=== PATIENT | female | born 1970 | race Caucasian/White ===

== ENCOUNTER → 2016-04-24 | Outpatient (CLI) | payer OTHER ==
[~2016-04-24] MED LIST: ATV1 PO; GLC/500 PO; INSDGI SC; NVLGI SC; RXC5 PO; SIMV20TA2 PO; VENL150C56 PO
--- NOTE | 2016-04-24 16:36 | MAMMOGRAPHY REPORT ---
BILATERAL DIGITAL DIAGNOSTIC MAMMOGRAM TOMOSYNTHESIS WITH CAD AND TARGETED LEFT ULTRASOUND: 7 CLINICAL HISTORY: Annual bilateral screening mammogram. History of interval surgical excision/incis ion and drainage and duct exploration in the subareolar left breast. TECHNIQUE: Bilateral breast tomosynthesis in addition to standard 2D mammography was performed. A r epeat left CC view was performed with the nipple in profile. Current study was also evaluated with a Computer Aided Detection (CAD) system. COMPARISON: Comparison is made to exams dated: 03/09/2015 ultrasound, 03/09/2015 mammogram, 05/05/2013 mammogram, 11/14/2011 mammogram, 04/05/2009 mammogram, and 07/21/2014 mammogram - [facility]. BREAST COMPOSITION: The tissue of both breasts is almost entirely fatty. FINDINGS: There is a 6.8 x 17.0 mm density in the subareolar left breast just deep to the nipple vianney t is decreased in size in prominence comparing to the spot compression view obtained 03/09/2015 in t he area of prior surgeries and subareolar abscess. There are a few scattered benign-appearing micro calcifications bilaterally. No new suspicious mass, architectural distortion or cluster of microcal cifications is seen in either breast. Targeted ultrasound was performed in the subareolar and periareolar left breast. The patient report s continued small amount of pus that she is able to express from her nipple and also occasionally al anjelica the periareolar incision. There is prominent soft tissue in the retroareolar left breast extend ing into the lower inner subareolar region deep to the surgical scar. 1 ovoid area in particular ap pears more hypoechoic than the remainder of the tissue, measuring approximately 1.5 cm in greatest d imension, but this is thought to represent inverted nipple as opposed to residual drainable fluid co llection. IMPRESSION: ACR BI-RADS CATEGORY 2: BENIGN, TARGETED ULTRASOUND ACR BI-RADS CATEGORY 2: BENIGN There is no mammographic evidence of malignancy bilaterally. A chronic left subareolar abscess is l ess prominent comparing to the 03/09/2015 mammograms and ultrasound. However, clinical follow-up is recommended. If the patient notices an increase or worsening of symptoms, repeat targeted ultrasou nd and/or repeat evaluation by her breast surgeon is recommended. Otherwise recommend bilateral mamm ography in one year. Approximately 10% of breast cancers are not detected with mammography. A negative mammographic repor t should not delay biopsy if a clinically suggestive mass is present. Chyna Garcia M.D. ay/:04/24/2016 16:33:06 [employer]planter Orchid: Devora ALLEN)([place]ued[place]), [facility] letter sent: Normal 1/2 BI-RADS Code: ACR BI-RADS Category 2: Benign Ultrasound BI-RADS: ACR BI-RADS Category 2: Benign
== END | disposition home or self-care (01) ==
LOC: C.MAMM 13:39
PROVIDERS: ATTEND Surgery
DX: N64.89 Other specified disorders of breast (principal)

== ENCOUNTER 2023-04-30 08:02 | Inpatient (IN) ==
--- NOTE | 2023-04-30 08:48 | Emergency Department Note ---
History of Present Illness General Chief complaint: Illness Stated complaint: REF BY [facility], FEVER, KIDNEY PAIN, SOB, WEAKNESS Time Seen by Provider: 04/30/23 08:16 History of Present Illness Maximum Pain Intensity: 8 This is a 52-year-old female that presents to the emergency department via private vehicle with complaints of "fever, back pain, shortness of breath, weakness". The patient notes that 1 week ago she began having bilateral back pain. She then progressed to sinus congestion, and tried using Sudafed for her symptoms. She notes progressive weakness and feeling tired. For the past 3 days she has been in bed and feeling weak. She also notes last night chest pain with that has resolved and now is more of a chest tightness. She feels short of breath. She cannot cough secondary to feeling short of breath. She has been trying [place] as well. Last night temperature was 100.6 F. She notes a history of diabetes, hypertension, ankylosing spondylitis, left breast surgery, left finger surgery, partial hysterectomy, neck surgery, fusion, rotator cuff surgery, over removal x 1, carpal tunnel surgery. She notes allergies to penicillin/Bactrim. She also notes a dry sensation in her throat/throat pain. Home Medications Medication Instructions Recorded Confirmed Type ascorbic acid (vitamin C) 500 mg 500 mg PO BID 04/30/23 04/30/23 History tablet (Vitamin C) gabapentin 300 mg capsule 300 mg PO TID 04/30/23 04/30/23 History insulin aspart U-100 100 unit/mL See Rx Instructions .Route .COMPLEX 04/30/23 04/30/23 History subcutaneous solution (Novolog U-100 Insulin aspart) melatonin 12 mg tablet 12 mg PO HS 04/30/23 04/30/23 History vit no.95-ferrous 1 tab PO DAILY 04/30/23 04/30/23 History fumarate 28 mg-folic acid 800 mcg tablet () semaglutide 1 mg/dose (4 mg/3 mL) 2 mg subcut WK 04/30/23 04/30/23 History subcutaneous pen injector (Ozempic) simvastatin 40 mg tablet 40 mg PO HS 04/30/23 04/30/23 History venlafaxine 150 mg 150 mg PO DAILY 04/30/23 04/30/23 History capsule,extended release 24 hr venlafaxine 75 mg tablet 75 mg PO QPM 04/30/23 04/30/23 History zolpidem 5 mg tablet 5 mg PO HS Sleep 04/30/23 04/30/23 History Allergies Allergy/AdvReac Type Severity Reaction Status Date / Time Penicillins Allergy Severe RASH, Verified 10/18/14 15:02 CHEST HEAVINESS, SOB sulfamethoxazole Allergy Intermediate Rash Unverified 04/30/23 11:11 [From Bactrim] trimethoprim [From Bactrim] Allergy Intermediate Rash Unverified 04/30/23 11:11 Past Med/Surg History Medical History (Updated 04/30/23 @ 14:03 by Rowdy Lou PA-C) Diabetes mellitus, type 2 Tobacco abuse Depression Dyslipidemia Surgical History S/P hysterectomy S/P carpal tunnel release Social History Smoking Status: Current every day smoker Tobacco Type: Cigarettes Feels Safe at Home: Yes Review of Systems A total of 10 systems reviewed and were otherwise negative Physical Exam Vital Signs Vital Signs - 24 hr 04/30/23 08:05 04/30/23 08:42 04/30/23 08:48 Temperature 36.1 C L Temperature Source Temporal Artery Scan Pulse Rate 110 H 97 H Pulse Rate from SpO2 Sensor 98 H Respiratory Rate 18 15 Respiratory Effort / Characteristics Non-Labored Respiratory Depth Normal Respiratory Pattern Regular Blood Pressure 114/75 119/74 Blood Pressure Mean 88 89 Pulse Oximetry 98 98 98 Oxygen Delivery Method Room Air Room Air Sepsis Recent Fever Within 48 Hours No Sepsis New/Unexplained Change in Mental Status N/A Sepsis Action Taken by Nursing No Action Required 04/30/23 08:49 04/30/23 10:10 04/30/23 10:14 Temperature 38.2 C H Temperature Source Axillary Pulse Rate 99 H 109 H Pulse Rate from SpO2 Sensor 107 H Respiratory Rate 18 Respiratory Effort / Characteristics Respiratory Depth Respiratory Pattern Blood Pressure Blood Pressure Mean Pulse Oximetry 94 Oxygen Delivery Method Sepsis Recent Fever Within 48 Hours Sepsis New/Unexplained Change in Mental Status Sepsis Action Taken by Nursing 04/30/23 11:20 04/30/23 11:41 04/30/23 12:00 Temperature Temperature Source Pulse Rate 95 H 100 H 90 Pulse Rate from SpO2 Sensor 96 H 89 90 Respiratory Rate 18 21 13 Respiratory Effort / Characteristics Respiratory Depth Respiratory Pattern Blood Pressure 115/76 122/75 Blood Pressure Mean 89 90 Pulse Oximetry 95 95 96 Oxygen Delivery Method Sepsis Recent Fever Within 48 Hours Sepsis New/Unexplained Change in Mental Status Sepsis Action Taken by Nursing 04/30/23 12:05 04/30/23 12:30 04/30/23 13:23 Temperature 37.6 C H Temperature Source Oral Pulse Rate 86 85 Pulse Rate from SpO2 Sensor 86 Respiratory Rate 18 Respiratory Effort / Characteristics Respiratory Depth Respiratory Pattern Blood Pressure 109/74 Blood Pressure Mean 85 Pulse Oximetry 92 Oxygen Delivery Method Sepsis Recent Fever Within 48 Hours Sepsis New/Unexplained Change in Mental Status Sepsis Action Taken by Nursing VITAL SIGNS - Vital signs and nursing notes were reviewed. Stable and afebrile. Tachycardic on arrival. GENERAL -52-year-old female appearing her stated age who is in no acute distress but appears mildly ill and does have visible chills/mild rigors on exam. Communicates well with provider and answers questions appropriately. SKIN - Without rashes. Stable and afebrile. HEAD - NC/AT. EYES - PERRL with EOMI bilaterally. Sclera anicteric. EARS - No deformities of external structures noted on gross examination bilaterally. no evidence of otitis media or otitis externa NOSE - Midline and without cyanosis. No epistaxis or purulent drainage noted. MOUTH/OROPHARYNX - Without perioral cyanosis. Buccal mucosa pink and moist and without leukoplakia. Tongue midline with equal elevation of palate bilaterally. No tonsillar hypertrophy, erythema, or exudates noted. Good dentition noted. NECK - Neck with FROM. Supple to palpation. Lymphadenopathy noted. No nuchal rigidity. LUNGS - Chest wall symmetric without accessory muscle use, intercostals retractions, or central cyanosis. Normal vesicular breath sounds CTA B/L. No wheezes, rales, or rhonchi appreciated. CARDIAC - RRR ABDOMEN - Abdominal contour normal without pulsations or visible masses. BS normoactive all four quadrants. No tenderness, palpable masses, hepatosplenomegaly, or ascites noted. EXTREMITIES - No clubbing or peripheral cyanosis. +5/5 strength noted in UE/LE bilaterally. NEUROLOGIC - Cranial nerves II through XII grossly intact. PSYCH - A&Ox3 and cooperates fully with examiner. Pt is very pleasant and interacts well with examiner. Course Administered Medications Discontinued Medications Acetaminophen (Acetaminophen 325 Mg Tab) 650 mg PO NOW STA Stop: 04/30/23 10:32 Last Admin: 04/30/23 10:42 Dose: 650 mg Documented By: [facility] Sodium Chloride (Nss) 1,000 mls @ 999 mls/hr IV .Q1H1M MICHELLE Stop: 04/30/23 10:00 Last Infusion: 04/30/23 10:44 Dose: Infused Documented By: [facility] Admin: 04/30/23 08:53 Dose: 999 mls/hr Documented By: [facility] Cefepime HCl (Maxipime) 2,000 mg in 20 mls @ 5 mls/min IV NOW STA; Protocol Stop: 04/30/23 11:50 Last Admin: 04/30/23 11:58 Dose: 5 mls/min Documented By: [facility] Ketorolac Tromethamine (Ketorolac Tromethamine 15 Mg/Ml Vial) 10 mg IV NOW ONE Stop: 04/30/23 10:32 Last Admin: 04/30/23 10:42 Dose: 10 mg Documented By: [facility] Medical Decision Making Laboratory Data 04/30/23 08:55 04/30/23 08:55 Lab Results 04/30/23 04/30/23 04/30/23 Range/Units 08:44 08:55 09:50 WBC 9.53 (4.8-10.8) K/ul RBC 3.94 L (4.20-5.40) M/uL Hgb 10.9 L (12.0-16.0) g/dl Hct 33.2 L (37.0-47.0) % MCV 84.3 (80.0-100.0) fL MCH 27.7 (25.0-34.0) pg MCHC 32.8 (32.0-36.0) g/dL RDW Std Deviation 36.8 (36.4-46.3) fL RDW Coeff of Norberto 12.1 (11.5-14.5) % Plt Count 252 (130-400) K/uL MPV 10.7 (9.4-12.4) fL Immature Gran % (Auto) 0.4 % Neut % (Auto) 78.6 % Lymph % (Auto) 9.0 % [place] % (Auto) 11.4 % Eos % (Auto) 0.4 % Baso % (Auto) 0.2 % Neut # (Auto) 7.48 H (1.40-6.50) K/uL Lymph # (Auto) 0.86 L (1.20-3.40) K/uL [place] # (Auto) 1.09 H (0.11-0.59) K/uL Eos # (Auto) 0.04 (0.00-0.50) K/uL Baso # (Auto) 0.02 (0.00-0.20) K/uL Immature Gran # (Auto) 0.04 (0.01-0.20) K/uL PT 10.9 (9.0-12.0) Seconds INR 1.0 (0.9-1.1) APTT 29 (21-31) Seconds PTT Ratio 1.0 Sodium 132 L (136-145) mmol/L Potassium 4.2 (3.5-5.1) mmol/L Chloride 98 (98-107) mmol/L Carbon Dioxide 28 (21-32) mmol/L Anion Gap 6 (3-11) BUN 14 (6-23) mg/dl Creatinine 0.75 (0.6-1.2) mg/dl Est Cr Clr Drug Dosing 76.4 ml/min Est GFR ( Amer) 106.2 ml/min Est GFR (Non-Af Amer) 91.6 ml/min BUN/Creatinine Ratio 18.7 (10-20) Glucose 257 H (70-99(Fasting)) mg/dl Lactate 0.8 (0.4-2.0) mmol/L Calcium 8.8 (8.6-10.3) mg/dl Total Bilirubin 0.3 (0.2-1.0) mg/dl AST 27 (13-39) U/L ALT 44 (7-52) U/L Alkaline Phosphatase 95 (34-104) U/L Troponin I High Sens 4.0 (0-14) pg/ml Total Protein 6.5 (6.0-8.3) gm/dl Albumin 3.6 (3.4-5.0) gm/dl Globulin 2.9 (2.5-4.0) gm/dl Albumin/Globulin Ratio 1.2 (0.9-2) Lipase 36 (11-82) U/L Procalcitonin 0.16 (0-0.5) ng/ml TSH 0.514 (0.300-4.500) uIu/ml Urine Color Urine Appearance (Clear) Urine pH (4.5-7.5) Ur Specific [place] (1.000-1.030) Urine Protein (Negative) Urine Glucose (UA) (Negative) Urine Ketones (Negative) Urine Blood (Negative) Urine Nitrite (Negative) Urine Bilirubin (Negative) Urine Urobilinogen (Negative) Ur Leukocyte Esterase (Negative) Urine WBC (Auto) (0-5) /hpf Urine RBC (Auto) (0-4) /hpf U Hyaline Cast (Auto) (0-5) /lpf U Epithel Cells (Auto) (0-5) /lpf Urine Bacteria (Auto) (Negative) Adenovirus (PCR) Not Detected (NotDetected) B. pertussis DNA (PCR) Not Detected (NotDetected) B.parapertussis DNA PCR Not Detected (NotDetected) C. pneumoniae DNA (PCR) Not Detected (NotDetected) Coronavirus OC43 (PCR) Not Detected (NotDetected) Coronavirus HKU1 (PCR) Not Detected (NotDetected) Coronavirus 229E (PCR) Not Detected (NotDetected) SARS-CoV-2 (PCR) Not Detected (NotDetected) Coronavirus NL63 (PCR) Not Detected (NotDetected) Human Metapneumovir PCR Not Detected (NotDetected) Influenza Type A (PCR) Not Detected (NotDetected) Influenza Type B (PCR) Not Detected (NotDetected) M. pneumoniae (PCR) Not Detected (NotDetected) Parainfluenza 1 (PCR) Not Detected (NotDetected) Parainfluenza 2 (PCR) Not Detected (NotDetected) Parainfluenza 3 (PCR) Not Detected (NotDetected) Parainfluenza 4 (PCR) Not Detected (NotDetected) RSV (PCR) Not Detected (NotDetected) Entero/Rhino (PCR) Not Detected (NotDetected) Group A Strep (PCR) NOT DETECTED (NotDetected) 04/30/23 Range/Units 10:30 WBC (4.8-10.8) K/ul RBC (4.20-5.40) M/uL Hgb (12.0-16.0) g/dl Hct (37.0-47.0) % MCV (80.0-100.0) fL MCH (25.0-34.0) pg MCHC (32.0-36.0) g/dL RDW Std Deviation (36.4-46.3) fL RDW Coeff of Norberto (11.5-14.5) % Plt Count (130-400) K/uL MPV (9.4-12.4) fL Immature Gran % (Auto) % Neut % (Auto) % Lymph % (Auto) % [place] % (Auto) % Eos % (Auto) % Baso % (Auto) % Neut # (Auto) (1.40-6.50) K/uL Lymph # (Auto) (1.20-3.40) K/uL [place] # (Auto) (0.11-0.59) K/uL Eos # (Auto) (0.00-0.50) K/uL Baso # (Auto) (0.00-0.20) K/uL Immature Gran # (Auto) (0.01-0.20) K/uL PT (9.0-12.0) Seconds INR (0.9-1.1) APTT (21-31) Seconds PTT Ratio Sodium (136-145) mmol/L Potassium (3.5-5.1) mmol/L Chloride (98-107) mmol/L Carbon Dioxide (21-32) mmol/L Anion Gap (3-11) BUN (6-23) mg/dl Creatinine (0.6-1.2) mg/dl Est Cr Clr Drug Dosing ml/min Est GFR ( Amer) ml/min Est GFR (Non-Af Amer) ml/min BUN/Creatinine Ratio (10-20) Glucose (70-99(Fasting)) mg/dl Lactate (0.4-2.0) mmol/L Calcium (8.6-10.3) mg/dl Total Bilirubin (0.2-1.0) mg/dl AST (13-39) U/L ALT (7-52) U/L Alkaline Phosphatase (34-104) U/L Troponin I High Sens (0-14) pg/ml Total Protein (6.0-8.3) gm/dl Albumin (3.4-5.0) gm/dl Globulin (2.5-4.0) gm/dl Albumin/Globulin Ratio (0.9-2) Lipase (11-82) U/L Procalcitonin (0-0.5) ng/ml TSH (0.300-4.500) uIu/ml Urine Color Yellow Urine Appearance Cloudy A (Clear) Urine pH 8.0 H (4.5-7.5) Ur Specific [place] 1.013 (1.000-1.030) Urine Protein Trace H (Negative) Urine Glucose (UA) 1+ H (Negative) Urine Ketones Trace H (Negative) Urine Blood Negative (Negative) Urine Nitrite Positive A (Negative) Urine Bilirubin Negative (Negative) Urine Urobilinogen Negative (Negative) Ur Leukocyte Esterase 1+ H (Negative) Urine WBC (Auto) >30 H (0-5) /hpf Urine RBC (Auto) 0-4 (0-4) /hpf U Hyaline Cast (Auto) 1-5 (0-5) /lpf U Epithel Cells (Auto) 10-20 H (0-5) /lpf Urine Bacteria (Auto) 3+ H (Negative) Adenovirus (PCR) (NotDetected) B. pertussis DNA (PCR) (NotDetected) B.parapertussis DNA PCR (NotDetected) C. pneumoniae DNA (PCR) (NotDetected) Coronavirus OC43 (PCR) (NotDetected) Coronavirus HKU1 (PCR) (NotDetected) Coronavirus 229E (PCR) (NotDetected) SARS-CoV-2 (PCR) (NotDetected) Coronavirus NL63 (PCR) (NotDetected) Human Metapneumovir PCR (NotDetected) Influenza Type A (PCR) (NotDetected) Influenza Type B (PCR) (NotDetected) M. pneumoniae (PCR) (NotDetected) Parainfluenza 1 (PCR) (NotDetected) Parainfluenza 2 (PCR) (NotDetected) Parainfluenza 3 (PCR) (NotDetected) Parainfluenza 4 (PCR) (NotDetected) RSV (PCR) (NotDetected) Entero/Rhino (PCR) (NotDetected) Group A Strep (PCR) (NotDetected) Imaging Data Radiologist's Impression: Chest X-Ray 04/30/23 08:47 XR chest 1V portable HISTORY: 52 years-old Female fever acute shortness breath with fever COMPARISON: 10/18/2014 TECHNIQUE: AP view the chest FINDINGS: Cardiomediastinal and hilar silhouettes are within normal limits. No pneumothorax, pleural effusion or airspace consolidation. Mild right hemidiaphragmatic elevation. Cervical spinal fusion hardware. Bones appear grossly intact. IMPRESSION: No acute process. ACT 112: Negative or not required by law. The above report was generated using voice recognition software. It may contain grammatical, syntax or spelling errors. Electronically signed by: Corby Cates M.D. 04/30/2023 9:45 AM Abdomen/Pelvis CT 04/30/23 10:57 CT SCAN OF THE ABDOMEN AND PELVIS WITHOUT IV CONTRAST CLINICAL HISTORY: Urinary tract infection. Fever. COMPARISON STUDY: No priors. TECHNIQUE: CT scan of the abdomen and pelvis is performed from the lung bases to the proximal femora. Images are reviewed in the axial, sagittal, and coronal planes. IV contrast was not administered for this examination. A dose lowering technique was utilized adhering to the principles of ALARA. CT DOSE: 688.98 mGy.cm FINDINGS: Lung bases: The heart is normal in size and without pericardial effusion. There is diminished attenuation of the cardiac blood pool as compared to the myocardium suggesting anemia. There is bibasilar scarring/atelectasis. No airspace consolidation or pleural effusion is identified. There is a tiny hiatal hernia. Liver: The unenhanced liver is normal in size, contour, and attenuation. There is mild central intrahepatic biliary ductal dilatation. Gallbladder: Surgically absent noting clips in the gallbladder fossa. Spleen: Normal in size and attenuation. There are calcified splenic granulomas. Pancreas: The unenhanced pancreas is grossly unremarkable. Adrenal glands: Unremarkable. Kidneys: The unenhanced kidneys are normal in size. There is mild right-sided hydronephrosis with right-sided perinephric inflammation and fluid. Urothelial thickening is noted in the right renal pelvis and right ureter. No hydronephrosis is seen in the left kidney. No renal calculi are identified and there is no ureteral stone. There is no evidence of contour deforming renal mass lesion. Abdominal vasculature: The abdominal aorta is normal in course and caliber noting mild atherosclerotic calcification. Bowel: There is moderate colonic fecal retention. No bowel obstruction is seen. The appendix is well-visualized and normal. Peritoneum: There is no intraperitoneal free air or abdominal ascites. Lymphadenopathy: None. Pelvic viscera: The bladder wall appears circumferentially thickened. The uterus is surgically absent. No adnexal lesion is seen. Skeletal structures: The skeletal structures are osteopenic. Mild degenerative change is noted in the spine. There is degenerative sclerosis of the sacroiliac joints. No lytic or blastic lesions are seen. IMPRESSION: 1. There is mild right-sided hydronephrosis with right-sided perinephric stranding and fluid as detailed above. No obstructing stone is identified. This could represent the sequelae of a recently passed kidney stone, or could potentially be seen with ascending urinary tract infection. Correlation with clinical findings and urinalysis will be essential. 2. No renal calculi are identified in either kidney. There is no left-sided hydronephrosis. 3. The bladder wall appears circumferentially thickened. Again, this should be correlated with clinical findings and urinalysis. 4. Moderate constipation. 5. Additional findings as above. ACT 112: Negative or not required by law. Electronically signed by: Israel Elizabeth M.D. 04/30/2023 11:59 AM MDM Narrative Patient was seen and evaluated as above in room A10. Review was performed of nursing notes and vital signs. After obtaining a thorough history and physical examination the above work up was performed. Patient presents to us today for evaluation of fever, back pain, shortness of breath, weakness. She is mildly ill-appearing. Options of care were discussed with the patient. IV access was established. Patient is now febrile. She is in pain. At this time to treat the fever we will proceed with oral acetaminophen and patient aware that she will need to utilize additional methods to check her glucose other than her continuous glucose monitor/Dexcom noting the likely interaction with acetaminophen. Furthermore, we will also proceed with a small dose of IV Toradol. I thoroughly discussed benefit versus risk with the patient of these medications and through shared decision making we will proceed. It is felt that the benefit outweighs risk. Labs were drawn. Labs reveal no leukocytosis. Mild anemia noted with hemoglobin at 10.9. Coags normal. Mild hyponatremia 132. Hyperglycemia 257. Troponin within normal range. Lipase normal. Procalcitonin 0.16. TSH reveals euthyroid state. Urinalysis reveals infection. BioFire panel negative. Strep test was performed as she did have a sore/dry throat. This was negative. CT scan was obtained of the abdomen/pelvis. There is concern for ascending urinary tract infection. There is no obstructing stone seen. IV cefepime was ordered after discussing benefit versus risk with the patient. No reaction noted. EKG here reveals normal sinus rhythm at a rate of 99 bpm. QTc 436. QRS 84. Chest x-ray here was negative for acute process. At this time I do believe that inpatient management is warranted noting a standing urinary tract infection and her symptoms today. Case discussed with the hospitalist service. Please refer to further documentation regarding her stay. In the evaluation and treatment of this patient the following differential diagnoses were entertained: UTI, pyelonephritis, bacteremia, sepsis, obstructing kidney stone, among others Impression & Plan Pyelonephritis, Fever Discharge Plan Visit Data Chief Complaint: Illness Stated Complaint: REF BY [facility], FEVER, KIDNEY PAIN, SOB, WEAKNESS ED Provider: Pipe Diez ED Midlevel Provider: Rowdy Lou Discharge Problem: Pyelonephritis, Fever Patient Disposition: Admitted As Inpatient Condition: Good Forms Stand Alone Forms: My [facility], Important Visit Information Prescriptions Prescriptions: No Action venlafaxine [Effexor] 75 mg Tablet 75 mg PO QPM insulin aspart U-100 [Novolog U-100 Insulin aspart] 100 unit/mL solution See Rx Instructions .ROUTE .COMPLEX Rx Instructions: as directed; pump gabapentin 300 mg capsule 300 mg PO TID Rx Instructions: usually takes twice a day, forgets the noon dose. zolpidem 5 mg tablet 5 mg PO HS Ozempic 1 mg/dose (4 mg/3 mL) pen injector 2 mg SUBCUT WK simvastatin 40 mg tablet 40 mg PO HS venlafaxine 150 mg capsule,extended release 24hr 150 mg PO DAILY ascorbic acid (vitamin C) [Vitamin C] 500 mg Tablet 500 mg PO BID PNV cmb#95-ferrous fumarate-FA [] 28 mg iron- 800 mcg Tablet 1 tab PO DAILY melatonin 12 mg Tablet 12 mg PO HS Referrals Referrals: Kalpesh Padilla PA-C [Outside Practitioners] -
[2023-04-30] MEDS: SODIUM CHLORIDE 0.9% 1,000 ML IV SCH ×3 (08:53→18:20)
[2023-04-30 09:25] LABS: Basophils # (auto) 0.02 K/uL (0.00-0.20); Basophils % (auto) 0.2 %; Eosinophils # (auto) 0.04 K/uL (0.00-0.50); Eosinophils % (auto) 0.4 %; Hematocrit (blood only) 33.2 % (37.0-47.0); Hemoglobin 10.9 g/dl (12.0-16.0); Immature Granulocytes # (auto) 0.04 K/uL (0.01-0.20); Immature Granulocytes % (auto) 0.4 %; Lymphocytes # (auto) 0.86 K/uL (1.20-3.40); Mean Corpuscular Hemoglobin 27.7 pg (25.0-34.0); Mean Corpuscular Hgb Conc 32.8 g/dL (32.0-36.0); Mean Corpuscular Volume 84.3 fL (80.0-100.0); Mean Platelet Volume 10.7 fL (9.4-12.4); Monocytes # (auto) 1.09 K/uL (0.11-0.59); Monocytes % (auto) 11.4 %; Neutrophils # (auto) 7.48 K/uL (1.40-6.50); Neutrophils % (auto) 78.6 %; Platelet Count 252 K/uL (130-400); RDW Coefficient of Variation 12.1 % (11.5-14.5); RDW Standard Deviation 36.8 fL (36.4-46.3); Red Blood Count 3.94 M/uL (4.20-5.40); White Blood Count 9.53 K/ul (4.8-10.8)
[2023-04-30 09:41] LABS: Albumin Globulin Ratio 1.2 (0.9-2); Albumin Level 3.6 gm/dl (3.4-5.0); BUN Creatinine Ratio 18.7 (10-20); Bilirubin,Total 0.3 mg/dl (0.2-1.0); Calcium 8.8 mg/dl (8.6-10.3); Creatinine Clr Calc Pharmacy 76.4 ml/min; Est GFR (African American) 106.2 ml/min; Est GFR (Non-African American) 91.6 ml/min; Globulin 2.9 gm/dl (2.5-4.0); Potassium 4.2 mmol/L (3.5-5.1); Total Protein 6.5 gm/dl (6.0-8.3)
--- NOTE | 2023-04-30 09:46 | XRay Report ---
XR chest 1V portable HISTORY: 52 years-old Female fever acute shortness breath with fever COMPARISON: 10/18/2014 TECHNIQUE: AP view the chest FINDINGS: Cardiomediastinal and hilar silhouettes are within normal limits. No pneumothorax, pleural effusion o r airspace consolidation. Mild right hemidiaphragmatic elevation. Cervical spinal fusion hardware. Evaristo sagar appear grossly intact. IMPRESSION: No acute process. ACT 112: Negative or not required by law. The above report was generated using voice recognition software. It may contain grammatical, syntax o r spelling errors. Electronically signed by: Corby Cates M.D. 04/30/2023 9:45 AM
[2023-04-30 09:53] LABS: Partial Thromboplastin Time 29 Seconds (21-31); Prothrombin Time 10.9 Seconds (9.0-12.0)
[2023-04-30 09:57] LABS: Thyroid Stimulating Hormone 0.514 uIu/ml (0.300-4.500)
[2023-04-30 10:29] LABS: Adenovirus PCR Not Detected (NotDetected); Bordetella parapertussis PCR Not Detected (NotDetected); Bordetella pertussis PCR Not Detected (NotDetected); Chlamydia pneumoniae PCR Not Detected (NotDetected); Coronavirus 229E PCR Not Detected (NotDetected); Coronavirus CoV-2 (COVID19)PCR Not Detected (NotDetected); Coronavirus HKU1 PCR Not Detected (NotDetected); Coronavirus NL63 PCR Not Detected (NotDetected); Coronavirus OC43PCR Not Detected (NotDetected); Human Metapneumovirus PCR Not Detected (NotDetected); Influenza A PCR Not Detected (NotDetected); Influenza B PCR Not Detected (NotDetected); Mycoplasma pneumoniae PCR Not Detected (NotDetected); Parainfluenza Virus 1 PCR Not Detected (NotDetected); Parainfluenza Virus 2 PCR Not Detected (NotDetected); Parainfluenza Virus 3 PCR Not Detected (NotDetected); Parainfluenza Virus 4 PCR Not Detected (NotDetected); Respiratory Syncytial VirusPCR Not Detected (NotDetected); Rhinovirus/Enterovirus PCR Not Detected (NotDetected)
[2023-04-30] MEDS: KETOROLAC TROMETHAMINE 15 MG/ML VIAL IV ONE (10:42)
[2023-04-30] MEDS: ACETAMINOPHEN 325 MG TAB PO STA (10:42)
[2023-04-30 10:55] LABS: Appearance Urine Cloudy (Clear); Bacteria Urine Automated 3+ (Negative); Bilirubin Urine Negative (Negative); Blood Urine Negative (Negative); Color Urine Yellow; Glucose Urine UA 1+ (Negative); Ketones Urine Trace (Negative); Leukocyte Esterase Urine 1+ (Negative); Nitrite Urine Positive (Negative); Protein Urine Trace (Negative); RBC Urine Automated 0-4 /hpf (0-4); Specific Gravity Urine 1.013 (1.000-1.030); Urobilinogen Urine Negative (Negative); WBC Urine Automated >30 /hpf (0-5)
--- OUTSIDE RECORDS SUMMARY | 2023-04-30 11:29 | External Medical Summary | Summary of Care ---
Author Name Unknown Organization [facility] Address [address] [facility] [place] [address] Phone [phone] Care Team Providers Care Sales Department Supervisor Name Role Phone Dasha Krueger Primary Care Provider Reason for Visit * Reason Comments Post-Op Left trigger finger release excise tendon sheath Left Encounter Details Date Type Department Care Team (Late st Contact Info) Description 04/10/2023 10:30 AM EST Office Visit Orthopaedics [facility] [address] [place] [address] Pranav Mcgowan MD [address] [place] [address] Trigger middle finger of left hand* Allergies Active Allergy Reactions Criticality Noted Date Comments Sulfamethoxazole-Trimethoprim Rash High 2015 Penicillins 01/24/2001 augmentin gave rash documented as of this encounter (statuses as of 04/10/2023) Medications Medication Sig Dispensed Refills Start Date End Date Status BLOOD GLUCOSE MONITOR SYSTEM W/DEVICE KITIndications:DM type 2, goal A1c below 7 measure and record glucose three times daily 1 Kit 0 12/21/2013 Active insulin aspart (INSULIN ASPART) 100 UNIT/ML injectionIndicatio ns:Type 2 diabetes mellitus with hemoglobin A1c goal of less than 7.0% (HCC) Use up to 50 units per day in insulin pump 1 Vial 0 01/20/2018 Active Ascorbic Acid (VITAMIN C) 1000 MG Tablet Take 1 Tablet by mouth in the morning. 0 Active Venlafaxine HCl ER 75 MG Oral Capsule Extended Release 24 Hour (Effexor XR) Take 1 Capsule by mouth in the morning. WITH 150mg dose - [facility] dose [facility] 90 Capsule 0 01/23/2021 Active Ozempic (1 MG/DOSE) 4 MG/3ML Subcutaneous Solution Pen-injector (Semaglutide (1 MG/DOSE)) Inject 1 mg under the skin once a week. PLEASE FILL BABITA 9 mL 3 01/26/2022 Active Additional Information Patient taking differently: 2 mgSubcutaneous QWEEK, PLEASE FILL BABITA, Reported on 02/04/2023 Accu-Chek Guide In Vitro Strip (Glucose Blood) Use to test twice daily DX E11.9 200 Strip 3 02/22/2022 Active Accu-Chek FastClix Lancets Use to test twice daily DX E11.9 200 Each 3 02/22/2022 Active Venlafaxine HCl ER 150 MG Oral Capsule Extended Release 24 Hour (Effexor XR)Indications:Dep ression with anxiety TAKE 1 CAPSULE BY MOUTH DAILY. DO NOT CUT, CRUSH OR CHEW 90 Capsule 1 04/10/2022 Active Simvastatin 40 MG Oral Tablet (Zocor)Indications :Elevated glucose,Dyslipidem ia, goal LDL below 160 Take 1 Tablet by mouth every evening. 90 Tablet 1 04/09/2022 Active One-A-Day Womens 50+ Oral Tablet Take 1 Tablet by mouth in the morning. 0 Active Lisinopril 5 MG Oral Tablet (Prinivil) TAKE 1 TABLET BY MOUTH EVERY DAY IN THE MORNING 90 Tablet 1 05/20/2022 Active Gabapentin 300 MG Oral Capsule (Neurontin)Indicat ions:Neuropathy Take 1 Capsule by mouth in the morning and 1 Capsule at noon and 1 Capsule before bedtime. 270 Capsule 1 06/04/2022 Active Cetirizine HCl 10 MG Oral Capsule Take 1 Capsule by mouth in the morning. 0 Active Biotin 5000 MCG Oral Tablet Take 1 Tablet by mouth in the morning and 1 Tablet at noon and 1 Tablet before bedtime. 0 Active Zolpidem Tartrate 5 MG Oral Tablet (Ambien) Take 1 Tablet by mouth at bedtime as needed for Sleep. 0 Active Omeprazole 20 MG Oral Capsule Delayed Release (PriLOSEC)Indicati ons:Abdominal pain, epigastric TAKE 1 CAPSULE BY MOUTH EVERY DAY 1 HOUR BEFORE THE FIRST MEAL OF THE DAY 90 Capsule 1 08/22/2022 Active Celecoxib 100 MG Oral Capsule (CeleBREX) Take 1 Capsule by mouth in the morning and 1 Capsule before bedtime. 28 Capsule 0 03/11/2023 Active Acetaminophen-Code ine 300-30 MG Oral Tablet Take 1 Tablet by mouth every 4 hours as needed for Pain, Moderate. May take 2 tablets for severe pain. 10 Tablet 1 04/03/2023 Active documented as of this encounter (statuses as of 04/10/2023) Active Problems Problem Noted Date Diagnosed Date Trigger middle finger of left hand 03/15/2023 Hemorrhoids, external without complications 02/27 Diarrhea 03/27/2022 Sacroiliitis 03/27/2022 Major depressive disorder, s melvi episode, in full remission 03/27/2022 Ankylosing spondylitis of lumbosacral region Nocturnal hypoxemia 12/04/2018 Periodic limb movement disorder (PLMD) 9 Type 2 diabetes mellitus wit h diabetic neuropathy, unspecified 07/22/2018 WILLA (obstructive sleep apnea) 03/26/2018 Chronic nonspecific lung disease 07/23/2017 GENERALIZED ANXIETY DIS 01/23/2006 Major depressive disorder 01/23/2006 Overview: ICD-10 update of inactive term ADVANCE DIRECTIVE INFORMATION 02/14/2005 Overview: No, Advance Directive brochure given to patient at prior appointment. 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 0 to 44.9 in adult 09/01/2018 03/27/2022 Overview: Per Obesity protocol WILLA (obstructive sleep apnea) 03/26/2018 03/10/2019 Type 2 diabetes mellitus wit h hemoglobin A1c goal of less than 7.0% 12/21/2013 09/20/2020 Overview: ICD-10 update of inactive term Other disorder of menstruati on and other abnormal bleeding from female genital tract 12/01/2001 10/30/2005 documented as of this encounter (statuses as of 04/10/2023) Immunizations Name Administration Dates Next Due COVID-19 mRNA, LNP-s, No Pre serve, 2-Dose Series (Moderna) 12/29/2020,12/01/2020 Hepatitis B, 20+ yrs 04/23/2019,03/16/2019 Pneumococcal Conjugate Vacc, 13 Valent (Prevnar) 01/26/2015 Pneumococcal Polysaccharide PPV23 (Pneumovax) 02/02/2016 Seasonal Influenza, PF, 6 M & above, IM , (FluLaval or Fluzone) 12/12/2018 Seasonal Influenza, Quadriva lent, No Preserve, IM 12/15/2015,01/26/2015 Seasonal Influenza, Quadriva lent,with Preserve, 3 yr & above, IM 11/02/2016 Seasonal Influenza, Split, I IV3, With Preserve, Inj 12/07/2013,12/12/2011,12/22/2009,01/06 TDAP (age 11 and older)(Adacel) 09/18/2007 documented as of this encounter Social History Tobacco Use Types Packs/Day Years Used Date Smoking Tobacco: Every Day Cigarettes 1 21 Smokeless Tobacco: Never Comments:decreased to 3 ciga rettes/daily 2 months ago- but restarted Alcohol Use Standard Drinks/Week Comments Yes 0 (1 standard drink = 0.6 oz pur e alcohol) very rare PHQ-2 Answer Date Recorded PHQ Adult Total Score 0 04/05/2021 Hunger Vital Sign Answer Date Recorded Within the past 12 months, y ou worried that your food would run out before you got the money to buy more. Never true 02/05/20 23 Within the past 12 months, t he food you bought just didn't last and you didn't have money to get more. Never true 02/04/2023 Sex and Gender Information Value Date Recorded Sex Assigned at Female 08/23/2022 2:02 PM EDT Gender Identity Female 08/23/2022 2:02 PM EDT Sexual Orientation Straight 08/23/2022 2: 02 PM EDT Job Start Date Occupation Industry Not on file Not on file Not on file documented as of this encounter Progress Notes * Pranav Mcgowan MD - 04/10/2023 10:47 AM EST She is 1 week status post release of her left middle finger trigger finger. She has no complaints. 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 ADVANCE DIRECTIVE INFORMATION GENERALIZED ANXIETY DIS F41.1 Major depressive disorder F32.9 Chronic nonspecific lung disease J98.4 WILLA (obstructive sleep apnea) G47.33 Type 2 diabetes mellitus with diabetic neuropathy, unspecified ([facility]) E11.40 Nocturnal hypoxemia G47.34 Periodic limb movement disorder (PLMD) G47.61 Ankylosing spondylitis of lumbosacral region ([facility]) M45.7 Hemorrhoids, external without complications K64.4 Diarrhea R19.7 Sacroiliitis ([facility]) M46.1 Major depressive disorder, single episode, in full remission ([facility]) F32.5 Trigger middle finger of left hand M65.332 Current Outpatient Medications Medication Sig Dispense Refill BLOOD GLUCOSE MONITOR SYSTEM W/DEVICE KIT measure and record glucose three times daily 1 Kit 0 insulin aspart (INSULIN ASPART) 100 UNIT/ML injection Use up to 50 units per day in insulin pump 1 Vial 0 Ascorbic Acid (VITAMIN C) 1000 MG Tablet Take 1 Tablet by mouth in the morning. Venlafaxine HCl ER 75 MG Oral Capsule Extended Release 24 Hour (Effexor XR) Take 1 Capsule by mouthin the morning. WITH 150mg dose - [facility] dose [facility]mg [facility] 90 Capsule 0 Ozempic (1 MG/DOSE) 4 MG/3ML Subcutaneous Solution Pen-injector (Semaglutide (1 MG/DOSE)) Inject 1 mg under the skin once a week. PLEASE FILL BABITA (Patient taking differently: Inject 2 mg under the skin once a week. PLEASE FILL BABITA) 9 mL 3 Accu-Chek Guide In Vitro Strip (Glucose Blood) Use to test twice daily DX E11.9 200 Strip 3 Accu-Chek FastClix Lancets Use to test twice daily DX E11.9 200 Each 3 Venlafaxine HCl ER 150 MG Oral Capsule Extended Release 24 Hour (Effexor XR) TAKE 1 CAPSULE BY MOUTH DAILY. DO NOT CUT, CRUSH OR CHEW 90 Capsule 1 Simvastatin 40 MG Oral Tablet (Zocor) Take 1 Tablet by mouth every evening. 90 Tablet 1 One-A-Day Womens 50+ Oral Tablet Take 1 Tablet by mouth in the morning. Lisinopril 5 MG Oral Tablet (Prinivil) TAKE 1 TABLET BY MOUTH EVERY DAY IN THE MORNING 90 Tablet 1 Gabapentin 300 MG Oral Capsule (Neurontin) Take 1 Capsule by mouth in the morning and 1 Capsule at noon and 1 Capsule before bedtime. 270 Capsule 1 Cetirizine HCl 10 MG Oral Capsule Take 1 Capsule by mouth in the morning. Biotin 5000 MCG Oral Tablet Take 1 Tablet by mouth in the morning and 1 Tablet at noon and 1 Tabletbefore bedtime. Zolpidem Tartrate 5 MG Oral Tablet (Ambien) Take 1 Tablet by mouth at bedtime as needed for Sleep. Omeprazole 20 MG Oral Capsule Delayed Release (PriLOSEC) TAKE 1 CAPSULE BY MOUTH EVERY DAY 1 HOUR BEFORE THE FIRST MEAL OF THE DAY 90 Capsule 1 Celecoxib 100 MG Oral Capsule (CeleBREX) Take 1 Capsule by mouth in the morning and 1 Capsule before bedtime. 28 Capsule 0 Acetaminophen-Codeine 300-30 MG Oral Tablet Take 1 Tablet by mouth every 4 hours as needed for Pain, Moderate. May take 2 tablets for severe pain. 10 Tablet 1 No current facility-administered medications for this visit. Review of patient's allergies indicates: Allergen Reactions Bactrim [Sulfamethoxazole-Trimethoprim] Rash Penicillins augmentin gave rash Past Medical History: Diagnosis Date Chronic rhinitis DM type 2, goal A1c below 7 12/21/2013 Hypercholesteremia Social History Tobacco Use Smoking status: Every Day Packs/day: 1.00 Years: 21.00 Additional pack years: 0.00 Total pack years: 21.00 Types: Cigarettes Smokeless tobacco: Never Tobacco comments: decreased to 3 cigarettes/daily 2 months ago- but restarted Substance Use Topics Alcohol use: Yes Comment: very rare Vaping/E-Cigarette Use Vaping/E-Cigarette Use Never User Vaping/E-Cigarette Substances Vaping/E-Cigarette Devices PHYSICAL EXAM: The wound is clean and dry. There is no sign of infection. There is no locking. Flexion is full. She lacks about 20 of full extension at the PIP joint. ASSESSMENT: Doing well 1 week postop. PLAN: Passive stretching exercises for the PIP joint were demonstrated. Wound care was discussed. She may advance her activities as tolerated. Follow-up will be on a p.r.n. basis. Pranav Mcgowan MD documented in this encounter Nursing Notes * Casys Krian LPN - 04/10/2023 10:41 AM EST .ch documented in this encounter Plan of Treatment Upcoming Encounters Date Type Department Care Team (Late st Contact Info) Description 09/10/2023 3:30 PM EDT Office Visit Rheumatology [place] [id number] [place] [address] Rebekah Harris CRNP [address] [employer] [employer] [place] [address] Health Maintenance Due Date Last Done Comments DISCUSS TOBACCO CESSATION (REFER TO SMARTSET #1552) 06/22/2015 06/21/2014 Fecal Occult Blood Test 10/01/2015 Sigmoidoscopy 10/01/2015 DTaP,Tdap,and Td Vaccines (2 - Td or Tdap) 09/17/2017 09/18/2007 Zoster Vaccines (1 of 2) 2020 Albumin/Creatinine Ratio 08/22/2021 021, 11/23/2019, 12/02/2017, Additional history exists Diabetic Foot Exam 09/20/2021 09/20/2020, 0 07/22/2018, 05/17/2017, Additional history exists Depression Screening 04/05/2022 04/05/2021 HbA1c 09/24/2022 03/27/2022, 11/27, 12/26/2020, Additional history exists COVID-19 Vaccine (3 - season) 2022 12/29/2020, 12/01/2020 Influenza Vaccine (FLU shot) (#1) 2022 12/12/2018, 11/02/2016, 12/15/2015, Additional history exists Mammogram 02/13/2023 02/13/2022, 01/26, 10/10/2020, Additional history exists GFR 03/27/2023 03/27/2022, 02/25, 12/25/2021, Additional history exists Diabetic Eye Exam 01/29/2024 01/28/2023, , 07/14/2021, Additional history exists Cologuard 06/19/2024 06/19/2021, 05/26, 06/13/2021 Lipid Panel 12/25/2026 12/25/2021, 11/0 02/2020, 08/22/2020, Additional history exists Colonoscopy 04/17/2032 04/17/2022, 04/17/2022 Colorectal Cancer Screening 04/17/2032 Pneumococcal Vaccine: Pediatrics (0 to 5 Years) and At-Risk Patients (6 to 64 Years) (3 - PPSV23 or PCV20) 10/01/2035 02/02/2016, 01/26/2015 LUNG CANCER SCREENING - USE SMARTSET 24643 Completed 07/12/2022, 06/28/2021 GARDASIL-HPV IMMUNIZATION SERIES Aged Out No longer eligible based on patient's age to complete this topic MENINGOCOCCAL (MENACTRA/MENVEO) Aged Out No longer eligible based on patient's age to complete this topic documented as of this encounter Medical Devices Not on filedocumented as of this encounter Visit Diagnoses Diagnosis Trigger middle finger of left hand- Primary Trigger finger (acquired) documented in this encounter Advance Directives Latest Code Status on File Code Status Date Activated Date Inactivated Comments Full Code 10/04/2010 11:31 AM 10/05/2010 3:45 AM This order reflects the patients wishes and were consensually agreed upon. Code Status History Code Status Date Activated Date Inactivated Comments Full Code 10/04/2010 11:30 AM 10/04/2010 11:31 AM Thi s order reflects the patients wishes and were consensually agreed upon. Full Code 10/04/2010 9:17 AM 10/04/2010 11:30 AM This order reflects the patients wishes and were consensually agreed upon. Care Teams Sales Department Supervisor Relationship Specialty Start Date End Date Dasha Krueger CRNP [address] [place] [address] PCP - General Nurse Practitioner 06/26/22 documented as of this encounter
--- OUTSIDE RECORDS SUMMARY | 2023-04-30 11:29 | External Medical Summary | Summary of Care ---
Author Name Unknown Organization [facility] Address [address] [facility] [place] [address] Phone [phone] Care Team Providers Care Tectonophysicist Name Role Phone Dasha Krueger Primary Care Provider Reason for Visit * Reason Comments Post-Op Left trigger finger release excise tendon sheath Left Encounter Details Date Type Department Care Team (Late st Contact Info) Description 04/10/2023 10:30 AM EST Office Visit Orthopaedics [facility] [address] [place] [address] Pranav Mcgowan MD [address] [place] [address] Trigger middle finger of left hand* Allergies [...] 2 diabetes mellitus with diabetic neuropathy, unspecified ([facility]) E11.40 Nocturnal hypoxemia G47.34 Periodic limb movement disorder (PLMD) G47.61 Ankylosing spondylitis of lumbosacral region ([facility]) M45.7 Hemorrhoids, external without complications K64.4 Diarrhea R19.7 Sacroiliitis ([facility]) M46.1 Major depressive disorder, single episode, in full remission ([facility]) F32.5 Trigger middle finger of left [...] documented in this encounter Nursing Notes * Cassy Kiran LPN - 04/10/2023 10:41 AM EST .ch documented in this encounter Plan of Treatment Upcoming Encounters Date Type Department Care Team (Late st Contact Info) Description 09/10/2023 3:30 PM EDT Office Visit Rheumatology [place] [phone] [place] [address] Rebekah Harris CRNP [address] [employer] [place] [address] Health Maintenance Due Date Last Done Comments DISCUSS TOBACCO CESSATION (REFER TO SMARTSET #5815) 06/22/2015 06/21/2014 Fecal Occult Blood Test 10/01/2015 [...] 01/26/2015 LUNG CANCER SCREENING - USE SMARTSET 85640 Completed 07/12/2022, 06/28/2021 GARDASIL-HPV IMMUNIZATION SERIES Aged [...] and were consensually agreed upon. Care Teams Tectonophysicist Relationship Specialty Start Date End Date Dasha Krueger CRNP [address] [address] PCP - General Nurse Practitioner 06/26/22 documented as of this encounter
--- OUTSIDE RECORDS SUMMARY | 2023-04-30 11:30 | External Medical Summary | Summary of Care ---
Author Name Unknown Organization [facility] Address [address] [place] [address] Phone [phone] Care Team Providers Care Procurement Technician Name Role Phone Dasha Krueger Primary Care Provider Encounter Details Date Type Department Care Team (Latest Contact Info) Description 10/25/2022 3:35 PM EDT - 10/25/2022 11:59 PM EDT Hospital Encounter Radiology Film File [address] [place] [address] Discharge Disposition: Home - Self Care Allergies Active Allergy Reactions Criticality Noted Date Comments Sulfamethoxazole-Trimethoprim Rash High 2015 Penicillins 01/24/2001 augmentin gave rash documented as of this encounter (statuses as of 03/23/2023) Medications Medication Sig Dispensed Refills Start Date [...] THE DAY 90 Capsule 1 08/22/2022 Active documented as of this encounter (statuses as of 03/23/2023) Active Problems Problem Noted Date Diagnosed Date [...] as of this encounter (statuses as of 03/23/2023) Resolved Problems Problem Noted Date Diagnosed Date [...] as of this encounter (statuses as of 03/23/2023) Immunizations Name Administration Dates Next Due COVID-19 [...] on file documented as of this encounter Plan of Treatment Upcoming Encounters Date Type Department Care Team (Latest Contact Info) Description 04/03/2023 2:15 PM EST Hospital Encounter [facility], Operating Room [facility] [address] [phone] Pranav Mcgowan MD [address] [place] [address] 04/03/2023 2:15 PM EST - 04/03/2023 2:57 PM EST Surgery OR [facility], Operating Room [facility] [address] [place] [phone] Pranav Mcgowan MD [address] [place] [address] LEFT TRIGGER FINGER RELEASE 04/10/2023 10:30 AM EST Office Visit Orthopaedics [facility] [address] [place] [address] Pranav Mcgowan MD [address] [place] [address] 09/10/2023 3:30 PM EDT Office Visit Rheumatology [place] [address] [employer] [place] [address] Rebekah Harris CRNP [facility] [place] [address] Scheduled Procedures Name Priority Associated Diagnoses Date/Ti me TRIGGER FINGER RELEASE Trigger middle finger of left hand 04/03/2023 2:15 PM EST Health Maintenance Due Date Last Done Comments DISCUSS TOBACCO CESSATION (REFER TO SMARTSET #5005) 06/22/2015 06/21/2014 Fecal Occult Blood Test 10/01/2015 Sigmoidoscopy 10/01/2015 DTaP,Tdap,and Td Vaccines (2 - Td or Tdap) 09/17/2017 09/18/2007 Zoster Vaccines (1 of 2) 2020 Albumin/Creatinine Ratio 08/22/2021 021, 11/23/2019, 12/02/2017, Additional history exists Diabetic Foot Exam 09/20/2021 09/20/2020, 0 07/22/2018, 05/17/2017, Additional history exists Depression Screening 04/05/2022 04/05/2021 HbA1c 09/24/2022 03/27/2022, 11/27, 12/26/2020, Additional history exists COVID-19 Vaccine ( season) 2022 12/29/2020, 12/01/2020 Influenza Vaccine (FLU shot) (#1) 2022 12/12/2018, 11/02/2016, 12/15/2015, Additional history exists Mammogram 02/13/2023 02/13/2022, 09/25, 10/05/2019, Additional history exists GFR 03/27/2023 03/27/2022, 02/25, 12/25/2021, Additional history exists Diabetic Eye Exam 01/29/2024 01/28/2023, , 03/20/2021, Additional history exists Cologuard 06/19/2024 06/19/2021, 05/26, 06/13/2021 Lipid Panel 12/25/2026 12/25/2021, 11/0 02/2020, 08/22/2020, Additional history exists Colonoscopy 04/17/2032 04/17/2022, 04/17/2022 Colorectal Cancer Screening 04/17/2032 Pneumococcal Vaccine: Pediatrics (0 to 5 Years) and At-Risk Patients (6 to 64 Years) (3 - PPSV23 or PCV20) 10/01/2035 02/02/2016, 01/26/2015 LUNG CANCER SCREENING - USE SMARTSET [id number] Completed 07/12/2022, 06/28/2021 GARDASIL-HPV IMMUNIZATION SERIES Aged Out No longer eligible based on patient's age to complete this topic MENINGOCOCCAL (MENACTRA/MENVEO) Aged Out No longer eligible based on patient's age to complete this topic documented as of this encounter Medical Devices Not on filedocumented as of this encounter Procedures Procedure Name Priority Date/Time Associated Diagnosis Comments RADIOLOGY EXAM - GENERAL RAD (IMAGES ONLY,NO REPORT) Routine 10/25/2022 3:35 PM EDT documented in this encounter Results * RADIOLOGY EXAM - GENERAL RAD (IMAGES ONLY,NO REPORT) (10/25/2022 3:35 PM EDT) 10/25/2022 3:34 PM EDT Narrative Scheduling, Silent - 03/22/2023 1:00 PM EST This is an imaging study not interpreted or resulted by a [place] or [place] contracted radiologist. D[facility] (RAD GENERAL) documented in this encounter Advance Directives Latest [...] and were consensually agreed upon. Care Teams Procurement Technician Relationship Specialty Start Date End Date Dasha Krueger CRNP [address] [place] [address] PCP - General Nurse Practitioner 06/26/22 documented as of this encounter
--- OUTSIDE RECORDS SUMMARY | 2023-04-30 11:30 | External Medical Summary | Summary of Care ---
Author Name Unknown Organization [facility] Address [address] [facility] [place] [address] Phone [phone] Care Team Providers Care Swedish Masseuse Name Role Phone Dasha Krueger Primary Care Provider Reason for Visit * Reason Comments NEW PATIENT Left long finger sherman n * Evaluate & Treat - Unlimited Visits (Within 10 days (routine)) - Pending Review Specialty Diagnoses / Procedures Referred By Dontae [email or web address] Referred To Contact Orthopaedic Surgery / Orthopedics Diagnoses Trigger middle finger of left hand Libia Garcia CRNP [address] [place] [address] Pranav Mcgowan MD [address] [place] [address] Referral ID Status Reason Start Date Expiration Date Visits Requested Visits Authorized [id number] Pending Review Specialty Services Required [phone] Encounter Details Date Type Department Care Team (Late st Contact Info) Description 03/15/2023 10:30 AM EST Office Visit Orthopaedics [facility] [address] [place] [address] Pranav Mcgowan MD [address] [place] [address] Trigger middle finger of left hand* Allergies Active Allergy Reactions Criticality Noted Date Comments Sulfamethoxazole-Trimethoprim Rash High 2015 Penicillins 01/24/2001 augmentin gave rash documented as of this encounter (statuses as of 03/15/2023) Medications Medication Sig Dispensed Refills Start Date [...] before bedtime. 28 Capsule 0 03/11/2023 Active documented as of this encounter (statuses as of 03/15/2023) Active Problems Problem Noted Date Diagnosed Date [...] as of this encounter (statuses as of 03/15/2023) Resolved Problems Problem Noted Date Diagnosed Date [...] as of this encounter (statuses as of 03/15/2023) Immunizations Name Administration Dates Next Due COVID-19 mRNA, LNP-s, No Pre serve, 2-Dose Series (Moderna) 12/29/2020,12/01/2020 Hepatitis B, 20+ yrs 04/23/2019,03/16/2019 Influenza, Whole Virus 02/13/2000 Pneumococcal Conjugate Vacc, 13 Valent (Prevnar) 01/26/2015 [...] on file documented as of this encounter H&P Notes * Pranav Mcgowan MD - 03/15/2023 10:33 AM EST HISTORY & PHYSICAL EXAMINATION - Hand Surgery Name: Carolyn Alexander Date: 03/15/2023 Time: 10:33 AM Date and Time Patient was Seen: 03/15/2023 at 10:33 AM PRESENTING PROBLEM: Locking of the left middle finger HPI: 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 52-year-old 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 This has been going on for several months. Symptoms are worse in the morning. 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 ADVANCE DIRECTIVE INFORMATION GENERALIZED ANXIETY DIS F41.1 Major depressive disorder F32.9 Chronic nonspecific lung disease J98.4 WILLA (obstructive sleep apnea) G47.33 Type 2 diabetes mellitus with diabetic neuropathy, unspecified (HCC) E11.40 Nocturnal hypoxemia G47.34 Periodic limb movement disorder (PLMD) G47.61 Ankylosing spondylitis of lumbosacral region ([facility]) M45.7 Hemorrhoids, external without complications K64.4 Diarrhea R19.7 Sacroiliitis ([facility]) M46.1 Major depressive disorder, single episode, in full remission ([facility]) F32.5 Trigger middle finger of left hand M65.332 PAST SURGICAL HISTORY: Past Surgical History: Procedure Laterality Date BREAST BIOPSY Left Benign BREAST BIOPSY Left benign BREAST BIOPSY Left benign BREAST BIOPSY Left benign BREAST BIOPSY Left benign BREAST BIOPSY Left benign BREAST LESION,OTHER,EXCISION Left 07/05/2015 07/05/2015 EXCISION OF CYST OR TUMOR BREAST performed by Pipe Alberto MD at OR [facility] dx epidermal inclusion cyst with surrounding scar / alos present in the specimen are benign ducts and lobules - DR. Pipe Alberto BREAST LESION,OTHER,EXCISION Left 11/08/2015 11/08/2015 EXCISION OF CYST OR TUMOR BREAST performed by Pipe Alberto MD at OR [facility] CARPAL TUNNEL SURGERY Right 2003 right - Dr. John CARPAL TUNNEL SURGERY Left [address] Quiroz COLONOSCOPY, DIAGNOSTIC (RECTUM) 04/17/2022 inflammation & lymphocytic colitis, fair prep / COLONOSCOPY FLEXIBLE PROXIMAL DIAGNOSTIC performed by Anthony Wong MD at ENDOSCOPY [facility] EGD, W/ENDOSCOPIC US 12/17/2016 gallstones, normal gastric bx/ESOPHAGOGASTRODUODENOSCOPY (EGD), FLEXIBLE, TRANSORAL, ENDOSCOPIC ULTRASOUND performed by Trent Denise MD at ENDOSCOPY [facility] INCISION OF BREAST LESION, DEEP 2000 clogged milk duct INFORMATION Left 11/2014 left - plantar faciatitis - [facility]. Anderson [facility] INFORMATION 11/2014 fussion 5, 6, and 7 - Dr. Chun [place] INFORMATION 11/2012 disc replacement , cervical 5 and 6 INFORMATION Right 2007 right shoulder , INFORMATION 2006 right wrist , Dr. Quiroz INJECT DX/THER SUBSTANCE INTERLAMINAR LUMBAR/SACRAL W IMAGE GUIDE 05/07/2022 INJECTION SPINE LUMBAR OR SACRAL performed by Andrse Abraham DO at OR [facility] L-/S-SPINE PARAVERTEBRAL FACET INJ,1 LEVEL 12/28/2021 L-/S-SPINE PARAVERTEBRAL FACET INJ, 1 LEVEL performed by Andres Abraham DO at OR [facility] L-/S-SPINE PARAVERTEBRAL FACET INJ,1 LEVEL 03/19/2022 L-/S-SPINE PARAVERTEBRAL FACET INJ, 1 LEVEL performed by Andres Abraham DO at OR [facility] L-/S-SPINE PARAVERTEBRL FACET INJ,2 LEVELS 12/28/2021 L-/S-SPINE PARAVERTEBRAL FACET INJ, 2 LEVELS performed by Andres Abraham DO at OR [facility] L-/S-SPINE PARAVERTEBRL FACET INJ,2 LEVELS 03/19/2022 L-/S-SPINE PARAVERTEBRAL FACET INJ, 2 LEVELS performed by Andres Abraham DO at OR [facility] LAPAROSCOPY; CHOLECYSTECTOMY N/A 01/29/2017 LAPAROSCOPIC CHOLECYSTECTOMY performed by Pipe Alberto MD at OR [facility] REMOVAL OF WRIST LESION 2010 right SACROILIAC JOINT INJECT W/GUIDANCE 10/12/2021 INJECTION SACROILIAC JOINT performed by Andres Abraham DO at OR [facility] TOTAL ABD HYSTERECTOMY W/WO REMOVAL OF TUBE(S) 12/23/2001 vaginal hysterectomy, has ovaries UNLISTED LAP;OVIDUCT/OVARY 10/04/2010 UNLISTED LAPAROSCOPY PROCEDURE OVIDUCT OVARY performed by MILAN ACUNA at [facility] HISTORY: Family History Problem Relation Age of Onset Neurological Disorder Mother migranes on her side Arthritis Mother Stroke Mother Mini strokes Breast Cancer Mother diagnosed in 2009 Other (breast cancer) Mother Diabetes Father Cancer Father mesothelioma/Lung = Stroke Father Lung Disorder Father Lung Cancer Heart Disorder Brother Cancer Brother Hodgekins Lymphoma Arthritis Grandmother (Maternal) Hypertension Grandfather (Maternal) Breast Cancer Aunt (Paternal) Ovarian cancer Aunt (Paternal) SOCIAL HISTORY: Social History Tobacco Use Smoking status: Every Day Packs/day: 1.00 Years: 21.00 Additional pack years: 0.00 Total pack years: 21.00 Types: Cigarettes Smokeless tobacco: Never Tobacco comments: decreased to 3 cigarettes/daily 2 months ago- but restarted Vaping Use Vaping Use: Never used Substance Use Topics Alcohol use: Yes Comment: very rare Drug use: No MARITAL STATUS: CURRENT MEDICATIONS: Current Outpatient Medications Medication Sig Dispense Refill [...] 1 Tablet by mouth in the morning. (Patient not taking: Reported on 02/04/2023) Lisinopril 5 MG Oral Tablet (Prinivil) TAKE [...] 1 Capsule before bedtime. 28 Capsule 0 No current facility-administered medications for this visit. ALLERGIES: Bactrim [sulfamethoxazole-trimethoprim] and Penicillins ROS: Negative for GI, , Cardiac, Respioratory and Neurologic complains. Remainder of systems negative. PHYSICAL EXAMINATION: General: Well developed, well nourished. Neuro: Awake, alert, and oriented. Heart & Lungs OK Extremities: There is point tenderness over the A1 nathan of the left middle finger. She can make it lock but it is quite painful to do so. Skin is intact. Sensation is intact. There is good capillary refill. IMPRESSION: Trigger finger left middle finger. PLAN: We discussed options. I went over a handout regarding the diagnosis with her. She requested surgical release. Risks, benefits, alternatives and realistic expectations were explained in detail. Release of her left middle finger trigger finger is to be scheduled under local anesthesia. Thank you for the kindness of this referral. 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 ADVANCE DIRECTIVE INFORMATION GENERALIZED ANXIETY DIS F41.1 Major depressive disorder F32.9 Chronic nonspecific lung disease J98.4 WILLA (obstructive sleep apnea) G47.33 Type 2 diabetes mellitus with diabetic neuropathy, unspecified ([facility]) E11.40 Nocturnal hypoxemia G47.34 Periodic limb movement disorder (PLMD) G47.61 Ankylosing spondylitis of lumbosacral region ([facility]) M45.7 Hemorrhoids, external without complications K64.4 Diarrhea R19.7 Sacroiliitis ([facility]) M46.1 Major depressive disorder, single episode, in full remission ([facility]) F32.5 Trigger middle finger of left hand M65.332 Pranav Mcgowan MD documented in this encounter Nursing Notes * Mira Izquierdo LPN - 03/15/2023 11:44 AM EST Factory Helper Documentation Provider requested senior librarian. Name of senior librarian: Mira Reynolds LPN * Mira Izquierdo LPN - 03/15/2023 10:20 AM EST Referred by Dasha OMALLEY for left middle finger locking X 2 years. Pt is RHD. 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 Mira TITUS documented in this encounter Plan of Treatment Upcoming Encounters Date Type Department Care Team (Latest Contact Info) Description 03/16/2023 9:30 AM EST Imaging Radiology [facility] [place] [address] [place] [address] 04/03/2023 12:35 PM EST Hospital Encounter [facility] Operating Room [facility] [address] [place] [phone] Pranav Mcgowan MD [address] [place] [address] 04/03/2023 12:35 PM EST - 04/03/2023 1:17 PM EST Surgery [facility] Operating Room [facility] [address] [place] [phone] Pranav Mcgowan MD [address] [place] [address] LEFT TRIGGER FINGER RELEASE 04/10/2023 10:30 AM EST Office Visit Orthopaedics [facility] [address] [place] [address] Pranav Mcgowan MD [address] [place] [address] 09/10/2023 3:30 PM EDT Office Visit Rheumatology [place] [id number] [facility] [place], [place] [address] Rebekah Harris CRNP [facility] [place] [facility] [place] [address] Scheduled Procedures Name Priority Associated Diagnoses Date/Ti me TRIGGER FINGER RELEASE Trigger middle finger of left hand 04/03/2023 12:35 PM EST Health Maintenance Due Date Last Done Comments DISCUSS TOBACCO CESSATION (REFER TO SMARTSET #0007) 06/22/2015 06/21/2014 Fecal Occult Blood Test 10/01/2015 [...] 01/26/2015 LUNG CANCER SCREENING - USE SMARTSET [id number] Completed 07/12/2022, 06/28/2021 GARDASIL-HPV IMMUNIZATION SERIES Aged Out No longer eligible based on patient's age to complete this topic MENINGOCOCCAL (MENACTRA/MENVEO) Aged Out No longer eligible based on patient's age to complete this topic documented as of this encounter Medical Devices Not on filedocumented as of this encounter Visit Diagnoses Diagnosis Trigger middle finger of left hand- Primary Trigger finger (acquired) Trigger middle finger of left hand- Primary Trigger finger (acquired) Trigger middle finger of left hand Trigger finger (acquired) documented in this encounter [...] and were consensually agreed upon. Care Teams Swedish Masseuse Relationship Specialty Start Date End Date Dasha Krueger CRNP [address] [place] [address] PCP - General Nurse Practitioner 06/26/22 documented as of this encounter
--- OUTSIDE RECORDS SUMMARY | 2023-04-30 11:30 | External Medical Summary | Summary of Care ---
Author Name Unknown Organization [facility] Address [address] [place] [address] Phone [phone] Care Team Providers Care Security Monitor Name Role Phone Dasha Krueger Primary Care Provider Reason for Referral * Precert (Within 10 days (routine)) - Pending Review Specialty Diagnoses / Procedures Referred By Dontae t Referred To Contact Radiology Diagnoses Sacroiliitis (HCC) Ankylosing spondylitis, unspecified site of spine (HCC) Procedures MRI PELVIS W Amarilys Everett CRNP [address] [place] [address] Referral ID Status Reason Start Date Expiration Date V isits Requested Visits Authorized [id number] Pending Review 03/16/2023 [id number] Reason for Visit * Reason Comments Rheum Follow Up Follow up - Mar Mathews d * Evaluate & Treat - Unlimited Visits (Within 10 days (routine)) - Pending Review Specialty Diagnoses / Procedures Referred By Dontae t Referred To Contact Rheumatology Diagnoses Ankylosing spondylitis (HCC) Maryann Hurst PA-C [address] [place] [address] Referral ID Status Reason Start Date Expiration Date Visits Requested Visits Authorized [id number] Pending Review Specialty Services Required 01/28/2023 07/27/2023 [id number] Encounter Details Date Type Department Care Team (Late st Contact Info) Description 03/11/2023 9:00 AM EST Office Visit Rheumatology [facility] [address] [facility] [facility] [place], [place] [address] Amarilys Lafleur CRNP [address] [place] [address] Ankylosing spondylitis, unspecified site of spine (HCC)*; Sacroiliitis (HCC) Allergies Active Allergy Reactions Criticality Noted Date Comments Sulfamethoxazole-Trimethoprim Rash High 2015 Penicillins 01/24/2001 augmentin gave rash documented as of this encounter (statuses as of 03/16/2023) Medications Medication Sig Dispensed Refills Start Date End Date Status BLOOD GLUCOSE MONITOR SYSTEM W/DEVICE KITIndications:DM type 2, goal A1c below 7 measure and record glucose three times daily 1 Kit 0 12/21/2013 Active insulin aspart (INSULIN ASPART) 100 UNIT/ML injectionIndicatio ns:Type 2 diabetes mellitus with hemoglobin A1c goal of less than 7.0% ([facility]) Use up to 50 units per day [...] as of this encounter (statuses as of 03/16/2023) Active Problems Problem Noted Date Diagnosed Date [...] as of this encounter (statuses as of 03/16/2023) Resolved Problems Problem Noted Date Diagnosed Date [...] as of this encounter (statuses as of 03/16/2023) Immunizations Name Administration Dates Next Due COVID-19 [...] Day Cigarettes 1 21 Smokeless Tobacco: Never Tobacco Cessation:Ready to Q uit: Not Asked; Counseling Given: Not Answered Comments:decreased to 3 cigarettes/daily 2 months ago- but restarted Alcohol Use [...] on file documented as of this encounter Last Filed Vital Signs Vital Sign Reading Time Taken Comments Blood Pressure - - Pulse - - Temperature 36.1 C (96.9 F) 03/11/2023 8:46 AM ES T Respiratory Rate - - Oxygen Saturation - - Inhaled Oxygen Concentration - - Weight 62.1 kg (137 lb) 03/11/2023 8:46 AM EST Height - - Body Mass Index 25.06 02/04/2023 2:22 PM EST documented in this encounter Patient Instructions * Patient Instructions* Amarilys Lafleur CRNP - 03/11/2023 9:05 AM EST Follow up 6 months Start taking trial of Prescription strength NSAID Contact clinic with any questions or concerns Schedule MRI Have the [place] send updates labs ) Can try Capsaicin cream OTC documented in this encounter Progress Notes * Amarilys Lafleur CRNP - 03/11/2023 7:58 AM EST Subjective: Date of last clinic visit reviewed: 11/30/2021 Current medication therapy: none Prior medication therapy: Etodolac 500 mg BID, Cosentyx, Humira, Mobic, Prednisone, Date of last labs reviewed from 03/27/2022 CMP, CBC Patient seen today for further follow up evaluation of ankylosing spondylitis and OA. Since the last visit she notes she is doing an H unit, tens units, heat, soaking in the hot tub, and massage therapy as well as chiropractic therapy with minor relief. She notes she has numbness in her lower back to mid thigh. She notes she see's pain management for back injections about a year ago and did not work. She notes she is having discomfort in her knee's L>R and hips if sit or standing too long. She notes stairs are difficult for her. She recently moved and is decorating and aggravated her knee's and hips. She notes her pain today is 7/10 but she was hanging pictures and fixing her garbage disposal laying on the ground yesterday. She notes she takes ibuprofen on her bad days with some benefit. Musculoskeletal ROS: . Pain scale (0-10): 7 . Fatigue scale (0-10): 5 . Activities of daily living: moderate difficulty (Class III) . Specific ADLS: problem with: walking, endurance Other ROS: . Constitutional: fatigue and trouble sleeping . Head normal . Eyes: normal . Ears, nose, throat, mouth: normal . Cardiovascular: normal . Respiratory: normal . Gastrointestinal: heartburn . Genitourinary: normal . Skin: normal . Neurologic: numbness and tingling of lower back and thighs . Psychiatric: normal . Endocrine: normal . Hematologic/lymphatic: normal . Allergic/immunologic: normal Social History: Social History Tobacco Use Smoking status: Every Day Packs/day: 1.00 Years: 21.00 Additional pack years: 0.00 Total pack years: 21.00 Types: Cigarettes Smokeless tobacco: Never Tobacco comments: decreased to 3 cigarettes/daily 2 months ago- but restarted Substance Use Topics Alcohol use: Yes Comment: very rare Vaping/E-Cigarette Use Vaping/E-Cigarette Use Never User Vaping/E-Cigarette Substances Vaping/E-Cigarette Devices Current Outpatient Medications Medication Sig Dispense Refill [...] by mouth every evening. 90 Tablet 1 Lisinopril 5 MG Oral Tablet (Prinivil) TAKE [...] MEAL OF THE DAY 90 Capsule 1 One-A-Day Womens 50+ Oral Tablet Take 1 Tablet by mouth in the morning. (Patient not taking: Reported on 02/04/2023) No current facility-administered medications for this visit. Physical Exam: Temp 36.1 C (96.9 F) (Infrared ) | Wt 62.1 kg (137 lb) | LMP 11/29/2001 | BMI 25.06 kg/m | BSA 1.65 m General: alert, healthy, and no distress HENT: normocephalic, external ears normal, no mucosal erythema, no mucosal edema, moist mucosa, no oral ulcers Eye Exam: PERRL, EOMI, conjunctiva are pink and non-injected, sclera clear Neck: supple, no adenopathy, no bruits, thyroid normal size, non-tender, without nodularity Lymph: no palpable lymphadenopathy Heart: regular rate & rhythm, no murmur, and no gallops Lungs: clear to auscultation , no rales, wheezes or rhonchi Pulses: radial=2/4, dorsalis pedis=2/4 Abdomen: abdomen soft, non-tender, normal bowel sounds, and no masses or organomegaly Extremities: no edema, no clubbing, no cyanosis Neuro Exam: alert & oriented x 3 with fluent speech, no focal motor/sensory deficits, gait normal, reflexes normal and symmetric Skin: skin color, texture, turgor are normal, no rashes or significant lesions Musculoskeletal Exam: right shoulder crepitus Assessment: (M45.9) Ankylosing spondylitis, unspecified site of spine (HCC) (primary encounter diagnosis) Plan: MRI C SPINE W WO CONTRAST (M46.1) Sacroiliitis (HCC) Plan: MRI C SPINE W WO CONTRAST Ms. Alexander continues to have ongoing lower back and thigh pain. Takes ibuprofen as needed with minimal benefit. In the past the patient's pain was more consistent with symptoms of OA on MRI with stable chronic changes and no active disease at that time in 2021. We will consider updating MRI at this point, and trialing Celebrex 100 mg twice a day for two weeks. Patient stated [facility]. Discussed conservative measures for OA including topical analgesics, capsaicin cream, trialing Celebrex, continuing massage and client care coordinator, and heat therapy. Next step pending trial of Celebrex and MRI results. Discussed the above in detail with the patient. All questions answered. Advised patient to contact clinic with any questions or concerns. Plan: Follow up 6 months Start taking trial of Celebrex 100 mg twice daily Contact clinic with any questions or concerns Schedule MRI [facility] Can try Capsaicin cream OTC Discussed the above in detail with the patient. All questions answered. CC LYSSA Villalta CRNP Department of Rheumatology The patient was discussed with me. I agree with the findings and plan as documented by Amarilys OMALLEY in this note. Quentin Hernandez MD Rheumatology Department documented in this encounter Nursing Notes * Angela Clemente LPN - 03/11/2023 8:45 AM EST Chief Complaint Patient presents with Rheum Follow Up Follow up - Ank Spond documented in this encounter Miscellaneous Notes * Addendum Note - Amarilys Lafleur CRNP - 03/16/2023 9:50 AM ESTAddended by: AMARILYS LAFLEUR on: 03/16/2023 09:50 AM Modules accepted: Orders documented in this encounter Plan of Treatment Upcoming Encounters Date Type Department Care Team (Latest Contact Info) Description 04/03/2023 12:35 PM EST Hospital Encounter OR [facility], Operating Room [facility] [address] [facility] [place] [id number] Pranav Mcgowan MD [address] [place] [address] 04/03/2023 12:35 PM EST - 04/03/2023 1:17 PM EST Surgery OR [facility], Operating Room [facility] [address] [phone] Pranav Mcgowan MD [address] [place] [address] LEFT TRIGGER FINGER RELEASE 04/10/2023 10:30 AM EST Office Visit Orthopaedics [facility] [address] [place] [address] Pranav Mcgowan MD [address] [place] [address] 09/10/2023 3:30 PM EDT Office Visit Rheumatology [place] [id number] [place] [address] Amarilys Lafleur CRNP [facility] [place] [address] Scheduled Orders Name Type Priority Associated Diagnoses Orde r Schedule MRI PELVIS W WO CONTRAST Medical Imaging Routine Sacroiliitis (HCC) Ankylosing spondylitis, unspecified site of spine (HCC) Expected: 03/16/2023, Expires: 04/16/2024 Scheduled Procedures Name Priority Associated Diagnoses Date/Ti me TRIGGER FINGER RELEASE Trigger middle finger of left hand 04/03/2023 12:35 PM EST Health Maintenance Due Date Last Done Comments DISCUSS TOBACCO CESSATION (REFER TO SMARTSET #1822) 06/22/2015 06/21/2014 Fecal Occult Blood Test 10/01/2015 Sigmoidoscopy 10/01/2015 DTaP,Tdap,and Td Vaccines (2 - Td or Tdap) 09/17/2017 09/18/2007 Zoster Vaccines (1 of 2) 2020 Albumin/Creatinine Ratio 08/22/2021 021, 11/23/2019, 12/02/2017, Additional history exists Diabetic Foot Exam 09/20/2021 09/20/2020, 0 07/22/2018, 05/17/2017, Additional history exists Depression Screening 04/05/2022 04/05/2021 HbA1c 09/24/2022 03/27/2022, 11/27, 12/26/2020, Additional history exists COVID-19 Vaccine ( - season) 2022 12/29/2020, 12/01/2020 Influenza Vaccine (FLU shot) (#1) 2022 12/12/2018, 11/02/2016, 12/15/2015, Additional history exists Mammogram 02/13/2023 02/13/2022, 09/25, 10/05/2019, Additional history exists GFR 03/27/2023 03/27/2022, 02/25, 12/25/2021, Additional history exists Diabetic Eye Exam 01/29/2024 01/28/2023, , 03/20/2021, Additional history exists Cologuard 06/19/2024 06/19/2021, 05/26, 06/13/2021 Lipid Panel 12/25/2026 12/25/2021, 11/02/2020, 08/22/2020, Additional history exists Colonoscopy 04/17/2032 04/17/2022, 04/17/2022 Colorectal Cancer Screening 04/17/2032 Pneumococcal Vaccine: Pediatrics (0 to 5 Years) and At-Risk Patients (6 to 64 Years) (3 - PPSV23 or PCV20) 10/01/2035 02/02/2016, 01/26/2015 LUNG CANCER SCREENING - USE SMARTSET 89033 Completed 07/12/2022, 06/28/2021 GARDASIL-HPV IMMUNIZATION SERIES Aged Out No longer eligible based on patient's age to complete this topic MENINGOCOCCAL (MENACTRA/MENVEO) Aged Out No longer eligible based on patient's age to complete this topic documented as of this encounter Medical Devices Not on filedocumented as of this encounter Visit Diagnoses Diagnosis Ankylosing spondylitis, unspecified site of spine (HCC)- Primary Sacroiliitis (HCC) Sacroiliitis, not elsewhere classified Trigger middle finger of left hand- Primary [...] and were consensually agreed upon. Care Teams Security Monitor Relationship Specialty Start Date End Date Dasha Krueger CRNP [address] [place] [address] PCP - General Nurse Practitioner 06/26/22 documented as of this encounter"
--- OUTSIDE RECORDS SUMMARY | 2023-04-30 11:30 | External Medical Summary | Summary of Care ---
Author Name Unknown Organization [facility] Address [address] [place] [address] Phone [phone] Care Team Providers Care Lamination Inspector Name Role Phone Dasha Krueger Primary Care Provider Reason for Referral * Precert (Within 10 days (routine)) - Authorized Specialty Diagnoses / Procedures Referred By Contac t Referred To Contact Radiology Diagnoses Sacroiliitis (HCC) Ankylosing spondylitis, unspecified site of spine (HCC) Procedures MRI C SPINE W Rebekah Everett CRNP [address] [place] [address] Referral ID Status Reason Start Date Expiration Date V isits Requested Visits Authorized [id number] Authorized 03/11/2023 07/27/2023 [id number] Reason for Visit * Reason Comments Rheum Follow Up Follow up - Ank Spoenmanuel d * Evaluate & Treat - Unlimited Visits (Within 10 days (routine)) - Pending Review Specialty Diagnoses / Procedures Referred By Contac t Referred To Contact Rheumatology Diagnoses Ankylosing spondylitis (HCC) Maryann Hurst PA-C [address] [place] [address] Referral ID Status Reason Start Date Expiration Date Visits Requested Visits Authorized [id number] Pending Review Specialty Services Required 01/28/2023 07/27/2023 [id number] Encounter Details Date Type Department Care Team ([facility] st Contact Info) Description 03/11/2023 9:00 AM EST Office Visit Rheumatology [facility] [address] [place] [address] Rebekah Harris CRNP [address] [place], [place] [address] Ankylosing spondylitis, unspecified site of spine (HCC)*; Sacroiliitis (HCC) Allergies Active Allergy Reactions Criticality Noted Date Comments Sulfamethoxazole-Trimethoprim Rash High 2015 Penicillins 01/24/2001 augmentin gave rash documented as of this encounter (statuses as of 03/14/2023) Medications Medication Sig Dispensed Refills Start Date End Date Status BLOOD GLUCOSE MONITOR SYSTEM W/DEVICE KITIndications:DM type 2, goal A1c below 7 measure and record glucose three times daily 1 Kit 0 12/21/2013 Active insulin aspart (INSULIN ASPART) 100 UNIT/ML injectionIndicatio ns:Type 2 diabetes mellitus with hemoglobin A1c goal of less than 7.0% ([facility]) Use up to 50 units per day [...] as of this encounter (statuses as of 03/14/2023) Active Problems Problem Noted Date Diagnosed Date Hemorrhoids, external without complications 02/27 Diarrhea 03/27/2022 [...] as of this encounter (statuses as of 03/14/2023) Resolved Problems Problem Noted Date Diagnosed Date [...] as of this encounter (statuses as of 03/14/2023) Immunizations Name Administration Dates Next Due COVID-19 [...] this encounter Patient Instructions * Patient Instructions* Rebekah Harris CRNP - 03/11/2023 9:05 AM EST Follow up 6 months Start taking trial of Prescription strength NSAID Contact clinic with any questions or concerns Schedule MRI Have the [place] send updates labs ) Can try Capsaicin cream OTC documented in this encounter Progress Notes * Rebekah Harris CRNP - 03/11/2023 7:58 AM EST Subjective: [...] capsaicin cream, trialing Celebrex, continuing massage and companion caregiver, and heat therapy. Next step pending trial [...] the findings and plan as documented by Rebekah OMALLEY in this note. Quentin Hernandez MD Rheumatology Department documented in this encounter Nursing Notes * Angela Clemente LPN - 03/11/2023 8:45 AM EST Chief Complaint Patient presents with Rheum Follow Up Follow up - Mar [place] documented in this encounter Plan of Treatment Upcoming Encounters Date Type Department Care Team (Late st Contact Info) Description 03/15/2023 10:30 AM EST Office Visit Orthopaedics [facility] [address] [place] [address] Pranav Mcgowan MD [address] [place] [address] 03/16/2023 9:30 AM EST Imaging Radiology [facility] [address] [facility] [address] [place] [address] 09/10/2023 3:30 PM EDT Office Visit Rheumatology [address] [place] [address] Rebekah Harris CRNP [address] [place], [place] [address] Scheduled Orders Name Type Priority Associated Diagnoses Orde r Schedule MRI C SPINE W WO CONTRAST Medical Imaging Routine Sacroiliitis (HCC) Ankylosing spondylitis, unspecified site of spine (HCC) Expected: 03/11/2023, Expires: 04/11/2024 Health Maintenance Due Date Last Done Comments DISCUSS TOBACCO CESSATION (REFER TO SMARTSET #6618) 06/22/2015 06/21/2014 Fecal Occult Blood Test 10/01/2015 [...] 01/26/2015 LUNG CANCER SCREENING - USE SMARTSET [id number] Completed 07/12/2022, 06/28/2021 GARDASIL-HPV IMMUNIZATION SERIES Aged [...] Primary Sacroiliitis (HCC) Sacroiliitis, not elsewhere classified documented in this encounter Advance Directives Latest [...] and were consensually agreed upon. Care Teams Lamination Inspector Relationship Specialty Start Date End Date Dasha Krueger CRNP [address] [place] [address] PCP - General Nurse Practitioner 06/26/22 documented as of this encounter"
--- OUTSIDE RECORDS SUMMARY | 2023-04-30 11:30 | External Medical Summary | Summary of Care ---
Author Name Unknown Organization [facility] Address [address] [facility] [place] [address] Phone [phone] Care Team Providers Care Process Assistant Name Role Phone Dasha Krueger Primary Care Provider Reason for Visit * Auth/Cert Specialty Diagnoses / Procedures Referred By Contac t Referred To Contact Diagnoses Trigger middle finger of left hand Trigger middle finger of left hand [M65.332] Procedures TENDON SHEATH INCISION, FINGER LEFT TRIGGER FINGER RELEASE Referral ID Status Reason Start Date Expiration Date Visits Re quested Visits Authorized [id number] [phone] Encounter Details Date Type Department Care Team (Latest Contact Info) Description 04/03/2023 12:54 PM EST - 04/03/2023 3:37 PM EST Hospital Encounter [facility], Operating Room [facility] [address] [place] [id number] Pranav Mcgowan MD [address] [place] [address] Discharge Disposition: Home - Self Care Allergies Active Allergy Reactions Criticality Noted Date Comments Sulfamethoxazole-Trimethoprim Rash High 2015 Penicillins 01/24/2001 augmentin gave rash documented as of this encounter (statuses as of 04/04/2023) Medications Medication Sig Dispensed Refills Start Date End Date Status BLOOD GLUCOSE MONITOR SYSTEM W/DEVICE KITIndications:DM type 2, goal A1c below 7 measure and record glucose three times daily 1 Kit 0 12/21/2013 Active insulin aspart (INSULIN ASPART) 100 UNIT/ML injectionIndicatio ns:Type 2 diabetes mellitus with hemoglobin A1c goal of less than 7.0% ([facility]) Use up to 50 units [...] as of this encounter (statuses as of 04/04/2023) Active Problems Problem Noted Date Diagnosed Date [...] as of this encounter (statuses as of 04/04/2023) Resolved Problems Problem Noted Date Diagnosed Date [...] as of this encounter (statuses as of 04/04/2023) Immunizations Name Administration Dates Next Due COVID-19 [...] Sign Reading Time Taken Comments Blood Pressure 123/67 04/03/2023 3:21 PM EST Pulse 78 04/03/2023 3:21 PM EST Temperature 36.3 C (97.3 F) 04/03/2023 3:21 PM ES T Respiratory Rate 16 04/03/2023 3:21 PM EST Oxygen Saturation 100% 04/03/2023 3:11 PM EST Inhaled Oxygen Concentration - - Weight 62.1 kg (137 lb) 04/03/2023 1:11 PM EST Height 157.5 cm (5' 2") 04/03/2023 1:11 PM EST Body Mass Index 25.06 04/03/2023 1:11 PM EST documented in this encounter Discharge Instructions * Discharge Instr - AVS* Pranav Mcgowan MD - 04/03/2023 2:42 PM EST HAND SURGERY PATIENT INSTRUCTIONS You may call [facility] Mer[facility] at [phone] during business hours. Keep your hand elevated above the level of your heart for the first 48 - 72 hours and as needed after this time. It is a fact that holding your hand down for even one minute negates holding it up forhours! You may keep your arm in the sling provided, but you must place your hand at the level of your opposite shoulder, not down by your belly. When you are lying down, keep your hand on your chest, or on 2 pillows next to you. When you are sitting, rest your arm on your elbow, with your hand up, or restyour hand on 2 pillows. The nurse will show you how to do this. To prevent stiffness, come out of the sling and move shoulder, elbow and fingers several times a day. If your fingers are not immobilized by a splint, move them. Opening and closing your hand as if youare making a fist, then straightening out your fingers, pumps out fluid and prevents swelling. If your fingers are immobilized, then move only those fingers that are not splinted. If your dressing becomes loose, soiled, unraveled, or damaged in any way, DO NOT TAKE THE DRESSING OFF. CALL THE OFFICE IMMEDIATELY: [phone]. You have been given a prescription for pain medicine. Take it if you need it. Remember - keep your hand elevated to prevent swelling. SWOLLEN HANDS HURT! If your hands or fingers are swollen, cold, blue, or numb, or if the pain in your hands or fingers suddenly increases, CALL THE OFFICE IMMEDIATELY: [phone]. A small amount of blood staining the dressing may not indicate a problem, but you should call the office to be sure. If you do not already have a post-operative appointment scheduled, call the office at [phone] to arrange one. Do not get your hand or the dressing wet. Sponge bathe only. We will talk about when you can get your shower at your first post-operative visit. Do not drive until given permission to do so by your physician. documented in this encounter Progress Notes * Pranav Mcgowan MD - 04/03/2023 3:08 PM EST [facility] [address] [phone] OUTPATIENT SURGERY DISCHARGE SUMMARY NOTE Name: Carolyn Alexander Location: OR [facility] Date: 04/03/2023 Time: 3:08 PM Surgery Date: 04/03/2023 Procedure: Procedure(s): LEFT TRIGGER FINGER RELEASE Left Surgeon: Surgeon(s): Pranav Mcgowan MD Discharge Diagnosis: Trigger finger Left long finger After examination of this patient, I have determined she is ready for discharge to home when the patient meets criteria. Discharge instructions were given to the patient. documented in this encounter H&P Notes * Pranav Mcgowan MD - 04/03/2023 2:43 PM EST Or release trigger finger left middle finger today. No change in presentation. 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 [...] (PLMD) G47.61 Ankylosing spondylitis of lumbosacral region ([facility]) M45.7 Hemorrhoids, external without complications K64.4 Diarrhea R19.7 Sacroiliitis ([facility]) M46.1 Major depressive disorder, single episode, in full remission ([facility]) F32.5 Trigger middle finger of left hand M65.332 PAST SURGICAL HISTORY: Past Surgical History: Procedure Laterality Date BREAST BIOPSY Left Benign BREAST BIOPSY Left benign BREAST BIOPSY Left benign BREAST BIOPSY Left benign BREAST BIOPSY Left benign BREAST BIOPSY Left benign BREAST LESION,OTHER,EXCISION Left 07/05/2015 07/05/2015 EXCISION OF CYST OR TUMOR BREAST performed by Pipe Alberto MD at OR [facility] dx epidermal inclusion cyst with surrounding scar / alos present in the specimen are benign ducts and lobules - DR. iPpe Alberto BREAST LESION,OTHER,EXCISION Left 11/08/2015 11/08/2015 EXCISION OF CYST OR TUMOR BREAST performed by Pipe Alberto MD at OR [facility] CARPAL TUNNEL SURGERY Right 2003 right - Dr. John CARPAL TUNNEL SURGERY Left [address] Quiroz COLONOSCOPY, DIAGNOSTIC (RECTUM) 04/17/2022 inflammation & lymphocytic colitis, fair prep / COLONOSCOPY FLEXIBLE PROXIMAL DIAGNOSTIC performed by Anthony Wong MD at ENDOSCOPY [facility] EGD, W/ENDOSCOPIC US 12/17/2016 gallstones, normal gastric bx/ESOPHAGOGASTRODUODENOSCOPY (EGD), FLEXIBLE, TRANSORAL, ENDOSCOPIC ULTRASOUND performed by Trent Denise MD at ENDOSCOPY [facility] INCISION OF BREAST LESION, DEEP 2001 clogged milk duct INFORMATION Left 11/2014 left - plantar faciatitis - Dr. Anderson [facility] INFORMATION 11/2014 fussion 5, 6, and 7 - Dr. Chun [place] INFORMATION 11/2012 disc replacement , cervical 5 and 6 INFORMATION Right 2007 right shoulder , INFORMATION 2006 right wrist , Dr. Quiroz INJECT DX/THER SUBSTANCE INTERLAMINAR LUMBAR/SACRAL W IMAGE GUIDE 05/07/2022 INJECTION SPINE LUMBAR OR SACRAL performed by Andres Abraham DO at OR [facility] L-/S-SPINE PARAVERTEBRAL FACET INJ,1 LEVEL 12/28/2021 L-/S-SPINE PARAVERTEBRAL FACET INJ, 1 LEVEL performed by Andres Arbaham DO at OR [facility] L-/S-SPINE PARAVERTEBRAL FACET INJ,1 LEVEL 03/19/2022 L-/S-SPINE PARAVERTEBRAL FACET INJ, 1 LEVEL performed by Andres Abraham DO at OR [facility] L-/S-SPINE PARAVERTEBRL FACET INJ,2 LEVELS 12/28/2021 L-/S-SPINE PARAVERTEBRAL FACET INJ, 2 LEVELS performed by Andres Abraham DO at [facility] L-/S-SPINE PARAVERTEBRL FACET INJ,2 LEVELS 03/19/2022 L-/S-SPINE PARAVERTEBRAL FACET INJ, 2 LEVELS performed by Andres Abraham DO at OR [facility] LAPAROSCOPY; CHOLECYSTECTOMY N/A 01/29/2017 LAPAROSCOPIC CHOLECYSTECTOMY performed by Pipe Alberto MD at OR [facility] REMOVAL OF WRIST LESION 2010 right SACROILIAC JOINT INJECT W/GUIDANCE 10/12/2021 INJECTION SACROILIAC JOINT performed by Andres Abraham DO at OR [facility] TOTAL ABD HYSTERECTOMY W/WO REMOVAL OF TUBE(S) 12/23/2001 vaginal hysterectomy, has ovaries UNLISTED LAP;OVIDUCT/OVARY 10/04/2010 UNLISTED LAPAROSCOPY PROCEDURE OVIDUCT OVARY performed by MILAN ACUNA at OR [facility] FAMILY HISTORY: Family History Problem Relation Age [...] 2 diabetes mellitus with diabetic neuropathy, unspecified ([facility]) E11.40 Nocturnal hypoxemia G47.34 Periodic limb movement disorder (PLMD) G47.61 Ankylosing spondylitis of lumbosacral region ([facility]) M45.7 Hemorrhoids, external without complications K64.4 Diarrhea R19.7 Sacroiliitis ([facility]) M46.1 Major depressive disorder, single episode, in full remission ([facility]) F32.5 Trigger middle finger of left hand M65.332 Pranav Mcgowan MD documented in this encounter Nursing Notes * Naomi Bowling RN - 04/03/2023 3:34 PM EST Patient awake and oriented x3. Denies pain. No drainage from surgical site noted. Patients fingers remain warm and dry. Patient continues to wiggle left fingers. Patient is tolerating PO fluids. Discharge instructions given and patient verbalizes understanding. Patient ambulated to private vehicle and discharged to home. Sling in place, prescription delivered from pharmacy. * Naomi Bowling RN - 04/03/2023 3:18 PM EST Patient is tolerating PO fluids. * Naomi Bowling RN - 04/03/2023 3:11 PM EST Patient transferred to pacu 2 status post Left trigger finger release. No drainage noted to left hand surgical site. Left fingers are warm and dry, patient is wiggling left fingers. Patient awake. Denies pain and nausea. Respirations are even and unlabored on room air. Abdomen soft and non distended. Vital signs stable. Report was received from surgical garment inspector's. * Nicole Dunham RN - 04/03/2023 2:12 PM EST 10 cc local injected by Dr. Mcgowan to L middle finger. * Nicole Dunham RN - 04/03/2023 2:11 PM EST A ''time out'' was initiated by prior to procedure. The patient was identified by name and date of . The procedure matches written consent, and correct site identified. Correct positioning (as applicable). There is availability of necessary equipment. Pre-procedure checklist was completed. * Nicole Dunham RN - 04/03/2023 1:28 PM EST Surgical consent verified with patient. Patient agrees with listed procedure and verified signature. documented in this encounter OR Notes * OR Surgeon - Pranav Mcgowan MD - 04/03/2023 3:08 PM EST [facility] [address] [address] Left Trigger finger Name: Carolyn Alexander Date: 04/03/2023 Time: 3:08 PM Location: OR [facility] Service: Orthopedic Surgery Date of Operation: 04/03/2023 Pre-op Diagnosis: Trigger finger Left long finger Post-op Diagnosis: Same Operation: Excise tendon sheath Left long finger Surgeon: Pranav Mcgowan MD Assistants: None Anesthesia: Local Drains: None Estimated Blood Loss: minimal. IV Fluids: None Urine Output: N/A Specimens/Disposition: Tendon sheath Apparent Intraoperative Complications: None Patient Condition: Good Disposition: PACU Attestation: I performed the entire operation. Description of operation: The patient was seen in the holding area where the palm was infiltrated with 4 mL of 1% lidocaine with epinephrine and sodium bicarbonate in the region of the A1 nathan. After that, the patient was brought to the operating room and the extremity was prepped and draped in the usual fashion. A transverse incision was made directly over the A1 nathan. Skin flaps were sharply raised. Blunt dissectionwas used to approach the flexor sheath. Appropriate retractors were placed to safeguard the digitalneurovascular bundles and the A1 nathan was completely excised. Free gliding of the tendon was verified under direct vision as the patient opened and closed the hand. Skin closure was with 4-0 Vicryl Rapide and a bulky dry sterile compressive dressing was applied after which the patient was taken to the holding area in satisfactory condition. All dissection was performed under appropriate magnification. documented in this encounter Plan of Treatment Upcoming Encounters Date Type Department Care Team (Late st Contact Info) Description 04/10/2023 10:30 AM EST Office Visit Orthopaedics [facility] [address] [facility] [place] [address] Pranav Mcgowan MD [address] [place] [address] 09/10/2023 3:30 PM EDT Office Visit Rheumatology [place] [id number] [facility] [place] [address] Rebekah Harris CRNP [address] [place] [address] Health Maintenance Due Date Last Done Comments DISCUSS TOBACCO CESSATION (REFER TO SMARTSET #0504) 06/22/2015 06/21/2014 Fecal Occult Blood Test 10/01/2015 [...] 01/26/2015 LUNG CANCER SCREENING - USE SMARTSET 62830 Completed 07/12/2022, 06/28/2021 GARDASIL-HPV IMMUNIZATION SERIES Aged [...] Trigger finger (acquired) documented in this encounter Active and Recently Administered Medications Times are shown in EST. Scheduled Medication Order 04/01/2023 04/02/2023 04/03/2023 buffered lidocaine 1% w/epi 1:[id number] inj 10 mL 10 mL, Subcutaneous, ONCE, On Sat04/03/23 at 1500, For 1 dose, Buffered with sodium bicarbonate, Pre-Op 1500 (Due) documented in this encounter Advance Directives Latest [...] and were consensually agreed upon. Care Teams Process Assistant Relationship Specialty Start Date End Date Dasha Krueger CRNP [address] [place] [address] PCP - General Nurse Practitioner 06/26/22 documented as of this encounter
--- OUTSIDE RECORDS SUMMARY | 2023-04-30 11:30 | External Medical Summary | Summary of Care ---
Author Name Unknown Organization [facility] Address [address] [facility] [place] [address] Phone [phone] Care Team Providers Care Disk And Tape Machine Tender Name Role Phone Dasha Krueger Primary Care Provider Reason for Visit * Reason Comments NEW PATIENT Left long finger sherman n * Evaluate & Treat - Unlimited Visits (Within 10 days (routine)) - Pending Review Specialty Diagnoses / Procedures Referred By Dontae [email or web address] Referred To Contact Orthopaedic Surgery / Orthopedics Diagnoses Trigger middle finger of left hand Libia Garcia CRNP [address] [place] [address] Pranav Mcgowan MD [address] [place] [address] Referral ID Status Reason Start Date Expiration Date Visits Requested Visits Authorized [id number] Pending Review Specialty Services Required [phone] Encounter Details Date Type Department Care Team (Late st Contact Info) Description 03/15/2023 10:30 AM EST Office Visit Orthopaedics [facility] [address] [place] [address] Pranav Mcgowan MD [address] [place] [address] Trigger middle finger of left hand* Allergies [...] finger HPI: 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) M45.7 Hemorrhoids, external without complications K64.4 Diarrhea R19.7 Sacroiliitis ([facility]) M46.1 Major depressive disorder, single episode, in full remission ([facility]) F32.5 Trigger middle finger of left hand M65.332 PAST SURGICAL HISTORY: Past Surgical History: Procedure Laterality Date BREAST BIOPSY Left Benign BREAST BIOPSY Left benign BREAST BIOPSY Left benign BREAST BIOPSY Left benign BREAST BIOPSY Left benign BREAST BIOPSY Left benign BREAST LESION,OTHER,EXCISION Left 07/05/2015 07/05/2015 EXCISION OF CYST OR TUMOR BREAST performed by Pipe Alberto MD at OR [facility] dx epidermal inclusion cyst with surrounding scar / alos present in the specimen are benign ducts and lobules - DR. Pipe Alberto BREAST LESION,OTHER,EXCISION Left 11/08/2015 11/08/2015 EXCISION OF CYST OR TUMOR BREAST performed by Pipe Alberto MD at OR [facility] CARPAL TUNNEL SURGERY Right 2003 right - Dr. John CARPAL TUNNEL SURGERY Left [address] Quiroz COLONOSCOPY, DIAGNOSTIC (RECTUM) 04/17/2022 inflammation & lymphocytic colitis, fair prep / COLONOSCOPY FLEXIBLE PROXIMAL DIAGNOSTIC performed by Anthony Wong MD at ENDOSCOPY [facility] EGD, W/ENDOSCOPIC US 12/17/2016 gallstones, normal gastric bx/ESOPHAGOGASTRODUODENOSCOPY (EGD), FLEXIBLE, TRANSORAL, ENDOSCOPIC ULTRASOUND performed by Trent Denise MD at ENDOSCOPY [facility] INCISION OF BREAST LESION, DEEP 2000 clogged milk duct INFORMATION Left 11/2014 left - plantar faciatitis - Dr. Anderson [facility] INFORMATION 11/2014 fussion 5, 6, and 7 - Dr. Chun [place] INFORMATION 11/2012 disc replacement , cervical 5 and 6 INFORMATION Right 2007 right shoulder , INFORMATION 2006 right wrist , Dr. Quiroz INJECT DX/THER SUBSTANCE INTERLAMINAR LUMBAR/SACRAL W IMAGE GUIDE 05/07/2022 INJECTION SPINE LUMBAR OR SACRAL performed by Andres Abraham DO at OR [facility] L-/S-SPINE PARAVERTEBRAL FACET INJ,1 LEVEL 12/28/2021 L-/S-SPINE PARAVERTEBRAL FACET INJ, 1 LEVEL performed by Andres Abraham DO at OR [facility] L-/S-SPINE PARAVERTEBRAL FACET INJ,1 LEVEL 03/19/2022 L-/S-SPINE PARAVERTEBRAL FACET INJ, 1 LEVEL performed by Andres Abraham DO at OR [facility] L-/S-SPINE PARAVERTEBRL FACET INJ,2 LEVELS 12/28/2021 L-/S-SPINE PARAVERTEBRAL FACET INJ, 2 LEVELS performed by Andres Abraham DO at OR [facility] L-/S-SPINE PARAVERTEBRL FACET INJ,2 LEVELS 03/19/2022 L-/S-SPINE PARAVERTEBRAL FACET INJ, 2 LEVELS performed by Andres Abraham DO at OR [facility] LAPAROSCOPY; CHOLECYSTECTOMY N/A 01/29/2017 LAPAROSCOPIC CHOLECYSTECTOMY performed by Pipe Alberto MD at OR [facility] REMOVAL OF WRIST LESION 2010 right SACROILIAC JOINT INJECT W/GUIDANCE 10/12/2021 INJECTION SACROILIAC JOINT performed by Andres Abraham DO at OR [facility] TOTAL ABD HYSTERECTOMY W/WO REMOVAL OF TUBE(S) 12/23/2001 vaginal hysterectomy, has ovaries UNLISTED LAP;OVIDUCT/OVARY 10/04/2010 UNLISTED LAPAROSCOPY PROCEDURE OVIDUCT OVARY performed by MILAN ACUNA at OR [facility] FAMILY HISTORY: Family History Problem Relation Age [...] 2 diabetes mellitus with diabetic neuropathy, unspecified ([facility]) E11.40 Nocturnal hypoxemia G47.34 Periodic limb movement disorder (PLMD) G47.61 Ankylosing spondylitis of lumbosacral region ([facility]) M45.7 Hemorrhoids, external without complications K64.4 Diarrhea R19.7 Sacroiliitis ([facility]) M46.1 Major depressive disorder, single episode, in full remission ([facility]) F32.5 Trigger middle finger of left hand M65.332 Pranav Mcgowan MD documented in this encounter Nursing Notes * Mira Izquierdo LPN - 03/15/2023 11:44 AM EST Quality Assurance Supervisor Body Documentation Provider requested lead technical architect. Name of lead technical architect: Mira Reynolds LPN * Mira Izquierdo LPN - 03/15/2023 10:20 AM EST Referred by Dasha OMALLEY for left middle finger locking X 2 years. Pt is RHD. 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 Mira TITUS documented in this encounter Plan of Treatment Upcoming Encounters Date Type Department Care Team (Late st Contact Info) Description 03/16/2023 9:30 AM EST Imaging Radiology [address], [place] [address] [facility] [place] [address] 09/10/2023 3:30 PM EDT Office Visit Rheumatology [facility] [place] [address] [place] [address] Rebekah Harris CRNP [address] [place] [address] Scheduled Procedures Name Priority Associated Diagnoses Date/Ti me TRIGGER FINGER RELEASE Trigger middle finger of left hand Health Maintenance Due Date Last Done Comments DISCUSS TOBACCO CESSATION (REFER TO SMARTSET #8477) 06/22/2015 06/21/2014 Fecal Occult Blood Test 10/01/2015 [...] 01/26/2015 LUNG CANCER SCREENING - USE SMARTSET 60553 Completed 07/12/2022, 06/28/2021 GARDASIL-HPV IMMUNIZATION SERIES Aged [...] and were consensually agreed upon. Care Teams Disk And Tape Machine Tender Relationship Specialty Start Date End Date Dasha Krueger CRNP [address] [place] [address] PCP - General Nurse Practitioner 06/26/22 documented as of this encounter
--- OUTSIDE RECORDS SUMMARY | 2023-04-30 11:30 | External Medical Summary | Summary of Care ---
Author Name Unknown Organization [facility] Address [address] [facility] [place] [address] Phone [phone] Care Team Providers Care Top And Trim Worker Name Role Phone Dasha Krueger Primary Care Provider Reason for Visit * Reason Comments NEW PATIENT Left long finger sherman n * Evaluate & Treat - Unlimited Visits (Within 10 days (routine)) - Pending Review Specialty Diagnoses / Procedures Referred By Dontae mccloud Referred To Contact Orthopaedic Surgery / Orthopedics Diagnoses Trigger middle finger of left hand Libia Garcia CRNP [address] [employer] [place] [address] Pranav Mcgowan MD [address] [employer] [place] [address] Referral ID Status Reason Start Date Expiration Date Visits Requested Visits Authorized [id number] Pending Review Specialty Services Required [phone] Encounter Details Date Type Department Care Team (Late st Contact Info) Description 03/15/2023 10:30 AM EST Office Visit Orthopaedics [facility] [address] [place] [address] Pranav Mcgowan MD [address] [place] [address] Trigger middle finger of left hand* Allergies [...] the money to buy more. 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 [...] (PLMD) G47.61 Ankylosing spondylitis of lumbosacral region ([facility]) M45.7 Hemorrhoids, external without complications K64.4 Diarrhea R19.7 Sacroiliitis (HCC) M46.1 Major depressive disorder, single episode, in full remission ([facility]) F32.5 Trigger middle finger of left hand M65.332 PAST SURGICAL HISTORY: Past Surgical History: Procedure Laterality Date BREAST BIOPSY Left Benign BREAST BIOPSY Left benign BREAST BIOPSY Left benign BREAST BIOPSY Left benign BREAST BIOPSY Left benign BREAST BIOPSY Left benign BREAST LESION,OTHER,EXCISION Left 07/05/2015 07/05/2015 EXCISION OF CYST OR TUMOR BREAST performed by Pipe Alberto MD at OR [facility] dx epidermal inclusion cyst with surrounding scar / alos present in the specimen are benign ducts and lobules - DR. Pipe Alberto BREAST LESION,OTHER,EXCISION Left 11/08/2015 11/08/2015 EXCISION OF CYST OR TUMOR BREAST performed by Pipe Alberto MD at OR [facility] CARPAL TUNNEL SURGERY Right 2003 right - Dr. John CARPAL TUNNEL SURGERY Left [address] Quiroz COLONOSCOPY, DIAGNOSTIC (RECTUM) 04/17/2022 inflammation & lymphocytic colitis, fair prep / COLONOSCOPY FLEXIBLE PROXIMAL DIAGNOSTIC performed by Anthony Wong MD at ENDOSCOPY [facility] EGD, W/ENDOSCOPIC US 12/17/2016 gallstones, normal gastric bx/ESOPHAGOGASTRODUODENOSCOPY (EGD), FLEXIBLE, TRANSORAL, ENDOSCOPIC ULTRASOUND performed by Trent Denise MD at ENDOSCOPY [facility] INCISION OF BREAST LESION, DEEP 2000 clogged milk duct INFORMATION Left 11/2014 left - plantar faciatitis - Dr. Anderson [facility] INFORMATION 11/2014 fussion 5, 6, and 7 - Dr. Chun [place] INFORMATION 11/2012 disc replacement , cervical 5 and 6 INFORMATION Right 2007 right shoulder , INFORMATION 2006 right wrist , Dr. Quiroz INJECT DX/THER SUBSTANCE INTERLAMINAR LUMBAR/SACRAL W IMAGE GUIDE 05/07/2022 INJECTION SPINE LUMBAR OR SACRAL performed by Andres Abraham DO at OR [facility] L-/S-SPINE PARAVERTEBRAL FACET INJ,1 LEVEL 12/28/2021 L-/S-SPINE PARAVERTEBRAL FACET INJ, 1 LEVEL performed by Andres Abraham DO at OR [facility] L-/S-SPINE PARAVERTEBRAL FACET INJ,1 LEVEL 03/19/2022 L-/S-SPINE PARAVERTEBRAL FACET INJ, 1 LEVEL performed by Andres Abraham DO at OR [facility] L-/S-SPINE PARAVERTEBRL FACET INJ,2 LEVELS 12/28/2021 L-/S-SPINE PARAVERTEBRAL FACET INJ, 2 LEVELS performed by Andres Abraham DO at OR [facility] L-/S-SPINE PARAVERTEBRL FACET INJ,2 LEVELS 03/19/2022 L-/S-SPINE PARAVERTEBRAL FACET INJ, 2 LEVELS performed by Andres Abraham DO at OR [facility] LAPAROSCOPY; CHOLECYSTECTOMY N/A 01/29/2017 LAPAROSCOPIC CHOLECYSTECTOMY performed by Pipe Alberto MD at OR [facility] REMOVAL OF WRIST LESION 2010 right SACROILIAC JOINT INJECT W/GUIDANCE 10/12/2021 INJECTION SACROILIAC JOINT performed by Andres Abraham DO at OR [facility] TOTAL ABD HYSTERECTOMY W/WO REMOVAL OF TUBE(S) 12/23/2001 vaginal hysterectomy, has ovaries UNLISTED LAP;OVIDUCT/OVARY 10/04/2010 UNLISTED LAPAROSCOPY PROCEDURE OVIDUCT OVARY performed by MILAN ACUNA at OR [facility] FAMILY HISTORY: Family History Problem Relation Age [...] 2 diabetes mellitus with diabetic neuropathy, unspecified ([facility]) E11.40 Nocturnal hypoxemia G47.34 Periodic limb movement disorder (PLMD) G47.61 Ankylosing spondylitis of lumbosacral region ([facility]) M45.7 Hemorrhoids, external without complications K64.4 Diarrhea R19.7 Sacroiliitis ([facility]) M46.1 Major depressive disorder, single episode, in full remission ([facility]) F32.5 Trigger middle finger of left hand M65.332 Pranav Mcgowan MD documented in this encounter Nursing Notes * Mira Izquierdo LPN - 03/15/2023 10:20 AM EST Referred by Dasha OMALLEY for left middle finger locking X 2 years. Pt is RHD. 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 Mira TITUS documented in this encounter Plan of Treatment Upcoming Encounters Date Type Department Care Team (Late st Contact Info) Description 03/16/2023 9:30 AM EST Imaging Radiology [facility] 1st [facility] [address] [facility] [place] [address] 09/10/2023 3:30 PM EDT Office Visit Rheumatology [address] [place] [address] Rebekah Harris CRNP [address] [place] [address] [place] [address] Scheduled Procedures Name Priority Associated Diagnoses Date/Ti me TRIGGER FINGER RELEASE Trigger middle finger of left hand Health Maintenance Due Date Last Done Comments DISCUSS TOBACCO CESSATION (REFER TO SMARTSET #4408) 06/22/2015 06/21/2014 Fecal Occult Blood Test 10/01/2015 [...] 01/26/2015 LUNG CANCER SCREENING - USE SMARTSET 08704 Completed 07/12/2022, 06/28/2021 GARDASIL-HPV IMMUNIZATION SERIES Aged [...] and were consensually agreed upon. Care Teams Top And Trim Worker Relationship Specialty Start Date End Date Dasha Krueger CRNP [address] [place] [address] PCP - General Nurse Practitioner 06/26/22 documented as of this encounter
--- OUTSIDE RECORDS SUMMARY | 2023-04-30 11:30 | External Medical Summary | Summary of Care ---
Author Name Unknown Organization [facility] Address [address] [facility] [place] [address] Phone [phone] Care Team Providers Care Electronics Assembler And Tester Name Role Phone Dasha Krueger Primary Care Provider Reason for Visit * Reason Comments NEW PATIENT Left long finger sherman n * Evaluate & Treat - Unlimited Visits (Within 10 days (routine)) - Pending Review Specialty Diagnoses / Procedures Referred By Dontae mccloud Referred To Contact Orthopaedic Surgery / Orthopedics Diagnoses Trigger middle finger of left hand Libia Garcia CRNP [address] [employer] [place] [address] Pranav Mcgowan MD [address] [employer] [place] [address] Referral ID Status Reason Start Date Expiration Date Visits Requested Visits Authorized [id number] Pending Review Specialty Services Required [phone] Encounter Details Date Type Department Care Team (Late st Contact Info) Description 03/15/2023 10:30 AM EST Office Visit Orthopaedics [facility] [address] [place] [address] Pranav Mcgowan MD [address] [employer] [place] [address] Trigger middle finger of left hand* Allergies [...] finger HPI: 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 52-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 piejq-nxwp-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 [...] (PLMD) G47.61 Ankylosing spondylitis of lumbosacral region ([facility]) M45.7 Hemorrhoids, external without complications K64.4 Diarrhea R19.7 Sacroiliitis ([facility]) M46.1 Major depressive disorder, single episode, in full remission ([facility]) F32.5 Trigger middle finger of left hand M65.332 PAST SURGICAL HISTORY: Past Surgical History: Procedure Laterality Date BREAST BIOPSY Left Benign BREAST BIOPSY Left benign BREAST BIOPSY Left benign BREAST BIOPSY Left benign BREAST BIOPSY Left benign BREAST BIOPSY Left benign BREAST LESION,OTHER,EXCISION Left 07/05/2015 07/05/2015 EXCISION OF CYST OR TUMOR BREAST performed by Pipe Alberto MD at OR [facility] dx epidermal inclusion cyst with surrounding scar / alos present in the specimen are benign ducts and lobules - DR. Pipe Alberto BREAST LESION,OTHER,EXCISION Left 11/08/2015 11/08/2015 EXCISION OF CYST OR TUMOR BREAST performed by Pipe Alberto MD at OR [facility] CARPAL TUNNEL SURGERY Right 2003 right - Dr. John CARPAL TUNNEL SURGERY Left [address] Quiroz COLONOSCOPY, DIAGNOSTIC (RECTUM) 04/17/2022 inflammation & lymphocytic colitis, fair prep / COLONOSCOPY FLEXIBLE PROXIMAL DIAGNOSTIC performed by Anthony Wong MD at ENDOSCOPY [facility] EGD, W/ENDOSCOPIC US 12/17/2016 gallstones, normal gastric bx/ESOPHAGOGASTRODUODENOSCOPY (EGD), FLEXIBLE, TRANSORAL, ENDOSCOPIC ULTRASOUND performed by Trent Denise MD at ENDOSCOPY [facility] INCISION OF BREAST LESION, DEEP 2000 clogged milk duct INFORMATION Left 11/2014 left - plantar faciatitis - Dr. Anderson [facility] INFORMATION 11/2014 fussion 5, 6, and 7 - Dr. Chun [place] INFORMATION 11/2012 disc replacement , cervical 5 and 6 INFORMATION Right 2007 right shoulder , INFORMATION 2006 right wrist , Dr. Quiroz INJECT DX/THER SUBSTANCE INTERLAMINAR LUMBAR/SACRAL W IMAGE GUIDE 05/07/2022 INJECTION SPINE LUMBAR OR SACRAL performed by Andres Abraham DO at OR [facility] L-/S-SPINE PARAVERTEBRAL FACET INJ,1 LEVEL 12/28/2021 L-/S-SPINE PARAVERTEBRAL FACET INJ, 1 LEVEL performed by Andres Abraham DO at OR [facility] L-/S-SPINE PARAVERTEBRAL FACET INJ,1 LEVEL 03/19/2022 L-/S-SPINE PARAVERTEBRAL FACET INJ, 1 LEVEL performed by Andres Abraham DO at OR [facility] L-/S-SPINE PARAVERTEBRL FACET INJ,2 LEVELS 12/28/2021 L-/S-SPINE PARAVERTEBRAL FACET INJ, 2 LEVELS performed by Andres Abraham DO at OR [facility] L-/S-SPINE PARAVERTEBRL FACET INJ,2 LEVELS 03/19/2022 L-/S-SPINE PARAVERTEBRAL FACET INJ, 2 LEVELS performed by Andres Abraham DO at OR [facility] LAPAROSCOPY; CHOLECYSTECTOMY N/A 01/29/2017 LAPAROSCOPIC CHOLECYSTECTOMY performed by Pipe Alberto MD at OR [facility] REMOVAL OF WRIST LESION 2010 right SACROILIAC JOINT INJECT W/GUIDANCE 10/12/2021 INJECTION SACROILIAC JOINT performed by Andres Abraham DO at OR [facility] TOTAL ABD HYSTERECTOMY W/WO REMOVAL OF TUBE(S) 12/23/2001 vaginal hysterectomy, has ovaries UNLISTED LAP;OVIDUCT/OVARY 10/04/2010 UNLISTED LAPAROSCOPY PROCEDURE OVIDUCT OVARY performed by MILAN ACUNA at OR [facility] FAMILY HISTORY: Family History Problem [...] 2 diabetes mellitus with diabetic neuropathy, unspecified ([facility]) E11.40 Nocturnal hypoxemia G47.34 Periodic limb movement disorder (PLMD) G47.61 Ankylosing spondylitis of lumbosacral region ([facility]) M45.7 Hemorrhoids, external without complications K64.4 Diarrhea R19.7 Sacroiliitis ([facility]) M46.1 Major depressive disorder, single episode, in full remission ([facility]) F32.5 Trigger middle finger of left hand M65.332 Pranav Mcgowan MD documented in this encounter Nursing Notes * Mira Izquierdo LPN - 03/15/2023 11:44 AM EST [employer] Documentation Provider requested clothing worker. Name of clothing worker: Mira Reynolds LPN * Mira Izquierdo LPN - 03/15/2023 10:20 AM EST Referred by Dasha OMALLEY for left middle finger locking X 2 years. Pt is RHD. 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 Mira TITUS documented in this encounter Plan of Treatment Upcoming Encounters Date Type Department Care Team (Latest Contact Info) Description 03/16/2023 9:30 AM EST Imaging Radiology [facility]st [facility] [place] [address] [place] [address] 04/03/2023 12:35 PM EST Hospital Encounter OR [facility] [address] [place] [phone] Pranav Mcgowan MD [address] [place] [address] 04/03/2023 12:35 PM EST - 04/03/2023 1:17 PM EST Surgery OR [facility], Operating Room [facility] [address] [place] [address] Pranav Mcgowan MD [address] [place] [address] LEFT TRIGGER FINGER RELEASE 04/10/2023 10:30 AM EST Office Visit Orthopaedics [facility] [address] [place] [address] Pranav Mcgowan MD [address] [place] [address] 09/10/2023 3:30 PM EDT Office Visit Rheumatology [place] [id number] [facility] [place], [place] [address] Rebekah Harris CRNP [facility] Visuu [facility] [place] [address] Scheduled Procedures Name Priority Associated Diagnoses Date/Ti me TRIGGER FINGER RELEASE Trigger middle finger of left hand 04/03/2023 12:35 PM EST Health Maintenance Due Date Last Done Comments DISCUSS TOBACCO CESSATION (REFER TO SMARTSET #2527) 06/22/2015 06/21/2014 Fecal Occult Blood Test 10/01/2015 [...] 01/26/2015 LUNG CANCER SCREENING - USE SMARTSET 08153 Completed 07/12/2022, 06/28/2021 GARDASIL-HPV IMMUNIZATION SERIES Aged [...] and were consensually agreed upon. Care Teams Electronics Assembler And Tester Relationship Specialty Start Date End Date Dasha Krueger CRNP [address] [place] [address] PCP - General Nurse Practitioner 06/26/22 documented as of this encounter
--- OUTSIDE RECORDS SUMMARY | 2023-04-30 11:30 | External Medical Summary | Summary of Care ---
Author Name Unknown Organization [facility] Address [address] [facility] [place] [address] Phone [phone] Care Team Providers Care Director Sports Name Role Phone Dasha Krueger Primary Care Provider Encounter Details Date Type Department Care Team (Late st Contact Info) Description 10/25/2022 Orders Only Family Practice [facility] [address] [place] [address] Dasha Krueger CRNP [address] [place] [address] Allergies Active Allergy Reactions Criticality Noted Date Comments Sulfamethoxazole-Trimethoprim Rash High 2015 Penicillins 01/24/2001 augmentin gave rash documented as of this encounter (statuses as of 03/22/2023) Medications Medication Sig Dispensed Refills Start Date [...] as of this encounter (statuses as of 03/22/2023) Active Problems Problem Noted Date Diagnosed Date [...] as of this encounter (statuses as of 03/22/2023) Resolved Problems Problem Noted Date Diagnosed Date [...] as of this encounter (statuses as of 03/22/2023) Immunizations Name Administration Dates Next Due COVID-19 [...] [facility] [address] [place] [phone] Pranav Mcgowan MD [address] [place] [address] 04/03/2023 2:15 PM EST - 04/03/2023 2:57 PM EST Surgery OR [facility] [address] [place] [phone] Pranav Mcgowan MD [address] [place] [address] LEFT TRIGGER FINGER RELEASE 04/10/2023 10:30 AM EST Office Visit Orthopaedics [facility] [address] [place] [address] Pranav Mcgowan MD [address] [place] [address] 09/10/2023 3:30 PM EDT Office Visit Rheumatology [address] [place], [place] [address] Rebekah Harris CRNP [facility] [employer] [place] [address] Scheduled Procedures Name Priority Associated Diagnoses Date/Ti me TRIGGER FINGER RELEASE Trigger middle finger of left hand 04/03/2023 2:15 PM EST Health Maintenance Due Date Last Done Comments DISCUSS TOBACCO CESSATION (REFER TO SMARTSET #7423) 06/22/2015 06/21/2014 Fecal Occult Blood Test 10/01/2015 Sigmoidoscopy 10/01/2015 DTaP,Tdap,and Td Vaccines (2 - Td or Tdap) 09/17/2017 09/18/2007 Zoster Vaccines (1 of 2) 2020 Albumin/Creatinine Ratio 08/22/2021 021, 11/23/2019, 12/02/2017, Additional history exists Diabetic Foot Exam 09/20/2021 09/20/2020, 0 07/22/2018, 05/17/2017, Additional history exists Depression Screening 04/05/2022 04/05/2021 HbA1c 09/24/2022 03/27/2022, 10/3 02/2021, 12/26/2020, Additional history exists COVID-19 Vaccine (3 [...] 01/26/2015 LUNG CANCER SCREENING - USE SMARTSET 17299 Completed 07/12/2022, 06/28/2021 GARDASIL-HPV IMMUNIZATION SERIES Aged [...] study not interpreted or resulted by a [facility] or [facility] contracted radiologist. Dasha OMALLEY RADIOLOGY (RAD GENERAL) [...] and were consensually agreed upon. Care Teams Director Sports Relationship Specialty Start Date End Date Dasha Krueger CRNP [address] [place] [address] PCP - General Nurse Practitioner 06/26/22 documented as of this encounter
--- OUTSIDE RECORDS SUMMARY | 2023-04-30 11:30 | External Medical Summary | Summary of Care ---
Author Name Unknown Organization [facility] Address [address] [facility] [place] [place] [address] Phone [phone] Care Team Providers Care Metal Loader Name Role Phone Dasha Krueger Primary Care Provider Reason for Referral * Precert (Within 10 days (routine)) - Pending Review Specialty Diagnoses / Procedures Referred By Dontae t Referred To Contact Radiology Diagnoses Sacroiliitis (HCC) Ankylosing spondylitis, unspecified site of spine (HCC) Procedures MRI C SPINE W Rebekah Everett CRNP [address] [place] [address] Referral ID Status Reason Start Date Expiration Date V isits Requested Visits Authorized [id number] Pending Review 03/11/[phone] Reason for Visit * Reason Comments Rheum Follow Up Follow up - Ank Spon d * Evaluate & Treat - Unlimited Visits (Within 10 days (routine)) - Pending Review Specialty Diagnoses / Procedures Referred By Dontae t Referred To Contact Rheumatology Diagnoses Ankylosing spondylitis (HCC) Maryann Hurst PA-C [address] [place] [address] Referral ID Status Reason Start Date Expiration Date Visits Requested Visits Authorized [id number] Pending Review Specialty Services Required 01/28/2023 07/27/[phone] Encounter Details Date Type Department Care Team (Late st Contact Info) Description 03/11/2023 9:00 AM EST Office Visit Rheumatology [facility] [address] [facility] [place], [place] [address] Rebekah Harris CRNP [address] [employer] [place], [place] [address] Ankylosing spondylitis, unspecified site of spine (HCC)*; Sacroiliitis (HCC) Allergies Active Allergy Reactions Criticality Noted Date Comments Sulfamethoxazole-Trimethoprim Rash High 2015 Penicillins 01/24/2001 augmentin gave rash documented as of this encounter (statuses as of 03/12/2023) Medications Medication Sig Dispensed Refills Start Date End Date Status BLOOD GLUCOSE MONITOR SYSTEM W/DEVICE KITIndications:DM type 2, goal A1c below 7 measure and record glucose three times daily 1 Kit 0 12/21/2013 Active insulin aspart (INSULIN ASPART) 100 UNIT/ML injectionIndicatio ns:Type 2 diabetes mellitus with hemoglobin A1c goal of less than 7.0% ([facility]) Use up to 50 units per day [...] as of this encounter (statuses as of 03/12/2023) Active Problems Problem Noted Date Diagnosed Date [...] as of this encounter (statuses as of 03/12/2023) Resolved Problems Problem Noted Date Diagnosed Date [...] as of this encounter (statuses as of 03/12/2023) Immunizations Name Administration Dates Next Due COVID-19 [...] questions or concerns Schedule MRI Have the [place] send updates labs ) Can try Capsaicin cream OTC documented in this encounter Nursing Notes * Angela Clemente LPN - 03/11/2023 8:45 AM EST Chief Complaint Patient presents with Rheum Follow Up Follow up - Ank Spond documented in this encounter Plan of Treatment Upcoming Encounters Date Type Department Care Team (Late st Contact Info) Description 03/15/2023 10:30 AM EST Office Visit Orthopaedics [facility] [address] [place] [address] Pranav Mcgowan MD [address] [place] [address] 09/10/2023 3:30 PM EDT Office Visit Rheumatology [facility] [address] [place] [address] Rebekah Harris CRNP [address] [employer] [place] [address] Scheduled Orders Name Type Priority Associated Diagnoses Orde r Schedule MRI C SPINE W WO CONTRAST Medical Imaging Routine Sacroiliitis (HCC) Ankylosing spondylitis, unspecified site of spine (HCC) Expected: 03/11/2023, Expires: 04/11/2024 Health Maintenance Due Date Last Done Comments DISCUSS TOBACCO CESSATION (REFER TO SMARTSET #[id number]) 06/22/2015 06/21/2014 Fecal Occult Blood Test 10/01/2015 [...] 01/26/2015 LUNG CANCER SCREENING - USE SMARTSET [id number] Completed 07/12/2022, 06/28/2021 GARDASIL-HPV IMMUNIZATION SERIES Aged [...] and were consensually agreed upon. Care Teams Metal Loader Relationship Specialty Start Date End Date Dasha Krueger CRNP [address] [place] [address] PCP - General Nurse Practitioner 06/26/22 documented as of this encounter
--- OUTSIDE RECORDS SUMMARY | 2023-04-30 11:31 | External Medical Summary | Summary of Care ---
Author Name Unknown Organization [facility] Address [address] [facility] [place] [address] Phone [phone] Care Team Providers Care Lacquer Maker Name Role Phone Dasha Krueger Primary Care Provider Reason for Referral * Evaluate & Treat - Unlimited Visits (Within 10 days (routine)) - Pending Review Specialty Diagnoses / Procedures Referred By Dontae [email or web address] Referred To Contact Orthopaedic Surgery / Orthopedics Diagnoses Trigger middle finger of left hand Libia Garcia CRNP [address] [place] [address] Pranav Mcgowan MD [address] [place] [address] Referral ID Status Reason Start Date Expiration Date Visits Requested Visits Authorized [id number] Pending Review Specialty Services Required [phone] Question Answer Referral Priority Within 10 days (routine) Where should this appointment be scheduled? [facility] What body part is the patient being seen for? Hand What condition is the patient being seen for? Sprain/Strain/Tear/Other - trigger finger Reason for Visit * Reason Comments Return Visit Trigger finger X yea rs Encounter Details Date Type Department Care Team (Late st Contact Info) Description 02/04/2023 2:20 PM EST Office Visit [facility] [address] [facility] [place] [address] Libia Garcia CRNP [address] [place] [address] Trigger middle finger of left hand* Allergies Active Allergy Reactions Criticality Noted Date Comments Sulfamethoxazole-Trimethoprim Rash High 2015 Penicillins 01/24/2001 augmentin gave rash documented as of this encounter (statuses as of 02/04/2023) Medications Medication Sig Dispensed Refills Start Date End Date Status BLOOD GLUCOSE MONITOR SYSTEM W/DEVICE KITIndications:DM type 2, goal A1c below 7 measure and record glucose three times daily 1 Kit 0 4 Active insulin aspart (INSULIN ASPART) 100 UNIT/ML injectionIndication s:Type 2 diabetes mellitus with hemoglobin A1c goal of less than 7.0% (HCC) Use up to 50 units per day in insulin pump 1 Vial 0 8 Active Ascorbic Acid (VITAMIN C) 1000 MG Tablet Take 1 Tablet by mouth in the morning. 0 Active Venlafaxine HCl ER 75 MG Oral Capsule Extended Release 24 Hour (Effexor XR) Take 1 Capsule by mouth in the morning. WITH 150mg dose - [facility] dose [facility] 90 Capsule 0 1 Active Ozempic (1 MG/DOSE) 4 MG/3ML Subcutaneous Solution Pen-injector (Semaglutide (1 MG/DOSE)) Inject 1 mg under the skin once a week. PLEASE FILL BABITA 9 mL 3 2 Active Additional Information Patient taking differently: 2 mgSubcutaneous QWEEK, PLEASE FILL BABITA, Reported on 02/04/2023 Accu-Chek Guide In Vitro Strip (Glucose Blood) Use to test twice daily DX E11.9 200 Strip 3 2 Active Accu-Chek FastClix Lancets Use to test twice daily DX E11.9 200 Each 3 2 Active Venlafaxine HCl ER 150 MG Oral Capsule Extended Release 24 Hour (Effexor XR)Indications:Depr ession with anxiety TAKE 1 CAPSULE BY MOUTH DAILY. DO NOT CUT, CRUSH OR CHEW 90 Capsule 1 3 Active Simvastatin 40 MG Oral Tablet (Zocor)Indications: Elevated glucose,Dyslipidemi a, goal LDL below 160 Take 1 Tablet by mouth every evening. 90 Tablet 1 3 Active One-A-Day Womens 50+ Oral Tablet Take 1 Tablet by mouth in the morning. 0 Active Lisinopril 5 MG Oral Tablet (Prinivil) TAKE 1 TABLET BY MOUTH EVERY DAY IN THE MORNING 90 Tablet 1 3 Active Gabapentin 300 MG Oral Capsule (Neurontin)Indicati ons:Neuropathy Take 1 Capsule by mouth in the morning and 1 Capsule at noon and 1 Capsule before bedtime. 270 Capsule 1 3 Active Cetirizine HCl 10 MG Oral Capsule [...] Omeprazole 20 MG Oral Capsule Delayed Release (PriLOSEC)Indicatio ns:Abdominal pain, epigastric TAKE 1 CAPSULE BY MOUTH EVERY DAY 1 HOUR BEFORE THE FIRST MEAL OF THE DAY 90 Capsule 1 3 Active Ondansetron 8 MG Oral Tablet Disintegrating (Zofran)Indications :Nausea and vomiting, unspecified vomiting type Place 1 Tablet on tongue every 8 hours as needed for Nausea or Vomiting. dissolve on tongue. 20 Tablet 0 3 02/05/20 Discontinu ed(Medicat ion List Clean Up) Diphenoxylate-Atrop ine 2.5-0.025 MG Oral Tablet (Lomotil) PLEASE SEE ATTACHED FOR DETAILED DIRECTIONS 0 3 02/05/20 Discontinu ed(Medicat ion List Clean Up) Budesonide 3 MG Oral Capsule Delayed Release Particles (Entocort EC) 3 tabs/day for a month, 2/day for a month, then one daily for a month. 90 Capsule 1 3 02/05/20 Discontinu ed(Medicat ion List Clean Up) documented as of this encounter (statuses as of 02/04/2023) Active Problems Problem Noted Date Diagnosed Date [...] as of this encounter (statuses as of 02/04/2023) Resolved Problems Problem Noted Date Diagnosed Date [...] as of this encounter (statuses as of 02/04/2023) Immunizations Name Administration Dates Next Due COVID-19 mRNA, LNP-s, No Pre serve, 2-Dose Series (Moderna) 12/29/2020,12/01/2020 Hepatitis B, 20+ yrs 04/23/2019,03/16/2019 Pneumococcal Conjugate Vacc, 13 Valent (Prevnar) 01/26/2015 Pneumococcal Polysaccharide PPV23 (Pneumovax) 02/02/2016 SEASONAL INFLUENZA, PF, 6 M & Above, IM , (FLULAVAL or FLUZONE) 12/12/2018 Seasonal Influenza, Quadriva lent, No Preserve, IM 12/15/2015,01/26/2015 Seasonal Influenza, Quadriva lent,with Preserve, 3 yr & Above, IM 11/02/2016 Seasonal Influenza, Split, I IV3, [...] Recorded PHQ Adult Total Score 0 04/05/2021 Sex and Gender Information Value Date Recorded Sex Assigned at Female 08/23/2022 2:02 PM EDT Gender Identity Female 08/23/2022 2:02 PM EDT Sexual Orientation Straight 08/23/2022 2: 02 PM EDT Job Start Date Occupation Industry Not on file Not on file Not on file documented as of this encounter Last Filed Vital Signs Vital Sign Reading Time Taken Comments Blood Pressure 116/68 02/04/2023 2:22 PM EST Pulse 76 02/04/2023 2:22 PM EST Temperature 36.6 C (97.9 F) 02/04/2023 2:22 PM ES T Respiratory Rate - - Oxygen Saturation 99% 02/04/2023 2:22 PM EST Inhaled Oxygen Concentration - - Weight 63.3 kg (139 lb 9.6 oz) 02/04/2023 2:22 P M EST Height 157.5 cm (5' 2") 02/04/2023 2:22 PM EST Body Mass Index 25.53 02/04/2023 2:22 PM EST documented in this encounter Progress Notes * Lbiia Garcia CRNP - 02/04/2023 2:25 PM EST Images from the original note were not included. History of Present Illness Carolyn Alexander is a 52 year old female that presents for Return Visit (Trigger finger X years ) HPI Here for referral to hand specialist for trigger finger of middle finger of left hand. Has been present for years and worsening. She now has painful episodes of locking and the pain radiates toward the end of her finger Tried home stretches, exercises, bracing Has gone to [place] about it a couple of times but prefers a provider here Outpatient Medications Marked as Taking for the 02/04/23 encounter (Office Visit) with Libia Garcia CRNP Medication Sig Omeprazole 20 MG Oral Capsule Delayed Release (PriLOSEC) TAKE 1 CAPSULE BY MOUTH EVERY DAY 1 HOUR BEFORE THE FIRST MEAL OF THE DAY Biotin 5000 MCG Oral Tablet Take 1 Tablet by mouth in the morning and 1 Tablet at noon and 1 Tabletbefore bedtime. Cetirizine HCl 10 MG Oral Capsule Take 1 Capsule by mouth in the morning. Zolpidem Tartrate 5 MG Oral Tablet (Ambien) Take 1 Tablet by mouth at bedtime as needed for Sleep. Gabapentin 300 MG Oral Capsule (Neurontin) Take 1 Capsule by mouth in the morning and 1 Capsule at noon and 1 Capsule before bedtime. Lisinopril 5 MG Oral Tablet (Prinivil) TAKE 1 TABLET BY MOUTH EVERY DAY IN THE MORNING Venlafaxine HCl ER 150 MG Oral Capsule Extended Release 24 Hour (Effexor XR) TAKE 1 CAPSULE BY MOUTH DAILY. DO NOT CUT, CRUSH OR CHEW Simvastatin 40 MG Oral Tablet (Zocor) Take 1 Tablet by mouth every evening. Accu-Chek FastClix Lancets Use to test twice daily DX E11.9 Accu-Chek Guide In Vitro Strip (Glucose Blood) Use to test twice daily DX E11.9 Ozempic (1 MG/DOSE) 4 MG/3ML Subcutaneous Solution Pen-injector (Semaglutide (1 MG/DOSE)) Inject 1 mg under the skin once a week. PLEASE FILL BABITA (Patient taking differently: Inject 2 mg under the skin once a week. PLEASE FILL BABITA) Venlafaxine HCl ER 75 MG Oral Capsule Extended Release 24 Hour (Effexor XR) Take 1 Capsule by mouthin the morning. WITH 150mg dose - [facility] dose [facility]mg [facility]. Ascorbic Acid (VITAMIN C) 1000 MG Tablet Take 1 Tablet by mouth in the morning. insulin aspart (INSULIN ASPART) 100 UNIT/ML injection Use up to 50 units per day in insulin pump BLOOD GLUCOSE MONITOR SYSTEM W/DEVICE KIT measure and record glucose three times daily Physical Exam Vitals: 02/04/23 1422 Temp: 36.6 C (97.9 F) Pulse: 76 SpO2: 99% BP: 116/68 BMI: 25.53 Physical Exam Vitals reviewed. Constitutional: General: She is not in acute distress. Musculoskeletal: Comments: Left hand middle finger: + tenderness at the base, + tender nodule, finger is unable to be fully extended without causing pain Skin: General: Skin is warm and dry. Capillary Refill: Capillary refill takes less than 2 seconds. Neurological: Mental Status: She is alert and oriented to person, place, and time. Psychiatric: Behavior: Behavior normal. Thought Content: Thought content normal. Assessment and Plan Trigger middle finger of left hand - ORTHOPAEDICS REFERRAL OP Wrap-Up Follow-up: Return if symptoms worsen or fail to improve. | Check-out note: Schedule ortho hand Time: I spent a total of 20-29 minutes (exact time 20 mins) on the date of service in preparation, delivery, and documentation of the care provided to Carolyn Alexander excluding any time spent in the performance of separately billed services. documented in this encounter Nursing Notes * Lori Guzman LPN - 02/04/2023 2:19 PM EST The patient has been properly identified by confirmation of name and date of . Chief Complaint Patient presents with Return Visit Trigger finger X years Left middle finger-- ongoing for 2 years , locks up very often. Very very painful. Pt has done the at home therapy. Never hd injections. documented in this encounter Plan of Treatment Upcoming Encounters Date Type Department Care Team (Late st Contact Info) Description 03/11/2023 9:00 AM EST Office Visit Rheumatology [facility] [address] [facility] [place] [address] Rebekah Harris CRNP [address] [place] [address] 03/15/2023 10:30 AM EST Office Visit Orthopaedics [facility] [address] [place] [address] Pranav Mcgowan MD [address] [place] [address] Scheduled Referrals Name Type Priority Associated Diagnoses Order Schedule ORTHOPAEDICS REFERRAL OP Referral Within 10 days (routine) Trigger middle finger of left hand Ordered: 02/04/2023 Health Maintenance Due Date Last Done Comments DISCUSS TOBACCO CESSATION (REFER TO SMARTSET #3530) 06/22/2015 06/21/2014 Fecal Occult Blood Test 10/01/2015 [...] 01/26/2015 LUNG CANCER SCREENING - USE SMARTSET [id number] Completed 07/12/2022, 06/28/2021 GARDASIL-HPV IMMUNIZATION SERIES Aged [...] and were consensually agreed upon. Care Teams Lacquer Maker Relationship Specialty Start Date End Date Dasha Krueger CRNP [address] [place] [address] PCP - General Nurse Practitioner 06/26/22 documented as of this encounter
--- OUTSIDE RECORDS SUMMARY | 2023-04-30 11:31 | External Medical Summary | Summary of Care ---
Author Name Unknown Organization [facility] Address [address] [facility] [address] Phone [phone] Care Team Providers Care Motion Picture Commentator Name Role Phone Dasha Krueger Primary Care Provider Reason for Referral * Evaluate & Treat - Unlimited Visits (Within 10 days (routine)) - Authorized Specialty Diagnoses / Procedures Referred By Dontae [email or web address] Referred To Contact Rheumatology Diagnoses Ankylosing spondylitis (HCC) Maryann Hurst PA-C [address] [place] [address] Referral ID Status Reason Start Date Expiration Date Visits Requested Visits Authorized [id number] Authorized Specialty Services Required 01/28/2023 07/27/[phone] Question Answer Referral Priority Within 10 days (routine) Where should this appointment be scheduled? [facility] Reason for referral: Other Conditions - Ankylosing spondylitis Comments Notes scanned into Epic 01/29/23 crb Encounter Details Date Type Department Care Team (Late st Contact Info) Description 01/29/2023 Orders Only [facility], [address] *DO NOT REMOVE THIS DEPARTMENT* [place] [address] Request, External Referral Ankylosing spondylitis (HCC)* Allergies Active Allergy Reactions Criticality Noted Date Comments Sulfamethoxazole-Trimethoprim Rash High 2015 Penicillins 01/24/2001 augmentin gave rash documented as of this encounter (statuses as of 01/29/2023) Medications Medication Sig Dispensed Refills Start Date End Date Status BLOOD GLUCOSE MONITOR SYSTEM W/DEVICE KITIndications:DM type 2, goal A1c below 7 measure and record glucose three times daily 1 Kit 0 12/21/2013 Active insulin aspart (INSULIN ASPART) 100 UNIT/ML injectionIndications :Type 2 diabetes mellitus with hemoglobin A1c goal [...] FILL BABITA 9 mL 3 01/26/2022 Active Accu-Chek Guide In Vitro Strip (Glucose Blood) Use to test twice daily DX E11.9 200 Strip 3 02/22/2022 Active Additional Information Patient not taking.Reported on 12/13/2022 Accu-Chek FastClix Lancets Use to test twice daily DX E11.9 200 Each 3 02/22/2022 Active Ondansetron 8 MG Oral Tablet Disintegrating (Zofran)Indications: Nausea and vomiting, unspecified vomiting type Place 1 Tablet on tongue every 8 hours as needed for Nausea or Vomiting. dissolve on tongue. 20 Tablet 0 03/12/2022 Active Additional Information Patient not taking.Reported on 12/13/2022 Venlafaxine HCl ER 150 MG Oral Capsule Extended Release 24 Hour (Effexor XR)Indications:Depre ssion with anxiety TAKE 1 CAPSULE BY MOUTH DAILY. DO NOT CUT, CRUSH OR CHEW 90 Capsule 1 04/10/2022 Active Simvastatin 40 MG Oral Tablet (Zocor)Indications:E levated glucose,Dyslipidemia , goal LDL below 160 Take 1 Tablet by mouth every evening. 90 Tablet 1 04/09/2022 Active One-A-Day Womens 50+ Oral Tablet Take 1 Tablet by mouth in the morning. 0 Active Diphenoxylate-Atropi ne 2.5-0.025 MG Oral Tablet (Lomotil) PLEASE SEE ATTACHED FOR DETAILED DIRECTIONS 0 04/30/2022 Active Lisinopril 5 MG Oral Tablet (Prinivil) TAKE 1 TABLET BY MOUTH EVERY DAY IN THE MORNING 90 Tablet 1 05/20/2022 Active Additional Information Patient not taking.Reported on 12/13/2022 Gabapentin 300 MG Oral Capsule (Neurontin)Indicatio ns:Neuropathy Take 1 Capsule by mouth in the [...] Omeprazole 20 MG Oral Capsule Delayed Release (PriLOSEC)Indication s:Abdominal pain, epigastric TAKE 1 CAPSULE BY MOUTH EVERY DAY 1 HOUR BEFORE THE FIRST MEAL OF THE DAY 90 Capsule 1 08/22/2022 Active Additional Information Patient not taking.Reported on 12/13/2022 Budesonide 3 MG Oral Capsule Delayed Release Particles (Entocort EC) 3 tabs/day for a month, 2/day for a month, then one daily for a month. 90 Capsule 1 12/13/2022 Active documented as of this encounter (statuses as of 01/29/2023) Active Problems Problem Noted Date Diagnosed Date [...] as of this encounter (statuses as of 01/29/2023) Resolved Problems Problem Noted Date Diagnosed Date [...] as of this encounter (statuses as of 01/29/2023) Immunizations Name Administration Dates Next Due COVID-19 [...] Care Team (Late st Contact Info) Description 01/31/2023 3:20 PM EST Office Visit Family Practice [facility] [address] [place] [address] Libia Garcia CRNP [address] [place] [address] Scheduled Referrals Name Type Priority Associated Diagnoses Orde r Schedule RHEUMATOLOGY REFERRAL OP Referral Within 10 days (routine) Ankylosing spondylitis (HCC) Ordered: 01/29/2023 Health Maintenance Due Date Last Done Comments DISCUSS TOBACCO CESSATION (REFER TO SMARTSET #[id number]) 06/22/2015 06/21/2014 Fecal Occult Blood Test 10/01/2015 Sigmoidoscopy 10/01/2015 DTaP,Tdap,and Td Vaccines (2 - Td or Tdap) 09/17/2017 09/18/2007 Zoster Vaccines (1 of 2) 2020 Albumin/Creatinine Ratio 08/22/2021 021, 11/23/2019, 12/02/2017, Additional history exists Diabetic Foot Exam 09/20/2021 09/20/2020, 0 07/22/2018, 05/17/2017, Additional history exists Depression Screening 04/05/2022 04/05/2021 Diabetic Eye Exam 07/14/2022 07/14/2021, , 11/23/2019, Additional history exists HbA1c 09/24/2022 03/27/2022, 11/27, 12/26/2020, Additional history exists COVID-19 Vaccine ( season) 2022 12/29/2020, 12/01/2020 Influenza Vaccine (FLU shot) (#1) 2022 12/12/2018, 11/02/2016, 12/15/2015, Additional history exists Mammogram 02/13/2023 02/13/2022, 09/25, 10/05/2019, Additional history exists GFR 03/27/2023 03/27/2022, 02/25, 12/25/2021, Additional history exists Cologuard 06/19/2024 06/19/2021, 05/26, 06/13/2021 Lipid Panel 12/25/2026 12/25/2021, 11/0 02/2020, 08/22/2020, Additional history exists Colonoscopy 04/17/2032 04/17/2022, 04/17/2022 Colorectal Cancer Screening 04/17/2032 Pneumococcal Vaccine: Pediatrics (0 to 5 Years) and At-Risk Patients (6 to 64 Years) (3 - PPSV23 or PCV20) 10/01/2035 02/02/2016, 01/26/2015 LUNG CANCER SCREENING - USE SMARTSET [id number] Completed 07/12/2022, 06/28/2021 GARDASIL-HPV IMMUNIZATION SERIES Aged Out No longer eligible based on patient's age to complete this topic MENINGOCOCCAL (MENACTRA/MENVEO) Aged Out No longer eligible based on patient's age to complete this topic documented as of this encounter Medical Devices Not on filedocumented as of this encounter Visit Diagnoses Diagnosis Ankylosing spondylitis (HCC)- Primary Ankylosing spondylitis documented in this encounter Advance Directives Latest [...] and were consensually agreed upon. Care Teams Motion Picture Commentator Relationship Specialty Start Date End Date Dasah Krueger CRNP [address] [place] [address] PCP - General Nurse Practitioner 06/26/22 documented as of this encounter
--- OUTSIDE RECORDS SUMMARY | 2023-04-30 11:31 | External Medical Summary | Summary of Care ---
Author Name Unknown Organization [facility] Address [address] [place] [facility] [place] [address] Phone [phone] Care Team Providers Care Tool Maker Apprentice Name Role Phone Dasha Krueger Primary Care Provider Encounter Details Date Type Department Care Team (Late st Contact Info) Description 02/09/2023 Patient Reported Data Patient Survey Ortho OBERD Allergies Active Allergy Reactions Criticality Noted Date Comments Sulfamethoxazole-Trimethoprim Rash High 2015 Penicillins 01/24/2001 augmentin gave rash documented as of this encounter (statuses as of 02/09/2023) Medications Medication Sig Dispensed Refills Start Date [...] as of this encounter (statuses as of 02/09/2023) Active Problems Problem Noted Date Diagnosed Date [...] as of this encounter (statuses as of 02/09/2023) Resolved Problems Problem Noted Date Diagnosed Date [...] as of this encounter (statuses as of 02/09/2023) Immunizations Name Administration Dates Next Due COVID-19 [...] 03/11/2023 9:00 AM EST Office Visit Rheumatology [place] [id number] [facility] [place], [place] [address] Rebekah Harris CRNP [address] [facility] [place] [address] 03/15/2023 10:30 AM EST Office Visit Orthopaedics [facility] [address] [place] [address] Pranav Mcgowan MD [address] [place] [address] Health Maintenance Due Date Last Done Comments DISCUSS TOBACCO CESSATION (REFER TO SMARTSET #[id number]) 06/22/2015 06/21/2014 Fecal Occult Blood Test 10/01/2015 [...] 01/26/2015 LUNG CANCER SCREENING - USE SMARTSET [id number] Completed 07/12/2022, 06/28/2021 GARDASIL-HPV IMMUNIZATION SERIES Aged Out No longer eligible based on patient's age to complete this topic MENINGOCOCCAL (MENACTRA/MENVEO) Aged Out No longer eligible based on patient's age to complete this topic documented as of this encounter Medical Devices Not on filedocumented as of this encounter Advance Directives Latest Code Status [...] and were consensually agreed upon. Care Teams Tool Maker Apprentice Relationship Specialty Start Date End Date Dasha Krueger CRNP [address] [place] [address] PCP - General Nurse Practitioner 06/26/22 documented as of this encounter
--- OUTSIDE RECORDS SUMMARY | 2023-04-30 11:31 | External Medical Summary | Summary of Care ---
Author Name Unknown Organization [facility] Address [address] [facility] [place] [address] Phone [phone] Care Team Providers Care Warehouse Shipping Associate Name Role Phone Dasha Krueger Primary Care [...] 03/11/2023 9:00 AM EST Office Visit Rheumatology [place] [address] [facility] [place] [address] Rebekah Harris CRNP [address] [facility] [place] [address] 03/15/2023 10:30 AM EST Office Visit Orthopaedics [facility] [address] [place] [address] Pranav Mcgowan MD [address] [place] [address] Health Maintenance Due Date Last Done Comments DISCUSS TOBACCO CESSATION (REFER TO SMARTSET #2972) 06/22/2015 06/21/2014 Fecal Occult Blood Test 10/01/2015 [...] 01/26/2015 LUNG CANCER SCREENING - USE SMARTSET [id number] Completed 07/12/2022, 06/28/2021 GARDASIL-HPV IMMUNIZATION SERIES Aged [...] and were consensually agreed upon. Care Teams Warehouse Shipping Associate Relationship Specialty Start Date End Date Dasha Krueger CRNP [address] [place] [address] PCP - General Nurse Practitioner 06/26/22 documented as of this encounter
--- OUTSIDE RECORDS SUMMARY | 2023-04-30 11:31 | External Medical Summary | Summary of Care ---
Author Name Unknown Organization [facility] Address [address] [facility] [place] [address] Phone [phone] Care Team Providers Care Manager Transit Name Role Phone Dasha Krueger Primary Care [...] 03/11/2023 9:00 AM EST Office Visit Rheumatology [place] [phone] [facility] [place] [address] Rebekah Harris CRNP [address] [facility] [place] [address] 03/15/2023 10:30 AM EST Office Visit Orthopaedics [facility] [address] [place] [address] Pranav Mcgowan MD [address] [place] [address] Health Maintenance Due Date Last Done Comments DISCUSS TOBACCO CESSATION (REFER TO SMARTSET #3345) 06/22/2015 06/21/2014 Fecal Occult Blood Test 10/01/2015 [...] 01/26/2015 LUNG CANCER SCREENING - USE SMARTSET [id number] Completed 07/12/2022, 06/28/2021 GARDASIL-HPV IMMUNIZATION SERIES Aged [...] and were consensually agreed upon. Care Teams Manager Transit Relationship Specialty Start Date End Date Dasha Krueger CRNP [address] [place] [address] PCP - General Nurse Practitioner 06/26/22 documented as of this encounter
--- OUTSIDE RECORDS SUMMARY | 2023-04-30 11:31 | External Medical Summary | Summary of Care ---
Author Name Unknown Organization [facility] Address [address] [place] [address] Phone [phone] Care Team Providers Care Food Processing Plant Manager Name Role Phone Dasha Krueger Primary Care Provider Reason for Visit * Reason Comments Follow Up Nausea, diarrhea, ab d pain, lymphocytic colitis - [facility] , * Evaluate & Treat - Unlimited Visits (Within 30 days (routine)) - Authorized Specialty Diagnoses / Procedures Referred By Dontae [email or web address] Referred To Contact Gastroenterology Diagnoses Lymphocytic colitis Maryann Hurst PA-C [address] [place] [address] [facility] [address] [facility] [place] [address] Referral ID Status Reason Start Date Expiration Date Visits Requested Visits Authorized [id number] Authorized Specialty Services Required 3 06/10/[phone] Encounter Details Date Type Department Care Team Description 12/13/2022 Office Visit [facility], [facility] [address] [facility] [address] [facility]uly [facility] CR[facility] [address] [facility] [place] [address] Diarrhea, unspecified type* Allergies Active Allergy Reactions Severity Noted Date Comments Sulfamethoxazole-Trimethoprim Rash High 2015 Penicillins 01/24/2001 augmentin gave rash documented as of this encounter (statuses as of 12/13/2022) Medications Medication Sig Dispensed Refills Start Date End Date Status BLOOD GLUCOSE MONITOR SYSTEM W/DEVICE KITIndications:DM type 2, goal A1c below 7 measure and record glucose three times daily 1 Kit 0 4 Active insulin aspart (INSULIN ASPART) 100 UNIT/ML injectionIndicatio ns:Type 2 diabetes mellitus with hemoglobin A1c goal of less than 7.0% (FORMERLY [facility]) Use up to 50 units per day [...] FILL BABITA 9 mL 3 2 Active Accu-Chek Guide In Vitro Strip (Glucose Blood) Use to test twice daily DX E11.9 200 Strip 3 2 Active Additional Information Patient not taking.Reported on 12/13/2022 Accu-Chek FastClix Lancets Use to test twice daily DX E11.9 200 Each 3 2 Active Ondansetron 8 MG Oral Tablet Disintegrating (Zofran)Indication s:Nausea and vomiting, unspecified vomiting type Place 1 Tablet on tongue every 8 hours as needed for Nausea or Vomiting. dissolve on tongue. 20 Tablet 0 3 Active Additional Information Patient not taking.Reported on 12/13/2022 Venlafaxine HCl ER 150 MG Oral Capsule Extended Release 24 Hour (Effexor XR)Indications:Dep ression with anxiety TAKE 1 CAPSULE BY MOUTH DAILY. DO NOT CUT, CRUSH OR CHEW 90 Capsule 1 3 Active Simvastatin 40 MG Oral Tablet (Zocor)Indications :Elevated glucose,Dyslipidem ia, goal LDL below 160 Take 1 Tablet by mouth every evening. 90 Tablet 1 3 Active One-A-Day Womens 50+ Oral Tablet Take 1 Tablet by mouth in the morning. 0 Active Diphenoxylate-Atro pine 2.5-0.025 MG Oral Tablet (Lomotil) PLEASE SEE ATTACHED FOR DETAILED DIRECTIONS 0 3 Active Lisinopril 5 MG Oral Tablet (Prinivil) TAKE 1 TABLET BY MOUTH EVERY DAY IN THE MORNING 90 Tablet 1 3 Active Additional Information Patient not taking.Reported on 12/13/2022 Gabapentin 300 MG Oral Capsule (Neurontin)Indicat ions:Neuropathy [...] THE DAY 90 Capsule 1 3 Active Additional Information Patient not taking.Reported on 12/13/2022 Budesonide 3 MG Oral Capsule Delayed Release Particles (Entocort EC) 3 tabs/day for a month, 2/day for a month, then one daily for a month. 90 Capsule 1 3 Active Ibuprofen 800 MG Oral Tablet (Motrin) 0 3 023 Discontinued(Ak dication List Clean Up) Budesonide 3 MG Oral Capsule Delayed Release Particles (Entocort EC) 3 daily for a month, 2 daily for a month then one daily 90 Capsule 1 3 023 Discontinued documented as of this encounter (statuses as of 12/13/2022) Active Problems Problem Noted Date Hemorrhoids, external without complicati ons 03/27/2022 Diarrhea 03/27/2022 Sacroiliitis 03/27/2022 Major depressive disorder, single episod e, in full remission 03/27/2022 Ankylosing spondylitis of lumbosacral re gion 08/09/2019 Nocturnal hypoxemia 12/04/2018 Periodic limb movement disorder (PLMD) 1 Type 2 diabetes mellitus with diabetic n europathy, unspecified 07/22/2018 WILLA (obstructive sleep apnea) 03/26/2018 Chronic nonspecific lung disease 018 GENERALIZED ANXIETY DIS 01/23/2006 Major depressive disorder 01/23/2006 Overview: ICD-10 update of inactive term ADVANCE DIRECTIVE INFORMATION 02/14/2005 Overview: No, Advance Directive brochure given to patient at prior appointment. 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 Carpal tunnel syndrome 06/20/2004 Chronic rhinitis 12/01/2001 documented as of this encounter (statuses as of 12/13/2022) Resolved Problems Problem Noted Date Resolved Date Body mass index (BMI) of 40.0 to 44.9 in adult 0 09/01/2018 03/27/2022 Overview: Per Obesity protocol WILLA (obstructive sleep apnea) 03/26/2018 Type 2 diabetes mellitus wit h hemoglobin A1c goal of less than 7.0% 12/21/2013 09/20/2020 Overview: ICD-10 update of inactive term Other disorder of menstruati on and other abnormal bleeding from female genital tract 12/01/2001 10/30/2005 documented as of this encounter (statuses as of 12/13/2022) Immunizations Name Administration Dates Next Due COVID-19 [...] 0.6 oz pur e alcohol) very rare Sex Assigned at Date Recorded Female 08/23/2022 2:02 PM E DT Job Start Date Occupation Industry Not on file Not on file Not on file documented as of this encounter Last Filed Vital Signs Vital Sign Reading Time Taken Comments Blood Pressure 123/75 12/13/2022 4:04 PM EDT Pulse 83 12/13/2022 4:04 PM EDT Temperature 36.6 C (97.9 F) 12/13/2022 4:04 PM ED T Respiratory Rate - - Oxygen Saturation 98% 12/13/2022 4:04 PM EDT Inhaled Oxygen Concentration - - Weight 63.5 kg (140 lb) 12/13/2022 4:04 PM EDT Height - - Body Mass Index 25.6 04/17/2022 9:43 AM EST documented in this encounter Progress Notes * LYSSA Muñoz - 12/13/2022 4:13 PM EDT CC: Chronic Diarrhea/lymphocytic colitis HPI: Recall that Carolyn Alexander is a 52 year old female pt of Ben Oliver DO with a hx of DM2, , PTSD who was seen in GI clinic in April for diarrhea. C scope w lymphocytic colitis. Completeda course of budesonide and diarrhea resolved. However, diarrhea returned about a month ago. Also has lower abdomen gurgling and discomfort works its way lower and more painful. Has a lot of gas. Has nausea, no vomiting. NSAIDs/Artificial sweeteners: None for months. Diagnostic Testing: Colonoscopy Mar 2022: normal. Path: lymphocytic colitis. Stool Studies: for C-diff (-)/GI path (-) Mar 2022. ROS: + chronic joint pain from ; under a lot of stress (divorce), A total of 12 systems reviewed, allothers (-) EXAM: BP 123/75 | Pulse 83 | Temp 36.6 C (97.9 F) | Wt 63.5 kg (140 lb) | LMP 11/29/2001 | SpO2 98% |BMI 25.60 kg/m | BSA 1.67 m GENERAL: 52 year old female well developed and well nourished in no acute distress SKIN: no rashes, ulcers, or spider angiomata HEENT: normocephalic, sclera clear, pharynx normal NECK: supple, no lymphadenopathy, no masses or thyroid enlargement LUNGS: clear to auscultation anterior and posterior HEART: regular rate & rhythm, no murmurs and no gallops ABDOMEN: normo-active bowel sounds, soft, mild diffuse tenderness, non-distended no masses, no hepatosplenomegaly, no rebound or guarding, no bruits EXTREMITIES: no palmar erythema, no edema, no skin discoloration, no clubbing, no cyanosis NEURO: no lateralizing findings, Sensory/Motor grossly normal IMPRESSION/RECOMMENDATIONS: 52 year old female with recurrent diarrhea suggestive of recurrance of microscopic colitis. Diarrhea, unspecified type (Primary) - Budesonide 3 MG Oral Capsule Delayed Release Particles (Entocort EC); 3 tabs/day for a month, 2/day for a month, then one daily for a month. OK to use Imodium prn diarrhea in addition if needed. I spent a total of 30 minutes on the date of service in review of patient's record, and previously obtained information in person and appropriate medical visit, discussion and education of plan, withpatient and/or caregiver, placing orders for tests/referral/procedures as medically necessary and documentation of pertinent clinical information in patient's medical records for their visit today. Thank you for the opportunity to be involved in the care of this patient. LYSSA Muñoz documented in this encounter Nursing Notes * Nichol Joy LPN - 12/13/2022 4:05 PM EDT Patient identified by name and date of . Chief Complaint Patient presents with Follow Up Nausea, diarrhea, abd pain, lymphocytic colitis - [facility] , Pt stating that she just got a divorce, she is waiting for her insurance to kick in, pt is stressedabout this for the last 2 years. Pt was also trying to sell her house, got her job suspended due toa DUI she had. Pt stating that she went to [facility], they told her its not celiac. Pt stating that the [facility] wanted [facility], they did x rays and a stool sample she is trying to pull her results up on thephone. Pt stating that she is having 5-6 loose stools a day, denies blood or mucous , denies recent antibiotic use, and has city water. Pt does have night sweats, stating normal for her. documented in this encounter Plan of Treatment Health Maintenance Due Date Last Done Comments DISCUSS TOBACCO CESSATION (REFER TO SMARTSET #7896) 06/22/2015 06/21/2014 Fecal Occult Blood Test 10/01/2015 Sigmoidoscopy 10/01/2015 DTaP,Tdap,and Td Vaccines (2 - Td or Tdap) 09/17/2017 09/18/2007 Zoster Vaccines (1 of 2) 2020 Albumin/Creatinine Ratio 08/22/2021 021, 11/23/2019, 12/02/2017, Additional history exists Diabetic Foot Exam 09/20/2021 09/20/2020, 0 07/22/2018, 05/17/2017, Additional history exists Depression Screening 04/05/2022 04/05/2021 DIABETES-EYE EXAM 07/14/2022 07/14/2021, , 11/23/2019, Additional history exists [...] 01/26/2015 LUNG CANCER SCREENING - USE SMARTSET 06175 Completed 07/12/2022, 06/28/2021 GARDASIL-HPV IMMUNIZATION SERIES Aged Out No longer eligible based on patient's age to complete this topic MENINGOCOCCAL (MENACTRA/MENVEO) Aged Out No longer eligible based on patient's age to complete this topic documented as of this encounter Medical Devices Not on filedocumented as of this encounter Visit Diagnoses Diagnosis Diarrhea, unspecified type- Primary documented in this encounter Advance Directives Latest [...] and were consensually agreed upon. Care Teams Food Processing Plant Manager Relationship Specialty Start Date End Date Dasha Krueger CRNP [address] [facility] [place] [address] PCP - General Nurse Practitioner 06/26/22 documented as of this encounter"
--- OUTSIDE RECORDS SUMMARY | 2023-04-30 11:31 | External Medical Summary | Summary of Care ---
Author Name Unknown Organization [facility] Address [address] [facility] [place] [address] Phone [phone] Care Team Providers Care Accounting Lecturer Name Role Phone Dasha Krueger Primary Care [...] 03/11/2023 9:00 AM EST Office Visit Rheumatology [place] [phone] [facility] [place], [place] [address] Rebekah Harris CRNP [address] [facility] [place] [address] 03/15/2023 10:30 AM EST Office Visit Orthopaedics [facility] [address] [place] [address] Pranav Mcgowan MD [address] [place] [address] Health Maintenance Due Date Last Done Comments DISCUSS TOBACCO CESSATION (REFER TO SMARTSET #7589) 06/22/2015 06/21/2014 Fecal Occult Blood Test 10/01/2015 [...] 01/26/2015 LUNG CANCER SCREENING - USE SMARTSET 85089 Completed 07/12/2022, 06/28/2021 GARDASIL-HPV IMMUNIZATION SERIES Aged [...] and were consensually agreed upon. Care Teams Accounting Lecturer Relationship Specialty Start Date End Date Dasha Krueger CRNP [address] [place] [address] PCP - General Nurse Practitioner 06/26/22 documented as of this encounter
--- OUTSIDE RECORDS SUMMARY | 2023-04-30 11:31 | External Medical Summary | Summary of Care ---
Author Name Unknown Organization [facility] Address [address] [place] [facility] [place] [place] [address] Phone [phone] Care Team Providers Care Wick Tender Name Role Phone Dasha Krueger Primary [...] 03/11/2023 9:00 AM EST Office Visit Rheumatology [place] [id number] [facility] [place] [place] [address] Rebekah Harris CRNP [address] [facility] [place] [address] 03/15/2023 10:30 AM EST Office Visit Orthopaedics [facility] [address] [place] [address] Pranav Mcgowan MD [address] [place] [address] Health Maintenance Due Date Last Done Comments DISCUSS TOBACCO CESSATION (REFER TO SMARTSET #2301) 06/22/2015 06/21/2014 Fecal Occult Blood Test 10/01/2015 [...] 01/26/2015 LUNG CANCER SCREENING - USE SMARTSET 70727 Completed 07/12/2022, 06/28/2021 GARDASIL-HPV IMMUNIZATION SERIES Aged [...] and were consensually agreed upon. Care Teams Wick Tender Relationship Specialty Start Date End Date Dasha Krueger CRNP [address] [place] [address] PCP - General Nurse Practitioner 06/26/22 documented as of this encounter
--- OUTSIDE RECORDS SUMMARY | 2023-04-30 11:31 | External Medical Summary | Summary of Care ---
Author Name Unknown Organization [facility] Address [address] [facility] [place] [address] Phone [phone] Care Team Providers Care Torch Heater Name Role Phone Dasha Krueger Primary Care [...] 03/11/2023 9:00 AM EST Office Visit Rheumatology [place] [id number] [facility] [place], [place] [address] Rebekah Harris CRNP [address] [facility] [place] [address] 03/15/2023 10:30 AM EST Office Visit Orthopaedics [facility] [address] [place] [address] Pranav Mcgowan MD [address] [place] [address] Health Maintenance Due Date Last Done Comments DISCUSS TOBACCO CESSATION (REFER TO SMARTSET #7231) 06/22/2015 06/21/2014 Fecal Occult Blood Test 10/01/2015 [...] 01/26/2015 LUNG CANCER SCREENING - USE SMARTSET 27202 Completed 07/12/2022, 06/28/2021 GARDASIL-HPV IMMUNIZATION SERIES Aged [...] and were consensually agreed upon. Care Teams Torch Heater Relationship Specialty Start Date End Date Dasha Krueger CRNP [address] [place] [address] PCP - General Nurse Practitioner 06/26/22 documented as of this encounter
--- NOTE | 2023-04-30 11:34 | Electrocardiogram Report ---
Test Reason : Blood Pressure : / mmHG Vent. Rate : 099 BPM Atrial Rate : 099 BPM P-R Int : 126 ms QRS Dur : 084 ms QT Int : 340 ms P-R-T Axes : 048 084 074 degrees QTc Int : 436 ms Normal sinus rhythm Normal ECG When compared with ECG of 18-OCT-2014 15:17, No significant change was found Confirmed by Tanvir Estrada ([id number]) on 04/30/2023 11:33:43 AM Referred By: Confirmed By:Tanvir Estrada
[2023-04-30] MEDS: CEFEPIME 2,000 MG/20 ML VIAL IV STA (11:58)
--- NOTE | 2023-04-30 12:00 | CT Scan Report ---
CT SCAN OF THE ABDOMEN AND PELVIS WITHOUT IV CONTRAST CLINICAL HISTORY: Urinary tract infection. Fever. COMPARISON STUDY: No priors. TECHNIQUE: CT scan of the abdomen and pelvis is performed from the lung bases to the proximal femora. Images are reviewed in the axial, sagittal, and coronal planes. IV contrast was not administered for this examination. A dose lowering technique was utilized adhering to the principles of ALARA. CT DOSE: 688.98 mGy.cm FINDINGS: Lung bases: The heart is normal in size and without pericardial effusion. There is diminished attenua tion of the cardiac blood pool as compared to the myocardium suggesting anemia. There is bibasilar sc arring/atelectasis. No airspace consolidation or pleural effusion is identified. There is a tiny hiat al hernia. Liver: The unenhanced liver is normal in size, contour, and attenuation. There is mild central intrah epatic biliary ductal dilatation. Gallbladder: Surgically absent noting clips in the gallbladder fossa. Spleen: Normal in size and attenuation. There are calcified splenic granulomas. Pancreas: The unenhanced pancreas is grossly unremarkable. Adrenal glands: Unremarkable. Kidneys: The unenhanced kidneys are normal in size. There is mild right-sided hydronephrosis with rig ht-sided perinephric inflammation and fluid. Urothelial thickening is noted in the right renal pelvis and right ureter. No hydronephrosis is seen in the left kidney. No renal calculi are identified and there is no ureteral stone. There is no evidence of contour deforming renal mass lesion. Abdominal vasculature: The abdominal aorta is normal in course and caliber noting mild atheroscleroti c calcification. Bowel: There is moderate colonic fecal retention. No bowel obstruction is seen. The appendix is well -visualized and normal. Peritoneum: There is no intraperitoneal free air or abdominal ascites. Lymphadenopathy: None. Pelvic viscera: The bladder wall appears circumferentially thickened. The uterus is surgically absent . No adnexal lesion is seen. Skeletal structures: The skeletal structures are osteopenic. Mild degenerative change is noted in the spine. There is degenerative sclerosis of the sacroiliac joints. No lytic or blastic lesions are see n. IMPRESSION: 1. There is mild right-sided hydronephrosis with right-sided perinephric stranding and fluid as detai led above. No obstructing stone is identified. This could represent the sequelae of a recently passed kidney stone, or could potentially be seen with ascending urinary tract infection. Correlation with clinical findings and urinalysis will be essential. 2. No renal calculi are identified in either kidney. There is no left-sided hydronephrosis. 3. The bladder wall appears circumferentially thickened. Again, this should be correlated with clinic al findings and urinalysis. 4. Moderate constipation. 5. Additional findings as above. ACT 112: Negative or not required by law. Electronically signed by: Israel Elizabeth M.D. 04/30/2023 11:59 AM
--- NOTE | 2023-04-30 12:13 | History & Physical Report ---
Date of Service April 30, 2023 Assessment & Plan (1) Sepsis: (2) Pyelonephritis: (3) Diabetes mellitus, type 2: (4) Dyslipidemia: Plan: This is a 52-year-old female who has significant past medical history of insulin-dependent T2DM, ankylosing spondylitis, WILLA, nocturnal hypoxemia, chronic rhinitis and depression who presents to ED secondary to fever, back pain and weakness x 1 week. Pt met sepsis criteria on arrival 2/2 Fever and tachycardia. She was properly resuscitated in ED and tachycardia has since resolved. Blood and urine cultures were obtained. She received empiric IV cefepime and IVF. Source: likely urine Sepsis Acute Pyelonephritis Right sided hydronephrosis admit to PCU continue IV Cefepime await blood and urine culture continue IVF NS 100cc/hr --CT abd/pelvis: 1. There is mild right-sided hydronephrosis with right-sided perinephric stranding and fluid as detailed above. No obstructing stone is identified. This could represent the sequelae of a recently passed kidney stone, or could potentially be seen with ascending urinary tract infection. Correlation with clinical findings and urinalysis will be essential.2. No renal calculi are identified in either kidney. There is no left-sided hydronephrosis.3. The bladde r wall appears circumferentially thickened. Again, this should be correlated with clinical findings and urinalysis.4. Moderate constipation.5. Additional findings as above. anti emetics, analgesia, antipyretics consider urology consult if sx not improving Anemia outpt records hgb 10.6 ~ 1 year ago pt denies s/sx of bleeding will obtain anemia panel in a.m. Constipation no BM in 4-5 days which is normal for her will order Senna S daily T2DM, insulin dependent poor outpatient control a1c 10.1 in February She utilizes an insulin pump, willing to come off while inpatient for better glycemic control HLD chronic, stable continue statin WILLA not on CPAP at night states she is getting re tested Tobacco abuse encourage cessation Depression mood stable continue venlafaxine DVT ppx: SQ Lovenox Dispo: PCU FULL CODE PCP: LUIS; Dasha Krueger Pt was seen and examined in collaboration with Dr. Tavarez, please see addendum A total of 77 minutes was spent coordinating, documenting, and providing care for this patient excluding time spent in the performance of separately billed services. This included personally viewing all current laboratories and imaging studies, medication reconciliation, outpatient chart review, and discussion with specialists. History of Present Illness Chief Complaint: Fever, back pain weakness x 1 week. Primary Care Provider: [facility] This is a 52-year-old female who has significant past medical history of insulin-dependent T2DM, ankylosing spondylitis, WILLA, nocturnal hypoxemia, chronic rhinitis and depression who presents to ED secondary to fever, back pain and weakness x 1 week. Approximately 1 week ago she started having bilateral back pain. She then progressed to have upper respiratory-like symptoms including sinus congestion, fatigue and progressive weakness. Over the last 3 days her symptoms have worsened. She has been taking [id number] Sudafed and Niki-[place] with minimal relief. She does complain of fever last night her Tmax was 100.6. She denies any sick contacts. She currently lives alone but states she just had some roommates moved in with her. She states she is currently going through divorce and is having a difficult time. She denies any urinary symptoms including dysuria, increased urgency or frequency with urination or hematuria. She further denies any abdominal pain. She states her last bowel movement was 4 to 5 days ago which is not usual for her. She denies any chills, sweats, lightheadedness, dizziness, chest pain, shortness of breath, nausea or vomiting. She states since arriving in ED she is feeling improved. She is starting to have an appetite. Appetite has otherwise been for the last few days. In ED patient did meet sepsis criteria secondary to fever and tachycardia. Her urinalysis was concerning for infection. CT abdomen pelvis revealed right hydronephrosis in setting of proximal ascending urinary tract infection. Allergies Allergy/AdvReac Type Severity Reaction Status Date / Time Penicillins Allergy Severe RASH, Verified 10/18/14 15:02 CHEST HEAVINESS, SOB sulfamethoxazole Allergy Intermediate Rash Unverified 04/30/23 11:11 [From Bactrim] trimethoprim [From Bactrim] Allergy Intermediate Rash Unverified 04/30/23 11:11 Home Medications Medication Instructions Recorded Confirmed Type ascorbic acid (vitamin C) 500 mg 500 mg PO BID 04/30/23 04/30/23 History tablet (Vitamin C) gabapentin 300 mg capsule 300 mg PO TID 04/30/23 04/30/23 History insulin aspart U-100 100 unit/mL See Rx Instructions .Route .COMPLEX 04/30/23 04/30/23 History subcutaneous solution (Novolog U-100 Insulin aspart) melatonin 12 mg tablet 12 mg PO HS 04/30/23 04/30/23 History vit no.95-ferrous 1 tab PO DAILY 04/30/23 04/30/23 History fumarate 28 mg-folic acid 800 mcg tablet () semaglutide 1 mg/dose (4 mg/3 mL) 2 mg subcut WK 04/30/23 04/30/23 History subcutaneous pen injector (Ozempic) simvastatin 40 mg tablet 40 mg PO HS 04/30/23 04/30/23 History venlafaxine 150 mg 150 mg PO DAILY 04/30/23 04/30/23 History capsule,extended release 24 hr venlafaxine 75 mg tablet 75 mg PO QPM 04/30/23 04/30/23 History zolpidem 5 mg tablet 5 mg PO HS Sleep 04/30/23 04/30/23 History Past Med/Surg History Medical History (Updated 05/01/23 @ 10:17 by Camila Phoenix PA-C) Diabetes mellitus, type 2 Tobacco abuse Depression Dyslipidemia Surgical History S/P hysterectomy S/P carpal tunnel release Social History Smoking Status: Current every day smoker Tobacco Type: Cigarettes Hx Alcohol Use: No Hx Substance Use: No Preferred Language: Indian Communication Ability: Effective Backpackers Manager Required: No Beliefs That Will Affect Care: None 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: Other 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 Comment: 2 roommates Feels Safe at Home: Yes Safety Concerns: Feels Safe At This Time Assistive Devices: None Review of Systems Review of Systems: All systems reviewed & are unremarkable except as noted in HPI & below Physical Exam Physical Exam: Constitutional: WD/WN, vitals as above, acutely ill appearing, NAD, sitting up in bed, pleasant, conversing easily Head: Normocephalic, Atraumatic Eyes: PERRL, conjunctivae normal, anicteric sclerae ENMT: external ear and nose normal, oropharynx normal Neck: trachea midline, no thyromegaly normal visual inspection Respiratory: normal respiratory effort, lungs clear to auscultation, no wheeze, rales, rhonchi. Normal insp/exp effort, no accessory muscle use Cardiovascular: RRR, no murmur, no edema Vessels: no JVD or carotid bruit Chest: normal inspection of chest Abdomen: normal bowel sounds, soft, nontender, no hepatosplenomegaly , no CVA tenderness Musculoskeletal: no cyanosis or clubbing, extremities motor strength 5/5 Skin: no rashes, warm and dry normal turgor Neurologic: PERRL, EOMI, accommodation nl, no face palsy, no dysarthria CN's II-XI intact bilaterally and moves all extremities Psychiatric: A+Ox3, euthymic affect Lymphatic: no cervical or axillary lymphadenopathy : deferred Results & Data Results & Data Vital Signs (Past 12 Hours) Vital Signs Temp Pulse Resp BP Pulse Ox O2 Del Method 04/30/23 12:05 37.6 C H 04/30/23 11:41 100 H 21 115/76 95 04/30/23 11:20 95 H 18 95 04/30/23 10:14 38.2 C H 04/30/23 10:10 109 H 18 94 04/30/23 08:49 99 H 04/30/23 08:48 98 Room Air 04/30/23 08:42 97 H 15 119/74 98 04/30/23 08:05 36.1 C L 110 H 18 114/75 98 Room Air Laboratory Results I have independently reviewed and interpreted patient's admitting labs including CBC, CMP, PTT, PT/INR,procal, tsh, lipase, UA, Biofire, and troponin. Diagnostic Findings Chest X-Ray 04/30/23 08:47 XR chest 1V portable HISTORY: 52 years-old Female fever acute shortness breath with fever COMPARISON: 10/18/2014 TECHNIQUE: AP view the chest FINDINGS: Cardiomediastinal and hilar silhouettes are within normal limits. No pneumothorax, pleural effusion or airspace consolidation. Mild right hemidiaphragmatic elevation. Cervical spinal fusion hardware. Bones appear grossly intact. IMPRESSION: No acute process. ACT 112: Negative or not required by law. The above report was generated using voice recognition software. It may contain grammatical, syntax or spelling errors. Electronically signed by: Corby Cates M.D. 04/30/2023 9:45 AM Abdomen/Pelvis CT 04/30/23 10:57 CT SCAN OF THE ABDOMEN AND PELVIS WITHOUT IV CONTRAST CLINICAL HISTORY: Urinary tract infection. Fever. COMPARISON STUDY: No priors. TECHNIQUE: CT scan of the abdomen and pelvis is performed from the lung bases to the proximal femora. Images are reviewed in the axial, sagittal, and coronal planes. IV contrast was not administered for this examination. A dose lowering technique was utilized adhering to the principles of ALARA. CT DOSE: 688.98 mGy.cm FINDINGS: Lung bases: The heart is normal in size and without pericardial effusion. There is diminished attenuation of the cardiac blood pool as compared to the myocardium suggesting anemia. There is bibasilar scarring/atelectasis. No airspace consolidation or pleural effusion is identified. There is a tiny hiatal hernia. Liver: The unenhanced liver is normal in size, contour, and attenuation. There is mild central intrahepatic biliary ductal dilatation. Gallbladder: Surgically absent noting clips in the gallbladder fossa. Spleen: Normal in size and attenuation. There are calcified splenic granulomas. Pancreas: The unenhanced pancreas is grossly unremarkable. Adrenal glands: Unremarkable. Kidneys: The unenhanced kidneys are normal in size. There is mild right-sided hydronephrosis with right-sided perinephric inflammation and fluid. Urothelial thickening is noted in the right renal pelvis and right ureter. No hydronephrosis is seen in the left kidney. No renal calculi are identified and there is no ureteral stone. There is no evidence of contour deforming renal mass lesion. Abdominal vasculature: The abdominal aorta is normal in course and caliber noting mild atherosclerotic calcification. Bowel: There is moderate colonic fecal retention. No bowel obstruction is seen. The appendix is well-visualized and normal. Peritoneum: There is no intraperitoneal free air or abdominal ascites. Lymphadenopathy: None. Pelvic viscera: The bladder wall appears circumferentially thickened. The uterus is surgically absent. No adnexal lesion is seen. Skeletal structures: The skeletal structures are osteopenic. Mild degenerative change is noted in the spine. There is degenerative sclerosis of the sacroiliac joints. No lytic or blastic lesions are seen. IMPRESSION: 1. There is mild right-sided hydronephrosis with right-sided perinephric stranding and fluid as detailed above. No obstructing stone is identified. This could represent the sequelae of a recently passed kidney stone, or could potentially be seen with ascending urinary tract infection. Correlation with clinical findings and urinalysis will be essential. 2. No renal calculi are identified in either kidney. There is no left-sided hydronephrosis. 3. The bladder wall appears circumferentially thickened. Again, this should be correlated with clinical findings and urinalysis. 4. Moderate constipation. 5. Additional findings as above. ACT 112: Negative or not required by law. Electronically signed by: Israel Elizabeth M.D. 04/30/2023 11:59 AM Medications Administered Medication List Discontinued Medications Acetaminophen (Acetaminophen 325 Mg Tab) 650 mg PO NOW STA Stop: 04/30/23 10:32 Last Admin: 04/30/23 10:42 Dose: 650 mg Documented By: [facility] Sodium Chloride (Nss) 1,000 mls @ 999 mls/hr IV .Q1H1M MICHELLE Stop: 04/30/23 10:00 Last Infusion: 04/30/23 10:44 Dose: Infused Documented By: [facility] Admin: 04/30/23 08:53 Dose: 999 mls/hr Documented By: [facility] Cefepime HCl (Maxipime) 2,000 mg in 20 mls @ 5 mls/min IV NOW STA; Protocol Stop: 04/30/23 11:50 Last Admin: 04/30/23 11:58 Dose: 5 mls/min Documented By: [facility] Ketorolac Tromethamine (Ketorolac Tromethamine 15 Mg/Ml Vial) 10 mg IV NOW ONE Stop: 04/30/23 10:32 Last Admin: 04/30/23 10:42 Dose: 10 mg Documented By: [facility] ECG Additional Comments: I have independently reviewed and interpreted patient's admitting EKG which revealed: 99, NSR, No ST or t wave change COVID-19 Results Results COVID-19 Adm Lab Results: RBC 3.83 M/uL (4.20-5.40) L 05/02/23 WBC 6.62 K/ul (4.8-10.8) 05/02/23 Hgb 10.5 g/dl (12.0-16.0) L 05/02/23 Hct 32.0 % (37.0-47.0) L 05/02/23 Plt Count 305 K/uL (130-400) 05/02/23 Neutrophils (%) (Auto) 71.6 % 05/02/23 Lymphocytes (%) (Auto) 13.7 % 05/02/23 Monocytes # (Auto) 0.65 K/uL (0.11-0.59) H 05/02/23 Eosinophils # (Auto) 0.23 K/uL (0.00-0.50) 05/02/23 Immature Granulocyte % (Auto) 0.8 % 05/02/23 Neutrophils # (Auto) 4.74 K/uL (1.40-6.50) 05/02/23 Lymphocytes # (Auto) 0.91 K/uL (1.20-3.40) L 05/02/23 Monocytes # (Auto) 0.65 K/uL (0.11-0.59) H 05/02/23 Eosinophils # (Auto) 0.23 K/uL (0.00-0.50) 05/02/23 Basophils # (Auto) 0.04 K/uL (0.00-0.20) 05/02/23 Immature Granulocyte # (Auto) 0.05 K/uL (0.01-0.20) 4 Na 135 mmol/L (136-145) L 05/02/23 K 3.8 mmol/L (3.5-5.1) 05/02/23 Cl 100 mmol/L (98-107) 05/02/23 CO2 28 mmol/L (21-32) 05/02/23 Anion Gap 7 (3-11) 05/02/23 BUN 11 mg/dl (6-23) 05/02/23 Creatinine 0.72 mg/dl (0.6-1.2) 05/02/23 BUN/Creatinine Ratio 15.3 (10-20) 05/02/23 Glucose Level 122 mg/dl (70-99(Fasting)) H 05/02/23 Ca 9.3 mg/dl (8.6-10.3) 05/02/23 Phosphorus Level 4.2 mg/dl (2.5-4.9) 05/02/23 Total Bilirubin 0.4 mg/dl (0.2-1.0) 05/02/23 AST/SGOT 66 U/L (13-39) H 05/02/23 ALT/SGPT 128 U/L (7-52) H 05/02/23 Alkaline Phosphatase 174 U/L (34-104) H 05/02/23 Total Protein 6.8 gm/dl (6.0-8.3) 05/02/23 Albumin 3.7 gm/dl (3.4-5.0) 05/02/23 Globulin 3.1 gm/dl (2.5-4.0) 05/02/23 Albumin/Globulin Ratio 1.2 (0.9-2) 05/02/23 Procalcitonin 0.16 ng/ml (0-0.5) 04/30/23 Ferritin 130.0 ng/ml (8-388) 05/01/23 PTT 29 Seconds (21-31) 04/30/23 INR 1.0 (0.9-1.1) 04/30/23 Adenovirus (PCR) Not Detected (NotDetected) 04/30/23 B. parapertussis DNA (PCR) Not Detected (NotDetected) 07/18 B. pertussis DNA (PCR) Not Detected (NotDetected) 04/30/23 C. pneumoniae DNA (PCR) Not Detected (NotDetected) 4 Coronavirus Type OC43 (PCR) Not Detected (NotDetected) 07/18 Coronavirus Type HKU1 (PCR) Not Detected (NotDetected) 07/18 Coronavirus Type 229E (PCR) Not Detected (NotDetected) 07/18 COVID-19 PCR Not Detected (NotDetected) 04/30/23 Coronavirus Type NL63 (PCR) Not Detected (NotDetected) 07/18 Human Metapneumovirus (PCR) Not Detected (NotDetected) 07/18 Influenza Virus Type A (PCR) Not Detected (NotDetected) Influenza Virus Type B (PCR) Not Detected (NotDetected) M. pneumoniae (PCR) Not Detected (NotDetected) 04/30/23 Parainfluenza Type 1 (PCR) Not Detected (NotDetected) 07/18 Parainfluenza Type 2 (PCR) Not Detected (NotDetected) 07/18 Parainfluenza Type 3 (PCR) Not Detected (NotDetected) 07/18 Parainfluenza Type 4 (PCR) Not Detected (NotDetected) 07/18 RSV (PCR) Not Detected (NotDetected) 04/30/23 Enterovirus/Rhinovirus (PCR) Not Detected (NotDetected) Chest X-Ray 04/30/23 Code Status & VTE Plan Code Status FULL CODE Supervising Physician Co-Signing Physician Notes Pt was seen and examined by myself, Trang Tavarez MD on the day of service. Care was coordinated with Amelia Kumar PA-C. 52yoF presenting with sepsis and UTI. noted R hydronephrosis without obstructive uropathy on CT abd/pelvis. On exam abdomen soft, not tender. On cefepime, follow Blood and Urine Cx. PT/OT, pt very weak. Consider Urology consult for hydronephrosis. Otherwise as above. I spent a total [id number] coordinating, documenting, and providing care for this patient excluding time spent in the performance of separately billed servic es
[2023-04-30] MEDS ORDERED: PHARMACY GLYCEMIC MGMT CONSULT PRN (13:45)
[2023-04-30] MEDS ORDERED: CARBOHYDRATES FOR HYPOGLYCEMIA PO PRN ×2 (14:15→16:04)
[2023-04-30] MEDS ORDERED: GLUCOSE 10 TAB/TUBE PO PRN ×2 (14:15→16:04)
[2023-04-30] MEDS ORDERED: GLUCAGON FOR INJ 1 MG VIAL IM PRN (14:15)
[2023-04-30] MEDS ORDERED: GLUCOSE 40% GEL 15 GM TUBE PO PRN ×2 (14:15→16:04)
[2023-04-30] MEDS ORDERED: DEXTROSE 50% 50 ML SYRINGE IV PRN ×2 (14:15→16:04)
--- NOTE | 2023-04-30 14:16 | Pharmacy Report ---
Pharmacy Glycemic Short Note 2 - Date of Service April 30, 2023 - Glycemic Short BSG Results (Last 24 hours): 04/30/23 08:55 Glucose 257 H OUTPATIENT ANTIDIABETIC REGIMEN: * Novolog insulin pump (settings provided by patient) * 23.15 units/day of basal * CF of 35, insulin:CHO of 11 * Ozempic 2 mg SC weekly HbA1c ordered for 05/01/23 ASSESSMENT: * MS is a 52 year old female with sepsis secondary to presumed acute pyelonephritis * Patient has history of T2DM and uses Novolog insulin pump at home. Pump settings provided by patient. * Pharmacy consulted for glycemic management w/ plan to discontinue insulin pump and transition to SC basal/bolus regimen. Patient agreeable to this plan. * Will utilize regimen that mimics home regimen initially. Will escalate if necessary. PLAN FOR INPATIENT GLYCEMIC CONTROL: * Basal insulin * Lantus 20 units SC x 1 * Bolus insulin * NovoLog per scale ACHS or Q6hrs while NPO * Goal Range: Low 110 mg/dL - High 140 mg/dL * Correction Factor: 35 mg/dL/unit * Nutritional / Prandial insulin per carb ratio of 1 unit per 11 grams CHO consumed
[2023-04-30] MEDS: INSULIN ASPART PER UNIT CHARGE SC SCH (14:31)
[2023-04-30] MEDS: [UNRECOGNIZED DRUG - REMARK] ONE (14:46)
[2023-04-30] MEDS: LANTUS PER UNIT CHARGE SC ONE (14:46)
[2023-04-30] MEDS ORDERED: GLUCAGON FOR INJ 1 MG VIAL SQ PRN (16:04)
[2023-04-30] MEDS ORDERED: POLYETHYLENE (MIRALAX) 17 GM PACK PO PRN (16:04)
[2023-04-30] MEDS ORDERED: ALUMINUM/MAGNESIUM SUSP 30 ML UDC PO PRN (16:04)
[2023-04-30] MEDS ORDERED: ONDANSETRON INJ 2 MG/ML 2 ML VIAL IV PRN (16:04)
[2023-04-30] MEDS ORDERED: MAGNESIUM HYDROXIDE SUSP 30 ML UDC PO PRN (16:04)
[2023-04-30] MEDS ORDERED: INSULIN ASPART PER UNIT CHARGE SC SCH (16:30)
[2023-04-30] MEDS: DOCUSATE SODIUM/SENNA 50/8.6MG TAB PO SCH (19:27)
[2023-04-30] MEDS: ASCORBIC ACID 500 MG TAB PO SCH (19:28)
[2023-04-30] MEDS: GABAPENTIN 300 MG CAP PO SCH (19:28)
[2023-04-30] MEDS: CEFEPIME 2,000 MG in SYRINGE 0 ML IV SCH (20:03)
[2023-04-30] MEDS ORDERED: LANTUS PER UNIT CHARGE SQ SCH (21:00)
[2023-04-30] MEDS: ENOXAPARIN INJ 40 MG/0.4 ML SYR SQ SCH (21:57)
[2023-04-30] MEDS: SIMVASTATIN 40 MG TAB PO SCH (21:59)
[2023-04-30] MEDS: VENLAFAXINE HCL XR 75 MG CAPXR PO SCH (22:00)
[2023-04-30] MEDS: MELATONIN 3 MG TAB PO SCH (22:01)
[2023-04-30] MEDS: ZOLPIDEM TARTRATE 5 MG TAB PO SCH (22:05)
[2023-04-30] MEDS: SODIUM CHLORIDE 0.9% 500 ML IV ONE (22:08)
[2023-05-01] MEDS: INSULIN ASPART PER UNIT CHARGE SC SCH (00:45)
[2023-05-01] MEDS: ACETAMINOPHEN 325 MG TAB PO PRN (04:39)
[2023-05-01] MEDS: traMADol HCL 50 MG TABLET PO PRN (04:40)
[2023-05-01 07:39] LABS: Basophils # (auto) 0.03 K/uL (0.00-0.20); Basophils % (auto) 0.3 %; Eosinophils # (auto) 0.08 K/uL (0.00-0.50); Eosinophils % (auto) 0.9 %; Hematocrit (blood only) 31.3 % (37.0-47.0); Hemoglobin 10.2 g/dl (12.0-16.0); Immature Granulocytes # (auto) 0.04 K/uL (0.01-0.20); Immature Granulocytes % (auto) 0.5 %; Lymphocytes # (auto) 1.44 K/uL (1.20-3.40); Lymphocytes % (auto) 16.2 %; Mean Corpuscular Hemoglobin 27.8 pg (25.0-34.0); Mean Corpuscular Hgb Conc 32.6 g/dL (32.0-36.0); Mean Corpuscular Volume 85.3 fL (80.0-100.0); Monocytes # (auto) 1.21 K/uL (0.11-0.59); Monocytes % (auto) 13.6 %; Neutrophils # (auto) 6.07 K/uL (1.40-6.50); Neutrophils % (auto) 68.5 %; Platelet Count 237 K/uL (130-400); RDW Coefficient of Variation 12.1 % (11.5-14.5); RDW Standard Deviation 37.5 fL (36.4-46.3); Red Blood Count 3.67 M/uL (4.20-5.40); White Blood Count 8.87 K/ul (4.8-10.8)
[2023-05-01 07:53] LABS: Estimated Average Glucose 260 mg/dl; Hemoglobin A1C 10.7 % (4.5-5.6)
[2023-05-01 08:07] LABS: Albumin Globulin Ratio 1.2 (0.9-2); Albumin Level 3.3 gm/dl (3.4-5.0); BUN Creatinine Ratio 15.1 (10-20); Bilirubin,Total 0.4 mg/dl (0.2-1.0); Calcium 8.6 mg/dl (8.6-10.3); Creatinine Clr Calc Pharmacy 78.5 ml/min; Est GFR (African American) 109.7 ml/min; Est GFR (Non-African American) 94.7 ml/min; Globulin 2.8 gm/dl (2.5-4.0); Magnesium 1.8 mg/dl (1.7-2.4); Total Protein 6.1 gm/dl (6.0-8.3)
[2023-05-01 08:12] LABS: Folate (Folic Acid),Ser orPlas > 22.30 ng/ml (>5.38)
[2023-05-01 08:13] LABS: Vitamin B12 551 pg/ml (180-914)
[2023-05-01] MEDS: LANTUS PER UNIT CHARGE SC SCH (08:26)
[2023-05-01] MEDS: ADVANCED PROBIOTIC 625 MG CAPSULE PO SCH (08:29)
[2023-05-01] MEDS: VENLAFAXINE HCL XR 150 MG CAPXR PO SCH (08:29)
[2023-05-01] MEDS: PRENATAL VITAMIN 1 TAB PO SCH (08:29)
--- NOTE | 2023-05-01 10:15 | Gastrointestinal Consultation ---
Date of Consultation May 01, 2023 Assessment & Plan (1) Elevated LFTs: (2) Abnormal CT of the abdomen: (3) Pyelonephritis: Plan This is a 52 y/o female with h/o poorly controlled T2DM, admitted w/ pyelonephritis, sepsis, and we are consulted as she has acute transaminitis with normal bilirubin and CT suggestive of mild intrahepatic duct dilation. No mention of CBD; pt is s/p CCY. She has a hepatocellular pattern to her LFTs. Abd soft, nontender; she has no GI symptoms. Diff dx = infectious (related to current infection vs viral), AIH, DILI (according to NIH livertox database Celebrex and to a lesser degree Cefepime rarely assoc w/ DILI). - MRCP to r/o any biliary stones/sludge - Will check acute hepatitis labs - Supportive care with IVF - ABX as per primary team - Avoid known hepatotoxins Thank you for allowing us to participate in the care of this patient. Please call with any acute changes, questions or concerns. Please see addendum below with additional recommendation from my supervising physician. Supervising Physician Co-Signing Physician Notes Agree with pe and plan as documented. Consult for abnl imaging suggestive of ih biliary dilation with elevated ast/alt. No extrahepatic dilation. Also currently with pyelonephritis. MRCP to rule out biliary contribution. Acute hepatitis panel - a/b/c, ebv. Dili also in the differential. Trend lft's daily. History of Present Illness Reason for Consultation: LFT sig jump, dilated intrahep duct on CT Requesting Physician: Dr. Tavarez Attending Physician: Trang Tavarez MD History of Present Illness This is a 52 y/o female with PMHx T2DM poorly controlled, last A1C 10.5 PTSD, ankylosing spondylitis, chronic anemia, baseline HGB 10, history of lymphocytic colitis s/p tx w/ Budesonide. S/p cholecystectomy, and others admitted w/ fever, found to have pyelonephritis with sepsis, placed on Cefepime. We are consulted as she has acute transaminitis and mild dilated central hepatic ducts on CT. She has normal Bilirubin, BUN, creatinine, lipase, WBC, INR, has a mildly elevated ALP, stable chronic anemia. Currently afebrile, BP soft; no tachycardia. She feels much better than admission. She denies any GI symptoms - no abd pain, n/v, diarrhea, melena, hematochezia, hematemesis, icterus, jaundice, dark urine, segura stool. Denies CP, SOB, fever, chills currently. Tolerated eggs and fruit for breakfast. She recently started Celebrex 3 weeks ago for her . Denies ETOH use. She does use tobacco. No h/o IV/IN drug use. No herbal meds. No other new meds. Colonoscopy Mar 2022: normal. Path: lymphocytic colitis. Allergies Allergy/AdvReac Type Severity Reaction Status Date / Time Penicillins Allergy Severe RASH, Verified 10/18/14 15:02 CHEST HEAVINESS, SOB sulfamethoxazole Allergy Intermediate Rash Unverified 04/30/23 11:11 [From Bactrim] trimethoprim [From Bactrim] Allergy Intermediate Rash Unverified 04/30/23 11:11 Home Medications Medication Instructions Recorded Confirmed Type ascorbic acid (vitamin C) 500 mg 500 mg PO BID 04/30/23 04/30/23 History tablet (Vitamin C) gabapentin 300 mg capsule 300 mg PO TID 04/30/23 04/30/23 History insulin aspart U-100 100 unit/mL See Rx Instructions .Route .COMPLEX 04/30/23 04/30/23 History subcutaneous solution (Novolog U-100 Insulin aspart) melatonin 12 mg tablet 12 mg PO HS 04/30/23 04/30/23 History vit no.95-ferrous 1 tab PO DAILY 04/30/23 04/30/23 History fumarate 28 mg-folic acid 800 mcg tablet () semaglutide 1 mg/dose (4 mg/3 mL) 2 mg subcut WK 04/30/23 04/30/23 History subcutaneous pen injector (Ozempic) simvastatin 40 mg tablet 40 mg PO HS 04/30/23 04/30/23 History venlafaxine 150 mg 150 mg PO DAILY 04/30/23 04/30/23 History capsule,extended release 24 hr venlafaxine 75 mg tablet 75 mg PO QPM 04/30/23 04/30/23 History zolpidem 5 mg tablet 5 mg PO HS Sleep 04/30/23 04/30/23 History Patient History Medical History (Updated 05/01/23 @ 10:17 by Camila Phoenix PA-C) Diabetes mellitus, type 2 Tobacco abuse Depression Dyslipidemia Surgical History S/P hysterectomy S/P carpal tunnel release Social History Smoking Status: Current every day smoker Tobacco Type: Cigarettes Hx Alcohol Use: No Hx Substance Use: No Preferred Language: Lao Communication Ability: Effective Scientist Propagator Required: No Beliefs That Will Affect Care: None 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: Other 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 Comment: 2 roommates Feels Safe at Home: Yes Safety Concerns: Feels Safe At This Time Assistive Devices: Glasses Review of Systems Review of Systems: All systems reviewed & are unremarkable except as noted in HPI & below Physical Exam Constitutional: well developed, well nourished and comfortable; no acute distress Eyes: Sclera anicteric, no conjunctival injection ENMT: moist mucous membranes, no pallor Neck: trachea midline supple Respiratory: normal respiratory effort, lungs clear to auscultation Cardiovascular: RRR, no murmur, no edema Gastrointestinal (Abdomen): normal bowel sounds, soft, nontender, no hepatosplenomegaly Inspection/Auscultation: abdomen not distended Skin: no rashes, warm and dry Neurologic: alert and oriented x 3, no obvious focal neuro deficit Psychiatric: normal mood and affect Results & Data Vital Signs (Past 12 Hours) Vital Signs Temp Pulse Pulse Resp BP Pulse Ox O2 Del Method 05/01/23 07:34 36.6 C 76 18 95/63 L 97 Room Air 05/01/23 03:44 37.3 C 87 16 119/75 94 Room Air 05/01/23 00:30 103 H 05/01/23 00:30 37.2 C 100 H 18 109/70 98 Room Air 04/30/23 23:13 90 Laboratory Results 05/01/23 05/01/23 05/01/23 Range/Units 11:01 07:38 07:12 WBC 8.87 (4.8-10.8) K/ul RBC 3.67 L (4.20-5.40) M/uL Hgb 10.2 L (12.0-16.0) g/dl Hct 31.3 L (37.0-47.0) % MCV 85.3 (80.0-100.0) fL MCH 27.8 (25.0-34.0) pg MCHC 32.6 (32.0-36.0) g/dL RDW Std Deviation 37.5 (36.4-46.3) fL RDW Coeff of Norberto 12.1 (11.5-14.5) % Plt Count 237 (130-400) K/uL MPV 10.0 (9.4-12.4) fL Immature Gran % (Auto) 0.5 % Neut % (Auto) 68.5 % Lymph % (Auto) 16.2 % Hooker % (Auto) 13.6 % Eos % (Auto) 0.9 % Baso % (Auto) 0.3 % Neut # (Auto) 6.07 (1.40-6.50) K/uL Lymph # (Auto) 1.44 (1.20-3.40) K/uL Hooker # (Auto) 1.21 H (0.11-0.59) K/uL Eos # (Auto) 0.08 (0.00-0.50) K/uL Baso # (Auto) 0.03 (0.00-0.20) K/uL Immature Gran # (Auto) 0.04 (0.01-0.20) K/uL Sodium 137 (136-145) mmol/L Potassium 4.0 (3.5-5.1) mmol/L Chloride 105 (98-107) mmol/L Carbon Dioxide 26 (21-32) mmol/L Anion Gap 6 (3-11) BUN 11 (6-23) mg/dl Creatinine 0.73 (0.6-1.2) mg/dl Est Cr Clr Drug Dosing 78.5 ml/min Est GFR ( Amer) 109.7 ml/min Est GFR (Non-Af Amer) 94.7 ml/min BUN/Creatinine Ratio 15.1 (10-20) Glucose 164 H (70-99(Fasting)) mg/dl POC Glucose 279 H 196 H (70-99) mg/dl Estimat Average Glucose 260 mg/dl Hemoglobin A1c 10.7 H (4.5-5.6) % Calcium 8.6 (8.6-10.3) mg/dl Magnesium 1.8 (1.7-2.4) mg/dl Iron 10 L (35-150) mcg/dl Unsaturated IBC 186 (155-355) mcg/dl Transferrin 143 L (200-360) mg/dl Ferritin 130.0 (8-388) ng/ml Total Bilirubin 0.4 (0.2-1.0) mg/dl AST 118 H (13-39) U/L ALT 141 H (7-52) U/L Alkaline Phosphatase 141 H (34-104) U/L Total Protein 6.1 (6.0-8.3) gm/dl Albumin 3.3 L (3.4-5.0) gm/dl Globulin 2.8 (2.5-4.0) gm/dl Albumin/Globulin Ratio 1.2 (0.9-2) Vitamin B12 551 (180-914) pg/ml Folate > 22.30 (>5.38) ng/ml Nasal Screen MRSA (PCR) (Negative) 05/01/23 05/01/23 04/30/23 Range/Units 03:47 00:33 21:52 WBC (4.8-10.8) K/ul RBC (4.20-5.40) M/uL Hgb (12.0-16.0) g/dl Hct (37.0-47.0) % MCV (80.0-100.0) fL MCH (25.0-34.0) pg MCHC (32.0-36.0) g/dL RDW Std Deviation (36.4-46.3) fL RDW Coeff of Norberto (11.5-14.5) % Plt Count (130-400) K/uL MPV (9.4-12.4) fL Immature Gran % (Auto) % Neut % (Auto) % Lymph % (Auto) % Hooker % (Auto) % Eos % (Auto) % Baso % (Auto) % Neut # (Auto) (1.40-6.50) K/uL Lymph # (Auto) (1.20-3.40) K/uL Hooker # (Auto) (0.11-0.59) K/uL Eos # (Auto) (0.00-0.50) K/uL Baso # (Auto) (0.00-0.20) K/uL Immature Gran # (Auto) (0.01-0.20) K/uL Sodium (136-145) mmol/L Potassium (3.5-5.1) mmol/L Chloride (98-107) mmol/L Carbon Dioxide (21-32) mmol/L Anion Gap (3-11) BUN (6-23) mg/dl Creatinine (0.6-1.2) mg/dl Est Cr Clr Drug Dosing ml/min Est GFR ( Amer) ml/min Est GFR (Non-Af Amer) ml/min BUN/Creatinine Ratio (10-20) Glucose (70-99(Fasting)) mg/dl POC Glucose 206 H 216 H 231 H (70-99) mg/dl Estimat Average Glucose mg/dl Hemoglobin A1c (4.5-5.6) % Calcium (8.6-10.3) mg/dl Magnesium (1.7-2.4) mg/dl Iron (35-150) mcg/dl Unsaturated IBC (155-355) mcg/dl Transferrin (200-360) mg/dl Ferritin (8-388) ng/ml Total Bilirubin (0.2-1.0) mg/dl AST (13-39) U/L ALT (7-52) U/L Alkaline Phosphatase (34-104) U/L Total Protein (6.0-8.3) gm/dl Albumin (3.4-5.0) gm/dl Globulin (2.5-4.0) gm/dl Albumin/Globulin Ratio (0.9-2) Vitamin B12 (180-914) pg/ml Folate (>5.38) ng/ml Nasal Screen MRSA (PCR) (Negative) 04/30/23 04/30/23 Range/Units 19:17 12:40 WBC (4.8-10.8) K/ul RBC (4.20-5.40) M/uL Hgb (12.0-16.0) g/dl Hct (37.0-47.0) % MCV (80.0-100.0) fL MCH (25.0-34.0) pg MCHC (32.0-36.0) g/dL RDW Std Deviation (36.4-46.3) fL RDW Coeff of Norberto (11.5-14.5) % Plt Count (130-400) K/uL MPV (9.4-12.4) fL Immature Gran % (Auto) % Neut % (Auto) % Lymph % (Auto) % Hooker % (Auto) % Eos % (Auto) % Baso % (Auto) % Neut # (Auto) (1.40-6.50) K/uL Lymph # (Auto) (1.20-3.40) K/uL Hooker # (Auto) (0.11-0.59) K/uL Eos # (Auto) (0.00-0.50) K/uL Baso # (Auto) (0.00-0.20) K/uL Immature Gran # (Auto) (0.01-0.20) K/uL Sodium (136-145) mmol/L Potassium (3.5-5.1) mmol/L Chloride (98-107) mmol/L Carbon Dioxide (21-32) mmol/L Anion Gap (3-11) BUN (6-23) mg/dl Creatinine (0.6-1.2) mg/dl Est Cr Clr Drug Dosing ml/min Est GFR ( Amer) ml/min Est GFR (Non-Af Amer) ml/min BUN/Creatinine Ratio (10-20) Glucose (70-99(Fasting)) mg/dl POC Glucose 226 H (70-99) mg/dl Estimat Average Glucose mg/dl Hemoglobin A1c (4.5-5.6) % Calcium (8.6-10.3) mg/dl Magnesium (1.7-2.4) mg/dl Iron (35-150) mcg/dl Unsaturated IBC (155-355) mcg/dl Transferrin (200-360) mg/dl Ferritin (8-388) ng/ml Total Bilirubin (0.2-1.0) mg/dl AST (13-39) U/L ALT (7-52) U/L Alkaline Phosphatase (34-104) U/L Total Protein (6.0-8.3) gm/dl Albumin (3.4-5.0) gm/dl Globulin (2.5-4.0) gm/dl Albumin/Globulin Ratio (0.9-2) Vitamin B12 (180-914) pg/ml Folate (>5.38) ng/ml Nasal Screen MRSA (PCR) Negative (Negative) Diagnostic Findings CTAP: FINDINGS: Lung bases: The heart is normal in size and without pericardial effusion. There is diminished attenuation of the cardiac blood pool as compared to the myocardium suggesting anemia. There is bibasilar scarring/atelectasis. No airspace consolidation or pleural effusion is identified. There is a tiny hiatal hernia. Liver: The unenhanced liver is normal in size, contour, and attenuation. There is mild central intrahepatic biliary ductal dilatation. Gallbladder: Surgically absent noting clips in the gallbladder fossa. Spleen: Normal in size and attenuation. There are calcified splenic granulomas. Pancreas: The unenhanced pancreas is grossly unremarkable. Adrenal glands: Unremarkable. Kidneys: The unenhanced kidneys are normal in size. There is mild right-sided hydronephrosis with right-sided perinephric inflammation and fluid. Urothelial thickening is noted in the right renal pelvis and right ureter. No hydrone phrosis is seen in the left kidney. No renal calculi are identified and there is no ureteral stone. There is no evidence of contour deforming renal mass lesion. Abdominal vasculature: The abdominal aorta is normal in course and caliber noting mild atherosclerotic calcification. Bowel: There is moderate colonic fecal retention. No bowel obstruction is seen. The appendix is well-visualized and normal. Peritoneum: There is no intraperitoneal free air or abdominal ascites. Lymphadenopathy: None. Pelvic viscera: The bladder wall appears circumferentially thickened. The uterus is surgically absent. No adnexal lesion is seen. Skeletal structures: The skeletal structures are osteopenic. Mild degenerative change is noted in the spine. There is degenerative sclerosis of the sacroiliac joints. No lytic or blastic lesions are seen. IMPRESSION: 1. There is mild right-sided hydronephrosis with right-sided perinephric stranding and fluid as detailed above. No obstructing stone is identified. This could represent the sequelae of a recently passed kidney stone, or could potentially be seen with ascending urinary tract infection. Correlation with clinical findings and urinalysis will be essential. 2. No renal calculi are identified in either kidney. There is no left-sided hydronephrosis. 3. The bladder wall appears circumferentially thickened. Again, this should be correlated with clinical findings and urinalysis. 4. Moderate constipation. 5. Additional findings as above.
--- NOTE | 2023-05-01 10:58 | Ultrasound Report ---
ABDOMINAL ULTRASOUND, RIGHT UPPER QUADRANT HISTORY: elev LFT, intrahep dilat on CT. COMPARISON: CT 04/30/2023 FINDINGS: Pancreas: The pancreas demonstrates a normal echotexture. Liver: 17.3 cm in length. Intrahepatic biliary ductal dilation redemonstrated which is likely postsur gical. Gallbladder: Discectomy. CBD: 0.6 and meter. Right kidney: Persistent hydronephrosis. IMPRESSION: 1. Unremarkable exam status post cholecystectomy. 2. Right-sided hydronephrosis redemonstrated. ACT 112: Negative or not required by law. Electronically signed by: Corby Cates M.D. 05/01/2023 10:56 AM
[2023-05-01] MEDS: IRON SUCROSE 200 MG in 0.9 % SODIUM CHLORIDE 100 ML IV ONE (11:05)
--- NOTE | 2023-05-01 11:43 | Hospitalist Progress Note ---
Date of Service May 01, 2023 Assessment & Plan (1) Sepsis: (2) Pyelonephritis: (3) Diabetes mellitus, type 2: (4) Dyslipidemia: Plan: This is a 52-year-old female who has significant past medical history of insulin-dependent T2DM, ankylosing spondylitis, WILLA, nocturnal hypoxemia, chronic rhinitis and depression who presents to ED secondary to fever, back pain and weakness x 1 week. Sepsis Acute Pyelonephritis Presented with fever and tachycardia, infectious source of urine Lactate was wnl UA suggestive of infection Urine cx growing gram negative rods Continue IV Cefepime Right sided hydronephrosis Noted on CT abd/pelvis Likely in setting of above Consider Urology consult Anemia Iron Deficiency Anemia outpt records hgb 10.6 ~ 1 year ago Hemoglobin currently stable around 10 pt denies s/sx of bleeding Iron level of 10, replete with IV Venofer B12 level normal Folate level normal Continue to monitor Elevated liver enzymes Liver enzymes up considerably CT abd/pelvis noting increased intrahepatic ductal dilation US liver ordered Pt made NPO with IV fluids GI consulted- appreciate recs Constipation no BM in 4-5 days which is normal for her CT abd/pelvis noting moderate constipation Continue with daily miralax and Senna/docusate BID regimen T2DM, insulin dependent poorly controlled Hga1c of 10.7 She utilizes an insulin pump, willing to come off while inpatient for better glycemic control Continue to monitor glucose levels HLD chronic, stable continue statin WILLA not on CPAP at night states she is getting re tested Tobacco abuse encourage cessation Depression mood stable continue venlafaxine Diet: DMII DVT ppx: SQ Lovenox FULL CODE Dispo: Home with self care Admission and Anticipated Discharge Date Admission Date: April 30, 2023 Subjective pt was seen in the room sitting up in bed. States that she is feeling much better. Discussion of elevated liver enzymes, she states that she is currently on probation for a DUI. Denies recent alcohol use, states she stopped drinking in Jan. wants to shower Review of Systems Review of Systems: All systems reviewed & are unremarkable except as noted in Subjective Physical Exam Physical Exam: General: Alert, oriented. No acute distress Skin: No noted rashes or bruises Psych: Appropriate mood and affect Neuro: No gross deficits HEENT: NC/AT Chest: Nontender to palpation. CV: RRR, Normal s1, s2. No murmurs appreciated Resp: Breath sounds clear bilaterally, no increased effort of breathing. No crackles/rhonchi/rales. Abdomen: Soft, nontender, nondistended. Extremities: No edema in lower extremities bilaterally. Results & Data Results & Data Vital Signs (Past 12 Hours) Vital Signs Temp Pulse Pulse Resp BP Pulse Ox O2 Del Method 05/01/23 11:00 36.7 C 68 18 117/78 97 Room Air 05/01/23 09:00 77 05/01/23 07:34 36.6 C 76 18 95/63 L 97 Room Air 05/01/23 03:44 37.3 C 87 16 119/75 94 Room Air 05/01/23 00:30 103 H 05/01/23 00:30 37.2 C 100 H 18 109/70 98 Room Air Diagnostic Findings Chest X-Ray 04/30/23 08:47 XR chest 1V portable HISTORY: 52 years-old Female fever acute shortness breath with fever COMPARISON: 10/18/2014 TECHNIQUE: AP view the chest FINDINGS: Cardiomediastinal and hilar silhouettes are within normal limits. No pneumothorax, pleural effusion or airspace consolidation. Mild right hemidiaphragmatic elevation. Cervical spinal fusion hardware. Bones appear grossly intact. IMPRESSION: No acute process. ACT 112: Negative or not required by law. The above report was generated using voice recognition software. It may contain grammatical, syntax or spelling errors. Electronically signed by: Corby Cates M.D. 04/30/2023 9:45 AM Abdomen/Pelvis CT 04/30/23 10:57 CT SCAN OF THE ABDOMEN AND PELVIS WITHOUT IV CONTRAST CLINICAL HISTORY: Urinary tract infection. Fever. COMPARISON STUDY: No priors. TECHNIQUE: CT scan of the abdomen and pelvis is performed from the lung bases to the proximal femora. Images are reviewed in the axial, sagittal, and coronal planes. IV contrast was not administered for this examination. A dose lowering technique was utilized adhering to the principles of ALARA. CT DOSE: 688.98 mGy.cm FINDINGS: Lung bases: The heart is normal in size and without pericardial effusion. There is diminished attenuation of the cardiac blood pool as compared to the myocardium suggesting anemia. There is bibasilar scarring/atelectasis. No airspace consolidation or pleural effusion is identified. There is a tiny hiatal hernia. Liver: The unenhanced liver is normal in size, contour, and attenuation. There is mild central intrahepatic biliary ductal dilatation. Gallbladder: Surgically absent noting clips in the gallbladder fossa. Spleen: Normal in size and attenuation. There are calcified splenic granulomas. Pancreas: The unenhanced pancreas is grossly unremarkable. Adrenal glands: Unremarkable. Kidneys: The unenhanced kidneys are normal in size. There is mild right-sided hydronephrosis with right-sided perinephric inflammation and fluid. Urothelial thickening is noted in the right renal pelvis and right ureter. No hydronephrosis is seen in the left kidney. No renal calculi are identified and there is no ureteral stone. There is no evidence of contour deforming renal mass lesion. Abdominal vasculature: The abdominal aorta is normal in course and caliber noting mild atherosclerotic calcification. Bowel: There is moderate colonic fecal retention. No bowel obstruction is seen. The appendix is well-visualized and normal. Peritoneum: There is no intraperitoneal free air or abdominal ascites. Lymphadenopathy: None. Pelvic viscera: The bladder wall appears circumferentially thickened. The uterus is surgically absent. No adnexal lesion is seen. Skeletal structures: The skeletal structures are osteopenic. Mild degenerative change is noted in the spine. There is degenerative sclerosis of the sacroiliac joints. No lytic or blastic lesions are seen. IMPRESSION: 1. There is mild right-sided hydronephrosis with right-sided perinephric stranding and fluid as detailed above. No obstructing stone is identified. This could represent the sequelae of a recently passed kidney stone, or could potentially be seen with ascending urinary tract infection. Correlation with clinical findings and urinalysis will be essential. 2. No renal calculi are identified in either kidney. There is no left-sided hydronephrosis. 3. The bladder wall appears circumferentially thickened. Again, this should be correlated with clinical findings and urinalysis. 4. Moderate constipation. 5. Additional findings as above. ACT 112: Negative or not required by law. Electronically signed by: Israel Elizabeth M.D. 04/30/2023 11:59 AM Liver Ultrasound 05/01/23 09:11 ABDOMINAL ULTRASOUND, RIGHT UPPER QUADRANT HISTORY: elev LFT, intrahep dilat on CT. COMPARISON: CT 04/30/2023 FINDINGS: Pancreas: The pancreas demonstrates a normal echotexture. Liver: 17.3 cm in length. Intrahepatic biliary ductal dilation redemonstrated which is likely postsurgical. Gallbladder: Discectomy. CBD: 0.6 and meter. Right kidney: Persistent hydronephrosis. IMPRESSION: 1. Unremarkable exam status post cholecystectomy. 2. Right-sided hydronephrosis redemonstrated. ACT 112: Negative or not required by law. Electronically signed by: Corby Cates M.D. 05/01/2023 10:56 AM Cholangiopancreatography MRI 05/01/23 10:15 MRCP CLINICAL HISTORY: Elevated hepatic transaminases. COMPARISON STUDY: Abdominal ultrasound dated 05/01/2023. Abdominal CT dated 04/30/2023. TECHNIQUE: Abdominal MRCP is performed utilizing various T1 and T2-weighted sequences in the axial and coronal planes. IV contrast was not administered for this examination. 3-D reformats are created and assessed. Diffusion-weighted imaging was utilized. The examination is modestly degraded by motion artifact. FINDINGS: The gallbladder is surgically absent. There is no intra or extrahepatic biliary ductal dilatation. The common bile duct is normal in caliber, measuring up to 4 mm in diameter. No intraluminal filling defects are seen to suggest choledocholithiasis. The pancreatic duct is normal in caliber. The unenhanced liver, pancreas, spleen, and adrenal glands are grossly unremarkable. No abdominal ascites is identified. The kidneys are normal in size. The right kidney appears heterogeneous with mild perinephric stranding and fluid. There is minimal right-sided hydronephrosis. The left kidney is normal as imaged. The abdominal aorta is normal in course and caliber. No bowel obstruction is seen. There is no pleural effusion. The bony structures appear intact. IMPRESSION: 1. Normal MRCP noting status post cholecystectomy. 2. The right kidney appears heterogeneous with minimal hydronephrosis and surrounding infiltration/fluid. Correlate clinically. Dictated: 05/01/2023 3:02 PM Transcribed: 05/01/2023 3:48 PM Pasquale [id number] [email or web address] Electronically signed by: Israel Elizabeth M.D. 05/01/2023 5:11 PM
--- NOTE | 2023-05-01 14:04 | Pharmacy Report ---
Pharmacy Glycemic Short Note 2 - Date of Service May 01, 2023 - Glycemic Short BSG Results (Last 24 hours): 04/30/23 04/30/23 05/01/23 19:17 21:52 00:33 Glucose POC Glucose 226 H 231 H 216 H 05/01/23 05/01/23 05/01/23 03:47 07:12 07:38 Glucose 164 H POC Glucose 206 H 196 H 05/01/23 05/01/23 11:01 13:41 Glucose POC Glucose 279 H 98 OUTPATIENT ANTIDIABETIC REGIMEN: * Novolog insulin pump (settings provided by patient) * 23.15 units/day of basal * CF of 35, insulin:CHO of 11 * Ozempic 2 mg SC weekly HbA1c 10.7% 05/01/23 ASSESSMENT: 04/30 * Carolyn received 31 units of insulin yesterday (20 basal) plus the morning insulin from her pump * Fasting BSG this AM above goal range, increase basal insulin by amount used to cover overnight * She is currently on cefepime and receiving NS at 80 mls/her. She had a diet this morning, but is now NPO. * Novolog tightened 04/29 * MS is a 52 year old female with sepsis secondary to presumed acute pyelonephritis * Patient has history of T2DM and uses Novolog insulin pump at home. Pump settings provided by patient. * Pharmacy consulted for glycemic management w/ plan to discontinue insulin pump and transition to SC basal/bolus regimen. Patient agreeable to this plan. * Will utilize regimen that mimics home regimen initially. Will escalate if necessary. PLAN FOR INPATIENT GLYCEMIC CONTROL: * Basal insulin * Lantus 28 units SC Daily * Bolus insulin * NovoLog per scale ACHS or Q6hrs while NPO * Goal Range: Low 110 mg/dL - High 140 mg/dL * Correction Factor: 30 mg/dL/unit * Nutritional / Prandial insulin per carb ratio of 1 unit per 7 grams CHO consumed
[2023-05-01] MEDS: D5W AND NSS 1,000 ML IV SCH (14:26)
[2023-05-01] MEDS: DOCUSATE SODIUM/SENNA 50/8.6MG TAB PO SCH (16:55)
[2023-05-01] MEDS: POLYETHYLENE (MIRALAX) 17 GM PACK PO SCH (16:55)
--- NOTE | 2023-05-01 17:12 | Magnetic Resonance Report ---
MRCP CLINICAL HISTORY: Elevated hepatic transaminases. COMPARISON STUDY: Abdominal ultrasound dated 05/01/2023. Abdominal CT dated 04/30/2023. TECHNIQUE: Abdominal MRCP is performed utilizing various T1 and T2-weighted sequences in the axial an d coronal planes. IV contrast was not administered for this examination. 3-D reformats are created an d assessed. Diffusion-weighted imaging was utilized. The examination is modestly degraded by motion a rtifact. FINDINGS: The gallbladder is surgically absent. There is no intra or extrahepatic biliary ductal dilatation. Th e common bile duct is normal in caliber, measuring up to 4 mm in diameter. No intraluminal filling de fects are seen to suggest choledocholithiasis. The pancreatic duct is normal in caliber. The unenhanced liver, pancreas, spleen, and adrenal glands are grossly unremarkable. No abdominal asc ites is identified. The kidneys are normal in size. The right kidney appears heterogeneous with mild perinephric stranding and fluid. There is minimal right-sided hydronephrosis. The left kidney is norm al as imaged. The abdominal aorta is normal in course and caliber. No bowel obstruction is seen. Ther e is no pleural effusion. The bony structures appear intact. IMPRESSION: 1. Normal MRCP noting status post cholecystectomy. 2. The right kidney appears heterogeneous with minimal hydronephrosis and surrounding infiltration/fl uid. Correlate clinically. Dictated: 05/01/2023 3:02 PM Transcribed: 05/01/2023 3:48 PM Pasquale [id number] [email or web address] Electronically signed by: Israel Elizabeth M.D. 05/01/2023 5:11 PM
[2023-05-02 07:41] LABS: Basophils # (auto) 0.04 K/uL (0.00-0.20); Basophils % (auto) 0.6 %; Eosinophils # (auto) 0.23 K/uL (0.00-0.50); Eosinophils % (auto) 3.5 %; Hemoglobin 10.5 g/dl (12.0-16.0); Immature Granulocytes # (auto) 0.05 K/uL (0.01-0.20); Immature Granulocytes % (auto) 0.8 %; Lymphocytes # (auto) 0.91 K/uL (1.20-3.40); Lymphocytes % (auto) 13.7 %; Mean Corpuscular Hemoglobin 27.4 pg (25.0-34.0); Mean Corpuscular Hgb Conc 32.8 g/dL (32.0-36.0); Mean Corpuscular Volume 83.6 fL (80.0-100.0); Mean Platelet Volume 10.2 fL (9.4-12.4); Monocytes # (auto) 0.65 K/uL (0.11-0.59); Monocytes % (auto) 9.8 %; Neutrophils # (auto) 4.74 K/uL (1.40-6.50); Neutrophils % (auto) 71.6 %; Platelet Count 305 K/uL (130-400); RDW Standard Deviation 36.6 fL (36.4-46.3); Red Blood Count 3.83 M/uL (4.20-5.40); White Blood Count 6.62 K/ul (4.8-10.8)
--- NOTE | 2023-05-02 07:49 | Gastroenterology Progress Note ---
Date of Service May 02, 2023 Assessment & Plan (1) Elevated LFTs: (2) Abnormal CT of the abdomen: (3) Pyelonephritis: Plan This is a 52 y/o female with h/o poorly controlled T2DM, admitted w/ pyelonephritis, sepsis, and we are consulted as she has acute transaminitis with normal bilirubin and CT suggestive of mild intrahepatic duct dilation. No mention of CBD; pt is s/p CCY. She has a hepatocellular pattern to her LFTs. Abd soft, nontender; she has no GI symptoms. Diff dx = infectious (related to current infection vs viral), AIH, DILI (according to NIH livertox database Celebrex and to a lesser degree Cefepime rarely assoc w/ DILI). - Today LFTs trending down. MRCP unremarkable; no biliary dilation, s/p cholecystectomy. - Will await acute hepatitis labs - Trend daily LFTs. If DC'd, would trend to normal as OP - Supportive care with IVF - ABX as per primary team - Avoid known hepatotoxins Thank you for allowing us to participate in the care of this patient. Please call with any acute changes, questions or concerns. Please see addendum below with additional recommendation from my supervising physician. Admission and Anticipated Discharge Date Admission Date: April 30, 2023 Supervising Physician Co-Signing Physician Notes I personally saw and evaluated the patient with Camila Phoenix PA-C on 05/02/2023 and agree with her findings and plan of care. Abdomen soft and non-tender. 52 y/o F with history of DM2 admitted with pyelonephritis and sepsis and GI had been consulted for abnormal LFTs. Her LFTs are improving today. MRCP without any biliary dilation or choledocholithiasis. Acute hep panel still in process. Continue to trend daily LFTs. They are improving which is reassuring. Suspect related to acute illness vs. DILI. Will follow up viral serologies as they become available. Julia Cerrato, Gastroenterology and Hepatology Subjective Patient seen and examined, chart reviewed. Overnight pt feeling well. Tolerated her breakfast today. LFTs trending down. MRCP unremarkable, s/p cholecystectomy; no ben dil. Denies abd pain, nausea, vomiting, hematemesis, melena, hematochezia, jaundice, icterus. Review of Systems Review of Systems: All systems reviewed & are unremarkable except as noted in HPI & below Physical Exam Constitutional: well developed, well nourished and comfortable; no acute distress Neck: trachea midline Respiratory: normal respiratory effort, lungs clear to auscultation Cardiovascular: RRR, no murmur, no edema Gastrointestinal (Abdomen): normal bowel sounds, soft, nontender, no hepatosplenomegaly Inspection/Auscultation: abdomen not distended Skin: no rashes, warm and dry Results & Data Vital Signs (Past 12 Hours) Vital Signs Temp Pulse Pulse Resp BP Pulse Ox O2 Del Method 05/02/23 03:24 36.6 C 72 18 107/69 96 Room Air 05/01/23 22:59 36.8 C 68 18 102/67 97 Room Air 05/01/23 22:27 77 05/01/23 19:50 Room Air Laboratory Results 05/02/23 05/02/23 05/01/23 Range/Units 07:22 07:07 20:38 WBC 6.62 (4.8-10.8) K/ul RBC 3.83 L (4.20-5.40) M/uL Hgb 10.5 L (12.0-16.0) g/dl Hct 32.0 L (37.0-47.0) % MCV 83.6 (80.0-100.0) fL MCH 27.4 (25.0-34.0) pg MCHC 32.8 (32.0-36.0) g/dL RDW Std Deviation 36.6 (36.4-46.3) fL RDW Coeff of Norberto 12.0 (11.5-14.5) % Plt Count 305 (130-400) K/uL MPV 10.2 (9.4-12.4) fL Immature Gran % (Auto) 0.8 % Neut % (Auto) 71.6 % Lymph % (Auto) 13.7 % [place] % (Auto) 9.8 % Eos % (Auto) 3.5 % Baso % (Auto) 0.6 % Neut # (Auto) 4.74 (1.40-6.50) K/uL Lymph # (Auto) 0.91 L (1.20-3.40) K/uL [place] # (Auto) 0.65 H (0.11-0.59) K/uL Eos # (Auto) 0.23 (0.00-0.50) K/uL Baso # (Auto) 0.04 (0.00-0.20) K/uL Immature Gran # (Auto) 0.05 (0.01-0.20) K/uL Sodium 135 L (136-145) mmol/L Potassium 3.8 (3.5-5.1) mmol/L Chloride 100 (98-107) mmol/L Carbon Dioxide 28 (21-32) mmol/L Anion Gap 7 (3-11) BUN 11 (6-23) mg/dl Creatinine 0.72 (0.6-1.2) mg/dl Est Cr Clr Drug Dosing 81.8 ml/min Est GFR ( Amer) 111.6 ml/min Est GFR (Non-Af Amer) 96.3 ml/min BUN/Creatinine Ratio 15.3 (10-20) Glucose 122 H (70-99(Fasting)) mg/dl POC Glucose 136 H 156 H (70-99) mg/dl Calcium 9.3 (8.6-10.3) mg/dl Phosphorus 4.2 (2.5-4.9) mg/dl Magnesium 1.8 (1.7-2.4) mg/dl Iron 92 (35-150) mcg/dl Ferritin (8-388) ng/ml Total Bilirubin 0.4 (0.2-1.0) mg/dl AST 66 H (13-39) U/L ALT 128 H (7-52) U/L Alkaline Phosphatase 174 H (34-104) U/L Total Protein 6.8 (6.0-8.3) gm/dl Albumin 3.7 (3.4-5.0) gm/dl Globulin 3.1 (2.5-4.0) gm/dl Albumin/Globulin Ratio 1.2 (0.9-2) Actin IgG Antibody EBV Capsid Ag IgM Ab Hepatitis A IgM Ab Hep Bs Antigen Hep Bs Ag Confirmation Hep B Core IgM Ab Hepatitis C Ab (EIA) 05/01/23 05/01/23 05/01/23 Range/Units 16:24 13:41 11:01 WBC (4.8-10.8) K/ul RBC (4.20-5.40) M/uL Hgb (12.0-16.0) g/dl Hct (37.0-47.0) % MCV (80.0-100.0) fL MCH (25.0-34.0) pg MCHC (32.0-36.0) g/dL RDW Std Deviation (36.4-46.3) fL RDW Coeff of Norberto (11.5-14.5) % Plt Count (130-400) K/uL MPV (9.4-12.4) fL Immature Gran % (Auto) % Neut % (Auto) % Lymph % (Auto) % [place] % (Auto) % Eos % (Auto) % Baso % (Auto) % Neut # (Auto) (1.40-6.50) K/uL Lymph # (Auto) (1.20-3.40) K/uL [place] # (Auto) (0.11-0.59) K/uL Eos # (Auto) (0.00-0.50) K/uL Baso # (Auto) (0.00-0.20) K/uL Immature Gran # (Auto) (0.01-0.20) K/uL Sodium (136-145) mmol/L Potassium (3.5-5.1) mmol/L Chloride (98-107) mmol/L Carbon Dioxide (21-32) mmol/L Anion Gap (3-11) BUN (6-23) mg/dl Creatinine (0.6-1.2) mg/dl Est Cr Clr Drug Dosing ml/min Est GFR ( Amer) ml/min Est GFR (Non-Af Amer) ml/min BUN/Creatinine Ratio (10-20) Glucose (70-99(Fasting)) mg/dl POC Glucose 75 98 279 H (70-99) mg/dl Calcium (8.6-10.3) mg/dl Phosphorus (2.5-4.9) mg/dl Magnesium (1.7-2.4) mg/dl Iron (35-150) mcg/dl Ferritin (8-388) ng/ml Total Bilirubin (0.2-1.0) mg/dl AST (13-39) U/L ALT (7-52) U/L Alkaline Phosphatase (34-104) U/L Total Protein (6.0-8.3) gm/dl Albumin (3.4-5.0) gm/dl Globulin (2.5-4.0) gm/dl Albumin/Globulin Ratio (0.9-2) Actin IgG Antibody EBV Capsid Ag IgM Ab Hepatitis A IgM Ab Hep Bs Antigen Hep Bs Ag Confirmation Hep B Core IgM Ab Hepatitis C Ab (EIA) 05/01/23 05/01/23 Range/Units 08:55 07:12 WBC (4.8-10.8) K/ul RBC (4.20-5.40) M/uL Hgb (12.0-16.0) g/dl Hct (37.0-47.0) % MCV (80.0-100.0) fL MCH (25.0-34.0) pg MCHC (32.0-36.0) g/dL RDW Std Deviation (36.4-46.3) fL RDW Coeff of Norberto (11.5-14.5) % Plt Count (130-400) K/uL MPV (9.4-12.4) fL Immature Gran % (Auto) % Neut % (Auto) % Lymph % (Auto) % [place] % (Auto) % Eos % (Auto) % Baso % (Auto) % Neut # (Auto) (1.40-6.50) K/uL Lymph # (Auto) (1.20-3.40) K/uL [place] # (Auto) (0.11-0.59) K/uL Eos # (Auto) (0.00-0.50) K/uL Baso # (Auto) (0.00-0.20) K/uL Immature Gran # (Auto) (0.01-0.20) K/uL Sodium (136-145) mmol/L Potassium (3.5-5.1) mmol/L Chloride (98-107) mmol/L Carbon Dioxide (21-32) mmol/L Anion Gap (3-11) BUN (6-23) mg/dl Creatinine (0.6-1.2) mg/dl Est Cr Clr Drug Dosing ml/min Est GFR ( Amer) ml/min Est GFR (Non-Af Amer) ml/min BUN/Creatinine Ratio (10-20) Glucose (70-99(Fasting)) mg/dl POC Glucose (70-99) mg/dl Calcium (8.6-10.3) mg/dl Phosphorus (2.5-4.9) mg/dl Magnesium (1.7-2.4) mg/dl Iron (35-150) mcg/dl Ferritin 130.0 (8-388) ng/ml Total Bilirubin (0.2-1.0) mg/dl AST (13-39) U/L ALT (7-52) U/L Alkaline Phosphatase (34-104) U/L Total Protein (6.0-8.3) gm/dl Albumin (3.4-5.0) gm/dl Globulin (2.5-4.0) gm/dl Albumin/Globulin Ratio (0.9-2) Actin IgG Antibody Pending EBV Capsid Ag IgM Ab Pending Hepatitis A IgM Ab Pending Hep Bs Antigen Pending Hep Bs Ag Confirmation Pending Hep B Core IgM Ab Pending Hepatitis C Ab (EIA) Pending Diagnostic Findings MRCP: FINDINGS: The gallbladder is surgically absent. There is no intra or extrahepatic biliary ductal dilatation. The common bile duct is normal in caliber, measuring up to 4 mm in diameter. No intraluminal filling defects are seen to suggest choledocholithiasis. The pancreatic duct is normal in caliber. The unenhanced liver, pancreas, spleen, and adrenal glands are grossly unremarkable. No abdominal ascites is identified. The kidneys are normal in size. The right kidney appears heterogeneous with mild perinephric stranding and fluid. There is minimal right-sided hydronephrosis. The left kidney is normal as imaged. The abdominal aorta is normal in course and caliber. No bowel obstruction is seen. There is no pleural effusion. The bony structures appear intact. IMPRESSION: 1. Normal MRCP noting status post cholecystectomy. 2. The right kidney appears heterogeneous with minimal hydronephrosis and surrounding infiltration/fluid. Correlate clinically.
[2023-05-02 08:08] LABS: Albumin Globulin Ratio 1.2 (0.9-2); Albumin Level 3.7 gm/dl (3.4-5.0); BUN Creatinine Ratio 15.3 (10-20); Bilirubin,Total 0.4 mg/dl (0.2-1.0); Calcium 9.3 mg/dl (8.6-10.3); Creatinine Clr Calc Pharmacy 81.8 ml/min; Est GFR (African American) 111.6 ml/min; Est GFR (Non-African American) 96.3 ml/min; Globulin 3.1 gm/dl (2.5-4.0); Magnesium 1.8 mg/dl (1.7-2.4); Phosphorus 4.2 mg/dl (2.5-4.9); Potassium 3.8 mmol/L (3.5-5.1); Total Protein 6.8 gm/dl (6.0-8.3)
[2023-05-02] MEDS: LANTUS PER UNIT CHARGE SC SCH (08:12)
[2023-05-02] MEDS: ADVANCED PROBIOTIC 625 MG CAPSULE PO SCH (08:14)
--- NOTE | 2023-05-02 12:37 | Urology Consultation ---
<Statement entered by Balta Hoffman MD - 05/02/23 13:51> I have discussed Ms. Alexander's case with LYSSA Bentley and agree with the above documentation. Right-sided hydronephrosis may be due to urinary tract infection. I do not appreciate any focal obstructions on her imaging. For now, would recommend treating with antibiotics and would hold off on any intervention such as ureteral stent placement. If she develops worsening renal function or or evidence of infection, could consider potential intervention. Will coordinate outpatient follow-up as well. -Balta Hoffman MD. Date of Consultation May 02, 2023 Assessment & Plan (1) Hydronephrosis, right: (2) UTI (urinary tract infection): Plan 52yo F admitted with UTI/Pyelo. CT imaging on admission demonstrated mild right-sided hydronephrosis without obstructing stone which could represent a recently passed stone or ascending infection. Urology consulted for right hydronephrosis Pt is afebrile and hemodynamically stable. Labs reviewed No leukocytosis and normal renal function. Hemoglobin stable. Urine culture final with E. coli. Blood cultures prelim no growth x 48 hours. Continues on Cefepime. Voiding spontaneously, continue to monitor. Right-sided hydronephrosis possibly secondary to infection. No urological intervention indicated as she remains stable and improving with antibiotic therapy. We discussed outpatient follow-up and repeat imaging, she is agreeable. Continue supportive care and antibiotic therapy. Will arrange outpatient follow-up with our service. Urology will follow peripherally. Please call with any further questions or concerns. History of Present Illness Attending Physician: Trang Tavarez MD History of Present Illness 52-year-old female who has significant past medical history of insulin-dependent T2DM, ankylosing spondylitis, WILLA, nocturnal hypoxemia, chronic rhinitis and depression who presented to the ED on 04/30/23 with fever, back pain and weakness. In ED patient she was febrile at 38.2C and tachycardic. Urinalysis was suggestive of infection. CT abdomen pelvis obtained and demonstrated mild right-sided hydronephrosis without obstructing stone which could represent a recently passed stone or ascending infection. She denied any urinary symptoms. Urine and blood cultures were collected. She was started on empiric cefepime. Admitted to medicine service for continued care and management. Urology consulted 05/02/[address] abdomen pelvis 1. There is mild right-sided hydronephrosis with right-sided perinephric stranding and fluid as detailed above. No obstructing stone is identified. This could represent the sequelae of a recently passed kidney stone, or could potentially be seen with ascending urinary tract infection. Correlation with clinical findings and urinalysis will be essential. 2. No renal calculi are identified in either kidney. There is no left-sided hydronephrosis. 3. The bladder wall appears circumferentially thickened. Again, this should be correlated with clinical findings and urinalysis. 4. Moderate constipation. Patient examined at bedside this AM. Awake, sitting in bedside chair on arrival. No acute distress. Overall feeling much better. Denies fever, chills, nausea, vomiting. Voiding without issue. Denies hematuria or dysuria. Denies right-sided pain. She does report occasional left-sided discomfort. She reports a history of nephrolithiasis. Denies prior urological procedure. Has never seen a urologist. Denies prior history of recurrent UTI. Allergies Allergy/AdvReac Type Severity Reaction Status Date / Time Penicillins Allergy Severe RASH, Verified 10/18/14 15:02 CHEST HEAVINESS, SOB sulfamethoxazole Allergy Intermediate Rash Unverified 04/30/23 11:11 [From Bactrim] trimethoprim [From Bactrim] Allergy Intermediate Rash Unverified 04/30/23 11:11 Home Medications Medication Instructions Recorded Confirmed Type ascorbic acid (vitamin C) 500 mg 500 mg PO BID 04/30/23 04/30/23 History tablet (Vitamin C) gabapentin 300 mg capsule 300 mg PO TID 04/30/23 04/30/23 History insulin aspart U-100 100 unit/mL See Rx Instructions .Route .COMPLEX 04/30/23 04/30/23 History subcutaneous solution (Novolog U-100 Insulin aspart) melatonin 12 mg tablet 12 mg PO HS 04/30/23 04/30/23 History vit no.95-ferrous 1 tab PO DAILY 04/30/23 04/30/23 History fumarate 28 mg-folic acid 800 mcg tablet () semaglutide 1 mg/dose (4 mg/3 mL) 2 mg subcut WK 04/30/23 04/30/23 History subcutaneous pen injector (Ozempic) simvastatin 40 mg tablet 40 mg PO HS 04/30/23 04/30/23 History venlafaxine 150 mg 150 mg PO DAILY 04/30/23 04/30/23 History capsule,extended release 24 hr venlafaxine 75 mg tablet 75 mg PO QPM 04/30/23 04/30/23 History zolpidem 5 mg tablet 5 mg PO HS Sleep 04/30/23 04/30/23 History Patient History Medical History (Updated 05/02/23 @ 12:46 by LYSSA [place]) Diabetes mellitus, type 2 Tobacco abuse Depression Dyslipidemia Surgical History S/P hysterectomy S/P carpal tunnel release Social History Smoking Status: Current every day smoker Tobacco Type: Cigarettes Hx Alcohol Use: No Hx Substance Use: No Preferred Language: [place] Communication Ability: Effective Production Leader Required: No Beliefs That Will Affect Care: None 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: Other 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 Comment: 2 roommates Feels Safe at Home: Yes Safety Concerns: Feels Safe At This Time Assistive Devices: None Review of Systems Review of Systems: All systems reviewed & are unremarkable except as noted in HPI & below Physical Exam Constitutional: well developed and well nourished; no acute distress Neck: normal visual inspection Respiratory: no respiratory distress and no labored breathing Musculoskeletal: Head/Neck/Chest: normocephalic Skin: No visible rashes or lesions to exposed skin areas Neurologic: moves all extremities and awake Psychiatric: A+Ox3, euthymic affect Results & Data Vital Signs (Past 12 Hours) Vital Signs Temp Pulse Resp BP Pulse Ox O2 Del Method 05/02/23 07:54 36.5 C 69 18 119/77 98 Room Air 05/02/23 03:24 36.6 C 72 18 107/69 96 Room Air 05/01/23 22:59 36.8 C 68 18 102/67 97 Room Air PG Care Time/CCT Total # of Minutes Spent Total Time Spent with Patient: Total time spent is greater than 50% in coordination of care (as documented) at patient's floor/unit and/or counseling patient: Coding Level of Care Code 85172 IN/OBS CONSULT LVL 3,45M Diagnoses Hydronephrosis, right N13.30 UTI (urinary tract infection) N39.0
--- NOTE | 2023-05-02 16:25 | Discharge Summary ---
Discharge Summary Date of Service May 02, 2023 Notes For Next Care Provider Sepsis and pyelonephritis- pt would like to be discharged, discharged with 12 more days of cefdinir 300mg BID Hydronephrosis, right- per Urology, outpt follow up and monitoring. Please ensure close follow up with Urology. Elevated liver enzymes- per GI, please trend to normal level. Hepatitis labs pending on discharge. Please ensure close follow up with Gastroenterology after discharge. Medication Changes From Visit Cefdinir 300mg BID x 12 more days Admission HPI Per Admitting Provider This is a 52-year-old female who has significant past medical history of insulin-dependent T2DM, ankylosing spondylitis, WILLA, nocturnal hypoxemia, chronic rhinitis and depression who presents to ED secondary to fever, back pain and weakness x 1 week. Approximately 1 week ago she started having bilateral back pain. She then progressed to have upper respiratory-like symptoms including sinus congestion, fatigue and progressive weakness. Over the last 3 days her symptoms have worsened. She has been taking tgsu-fbd-zzshtas Sudafed and Niki-[place] with minimal relief. She does complain of fever last night her Tmax was 100.6. She denies any sick contacts. She currently lives alone but states she just had some roommates moved in with her. She states she is currently going through divorce and is having a difficult time. She denies any urinary symptoms including dysuria, increased urgency or frequency with urination or hematuria. She further denies any abdominal pain. She states her last bowel movement was 4 to 5 days ago which is not usual for her. She denies any chills, sweats, lightheadedness, dizziness, chest pain, shortness of breath, nausea or vomiting. She states since arriving in ED she is feeling improved. She is starting to have an appetite. Appetite has otherwise been for the last few days. In ED patient did meet sepsis criteria secondary to fever and tachycardia. Her urinalysis was concerning for infection. CT abdomen pelvis revealed right hydronephrosis in setting of proximal ascending urinary tract infection. Admission Exam Per Admitting Provider Constitutional: WD/WN, vitals as above, acutely ill appearing, NAD, sitting up in bed, pleasant, conversing easily Head: Normocephalic, Atraumatic Eyes: PERRL, conjunctivae normal, anicteric sclerae ENMT: external ear and nose normal, oropharynx normal Neck: trachea midline, no thyromegaly normal visual inspection Respiratory: normal respiratory effort, lungs clear to auscultation, no wheeze, rales, rhonchi. Normal insp/exp effort, no accessory muscle use Cardiovascular: RRR, no murmur, no edema Vessels: no JVD or carotid bruit Chest: normal inspection of chest Abdomen: normal bowel sounds, soft, nontender, no hepatosplenomegaly , no CVA tenderness Musculoskeletal: no cyanosis or clubbing, extremities motor strength 5/5 Skin: no rashes, warm and dry normal turgor Neurologic: PERRL, EOMI, accommodation nl, no face palsy, no dysarthria CN's II-XI intact bilaterally and moves all extremities Psychiatric: A+Ox3, euthymic affect Lymphatic: no cervical or axillary lymphadenopathy : deferred Principal Dx & Hospital Course #1 = Principal Diagnosis (1) Sepsis: (2) Pyelonephritis: (3) Diabetes mellitus, type 2: (4) Dyslipidemia: Plan This is a 52-year-old female who has significant past medical history of insulin-dependent T2DM, ankylosing spondylitis, WILLA, nocturnal hypoxemia, chronic rhinitis and depression who presents to ED secondary to fever, back pain and weakness x 1 week. Sepsis Acute Pyelonephritis Presented with fever and tachycardia, infectious source of urine Lactate was wnl, WBC normal UA suggestive of infection Urine cx grew pansensitive E coli Blood Cx x2 with NGTD at 48 hours treated with IV Cefepime x about 2 days Pt requesting discharge on 05/01- discharged with an additional 12 days of cefdinir 300mg BID. PCP follow up. Right sided hydronephrosis Noted on CT abd/pelvis Likely in setting of above No obstructive uropathy noted Cr normal Urology consulted, recommended/stated the following: "Right-sided hydronephrosis possibly secondary to infection. No urological intervention indicated as she remains stable and improving with antibiotic therapy. We discussed outpatient follow-up and repeat imaging, she is agreeable. Continue supportive care and antibiotic therapy. Will arrange outpatient follow-up with our service." Please ensure Urology follow up Anemia Iron Deficiency Anemia outpt records show hgb 10.6 ~ 1 year ago Hemoglobin currently stable around 10 pt denies s/sx of bleeding Iron level of 10, repleted with IV Venofer iron level 92 on discharge B12 level normal Folate level normal PCP follow up Elevated liver enzymes Liver enzymes up considerably CT abd/pelvis noting increased intrahepatic ductal dilation Pt does note that she stopped drinking alcohol heavily in January, states she is currently on probation for a DUI. US liver ordered- unremarkable but noted R sided hydronephrosis as above MRCP ordered and noted normal MRCP status post cholecystectomy. GI consulted- recommended/stated the following on day of discharge: "Today LFTs trending down. MRCP unremarkable; no biliary dilation, s/p cholecystectomy. - Will await acute hepatitis labs - Trend daily LFTs. If DC'd, would trend to normal as OP - Supportive care with IVF - ABX as per primary team - Avoid known hepatotoxins -Continue to trend daily LFTs. They are improving which is reassuring. Suspect related to acute illness vs. DILI. Will follow up viral serologies as they become available." Please trend the liver enzymes after discharge, ensure resolution. Please ensure follow up with GI after discharge. Constipation no BM in 4-5 days which is normal for her CT abd/pelvis noting moderate constipation Continue with daily miralax and Senna/docusate BID regimen Stable on discharge T2DM, insulin dependent poorly controlled Hga1c of 10.7 She utilizes an insulin pump, willing to come off while inpatient for better glycemic control insulin pump resumed on discharge Pt will need close diabetic follow up and management after discharge HLD chronic, stable continue statin WILLA not on CPAP at night states she is getting re tested Tobacco abuse encourage cessation Depression mood stable continue venlafaxine Discharge Exam General: Alert, oriented. No acute distress Skin: No noted rashes or bruises Psych: Appropriate mood and affect Neuro: No gross deficits HEENT: NC/AT Chest: Nontender to palpation. CV: RRR, Normal s1, s2. No murmurs appreciated Resp: Breath sounds clear bilaterally, no increased effort of breathing. No crackles/rhonchi/rales. Abdomen: Soft, nontender, nondistended. Extremities: No edema in lower extremities bilaterally. Updated Medication List Medication Instructions Recorded Confirmed Type ascorbic acid (vitamin C) 500 mg 500 mg PO BID 04/30/23 04/30/23 History tablet (Vitamin C) gabapentin 300 mg capsule 300 mg PO TID 04/30/23 04/30/23 History insulin aspart U-100 100 unit/mL See Rx Instructions .Route .COMPLEX 04/30/23 04/30/23 History subcutaneous solution (Novolog U-100 Insulin aspart) melatonin 12 mg tablet 12 mg PO HS 04/30/23 04/30/23 History vit no.95-ferrous 1 tab PO DAILY 04/30/23 04/30/23 History fumarate 28 mg-folic acid 800 mcg tablet () semaglutide 1 mg/dose (4 mg/3 mL) 2 mg subcut WK 04/30/23 04/30/23 History subcutaneous pen injector (Ozempic) simvastatin 40 mg tablet 40 mg PO HS 04/30/23 04/30/23 History venlafaxine 150 mg 150 mg PO DAILY 04/30/23 04/30/23 History capsule,extended release 24 hr venlafaxine 75 mg tablet 75 mg PO QPM 04/30/23 04/30/23 History zolpidem 5 mg tablet 5 mg PO HS Sleep 04/30/23 04/30/23 History cefdinir 300 mg capsule 300 mg PO BID #24 caps 05/02/23 Rx Hospital Stay Data Consultations 04/30/23 11:43 ED Decision to Admit Stat 05/01/23 09:09 Consult Gastroenterology Routine 05/02/23 09:28 Consult Urology Routine Diagnostic Imagining Performed 04/30/23 10:57 CT abd pelvis wo con Stat 05/01/23 09:11 US liver Urgent 05/01/23 10:15 MR MRCP Routine Chest X-Ray 04/30/23 08:47 XR chest 1V portable HISTORY: 52 years-old Female fever acute shortness breath with fever COMPARISON: 10/18/2014 TECHNIQUE: AP view the chest FINDINGS: Cardiomediastinal and hilar silhouettes are within normal limits. No pneumothorax, pleural effusion or airspace consolidation. Mild right hemidiaphragmatic elevation. Cervical spinal fusion hardware. Bones appear grossly intact. IMPRESSION: No acute process. ACT 112: Negative or not required by law. The above report was generated using voice recognition software. It may contain grammatical, syntax or spelling errors. Electronically signed by: Corby Cates M.D. 04/30/2023 9:45 AM Abdomen/Pelvis CT 04/30/23 10:57 CT SCAN OF THE ABDOMEN AND PELVIS WITHOUT IV CONTRAST CLINICAL HISTORY: Urinary tract infection. Fever. COMPARISON STUDY: No priors. TECHNIQUE: CT scan of the abdomen and pelvis is performed from the lung bases to the proximal femora. Images are reviewed in the axial, sagittal, and coronal planes. IV contrast was not administered for this examination. A dose lowering technique was utilized adhering to the principles of ALARA. CT DOSE: 688.98 mGy.cm FINDINGS: Lung bases: The heart is normal in size and without pericardial effusion. There is diminished attenuation of the cardiac blood pool as compared to the myocardium suggesting anemia. There is bibasilar scarring/atelectasis. No airspace consolidation or pleural effusion is identified. There is a tiny hiatal hernia. Liver: The unenhanced liver is normal in size, contour, and attenuation. There is mild central intrahepatic biliary ductal dilatation. Gallbladder: Surgically absent noting clips in the gallbladder fossa. Spleen: Normal in size and attenuation. There are calcified splenic granulomas. Pancreas: The unenhanced pancreas is grossly unremarkable. Adrenal glands: Unremarkable. Kidneys: The unenhanced kidneys are normal in size. There is mild right-sided hydronephrosis with right-sided perinephric inflammation and fluid. Urothelial thickening is noted in the right renal pelvis and right ureter. No hydronephrosis is seen in the left kidney. No renal calculi are identified and there is no ureteral stone. There is no evidence of contour deforming renal mass lesion. Abdominal vasculature: The abdominal aorta is normal in course and caliber noting mild atherosclerotic calcification. Bowel: There is moderate colonic fecal retention. No bowel obstruction is seen. The appendix is well-visualized and normal. Peritoneum: There is no intraperitoneal free air or abdominal ascites. Lymphadenopathy: None. Pelvic viscera: The bladder wall appears circumferentially thickened. The uterus is surgically absent. No adnexal lesion is seen. Skeletal structures: The skeletal structures are osteopenic. Mild degenerative change is noted in the spine. There is degenerative sclerosis of the sacroiliac joints. No lytic or blastic lesions are seen. IMPRESSION: 1. There is mild right-sided hydronephrosis with right-sided perinephric stranding and fluid as detailed above. No obstructing stone is identified. This could represent the sequelae of a recently passed kidney stone, or could potentially be seen with ascending urinary tract infection. Correlation with clinical findings and urinalysis will be essential. 2. No renal calculi are identified in either kidney. There is no left-sided hydronephrosis. 3. The bladder wall appears circumferentially thickened. Again, this should be correlated with clinical findings and urinalysis. 4. Moderate constipation. 5. Additional findings as above. ACT 112: Negative or not required by law. Electronically signed by: Israel Elizabeth M.D. 04/30/2023 11:59 AM Liver Ultrasound 05/01/23 09:11 ABDOMINAL ULTRASOUND, RIGHT UPPER QUADRANT HISTORY: elev LFT, intrahep dilat on CT. COMPARISON: CT 04/30/2023 FINDINGS: Pancreas: The pancreas demonstrates a normal echotexture. Liver: 17.3 cm in length. Intrahepatic biliary ductal dilation redemonstrated which is likely postsurgical. Gallbladder: Discectomy. CBD: 0.6 and meter. Right kidney: Persistent hydronephrosis. IMPRESSION: 1. Unremarkable exam status post cholecystectomy. 2. Right-sided hydronephrosis redemonstrated. ACT 112: Negative or not required by law. Electronically signed by: Corby Cates M.D. 05/01/2023 10:56 AM Cholangiopancreatography MRI 05/01/23 10:15 MRCP CLINICAL HISTORY: Elevated hepatic transaminases. COMPARISON STUDY: Abdominal ultrasound dated 05/01/2023. Abdominal CT dated 04/30/2023. TECHNIQUE: Abdominal MRCP is performed utilizing various T1 and T2-weighted sequences in the axial and coronal planes. IV contrast was not administered for this examination. 3-D reformats are created and assessed. Diffusion-weighted i maging was utilized. The examination is modestly degraded by motion artifact. FINDINGS: The gallbladder is surgically absent. There is no intra or extrahepatic biliary ductal dilatation. The common bile duct is normal in caliber, measuring up to 4 mm in diameter. No intraluminal filling defects are seen to suggest choledocholithiasis. The pancreatic duct is normal in caliber. The unenhanced liver, pancreas, spleen, and adrenal glands are grossly unremarkable. No abdominal ascites is identified. The kidneys are normal in size. The right kidney appears heterogeneous with mild perinephric stranding and fluid. There is minimal right-sided hydronephrosis. The left kidney is normal as imaged. The abdominal aorta is normal in course and caliber. No bowel obstruction is seen. There is no pleural effusion. The bony structures appear intact. IMPRESSION: 1. Normal MRCP noting status post cholecystectomy. 2. The right kidney appears heterogeneous with minimal hydronephrosis and surrounding infiltration/fluid. Correlate clinically. Dictated: 05/01/2023 3:02 PM Transcribed: 05/01/2023 3:48 PM Pasquale [id number] [id number] Electronically signed by: Israel Elizabeth M.D. 05/01/2023 5:11 PM Discharge Instructions Given to Patient (Per Discharging Provider) Ms. Alexander, You were admitted and treated for a severe kidney infection. We treated you with an IV medication for about 2 days and per your request, we are discharging you with an additional 12 days of treatment. Please take the antibiotics as prescribed. You were also seen by the Urologist and they would like to follow up with you after discharge. Your liver enzymes were also very high and the Disposal Operator is recommending outpatient follow up for that as well. they want those monitored until they become normal. Your primary care provider can do that after discharge. Please keep close follow up with your primary care provider after discharge. Please do not hesitate to come back to the emergency room if your symptoms worsen or return. It was a pleasure taking care of you while you were here. Total Time Total Time Spent Total Time Spent (In Minutes): > 30 minutes
[2023-05-08 14:47] LABS: HBSAG NON-REACTIVE (NON-REACTIVE); Hepatitis A Antibody IgM NON-REACTIVE (NON-REACTIVE); Hepatitis B Core Antibody IgM NON-REACTIVE (NON-REACTIVE)
== END 2023-05-02 18:20 | disposition home or self-care (01) | DRG 872 ==
LOC: ED 08:02 → EDINP 12:30 → 2S 16:04

== ENCOUNTER 2023-06-29 13:18 | Inpatient (IN) ==
[2023-06-29 14:44] LABS: Alanine Aminotransferase 45 U/L (7-52); Albumin Globulin Ratio 1.6 (0.9-2); Albumin Level 5.4 gm/dl (3.4-5.0); Alkaline Phosphatase 108 U/L (34-104); Anion Gap 23 (3-11); Bilirubin,Total 0.4 mg/dl (0.2-1.0); Blood Urea Nitrogen 24 mg/dl (6-23); Calcium 10.3 mg/dl (8.6-10.3); Carbon Dioxide 11 mmol/L (21-32); Chloride 98 mmol/L (98-107); Creatinine Clr Calc Pharmacy 45.8 ml/min; Est GFR (African American) 60.2 ml/min; Est GFR (Non-African American) 51.9 ml/min; Globulin 3.4 gm/dl (2.5-4.0); Glucose 471 mg/dl (70-99(Fasting)); Sodium 132 mmol/L (136-145); Total Protein 8.8 gm/dl (6.0-8.3)
[2023-06-29] MEDS: SODIUM CHLORIDE 0.9% 1,000 ML IV ONE ×2 (14:53→15:36)
[2023-06-29 15:06] LABS: Basophils % (auto) 0.8 %; Eosinophils # (auto) 0.02 K/uL (0.00-0.50); Eosinophils % (auto) 0.2 %; Hematocrit (blood only) 45.9 % (37.0-47.0); Hemoglobin 14.5 g/dl (12.0-16.0); Immature Granulocytes # (auto) 0.08 K/uL (0.01-0.20); Immature Granulocytes % (auto) 0.6 %; Lymphocytes # (auto) 1.76 K/uL (1.20-3.40); Lymphocytes % (auto) 14.3 %; Mean Corpuscular Hemoglobin 27.7 pg (25.0-34.0); Mean Corpuscular Hgb Conc 31.6 g/dL (32.0-36.0); Mean Corpuscular Volume 87.6 fL (80.0-100.0); Mean Platelet Volume 10.2 fL (9.4-12.4); Monocytes # (auto) 0.59 K/uL (0.11-0.59); Monocytes % (auto) 4.8 %; Neutrophils # (auto) 9.77 K/uL (1.40-6.50); Neutrophils % (auto) 79.3 %; Platelet Count 351 K/uL (130-400); RDW Coefficient of Variation 12.4 % (11.5-14.5); RDW Standard Deviation 39.8 fL (36.4-46.3); Red Blood Count 5.24 M/uL (4.20-5.40); White Blood Count 12.32 K/ul (4.8-10.8)
[2023-06-29] MEDS ORDERED: GLUCOSE 40% GEL 15 GM TUBE PO PRN (15:57)
[2023-06-29] MEDS ORDERED: GLUCOSE 10 TAB/TUBE PO PRN (15:57)
[2023-06-29] MEDS ORDERED: GLUCAGON FOR INJ 1 MG VIAL SQ PRN (15:57)
[2023-06-29] MEDS ORDERED: CARBOHYDRATES FOR HYPOGLYCEMIA PO PRN ×2 (15:57→15:58)
[2023-06-29] MEDS ORDERED: STAT IV Infusion **Titration per Protocol STA (15:58)
[2023-06-29] MEDS ORDERED: DKA GOAL RANGE 150-250 mg/dl ONE (15:58)
[2023-06-29] MEDS ORDERED: DEXTROSE 50% 50 ML SYRINGE IV PRN (15:58)
[2023-06-29] MEDS ORDERED: INSULIN REGULAR 250 UNITS in SODIUM CHLORIDE 0.9% 247.5 ML IV SCH (16:00)
[2023-06-29 16:13] LABS: Appearance Urine Clear (Clear); Bacteria Urine Automated None Seen (None Seen); Bilirubin Urine Negative (Negative); Blood Urine Negative (Negative); Color Urine Yellow; Epithelial Cell Urine Auto 0-2 /hpf (0-2); Glucose Urine UA 3+ (Negative); Ketones Urine 4+ (Negative); Leukocyte Esterase Urine Negative (Negative); Nitrite Urine Negative (Negative); Protein Urine 1+ (Negative); RBC Urine Automated 0-2 /hpf (0-2); Specific Gravity Urine 1.024 (1.000-1.030); Urobilinogen Urine Negative (Negative); WBC Urine Automated 0-5 /hpf (0-5); pH Urine 5.5 (4.5-7.5)
[2023-06-29] MEDS: INSULIN REGULAR 250 UNITS in SODIUM CHLORIDE 0.9% 247.5 ML IV SCH (16:21)
[2023-06-29] MEDS: SODIUM CHLORIDE 0.9% 1,000 ML IV SCH (16:27)
[2023-06-29] MEDS ORDERED: INSULIN ASPART PER UNIT CHARGE SC SCH (16:30)
[2023-06-29 16:32] LABS: Base Excess ABG -20.5 mEq/L (-9-1.8); HCO3 ABG 6 mmol/L (19-24); Oxygen Saturation ABG 97.9 % (90-95); PCO2 ABG 18 mmHg (35-46); PO2 ABG 117 mmHg (80-95)
[2023-06-29 16:37] LABS: Albumin Globulin Ratio 1.9 (0.9-2); Albumin Level 4.5 gm/dl (3.4-5.0); BUN Creatinine Ratio 22.4 (10-20); Bilirubin,Total 0.3 mg/dl (0.2-1.0); Calcium 9.2 mg/dl (8.6-10.3); Creatinine Clr Calc Pharmacy 51.4 ml/min; Est GFR (African American) 69.1 ml/min; Est GFR (Non-African American) 59.6 ml/min; Globulin 2.4 gm/dl (2.5-4.0); Magnesium 1.8 mg/dl (1.7-2.4); Phosphorus 5.3 mg/dl (2.5-4.9); Potassium 5.2 mmol/L (3.5-5.1); Total Protein 6.9 gm/dl (6.0-8.3)
[2023-06-29 16:37] LABS: Allen Test Pos (Pos); pH ABG 7.15 (7.35-7.45)
--- NOTE | 2023-06-29 16:38 | History & Physical Report ---
Date of Service June 29, 2023 Assessment & Plan (1) DKA (diabetic ketoacidosis): Plan: It appears the nitus for this was lack of insulin given her pump placement issues. Diabetic nurse educator for help with this. Cont insulin drip and IVF, adding dextrose and potassium later this evening when needed. Replace electrolytes as needed, trend BMP, mg, phos every 4 hours. NPO until DKA resolved. (2) Ankylosing spondylitis: Plan: per Rheumatology, cont gabapentin and tylenol per home regimen. No active flare symptoms at this time. (3) Osteoarthritis: Plan: chronic, stable wo flare. Cont Tylenol PRN (4) Tobacco abuse: Plan: chronic smoker, declined nicotine patch. (5) Depression: Plan: chronic, stable. Cont venlafaxine per home regimen. DVT proph: Lovenox Full Dispo-PCU I spent a total of 75 minutes coordinating, documenting, and providing care for this patient excluding time spent in the performance of separately billed services DO [facility] History of Present Illness Primary Care Provider: [facility] 52 yo F presents with DKA. She is a insulin dependent diabetic who uses an insulin pump with aspart and ozempic 1mg dose weekly. She has a h/o ankylosing spondylitis and OA and is followed by [facility]. Has had issues with her insulin pump site for the past 1.5 year She has been using SQ insulin recently--she would look on her pump for the calculation for amount and would deliver the bolus amt SQ. Carb ratio was calculated from [employer] and [employer]. 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 "Snacks out" mostly on the weekends Hasn't eaten much last few days Sugars have been >400 in the last 5 days Drinking "buckets" but still thirsty Excessive urination reported. no chest pain, no SOB no fevers, no chills Allergies Allergy/AdvReac Type Severity Reaction Status Date / Time Penicillins Allergy Severe RASH, Verified 10/18/14 15:02 CHEST HEAVINESS, SOB sulfamethoxazole Allergy Intermediate Rash Unverified 04/30/23 11:11 [From Bactrim] trimethoprim [From Bactrim] Allergy Intermediate Rash Unverified 04/30/23 11:11 Home Medications Medication Instructions Recorded Confirmed Type ascorbic acid (vitamin C) 500 mg 500 mg PO BID 04/30/23 06/29/23 History tablet (Vitamin C) gabapentin 300 mg capsule 300 mg PO TID 04/30/23 06/29/23 History insulin aspart U-100 100 unit/mL See Rx Instructions .Route .COMPLEX 04/30/23 06/29/23 History subcutaneous solution (Novolog U-100 Insulin aspart) melatonin 12 mg tablet 20 mg PO HS 04/30/23 06/29/23 History vit no.95-ferrous 1 tab PO BID 04/30/23 06/29/23 History fumarate 28 mg-folic acid 800 mcg tablet () semaglutide 1 mg/dose (4 mg/3 mL) 2 mg subcut WK 04/30/23 06/29/23 History subcutaneous pen injector (Ozempic) simvastatin 40 mg tablet 40 mg PO HS 04/30/23 06/29/23 History venlafaxine 150 mg 150 mg PO QAM 04/30/23 06/29/23 History capsule,extended release 24 hr venlafaxine 75 mg tablet 75 mg PO QPM 04/30/23 06/29/23 History zolpidem 5 mg tablet 5 mg PO HS 04/30/23 06/29/23 History cetirizine 10 mg tablet (Zyrtec) 10 mg PO HS 06/29/23 06/29/23 History omeprazole 20 mg capsule,delayed 20 mg PO DAILY 06/29/23 06/29/23 History release Past Med/Surg History Medical History Plantar fasciitis Osteoarthritis Ankylosing spondylitis Diabetes mellitus, type 2 Tobacco abuse Depression Dyslipidemia Surgical History History of cholecystectomy H/O cervical spine surgery History of breast surgery S/P removal of right ovary H/O shoulder surgery S/P hysterectomy S/P carpal tunnel release Social History Smoking Status: Current every day smoker Tobacco Type: Cigarettes Hx Alcohol Use: Yes (6-8 mixed drinks throughout the week, DUI caused her to stop drinking ) Hx Substance Use: No Preferred Language: Hebrew Communication Ability: Effective Mill Representative Required: No Beliefs That Will Affect Care: None 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: Other 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 Comment: 2 roommates current occupational status: employed current occupation: [employer] Feels Safe at Home: Yes Assistive Devices: None Physical Exam Physical Exam: CONSTITUTIONAL: WNWD, vitals as above, generally well-appearing, NAD EYES: normal conjunctivae, no scleral icterus ENT: external ear and nose normal, MMM NECK: trachea midline RESPIRATORY: clear to auscultation bilaterally, no crackles, rales or wheezes, normal respiratory effort CARDIOVASCULAR: regular rate and rhythm, S1 and 2 heard without murmurs, gallops or rubs, no JVD, no peripheral edema CHEST: inspection of chest was normal GASTROINTESTINAL: soft, nontender, ND, no guarding MUSCULOSKELETAL: strength 5/5 throughout, head is normocephalic and atraumatic SKIN: warm and dry NEUROLOGIC: CN 2-12 grossly intact, no sensory deficit, normal cognition, normal speech, no tremor PSYCHIATRIC: alert cooperative and oriented to person, place and time. Euthymic mood, makes good eye contact, language grossly intact, recent and remote memory grossly intact. Results & Data Results & Data Vital Signs (Past 12 Hours) Vital Signs Temp Pulse Pulse Resp BP BP Pulse Ox 06/29/23 16:16 86 06/29/23 15:30 92 H 18 128/96 100 06/29/23 13:31 36.8 C 87 18 128/90 99 O2 Del Method 06/29/23 16:16 06/29/23 15:30 06/29/23 13:31 Room Air Laboratory Results Short CBC 06/29/23 06/29/23 Range/Units 13:40 14:44 WBC Cancelled 12.32 H Hgb Cancelled 14.5 Hct Cancelled 45.9 Plt Count Cancelled 351 BMP 06/29/23 06/29/23 06/29/23 13:40 15:16 15:24 Sodium 132 L 134 L Potassium TNP 5.0 5.2 H Chloride 98 102 Carbon Dioxide 11 L 10 L BUN 24 H 24 H Creatinine 1.20 1.07 Glucose 471 H* 456 H* Calcium 10.3 9.2 Liver Function 06/29/23 06/29/23 06/29/23 Range/Units 13:40 15:16 15:24 Total Bilirubin 0.4 0.3 (0.2-1.0) mg/dl AST TNP 14 16 ALT 45 36 (7-52) U/L Alkaline Phosphatase 108 H 93 (34-104) U/L Albumin 5.4 H 4.5 (3.4-5.0) gm/dl Urine /06/18 Range/Units 16:00 Urine Color Yellow Urine Appearance Clear (Clear) Urine pH 5.5 (4.5-7.5) Ur Specific [place] 1.024 (1.000-1.030) Urine Protein 1+ H (Negative) Urine Glucose (UA) 3+ H (Negative)
[2023-06-29] MEDS: ONDANSETRON INJ 2 MG/ML 2 ML VIAL IV STA (16:41)
[2023-06-29] MEDS: STAT IV Infusion **Titration per Protocol STA (17:18)
[2023-06-29] MEDS: NovoLIN-R BOLUS FROM BAG IV ONE (17:22)
[2023-06-29 17:37] LABS: Estimated Average Glucose 249 mg/dl; Hemoglobin A1C 10.3 % (4.5-5.6)
[2023-06-29] MEDS ORDERED: ACETAMINOPHEN 325 MG TAB PO PRN (18:59)
[2023-06-29] MEDS ORDERED: POLYETHYLENE (MIRALAX) 17 GM PACK PO PRN (18:59)
[2023-06-29] MEDS: INSULIN ASPART PER UNIT CHARGE SC SCH (19:00)
--- NOTE | 2023-06-29 20:02 | Emergency Department Note ---
History of Present Illness General Chief complaint: Hyperglycemia Stated complaint: WEAKNESS/SUGAR 350 Time Seen by Provider: 06/29/23 14:32 History of Present Illness Provider complaint: High blood sugar Maximum Pain Intensity: 0 52-year-old insulin-dependent diabetic female presents emergency department for high blood sugar. Patient reports that she has been having high blood sugars for the last week. Patient reports she feels like she did when she had sepsis last. She denies any fevers. She reports some abdominal cramping. She reports polyuria. No dysuria. She reports nausea and vomiting. No hematemesis or coffee-ground emesis. No bilious vomiting. No diarrhea. No cough. No chest pain or difficulty breathing. Home Medications Medication Instructions Recorded Confirmed Type ascorbic acid (vitamin C) 500 mg 500 mg PO BID 04/30/23 06/29/23 History tablet (Vitamin C) gabapentin 300 mg capsule 300 mg PO TID 04/30/23 06/29/23 History insulin aspart U-100 100 unit/mL See Rx Instructions .Route .COMPLEX 04/30/23 06/29/23 History subcutaneous solution (Novolog U-100 Insulin aspart) melatonin 12 mg tablet 20 mg PO HS 04/30/23 06/29/23 History vit no.95-ferrous 1 tab PO BID 04/30/23 06/29/23 History fumarate 28 mg-folic acid 800 mcg tablet () semaglutide 1 mg/dose (4 mg/3 mL) 2 mg subcut WK 04/30/23 06/29/23 History subcutaneous pen injector (Ozempic) simvastatin 40 mg tablet 40 mg PO HS 04/30/23 06/29/23 History venlafaxine 150 mg 150 mg PO QAM 04/30/23 06/29/23 History capsule,extended release 24 hr venlafaxine 75 mg tablet 75 mg PO QPM 04/30/23 06/29/23 History zolpidem 5 mg tablet 5 mg PO HS 04/30/23 06/29/23 History cetirizine 10 mg tablet (Zyrtec) 10 mg PO HS 06/29/23 06/29/23 History omeprazole 20 mg capsule,delayed 20 mg PO DAILY 06/29/23 06/29/23 History release Allergies Allergy/AdvReac Type Severity Reaction Status Date / Time Penicillins Allergy Severe RASH, Verified 10/18/14 15:02 CHEST HEAVINESS, SOB sulfamethoxazole Allergy Intermediate Rash Unverified 04/30/23 11:11 [From Bactrim] trimethoprim [From Bactrim] Allergy Intermediate Rash Unverified 04/30/23 11:11 Past Med/Surg History Medical History Plantar fasciitis Osteoarthritis Ankylosing spondylitis Diabetes mellitus, type 2 Tobacco abuse Depression Dyslipidemia Surgical History History of cholecystectomy H/O cervical spine surgery History of breast surgery S/P removal of right ovary H/O shoulder surgery S/P hysterectomy S/P carpal tunnel release Social History Smoking Status: Current every day smoker Tobacco Type: Cigarettes Hx Alcohol Use: Yes (6-8 mixed drinks throughout the week, DUI caused her to stop drinking ) Hx Substance Use: No Preferred Language: Malay Communication Ability: Effective [employer] 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: No Beliefs That Will Affect Care: None 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: Other 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 Comment: 2 roommates current occupational status: employed current occupation: [employer] Feels Safe at Home: Yes Assistive Devices: None Physical Exam Vital Signs Vital Signs - 24 hr 06/29/23 13:31 06/29/23 15:00 06/29/23 15:30 Temperature 36.8 C Temperature Source Oral Pulse Rate 87 90 Pulse Rate [Finger] 92 H Pulse Rate from SpO2 Sensor 87 Pulse Rhythm [Finger] Regular Pulse Strength [Finger] Normal Respiratory Rate 18 24 18 Respiratory Effort / Characteristics Non-Labored Non-Labored Respiratory Depth Normal Normal Respiratory Pattern Regular Blood Pressure 128/90 Blood Pressure [Right Arm] 128/96 Blood Pressure Mean 102 Blood Pressure Mean [Right Arm] 106 Blood Pressure Position [Right Arm] Lying Pulse Oximetry 99 100 100 Oxygen Delivery Method Room Air Sepsis Recent Fever Within 48 Hours No Sepsis New/Unexplained Change in Mental Status No Sepsis Action Taken by Nursing No Action Required 06/29/23 15:30 06/29/23 15:37 06/29/23 15:37 Temperature Temperature Source Pulse Rate 93 H 94 H Pulse Rate [Finger] Pulse Rate from SpO2 Sensor 94 H 93 H Pulse Rhythm [Finger] Pulse Strength [Finger] Respiratory Rate 17 21 Respiratory Effort / Characteristics Respiratory Depth Respiratory Pattern Blood Pressure 128/96 Blood Pressure [Right Arm] Blood Pressure Mean 103 Blood Pressure Mean [Right Arm] Blood Pressure Position [Right Arm] Pulse Oximetry 100 100 Oxygen Delivery Method Sepsis Recent Fever Within 48 Hours Sepsis New/Unexplained Change in Mental Status Sepsis Action Taken by Nursing 06/29/23 15:56 06/29/23 15:56 06/29/23 16:00 Temperature Temperature Source Pulse Rate 94 H 92 H Pulse Rate [Finger] Pulse Rate from SpO2 Sensor 95 H 92 H Pulse Rhythm [Finger] Pulse Strength [Finger] Respiratory Rate 22 20 Respiratory Effort / Characteristics Respiratory Depth Respiratory Pattern Blood Pressure 141/77 H Blood Pressure [Right Arm] Blood Pressure Mean 101 Blood Pressure Mean [Right Arm] Blood Pressure Position [Right Arm] Pulse Oximetry 100 99 Oxygen Delivery Method Sepsis Recent Fever Within 48 Hours Sepsis New/Unexplained Change in Mental Status Sepsis Action Taken by Nursing 06/29/23 16:00 06/29/23 16:16 06/29/23 16:32 Temperature Temperature Source Pulse Rate 86 102 H Pulse Rate [Finger] Pulse Rate from SpO2 Sensor 102 H Pulse Rhythm [Finger] Pulse Strength [Finger] Respiratory Rate 16 Respiratory Effort / Characteristics Respiratory Depth Respiratory Pattern Blood Pressure 152/74 H Blood Pressure [Right Arm] Blood Pressure Mean 120 Blood Pressure Mean [Right Arm] Blood Pressure Position [Right Arm] Pulse Oximetry 100 Oxygen Delivery Method Sepsis Recent Fever Within 48 Hours Sepsis New/Unexplained Change in Mental Status Sepsis Action Taken by Nursing 06/29/23 16:32 Temperature Temperature Source Pulse Rate Pulse Rate [Finger] Pulse Rate from SpO2 Sensor Pulse Rhythm [Finger] Pulse Strength [Finger] Respiratory Rate Respiratory Effort / Characteristics Respiratory Depth Respiratory Pattern Blood Pressure 169/90 H Blood Pressure [Right Arm] Blood Pressure Mean 119 Blood Pressure Mean [Right Arm] Blood Pressure Position [Right Arm] Pulse Oximetry Oxygen Delivery Method Sepsis Recent Fever Within 48 Hours Sepsis New/Unexplained Change in Mental Status Sepsis Action Taken by Nursing Physical Exam GENERAL: She is oriented to person, place, and time. She appears well-developed and well-nourished. She does not appear distressed. HENT: Exam performed. -Head: Normocephalic and atraumatic. -Right Ear: External ear normal. No mastoid erythema -Left Ear: External ear normal. No mastoid erythema -Mouth/Throat: The oropharynx is clear and moist. No trismus in the jaw. No dental abscesses or uvula swelling. No oropharyngeal exudate or tonsillar abscesses. EYES: Conjunctivae and EOM are normal.Right eye exhibits no discharge. Left eye exhibits no discharge. No scleral icterus. NECK: Normal range of motion. Neck supple. No JVD present. No tracheal deviation and normal range of motion present. CV: Normal rate, regular rhythm, normal heart sounds and intact distal pulses. There is no peripheral edema. Palpable radial pulses bue. PULM/CHEST: Effort normal and breath sounds normal. No respiratory distress. No stridor. She has no wheezes. She has no rales. -Chest Wall: She exhibits no tenderness. ABD: The abdomen is soft. Bowel sounds are normal. She has no distension. No mass is present. There is no tenderness. There is no rebound, no guarding, no Sanders's sign and no tenderness at McBurney's point. Rovsig negative MUSC/SKEL: Normal range of motion. There is no peripheral edema, tenderness or deformity. NEURO: Motor and sensation grossly intact. SKIN: Skin is warm and dry. She is not diaphoretic. PSYCH: She has a normal mood and affect. Behavior is normal. Judgment and thought content normal. Course Course 1432: The patient was evaluated in room C2. A complete history and physical exam was performed Cardiac monitoring: An order was placed for continuous cardiac monitoring. The monitor shows a rate of 90 with sinus rhythm interpreted by ar 1600: Vital signs stable. Labs show white blood cell count of 12.32. Lactic acid within normal limits. pH 7.15 CO2 18 bicarb 6 potassium 5.2 glucose 456 anion gap 22. Patient be started on insulin drip and admitted to the [facility] team. No evidence of sepsis at this time. Administered Medications Insulin Human Regular 250 (units/ Sodium Chloride) 250 mls @ 6.7 mls/hr IV .Q24H [facility]; Protocol Stop: 07/29/23 15:59 Last Titration: 06/29/23 19:02 Dose: 6.7 units/hr, 6.7 mls/hr Documented By: ASIYA Co-signed By: FEDERICO Titration: 06/29/23 17:48 Dose: 8.4 units/hr, 8.4 mls/hr Documented By: ANDRY Co-signed By: MARCOS Admin: 06/29/23 16:21 Dose: 6 units/hr, 6 mls/hr Documented By: JANET Co-signed By: ANDRY Sodium Chloride (Nss) 1,000 mls @ 125 mls/hr IV .Q8H MICHELLE Stop: 07/29/23 15:59 Last Admin: 06/29/23 16:27 Dose: 125 mls/hr Documented By: JANET Insulin Aspart (Insulin Aspart Per Unit Charge) 0 units SC ACHS MICHELLE Stop: 07/29/23 16:29 Last Admin: 06/29/23 19:00 Dose: Not Given Documented By: ASIYA Discontinued Medications Sodium Chloride (Nss) 1,000 mls @ 999 mls/hr IV .Q1H1M ONE Stop: 06/29/23 15:47 Last Infusion: 06/29/23 15:36 Dose: Infused Documented By: Admin: 06/29/23 14:53 Dose: 999 mls/hr Documented By: NNEKA Sodium Chloride (Nss) 1,000 mls @ 999 mls/hr IV .Q1H1M ONE Stop: 06/29/23 16:26 Last Infusion: 06/29/23 16:27 Dose: Infused Documented By: Admin: 06/29/23 15:36 Dose: 999 mls/hr Documented By: JANET Insulin Human Regular (Novolin-R Bolus From Bag) 6 units IV ONE ONE Stop: 06/29/23 16:46 Last Admin: 06/29/23 17:22 Dose: 6 units Documented By: JANET Co-signed By: SHAHZAD Reynolds (Stat Iv Infusion Titration Per Protocol) 1 each N/A NOW STA Stop: 06/29/23 15:58 Last Admin: 06/29/23 17:18 Dose: Not Given Documented By: JANET Ondansetron HCl (Ondansetron Inj 2 Mg/Ml 2 Ml Vial) 4 mg IV NOW STA Stop: 06/29/23 16:36 Last Admin: 06/29/23 16:41 Dose: 4 mg Documented By: JANET Critical Care Time Critical Care Time: Yes Total Critical Care Time: 52 I have personally spent greater than 52 minutes of critical care time in the direct management of this patient. This includes bedside care, interpretation of diagnostic studies, and testing, discussion with consultants, patient, and family members, and other required patient management activities. This 52 minutes is in excess of all separately billable procedures. Medical Decision Making Laboratory Data Attestation: I reviewed the patient's lab results. 06/29/23 14:44 06/29/23 15:24 Lab Results 06/29/23 06/29/23 06/29/23 Range/Units 13:40 14:44 15:16 WBC Cancelled 12.32 H RBC Cancelled 5.24 Hgb Cancelled 14.5 Hct Cancelled 45.9 MCV Cancelled 87.6 MCH Cancelled 27.7 MCHC Cancelled 31.6 L RDW Std Deviation Cancelled 39.8 RDW Coeff of Norberto Cancelled 12.4 Plt Count Cancelled 351 MPV Cancelled 10.2 Immature Gran % (Auto) Cancelled 0.6 Neut % (Auto) Cancelled 79.3 Lymph % (Auto) Cancelled 14.3 Martin % (Auto) Cancelled 4.8 Eos % (Auto) Cancelled 0.2 Baso % (Auto) Cancelled 0.8 Neut # (Auto) Cancelled 9.77 H Lymph # (Auto) Cancelled 1.76 Martin # (Auto) Cancelled 0.59 Eos # (Auto) Cancelled 0.02 Baso # (Auto) Cancelled 0.10 Immature Gran # (Auto) Cancelled 0.08 Absolute Nucleated RBC Cancelled Nucleated RBC % (auto) Cancelled Neutrophils % (Manual) Cancelled Band Neutrophils % Cancelled Lymphocytes % (Manual) Cancelled Prolymphocyte % Cancelled Reactive Lymphs % (Man) Cancelled Monocytes % (Manual) Cancelled Eosinophils % (Manual) Cancelled Basophils % (Manual) Cancelled Metamyelocytes % (Man) Cancelled Myelocytes % (Man) Cancelled Promyelocytes % (Man) Cancelled Blast Cells % (Manual) Cancelled Plasma Cell % (Manual) Cancelled Other Cells % Cancelled Nucleated RBC % Cancelled Neutrophils # (Manual) Cancelled Band Neutrophils # Cancelled Total Absolute Neuts Cancelled Lymphocytes # (Manual) Cancelled Prolymphocyte # Cancelled Reactive Lymphs # Cancelled Total Abs Lymphocytes Cancelled Monocytes # (Manual) Cancelled Eosinophils # (Manual) Cancelled Basophils # (Manual) Cancelled Metamyelocytes # (Man) Cancelled Myelocytes # (Manual) Cancelled Promyelocytes # (Man) Cancelled Blast Cells # (Man) Cancelled Plasma Cell # (Manual) Cancelled Other Cells # Cancelled Nucleated RBCs # (Man) Cancelled Hypersegmented Neuts Cancelled Hyposegmented Neuts Cancelled Hypogranular Neuts Cancelled Large Granular Lymphs Cancelled # Lrg Granular Lymphs Cancelled Hairy Cells Cancelled Smudge Cells Cancelled Toxic Granulation Cancelled Toxic Vacuolation Cancelled Dohle Bodies Cancelled Quentin Rods Cancelled Platelet Estimate Cancelled Hypogranular Platelets Cancelled Giant Platelets Cancelled Platelet Satelliting Cancelled RBC Morphology Cancelled Polychromasia Cancelled Hypochromasia Cancelled Poikilocytosis Cancelled Basophilic Stippling Cancelled Anisocytosis Cancelled Microcytosis Cancelled Macrocytosis Cancelled Spherocytes Cancelled Pappenheimer Bodies Cancelled Sickle Cells Cancelled Target Cells Cancelled Tear Drop Cells Cancelled Ovalocytes Cancelled Stomatocytes Cancelled [place] Bodies Cancelled Echinocytes Cancelled Acanthocytes (Spur) Cancelled Rouleaux Cancelled RBC Agglutinates Cancelled Schistocytes Cancelled Sezary Cell Cancelled ABG pH (7.35-7.45) ABG pCO2 (35-46) mmHg ABG pO2 (80-95) mmHg ABG HCO3 (19-24) mmol/L ABG O2 Saturation (90-95) % ABG Base Excess (-9-1.8) mEq/L Armani Test (Pos) Oxygen Given Sodium 132 L (136-145) mmol/L Potassium TNP 5.0 Chloride 98 (98-107) mmol/L Carbon Dioxide 11 L (21-32) mmol/L Anion Gap 23 H (3-11) BUN 24 H (6-23) mg/dl Creatinine 1.20 (0.6-1.2) mg/dl Est Cr Clr Drug Dosing 45.8 ml/min Est GFR ( Amer) 60.2 ml/min Est GFR (Non-Af Amer) 51.9 ml/min BUN/Creatinine Ratio 20.0 (10-20) Glucose 471 H* (70-99(Fasting)) mg/dl POC Glucose (70-99) mg/dl Estimat Average Glucose mg/dl Hemoglobin A1c (4.5-5.6) % Lactate (0.4-2.0) mmol/L Calcium 10.3 (8.6-10.3) mg/dl Phosphorus (2.5-4.9) mg/dl Magnesium (1.7-2.4) mg/dl Total Bilirubin 0.4 (0.2-1.0) mg/dl AST TNP 14 ALT 45 (7-52) U/L Alkaline Phosphatase 108 H (34-104) U/L Total Protein 8.8 H (6.0-8.3) gm/dl Albumin 5.4 H (3.4-5.0) gm/dl Globulin 3.4 (2.5-4.0) gm/dl Albumin/Globulin Ratio 1.6 (0.9-2) Urine Color Urine Appearance (Clear) Urine pH (4.5-7.5) Ur Specific [place] (1.000-1.030) Urine Protein (Negative) Urine Glucose (UA) (Negative) Urine Ketones (Negative) Urine Blood (Negative) Urine Nitrite (Negative) Urine Bilirubin (Negative) Urine Urobilinogen (Negative) Ur Leukocyte Esterase (Negative) Urine WBC (Auto) (0-5) /hpf Urine RBC (Auto) (0-2) /hpf U Hyaline Cast (Auto) (0-2) /lpf U Epithel Cells (Auto) (0-2) /hpf Urine Bacteria (Auto) (None Seen) Blood Parasites ID Cancelled 06/29/23 06/29/23 06/29/23 Range/Units 15:24 15:43 16:00 WBC RBC Hgb Hct MCV MCH MCHC RDW Std Deviation RDW Coeff of Norberto Plt Count MPV Immature Gran % (Auto) Neut % (Auto) Lymph % (Auto) Martin % (Auto) Eos % (Auto) Baso % (Auto) Neut # (Auto) Lymph # (Auto) Martin # (Auto) Eos # (Auto) Baso # (Auto) Immature Gran # (Auto) Absolute Nucleated RBC Nucleated RBC % (auto) Neutrophils % (Manual) Band Neutrophils % Lymphocytes % (Manual) Prolymphocyte % Reactive Lymphs % (Man) Monocytes % (Manual) Eosinophils % (Manual) Basophils % (Manual) Metamyelocytes % (Man) Myelocytes % (Man) Promyelocytes % (Man) Blast Cells % (Manual) Plasma Cell % (Manual) Other Cells % Nucleated RBC % Neutrophils # (Manual) Band Neutrophils # Total Absolute Neuts Lymphocytes # (Manual) Prolymphocyte # Reactive Lymphs # Total Abs Lymphocytes Monocytes # (Manual) Eosinophils # (Manual) Basophils # (Manual) Metamyelocytes # (Man) Myelocytes # (Manual) Promyelocytes # (Man) Blast Cells # (Man) Plasma Cell # (Manual) Other Cells # Nucleated RBCs # (Man) Hypersegmented Neuts Hyposegmented Neuts Hypogranular Neuts Large Granular Lymphs # Lrg Granular Lymphs Hairy Cells Smudge Cells Toxic Granulation Toxic Vacuolation Dohle Bodies Quentin Rods Platelet Estimate Hypogranular Platelets Giant Platelets Platelet Satelliting RBC Morphology Polychromasia Hypochromasia Poikilocytosis Basophilic Stippling Anisocytosis Microcytosis Macrocytosis Spherocytes Pappenheimer Bodies Sickle Cells Target Cells Tear Drop Cells Ovalocytes Stomatocytes [place] Bodies Echinocytes Acanthocytes (Spur) Rouleaux RBC Agglutinates Schistocytes Sezary Cell ABG pH (7.35-7.45) ABG pCO2 (35-46) mmHg ABG pO2 (80-95) mmHg ABG HCO3 (19-24) mmol/L ABG O2 Saturation (90-95) % ABG Base Excess (-9-1.8) mEq/L Armani Test (Pos) Oxygen Given Sodium 134 L (136-145) mmol/L Potassium 5.2 H Chloride 102 (98-107) mmol/L Carbon Dioxide 10 L (21-32) mmol/L Anion Gap 22 H (3-11) BUN 24 H (6-23) mg/dl Creatinine 1.07 (0.6-1.2) mg/dl Est Cr Clr Drug Dosing 51.4 ml/min Est GFR ( Amer) 69.1 ml/min Est GFR (Non-Af Amer) 59.6 ml/min BUN/Creatinine Ratio 22.4 H (10-20) Glucose 456 H* (70-99(Fasting)) mg/dl POC Glucose (70-99) mg/dl Estimat Average Glucose 249 mg/dl Hemoglobin A1c 10.3 H (4.5-5.6) % Lactate 1.5 (0.4-2.0) mmol/L Calcium 9.2 (8.6-10.3) mg/dl Phosphorus 5.3 H (2.5-4.9) mg/dl Magnesium 1.8 (1.7-2.4) mg/dl Total Bilirubin 0.3 (0.2-1.0) mg/dl AST 16 ALT 36 (7-52) U/L Alkaline Phosphatase 93 (34-104) U/L Total Protein 6.9 D (6.0-8.3) gm/dl Albumin 4.5 (3.4-5.0) gm/dl Globulin 2.4 L (2.5-4.0) gm/dl Albumin/Globulin Ratio 1.9 (0.9-2) Urine Color Yellow Urine Appearance Clear (Clear) Urine pH 5.5 (4.5-7.5) Ur Specific [place] 1.024 (1.000-1.030) Urine Protein 1+ H (Negative) Urine Glucose (UA) 3+ H (Negative) Urine Ketones 4+ H (Negative) Urine Blood Negative (Negative) Urine Nitrite Negative (Negative) Urine Bilirubin Negative (Negative) Urine Urobilinogen Negative (Negative) Ur Leukocyte Esterase Negative (Negative) Urine WBC (Auto) 0-5 (0-5) /hpf Urine RBC (Auto) 0-2 (0-2) /hpf U Hyaline Cast (Auto) 3-5 H (0-2) /lpf U Epithel Cells (Auto) 0-2 (0-2) /hpf Urine Bacteria (Auto) None Seen (None Seen) Blood Parasites ID 06/29/23 06/29/23 Range/Units 16:21 16:23 WBC RBC Hgb Hct MCV MCH MCHC RDW Std Deviation RDW Coeff of Norberto Plt Count MPV Immature Gran % (Auto) Neut % (Auto) Lymph % (Auto) Martin % (Auto) Eos % (Auto) Baso % (Auto) Neut # (Auto) Lymph # (Auto) Martin # (Auto) Eos # (Auto) Baso # (Auto) Immature Gran # (Auto) Absolute Nucleated RBC Nucleated RBC % (auto) Neutrophils % (Manual) Band Neutrophils % Lymphocytes % (Manual) Prolymphocyte % Reactive Lymphs % (Man) Monocytes % (Manual) Eosinophils % (Manual) Basophils % (Manual) Metamyelocytes % (Man) Myelocytes % (Man) Promyelocytes % (Man) Blast Cells % (Manual) Plasma Cell % (Manual) Other Cells % Nucleated RBC % Neutrophils # (Manual) Band Neutrophils # Total Absolute Neuts Lymphocytes # (Manual) Prolymphocyte # Reactive Lymphs # Total Abs Lymphocytes Monocytes # (Manual) Eosinophils # (Manual) Basophils # (Manual) Metamyelocytes # (Man) Myelocytes # (Manual) Promyelocytes # (Man) Blast Cells # (Man) Plasma Cell # (Manual) Other Cells # Nucleated RBCs # (Man) Hypersegmented Neuts Hyposegmented Neuts Hypogranular Neuts Large Granular Lymphs # Lrg Granular Lymphs Hairy Cells Smudge Cells Toxic Granulation Toxic Vacuolation Dohle Bodies Quentin Rods Platelet Estimate Hypogranular Platelets Giant Platelets Platelet Satelliting RBC Morphology Polychromasia Hypochromasia Poikilocytosis Basophilic Stippling Anisocytosis Microcytosis Macrocytosis Spherocytes Pappenheimer Bodies Sickle Cells Target Cells Tear Drop Cells Ovalocytes Stomatocytes [place] Bodies Echinocytes Acanthocytes (Spur) Rouleaux RBC Agglutinates Schistocytes Sezary Cell ABG pH 7.15 L* (7.35-7.45) ABG pCO2 18 L (35-46) mmHg ABG pO2 117 H (80-95) mmHg ABG HCO3 6 L (19-24) mmol/L ABG O2 Saturation 97.9 H (90-95) % ABG Base Excess -20.5 L (-9-1.8) mEq/L Armani Test Pos (Pos) Oxygen Given ROOM AIR Sodium (136-145) mmol/L Potassium Chloride (98-107) mmol/L Carbon Dioxide (21-32) mmol/L Anion Gap (3-11) BUN (6-23) mg/dl Creatinine (0.6-1.2) mg/dl Est Cr Clr Drug Dosing ml/min Est GFR ( Amer) ml/min Est GFR (Non-Af Amer) ml/min BUN/Creatinine Ratio (10-20) Glucose (70-99(Fasting)) mg/dl POC Glucose 376 H* (70-99) mg/dl Estimat Average Glucose mg/dl Hemoglobin A1c (4.5-5.6) % Lactate (0.4-2.0) mmol/L Calcium (8.6-10.3) mg/dl Phosphorus (2.5-4.9) mg/dl Magnesium (1.7-2.4) mg/dl Total Bilirubin (0.2-1.0) mg/dl AST ALT (7-52) U/L Alkaline Phosphatase (34-104) U/L Total Protein (6.0-8.3) gm/dl Albumin (3.4-5.0) gm/dl Globulin (2.5-4.0) gm/dl Albumin/Globulin Ratio (0.9-2) Urine Color Urine Appearance (Clear) Urine pH (4.5-7.5) Ur Specific [place] (1.000-1.030) Urine Protein (Negative) Urine Glucose (UA) (Negative) Urine Ketones (Negative) Urine Blood (Negative) Urine Nitrite (Negative) Urine Bilirubin (Negative) Urine Urobilinogen (Negative) Ur Leukocyte Esterase (Negative) Urine WBC (Auto) (0-5) /hpf Urine RBC (Auto) (0-2) /hpf U Hyaline Cast (Auto) (0-2) /lpf U Epithel Cells (Auto) (0-2) /hpf Urine Bacteria (Auto) (None Seen) Blood Parasites ID [facility] Narrative 1432: The patient was evaluated in room C2. A complete history and physical exam was performed Cardiac monitoring: An order was placed for continuous cardiac monitoring. The monitor shows a rate of 90 with sinus rhythm interpreted by ar 1600: Vital signs stable. Labs show white blood cell count of 12.32. Lactic acid within normal limits. pH 7.15 CO2 18 bicarb 6 potassium 5.2 glucose 456 anion gap 22. Patient be started on insulin drip and admitted to the [facility]ist team. No evidence of sepsis at this time. Impression & Plan DKA (diabetic ketoacidosis) Discharge Plan Visit Data Chief Complaint: Hyperglycemia Stated Complaint: WEAKNESS/SUGAR 350 ED Provider: Michael Benson Discharge Problem: DKA (diabetic ketoacidosis) Patient Disposition: Admitted As Inpatient Discharge Instructions Interventions: ED Discharge Assessment Last Done: 06/29/23 18:49 Discharge Problem: DKA (diabetic ketoacidosis) Qualifiers: Diabetes mellitus type: other specified (including RUBEN) Diabetes mellitus complication detail: without coma Qualified Code(s): E13.10 - Other specified diabetes mellitus with ketoacidosis without coma
[2023-06-29 20:52] LABS: BUN Creatinine Ratio 25.3 (10-20); Calcium 8.7 mg/dl (8.6-10.3); Creatinine Clr Calc Pharmacy 66.2 ml/min; Est GFR (Non-African American) 81.1 ml/min; Magnesium 1.6 mg/dl (1.7-2.4); Phosphorus 2.8 mg/dl (2.5-4.9); Potassium 4.2 mmol/L (3.5-5.1)
[2023-06-29] MEDS: CETIRIZINE HCL 10 MG TABLET PO SCH (21:01)
[2023-06-29] MEDS: VENLAFAXINE HCL XR 75 MG CAPXR PO SCH (21:01)
[2023-06-29] MEDS: MELATONIN 3 MG TAB PO SCH (21:01)
[2023-06-29] MEDS: GABAPENTIN 300 MG CAP PO SCH (21:01)
[2023-06-29] MEDS: SIMVASTATIN 40 MG TAB PO SCH (21:01)
[2023-06-29] MEDS: ZOLPIDEM TARTRATE 5 MG TAB PO SCH (21:02)
[2023-06-29] MEDS: D5NSS + 20MEQ KCL 20 MEQ/1,000 ML BAG IV SCH (21:26)
[2023-06-29] MEDS: MAGNESIUM SULFATE / D5W 1 GM/100 ML BAG IV SCH (21:31)
[2023-06-29] MEDS: ENOXAPARIN INJ 40 MG/0.4 ML SYR SQ SCH (22:34)
[2023-06-30 00:56] LABS: BUN Creatinine Ratio 21.7 (10-20); Calcium 8.2 mg/dl (8.6-10.3); Creatinine Clr Calc Pharmacy 66.2 ml/min; Est GFR (Non-African American) 81.1 ml/min; Magnesium 2.3 mg/dl (1.7-2.4); Phosphorus 2.5 mg/dl (2.5-4.9)
[2023-06-30] MEDS: DEXTROSE 50% 50 ML SYRINGE IV PRN (04:15)
[2023-06-30 04:50] LABS: BUN Creatinine Ratio 21.5 (10-20); Calcium 8.4 mg/dl (8.6-10.3); Creatinine Clr Calc Pharmacy 69.6 ml/min; Est GFR (African American) 99.8 ml/min; Est GFR (Non-African American) 86.1 ml/min; Magnesium 2.4 mg/dl (1.7-2.4); Phosphorus 1.9 mg/dl (2.5-4.9); Potassium 3.6 mmol/L (3.5-5.1)
[2023-06-30 05:48] LABS: Hematocrit (blood only) 35.6 % (37.0-47.0); Hemoglobin 11.9 g/dl (12.0-16.0); Mean Corpuscular Hemoglobin 27.7 pg (25.0-34.0); Mean Corpuscular Hgb Conc 32.8 g/dL (32.0-36.0); Mean Corpuscular Volume 83.9 fL (80.0-100.0); Mean Platelet Volume 9.8 fL (9.4-12.4); Platelet Count 277 K/uL (130-400); RDW Coefficient of Variation 12.3 % (11.5-14.5); RDW Standard Deviation 37.4 fL (36.4-46.3); Red Blood Count 4.29 M/uL (4.20-5.40); White Blood Count 8.46 K/ul (4.8-10.8)
[2023-06-30 08:36] LABS: Calcium 7.7 mg/dl (8.6-10.3); Potassium 4.6 mmol/L (3.5-5.1)
[2023-06-30 08:41] LABS: Creatinine Clr Calc Pharmacy 73.8 ml/min; Est GFR (African American) 99.8 ml/min; Est GFR (Non-African American) 86.1 ml/min; Phosphorus 2.4 mg/dl (2.5-4.9)
[2023-06-30] MEDS: PANTOprazole 40 MG TAB PO SCH (09:20)
[2023-06-30] MEDS: VENLAFAXINE HCL XR 150 MG CAPXR PO SCH (09:20)
[2023-06-30] MEDS ORDERED: PHARMACY GLYCEMIC MGMT CONSULT PRN (09:25)
[2023-06-30] MEDS: LANTUS PER UNIT CHARGE SC ONE (10:27)
[2023-06-30 12:38] LABS: BUN Creatinine Ratio 16.7 (10-20); Calcium 7.9 mg/dl (8.6-10.3); Creatinine Clr Calc Pharmacy 69.4 ml/min; Est GFR (African American) 92.6 ml/min; Est GFR (Non-African American) 79.9 ml/min; Magnesium 1.8 mg/dl (1.7-2.4); Phosphorus 1.2 mg/dl (2.5-4.9); Potassium 3.9 mmol/L (3.5-5.1)
[2023-06-30] MEDS ORDERED: POTASSIUM PHOS 3 MMOL/1 ML INFUSION IV STA (13:01)
--- NOTE | 2023-06-30 14:00 | Pharmacy Report ---
Pharmacy Glycemic Short Note 2 - Date of Service June 30, 2023 - Glycemic Short BSG Results (Last 24 hours): 06/29/23 06/29/23 06/29/23 13:40 15:24 16:21 Glucose 471 H* 456 H* POC Glucose 376 H* 06/29/23 06/29/23 06/29/23 17:46 18:55 19:56 Glucose 194 H POC Glucose 398 H* 251 H 06/29/23 06/29/23 06/29/23 20:10 21:16 22:23 Glucose POC Glucose 190 H 122 H 154 H 06/29/23 06/30/23 06/30/23 23:21 00:13 00:27 Glucose 169 H POC Glucose 155 H 154 H 06/30/23 06/30/23 06/30/23 02:05 04:07 04:13 Glucose 86 POC Glucose 154 H 80 06/30/23 06/30/23 06/30/23 04:59 06:15 08:00 Glucose POC Glucose 202 H 213 H 243 H 06/30/23 06/30/23 06/30/23 08:03 08:57 10:00 Glucose 274 H POC Glucose 267 H 250 H 06/30/23 06/30/23 06/30/23 11:04 11:49 12:16 Glucose 329 H* POC Glucose 390 H* 335 H* 06/30/23 13:01 Glucose POC Glucose 243 H OUTPATIENT ANTIDIABETIC REGIMEN: * Novolog pump (most recent settings) * 23.15 units of basal per day * CF 35, CR 11 * A1c = 10.7% ASSESSMENT: * Carolyn is a 52 yo T2DM admitted in DKA. Patient was previously on an insulin pump. She reports having issues with her pump site for the last 1.5 years. Per H&P, "She has been using SQ insulin recently--she would look on her pump for the calculation for amount and would deliver the bolus amt SQ. Carb ratio was calculated from [employer]". * She was started on IV insulin infusion per DKA protocol on 06/28. Today, her anion gap has closed and bicarb is near normal range. Will start transition off IV insulin infusion using doses that she was prescribed during recent admission. PLAN FOR INPATIENT GLYCEMIC CONTROL: * Discontinue IV insulin infusion when BSG is < 180 mg/dL * Basal insulin * Lantus 25 units SQ daily * Bolus insulin * NovoLog per scale ACHS or Q6hrs while NPO * Goal Range: Low 110 mg/dL - High 140 mg/dL * Correction Factor: 30 mg/dL/unit * Nutritional / Prandial insulin per carb ratio of 1 unit per 9 grams CHO consumed * Overnight checks at 00 and 04
[2023-06-30] MEDS: POTASSIUM PHOSPHATE 24 MMOL in SODIUM CHLORIDE 0.9% 500 ML IV ONE (14:30)
--- NOTE | 2023-06-30 15:29 | Hospitalist Progress Note ---
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 She denied chest pain/shortness of breath/fever/chills at presentation. She is being managed for the following: Diabetic ketoacidosis Uncontrolled T2DM: A1c of 10.3 this admission Patient presented with polyuria, polydipsia, poor appetite and high blood sugar level. Patient found to be in DKA at presentation. Has had issues with her insulin pump site for the past 1.5 year. She is resistant to coming off the insulin pump although her older worker specialist would like her on SQ insulin. Status post DKA protocol, anion gap closed, bridged with subcu insulin. Glycemic pharmacy on board, appreciate inpatient management clinical nurse educator consult. Patient denies any nausea, vomiting, abdominal pain. Patient reports improving appetite. Monitor replete electrolytes. Other chronic medical conditions: Continue with/resume home meds as and when able. Ankylosing spondylitis: per Rheumatology, cont gabapentin and tylenol per home regimen. No active flare symptoms at this time. Osteoarthritis: chronic, stable wo flare. Cont Tylenol PRN Tobacco abuse: chronic smoker, declined nicotine patch. Depression: chronic, stable. Cont venlafaxine per home regimen. DVT proph: Lovenox Full Dispo-PCU Admission and Anticipated Discharge Date Admission Date: June 29, 2023 Subjective Patient was seen and examined at bedside. Patient was sitting up in bed, on room air, NAD, resting comfortably. Patient denies any nausea, vomiting, abdominal pain, no pain or burning with passing urine. Patient reports feeling better. Physical Exam Physical Exam: GENERAL: Alert and oriented x3. NAD, on RA. HEENT: No pallor, no icterus. Pupils equal, round and reactive to light. Oral mucosa moist. NECK: No JVD, no neck masses. HEART: S1 and S2 heard. Regular rate and rhythm. No murmur, no gallop. RESPIRATORY SYSTEM: Normal AP diameter. No accessory muscle use. No wheezing, no crackles. ABDOMEN: Soft, bowel sounds present, nontender, no distention. CENTRAL NERVOUS SYSTEM: No facial droop. Speech is clear. Obeys simple c ommands. Moves extremities. EXTREMITIES: No edema, no erythema seen. Results & Data Results & Data Vital Signs (Past 12 Hours) Vital Signs Temp Pulse Resp BP Pulse Ox O2 Del Method 06/30/23 14:49 36.7 C 73 18 114/71 99 Room Air 06/30/23 08:40 Nasal Cannula 06/30/23 08:03 36.7 C 80 18 108/66 97 Room Air (1) DKA (diabetic ketoacidosis) Diabetes mellitus complication detail: without coma Diabetes mellitus type: other specified (including RUBEN) Qualified Code(s): E13.10 - Other specified diabetes mellitus with ketoacidosis without coma
[2023-06-30] MEDS: INSULIN ASPART PER UNIT CHARGE SC SCH (17:11)
[2023-06-30] MEDS: POT PHOSPHATE MONOBASIC W/ SOD TAB PO SCH (17:12)
[2023-06-30 17:16] LABS: BUN Creatinine Ratio 14.6 (10-20); Calcium 8.2 mg/dl (8.6-10.3); Creatinine Clr Calc Pharmacy 60.7 ml/min; Est GFR (African American) 78.8 ml/min; Magnesium 1.8 mg/dl (1.7-2.4); Phosphorus 2.5 mg/dl (2.5-4.9); Potassium 3.9 mmol/L (3.5-5.1)
[2023-06-30 21:17] LABS: BUN Creatinine Ratio 13.3 (10-20); Calcium 8.2 mg/dl (8.6-10.3); Creatinine Clr Calc Pharmacy 55.5 ml/min; Est GFR (African American) 70.7 ml/min; Magnesium 1.7 mg/dl (1.7-2.4); Phosphorus 4.2 mg/dl (2.5-4.9); Potassium 4.1 mmol/L (3.5-5.1)
[2023-07-01] MEDS: INSULIN ASPART PER UNIT CHARGE SC SCH
[2023-07-01 07:22] LABS: BUN Creatinine Ratio 15.3 (10-20); Calcium 8.6 mg/dl (8.6-10.3); Creatinine Clr Calc Pharmacy 80.9 ml/min; Est GFR (African American) 111.6 ml/min; Est GFR (Non-African American) 96.3 ml/min; Magnesium 1.6 mg/dl (1.7-2.4); Phosphorus 4.4 mg/dl (2.5-4.9)
[2023-07-01 07:24] LABS: Hematocrit (blood only) 36.5 % (37.0-47.0); Hemoglobin 12.2 g/dl (12.0-16.0); Mean Corpuscular Hemoglobin 27.5 pg (25.0-34.0); Mean Corpuscular Hgb Conc 33.4 g/dL (32.0-36.0); Mean Corpuscular Volume 82.2 fL (80.0-100.0); Mean Platelet Volume 10.1 fL (9.4-12.4); Platelet Count 242 K/uL (130-400); RDW Coefficient of Variation 12.7 % (11.5-14.5); RDW Standard Deviation 38.1 fL (36.4-46.3); Red Blood Count 4.44 M/uL (4.20-5.40); White Blood Count 5.73 K/ul (4.8-10.8)
[2023-07-01] MEDS: MAGNESIUM SULFATE / D5W 1 GM/100 ML BAG IV SCH (08:37)
[2023-07-01] MEDS: LANTUS PER UNIT CHARGE SC SCH (08:42)
--- NOTE | 2023-07-01 12:04 | Discharge Summary ---
Date of Service July 01, 2023 Admission HPI Per Admitting Provider 52 yo F presents with DKA. She is a insulin dependent diabetic who uses an insulin pump with aspart and ozempic 1mg dose weekly. She has a h/o ankylosing spondylitis and OA and is followed by [facility] Rheumat[facility]. Has had issues with her insulin pump site for the past 1.5 year She has been using SQ insulin recently--she would look on her pump for the calculation for amount and would deliver the bolus amt SQ. Carb ratio was calculated from [employer] and [employer]. She is resistant to coming off the insulin pump although her speech and language specialist would like her on SQ insulin She reports losing a bunch of weight in the past year contributing to issues with placing the pump. "Snacks out" mostly on the weekends Hasn't eaten much last few days Sugars have been >400 in the last 5 days Drinking "buckets" but still thirsty Excessive urination reported. no chest pain, no SOB no fevers, no chills Admission Exam Per Admitting Provider CONSTITUTIONAL: WNWD, vitals as above, generally well-appearing, NAD EYES: normal conjunctivae, no scleral icterus ENT: external ear and nose normal, MMM NECK: trachea midline RESPIRATORY: clear to auscultation bilaterally, no crackles, rales or wheezes, normal respiratory effort CARDIOVASCULAR: regular rate and rhythm, S1 and 2 heard without murmurs, gallops or rubs, no JVD, no peripheral edema CHEST: inspection of chest was normal GASTROINTESTINAL: soft, nontender, ND, no guarding MUSCULOSKELETAL: strength 5/5 throughout, head is normocephalic and atraumatic SKIN: warm and dry NEUROLOGIC: CN 2-12 grossly intact, no sensory deficit, normal cognition, normal speech, no tremor PSYCHIATRIC: alert cooperative and oriented to person, place and time. Euthymic mood, makes good eye contact, language grossly intact, recent and remote memory grossly intact. Principal Diagnosis Diabetic ketoacidosis Uncontrolled T2DM Discharge Exam GENERAL: Alert and oriented x3. NAD, on RA. HEENT: No pallor, no icterus. Pupils equal, round and reactive to light. Oral mucosa moist. NECK: No JVD, no neck masses. HEART: S1 and S2 heard. Regular rate and rhythm. No murmur, no gallop. RESPIRATORY SYSTEM: Normal AP diameter. No accessory muscle use. No wheezing, no crackles. ABDOMEN: Soft, bowel sounds present, nontender, no distention. CENTRAL NERVOUS SYSTEM: No facial droop. Speech is clear. Obeys simple commands. Moves extremities. EXTREMITIES: No edema, no erythema seen. Discharge Data Allergies Allergy/AdvReac Type Severity Reaction Status Date / Time Penicillins Allergy Severe RASH, Verified 10/18/14 15:02 CHEST HEAVINESS, SOB sulfamethoxazole Allergy Intermediate Rash Unverified 04/30/23 11:11 [From Bactrim] trimethoprim [From Bactrim] Allergy Intermediate Rash Unverified 04/30/23 11:11 Consultations 06/29/23 15:58 ED Decision to Admit Stat Diabetes Follow up Diabetes Follow-up Needed for HgbA1c >9% Hospital Course (1) DKA (diabetic ketoacidosis): Plan 52-year-old lady with PMH of insulin-dependent T2DM, ankylosing spondylitis, WILLA, nocturnal hypoxemia, chronic rhinitis and depression presented to the ED 06/28 with poor appetite, 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 She denied chest pain/shortness of breath/fever/chills at presentation. She was managed for the following: Diabetic ketoacidosis Uncontrolled T2DM: A1c of 10.3 this admission Patient presented with polyuria, polydipsia, poor appetite and high blood sugar level. Patient found to be in DKA at presentation. Has had issues with her insulin pump site for the past 1.5 year. She is resistant to coming off the insulin pump although her speech and language specialist would like her on SQ insulin. Status post DKA protocol, anion gap closed, bridged with subcu insulin. Glycemic pharmacy on board, appreciate inpatient management clinical unit educator consult. Appreciate recs. Pt would like to c/w insulin pump. Patient denies any nausea, vomiting, abdominal pain. Pt is hemodynamically stable and would like to go home. Other chronic medical conditions: Continue with/resume home meds as and when able. Ankylosing spondylitis: per Rheumatology, cont gabapentin and tylenol per home regimen. No active flare symptoms at this time. Osteoarthritis: chronic, stable wo flare. Cont Tylenol PRN Tobacco abuse: chronic smoker, declined nicotine patch. Depression: chronic, stable. Cont venlafaxine per home regimen. DVT proph: Lovenox Full Dispo-PCU Patient is being discharged to home with following instruction at the point of discharge: Follow-up with your primary care physician within a week time and likely you will need labs CBC/CMP/magnesium/phosphorus. As you have decided to continue with insulin pump at discharge, strongly advise you to closely follow-up with your diabetic clinic for ongoing management of your diabetes. Follow up with your speech and language specialist in 2-4 weeks time. Maintain carbohydrate consistent and heart healthy diet. Take your medications as prescribed. Please make sure that you are able to get your medications today by calling your pharmacy before you leave the hospital so that your treatment continuity is not broken. Home Health Attestation I certify that this patient is under my care and that I, or a physicians assistant restaurant general manager working with me, had a face to-face encounter that meets the home health [id number] encounter requirements with this patient. The encounter with the patient was in whole, or in part, for the following medical condition, which is the primary reason for home health care (list medical condition): I certify that, based on my findings, the following services are medically necessary home health services: My clinical findings support the need for the above services because: Further, I certify that my clinical findings support that this patient is ho mebound (i.e. absences from home require considerable and taxing effort and are for medical reasons or mandaen services or infrequently or of short duration when for other reasons) because: Certification for Home Health Services: Based on the above findings, I certify that this patient is confined to the home and needs intermittent intermediate care, physical therapy and/or speech therapy or continues to need occupational therapy. The patient is under my care, and I have initiated the establishment of the plan of care. This patient will be followed by a physician who will periodically review the plan of care. Total Time Total Time Spent Total Time Spent (In Minutes): 45 Discharge Plan Discharge Items Patient Disposition: Home - Self-Care Reason For Visit: DKA Discharge Diagnosis: Diabetic ketoacidosis Uncontrolled T2DM Activity: Resume your previous activity Non-emergency contact: Primary Care Provider Call non-emergency contact if: you have any medication questions, your symptoms worsen and your temperature is above 101.5 Follow-up/Referrals: [facility] [Primary Care Provider] - Diet: Carb Consistent or DM2 and Heart Healthy Addtl Attending Provider Instructions: Follow-up with your primary care physician within a week time and likely you will need labs CBC/CMP/magnesium/phosphorus. As you have decided to continue with insulin pump at discharge, strongly advise you to closely follow-up with your diabetic clinic for ongoing management of your diabetes. Follow up with your speech and language specialist in 2-4 weeks time. Maintain carbohydrate consistent and heart healthy diet. Take your medications as prescribed. Please make sure that you are able to get your medications today by calling your pharmacy before you leave the hospital so that your treatment continuity is not broken. Pending Studies at Discharge: Yes Stand-Alone Forms: My [facility], Smoking Cessation Medications and DC Order Prescriptions: Continued venlafaxine 75 mg Tablet 75 mg PO QPM insulin aspart U-100 [Novolog U-100 Insulin aspart] 100 unit/mL solution See Rx Instructions .ROUTE .COMPLEX Rx Instructions: as directed; pump gabapentin 300 mg capsule 300 mg PO TID Rx Instructions: usually takes twice a day, forgets the noon dose. zolpidem 5 mg tablet 5 mg PO HS Ozempic 1 mg/dose (4 mg/3 mL) pen injector 2 mg SUBCUT WK Rx Instructions: tuesdays simvastatin 40 mg tablet 40 mg PO HS venlafaxine 150 mg capsule,extended release 24hr 150 mg PO QAM ascorbic acid (vitamin C) [Vitamin C] 500 mg Tablet 500 mg PO BID PNV cmb#95-ferrous fumarate-FA [] 28 mg iron- 800 mcg Tablet 1 tab PO BID melatonin 12 mg Tablet 20 mg PO HS cetirizine [Zyrtec] 10 mg Tablet 10 mg PO HS omeprazole 20 mg capsule,delayed release(DR/EC) 20 mg PO DAILY Discharge Orders: Discharge Order (Routine); Ordered 07/01/23 Ordered By: Fabien Parada/Other Patient Handouts: Managing Type 2 Diabetes, Diabetic Ketoacidosis Admission Data Admit Date/Time: 06/29/23 16:46 Attending Provider: Fabien Armas Admit Provider: Yenny Morales Primary Care Provider: [facility] Other Providers: Yenny Morales
== END 2023-07-01 13:29 | disposition home or self-care (01) | DRG 639 ==
LOC: ED 13:18 → 2E 16:46 → SUATTDRO 16:46 → 2E 18:49

== ENCOUNTER 2024-02-14 07:05 | Inpatient (IN) ==
[2024-02-14 07:33] LABS: Basophils # (auto) 0.03 K/uL (0.00-0.20); Basophils % (auto) 0.4 %; Eosinophils # (auto) 0.03 K/uL (0.00-0.50); Eosinophils % (auto) 0.4 %; Hematocrit (blood only) 45.1 % (37.0-47.0); Hemoglobin 14.4 g/dl (12.0-16.0); Immature Granulocytes # (auto) 0.08 K/uL (0.01-0.20); Immature Granulocytes % (auto) 1.2 %; Lymphocytes # (auto) 0.96 K/uL (1.20-3.40); Mean Corpuscular Hemoglobin 28.5 pg (25.0-34.0); Mean Corpuscular Hgb Conc 31.9 g/dL (32.0-36.0); Mean Corpuscular Volume 89.1 fL (80.0-100.0); Mean Platelet Volume 10.2 fL (9.4-12.4); Monocytes # (auto) 0.56 K/uL (0.11-0.59); Monocytes % (auto) 8.2 %; Neutrophils # (auto) 5.19 K/uL (1.40-6.50); Neutrophils % (auto) 75.8 %; Platelet Count 273 K/uL (130-400); RDW Coefficient of Variation 12.2 % (11.5-14.5); RDW Standard Deviation 39.9 fL (36.4-46.3); Red Blood Count 5.06 M/uL (4.20-5.40); White Blood Count 6.85 K/ul (4.8-10.8)
[2024-02-14] MEDS: SODIUM CHLORIDE 0.9% 1,000 ML IV ONE (07:34)
--- NOTE | 2024-02-14 07:35 | Emergency Department Note ---
History of Present Illness General Chief complaint: Hyperglycemia Stated complaint: HYPERGLYCEMIA Time Seen by Provider: 02/14/24 07:11 History of Present Illness Provider complaint: Elevated blood sugar 53-year-old insulin-dependent diabetic female presents emergency department for elevated blood sugars. Patient reports her blood sugars were running high for last 2 days range between 400 500. Patient states she has tried to change her insulin pump site but has not been helping. She reports some nausea and vomiting. No hematemesis coffee-ground emesis or bilious vomiting. No fevers. Home Medications Medication Instructions Recorded Confirmed Type ascorbic acid (vitamin C) 500 mg 500 mg PO BID 04/30/23 06/29/23 History tablet (Vitamin C) gabapentin 300 mg capsule 300 mg PO TID 04/30/23 06/29/23 History insulin aspart U-100 100 unit/mL See Rx Instructions .Route .COMPLEX 04/30/23 06/29/23 History subcutaneous solution (Novolog U-100 Insulin aspart) melatonin 12 mg tablet 20 mg PO HS 04/30/23 06/29/23 History vit no.95-ferrous 1 tab PO BID 04/30/23 06/29/23 History fumarate 28 mg-folic acid 800 mcg tablet () semaglutide 1 mg/dose (4 mg/3 mL) 2 mg subcut WK 04/30/23 06/29/23 History subcutaneous pen injector (Ozempic) simvastatin 40 mg tablet 40 mg PO HS 04/30/23 06/29/23 History venlafaxine 150 mg 150 mg PO QAM 04/30/23 06/29/23 History capsule,extended release 24 hr venlafaxine 75 mg tablet 75 mg PO QPM 04/30/23 06/29/23 History zolpidem 5 mg tablet 5 mg PO HS 04/30/23 06/29/23 History cetirizine 10 mg tablet (Zyrtec) 10 mg PO HS 06/29/23 06/29/23 History omeprazole 20 mg capsule,delayed 20 mg PO DAILY 06/29/23 06/29/23 History release acetone (urine) test (Ketone Urine #100 ea 07/01/23 Rx Test strips) Allergies Allergy/AdvReac Type Severity Reaction Status Date / Time Penicillins Allergy Severe RASH, Verified 10/18/14 15:02 CHEST HEAVINESS, SOB sulfamethoxazole Allergy Intermediate Rash Unverified 04/30/23 11:11 [From Bactrim] trimethoprim [From Bactrim] Allergy Intermediate Rash Unverified 04/30/23 11:11 Past Med/Surg History Problem List (Updated 02/14/24 @ 08:09 by Michael Benson MD) Plantar fasciitis Osteoarthritis Ankylosing spondylitis DKA (diabetic ketoacidosis) (Acute) Superficial venous thrombosis of right arm (Acute) UTI (urinary tract infection) Hydronephrosis, right Abnormal CT of the abdomen Elevated LFTs Fever (Acute) Diabetes mellitus, type 2 Pyelonephritis (Acute) Sepsis Depression Dyslipidemia Tobacco abuse (Chronic) Cervical stenosis of spinal canal (Chronic) Surgical History History of cholecystectomy H/O cervical spine surgery History of breast surgery S/P removal of right ovary H/O shoulder surgery S/P hysterectomy S/P carpal tunnel release Social History Smoking Status: Current every day smoker Tobacco Type: Cigarettes Cigarettes Per Day: 20; Second Hand Exposure: Yes; Do You Dip or Chew Tobacco: No; Hx Alcohol Use: No Hx Substance Use: No Preferred Language: Latvian Communication Ability: Effective Second Officer Required: No Beliefs That Will Affect Care: None 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: Other 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 current occupation: [employer] Feels Safe at Home: Yes Assistive Devices: None Physical Exam Vital Signs Vital Signs - 24 hr 02/14/24 07:01 Temperature 36.6 C Temperature Source Oral Pulse Rate 93 H Respiratory Rate 18 Respiratory Effort / Characteristics Non-Labored Spontaneous Respiratory Depth Normal Respiratory Pattern Regular Blood Pressure 144/81 H Blood Pressure Mean 102 Pulse Oximetry 99 Oxygen Delivery Method Room Air Sepsis Recent Fever Within 48 Hours No Sepsis New/Unexplained Change in Mental Status No Sepsis Action Taken by Nursing No Action Required Physical Exam GENERAL: oriented to person, place, and time. appears well-developed and well- nourished. Acetone smelling breath. HENT: Exam performed. - Head: Normocephalic and atraumatic. EYES: Conjunctivae and EOM are normal. Right eye exhibits no discharge. Left eye exhibits no discharge. No scleral icterus. NECK: Normal range of motion. Neck supple. No JVD present. CV: Normal rate, regular rhythm, normal heart sounds and intact distal pulses. There is no peripheral edema. Palpable radial pulses bue. PULM/CHEST: Effort normal and breath sounds normal. No respiratory distress. No stridor. no wheezes. no rales. ABD: The abdomen is soft. There is no tenderness. Insulin pump in place. NEURO: Motor and sensation grossly intact. SKIN: Skin is warm and dry. He is not diaphoretic. PSYCH: normal mood and affect. Behavior is normal. Judgment and thought content normal. Course Course 0711: The patient was evaluated in room A10. A complete history and physical exam was performed Cardiac monitoring: An order was placed for continuous cardiac monitoring. The monitor shows a rate of 90 with sinus rhythm interpreted by me Patient's insulin pump was disconnected patient will be given IV fluids in the emergency department. 0807: Vital signs stable. Patient has a anion gap of 21 and a serum glucose of 477. Patient be started on insulin [facility]. Administered Medications Sodium Chloride (Nss) 1,000 mls @ 999 mls/hr IV .Q1H1M ONE Stop: 02/14/24 08:17 Last Admin: 02/14/24 07:34 Dose: 999 mls/hr Documented By: Critical Care Time Critical Care Time: Yes Total Critical Care Time: 53 I have personally spent greater than 53 minutes of critical care time in the direct management of this patient. This includes bedside care, interpretation of diagnostic studies, and testing, discussion with consultants, patient, and family members, and other required patient management activities. This 53 minutes is in excess of all separately billable procedures. Medical Decision Making Laboratory Data Attestation: I reviewed the patient's lab results. 02/14/24 07:15 02/14/24 07:15 Lab Results 02/14/24 02/14/24 Range/Units 07:10 07:15 WBC 6.85 (4.8-10.8) K/ul RBC 5.06 (4.20-5.40) M/uL Hgb 14.4 (12.0-16.0) g/dl Hct 45.1 (37.0-47.0) % MCV 89.1 (80.0-100.0) fL MCH 28.5 (25.0-34.0) pg MCHC 31.9 L (32.0-36.0) g/dL RDW Std Deviation 39.9 (36.4-46.3) fL RDW Coeff of Norberto 12.2 (11.5-14.5) % Plt Count 273 (130-400) K/uL MPV 10.2 (9.4-12.4) fL Immature Gran % (Auto) 1.2 % Neut % (Auto) 75.8 % Lymph % (Auto) 14.0 % [place] % (Auto) 8.2 % Eos % (Auto) 0.4 % Baso % (Auto) 0.4 % Neut # (Auto) 5.19 (1.40-6.50) K/uL Lymph # (Auto) 0.96 L (1.20-3.40) K/uL [place] # (Auto) 0.56 (0.11-0.59) K/uL Eos # (Auto) 0.03 (0.00-0.50) K/uL Baso # (Auto) 0.03 (0.00-0.20) K/uL Immature Gran # (Auto) 0.08 (0.01-0.20) K/uL Sodium 132 L (136-145) mmol/L Potassium 4.9 (3.5-5.1) mmol/L Chloride 99 (98-107) mmol/L Carbon Dioxide 12 L (21-32) mmol/L Anion Gap 21 H (3-11) BUN 19 (6-23) mg/dl Creatinine 0.92 (0.6-1.2) mg/dl Est Cr Clr Drug Dosing 63.9 ml/min eGFR 74.45 BUN/Creatinine Ratio 20.7 H (10-20) Glucose 477 H* (70-99(Fasting)) mg/dl POC Glucose 485 H* (70-99) mg/dl Osmolality 307 H (280-300) mOsm/kg Calcium 9.0 (8.6-10.3) mg/dl [facility] Narrative 0711: The patient was evaluated in room A10. A complete history and physical exam was performed Cardiac monitoring: An order was placed for continuous cardiac monitoring. The monitor shows a rate of 90 with sinus rhythm interpreted by me Patient's insulin pump was disconnected patient will be given IV fluids in the emergency department. 0807: Vital signs stable. Patient has a anion gap of 21 and a serum glucose of 477. Patient be started on insulin drip and admitted to the [facility] hospitalist team. Impression & Plan DKA (diabetic ketoacidosis) Discharge Plan Visit Data Chief Complaint: Hyperglycemia Stated Complaint: HYPERGLYCEMIA ED Provider: Michael Benson Discharge Problem: DKA (diabetic ketoacidosis) Patient Disposition: Admitted As Inpatient Forms Stand Alone Forms: My [facility] Prescriptions Prescriptions: No Action venlafaxine 75 mg Tablet 75 mg PO QPM insulin aspart U-100 [Novolog U-100 Insulin aspart] 100 unit/mL solution See Rx Instructions .ROUTE .COMPLEX Rx Instructions: as directed; pump gabapentin 300 mg capsule 300 mg PO TID Rx Instructions: usually takes twice a day, forgets the noon dose. zolpidem 5 mg tablet 5 mg PO HS Ozempic 1 mg/dose (4 mg/3 mL) pen injector 2 mg SUBCUT WK Rx Instructions: tuesdays simvastatin 40 mg tablet 40 mg PO HS venlafaxine 150 mg capsule,extended release 24hr 150 mg PO QAM ascorbic acid (vitamin C) [Vitamin C] 500 mg Tablet 500 mg PO BID PNV cmb#95-ferrous fumarate-FA [] 28 mg iron- 800 mcg Tablet 1 tab PO BID melatonin 12 mg Tablet 20 mg PO HS cetirizine [Zyrtec] 10 mg Tablet 10 mg PO HS omeprazole 20 mg capsule,delayed release(DR/EC) 20 mg PO DAILY (DME) Ketone Urine Test Strip See Rx Instructions .Route Qty: 100 0RF Rx Instructions: 1-2 times a day. Referrals Referrals: [facility] [Primary Care Provider] -
[2024-02-14 07:54] LABS: BUN Creatinine Ratio 20.7 (10-20); Creatinine Clr Calc Pharmacy 63.9 ml/min; Potassium 4.9 mmol/L (3.5-5.1)
[2024-02-14] MEDS ORDERED: GLUCAGON FOR INJ 1 MG VIAL SQ PRN ×2 (07:57→16:15)
[2024-02-14] MEDS ORDERED: DEXTROSE 50% 50 ML SYRINGE IV PRN (07:57)
[2024-02-14] MEDS ORDERED: GLUCOSE 10 TAB/TUBE PO PRN ×2 (07:57→16:15)
[2024-02-14] MEDS ORDERED: GLUCOSE 40% GEL 15 GM TUBE PO PRN ×2 (07:57→16:15)
[2024-02-14] MEDS ORDERED: CARBOHYDRATES FOR HYPOGLYCEMIA PO PRN ×2 (07:57→16:15)
[2024-02-14 08:44] LABS: Estimated Average Glucose 289 mg/dl; Hemoglobin A1C 11.7 % (4.5-5.6)
[2024-02-14] MEDS: ONDANSETRON INJ 2 MG/ML 2 ML VIAL IV STA (08:49)
[2024-02-14] MEDS: INSULIN REGULAR 250 UNITS in SODIUM CHLORIDE 0.9% 247.5 ML IV SCH (08:49)
--- NOTE | 2024-02-14 09:53 | History & Physical Report ---
Date of Service February 14, 2024 Assessment & Plan (1) DKA (diabetic ketoacidosis): Plan: Admit to telemetry Patient presenting from home for evaluation of nausea and hyperglycemia. In the ED, found to be in DKA with pH 7.18, anion gap 21, bicarb 12, glucose 47 7. Patient was given IVF and IV insulin bolus and started on a drip. ICU consulted for possible ICU admission - recommends admit to floor Continue insulin drip per protocol Monitor labs q4h, adjust fluids to include dextrose and potassium when indicated N.p.o. until gap closes HgbA1c 11.7 (worsened from 10.3 in June) -- patient reports compliance with insulin pump and utilizes additional SQ insulin as needed. extrusion operator consulted. Patient follows with [facility]. (2) Ankylosing spondylitis: Plan: Controlled with Enbrel and gabapentin Follows with [facility] rheumatology (3) Dyslipidemia: Plan: Chronic, stable Continue statin (4) Depression: Plan: Chronic, stable Continue venlafaxine (5) Tobacco abuse: Plan: Patient counseled regarding tobacco cessation Nicotine patch offered and declined DVT PROPHYLAXIS SQ Lovenox Patient seen in collaboration with Dr. Be. I spent a total of 75 minutes coordinating, documenting, and providing care for this patient excluding time spent in the performance of separately billed services. This included personally reviewing all current laboratories and imaging studies, medication reconciliation, outpatient chart review, and discussion with specialists. History of Present Illness Chief Complaint: Nausea, hyperglycemia Primary Care Provider: [facility] 53-year-old female with PMH IDDM on insulin pump, ankylosing spondylitis, depression, history of superficial thrombophlebitis s/p treatment with Xarelto, and other problems listed below who presents to the ED for evaluation of hyperglycemia and nausea. Patient reports that she has been feeling ill for about the past 5 days. Reports that she has ketone test strips and has had ketones in her urine. patient reports her diabetes is typically managed with insulin pump however will use additional subcu insulin if needed. Reports that she has been using a " protocol" this week to try and control the hypoglycemia. Patient reports nausea and vomiting. Last episode of vomiting yesterday. Denies hematemesis and coffee-ground emesis. No abdominal pain or diarrhea. Denies fevers and chills. Reports chronic exertional shortness of breath which is unchanged from baseline. No chest pain. Denies lightheadedness, dizziness, diaphoresis, syncopal events. No urinary symptoms. In the ED, patient is found to be in DKA with pH 7.18, anion gap 21, bicarb 12, glucose 477. Patient was given IVF and IV insulin bolus and started on a drip. Allergies Allergy/AdvReac Type Severity Reaction Status Date / Time Penicillins Allergy Severe RASH, Verified 10/18/14 15:02 CHEST HEAVINESS, SOB sulfamethoxazole Allergy Intermediate Rash Unverified 04/30/23 11:11 [From Bactrim] trimethoprim [From Bactrim] Allergy Intermediate Rash Unverified 04/30/23 11:11 Home Medications Medication Instructions Recorded Confirmed Type ascorbic acid (vitamin C) 500 mg 1,000 mg PO DAILY 04/30/23 02/14/24 History tablet (Vitamin C) gabapentin 300 mg capsule 300 mg PO DAILY 04/30/23 02/14/24 History insulin aspart U-100 100 unit/mL See Rx Instructions .Route .COMPLEX 04/30/23 02/14/24 History subcutaneous solution (Novolog U-100 Insulin aspart) vit no.95-ferrous 1 tab PO DAILY 04/30/23 02/14/24 History fumarate 28 mg-folic acid 800 mcg tablet () semaglutide 1 mg/dose (4 mg/3 mL) 2 mg subcut WK 04/30/23 02/14/24 History subcutaneous pen injector (Ozempic) venlafaxine 150 mg 150 mg PO QAM 04/30/23 02/14/24 History capsule,extended release 24 hr venlafaxine 75 mg tablet 75 mg PO QPM 04/30/23 02/14/24 History zolpidem 5 mg tablet 5 mg PO HS PRN Insomnia 04/30/23 02/14/24 History cetirizine 10 mg tablet (Zyrtec) 10 mg PO HS 06/29/23 02/14/24 History omeprazole 20 mg capsule,delayed 20 mg PO DAILY 06/29/23 02/14/24 History release acetone (urine) test (Ketone Urine #100 ea 07/01/23 Rx Test strips) biotin 5,000 mcg sublingual tablet 5,000 mcg sublingual DAILY 02/14/24 02/14/24 History etanercept 50 mg/mL (1 mL) 50 mg subcut WK 02/14/24 02/14/24 History subcutaneous pen injector (Enbrel SureClick) gabapentin 300 mg capsule 600 mg PO HS 02/14/24 02/14/24 History insulin aspart U-100 100 unit/mL See Rx Instructions .Route .COMPLEX 02/14/24 02/14/24 History (3 mL) subcutaneous pen (Novolog FlexPen U-100 Insulin aspart) lisinopril 5 mg tablet 5 mg PO DAILY 02/14/24 02/14/24 History rosuvastatin 40 mg tablet 40 mg PO DAILY 02/14/24 02/14/24 History Past Med/Surg History Problem List (Updated 02/14/24 @ 09:33 by LYSSA Souza) DKA (diabetic ketoacidosis) (Acute) Medical History (Updated 02/14/24 @ 09:33 by LYSSA Souza) Plantar fasciitis Osteoarthritis Ankylosing spondylitis Superficial venous thrombosis of right arm Hydronephrosis, right Cervical stenosis of spinal canal Tobacco abuse Depression Dyslipidemia Diabetes mellitus, type 2 Surgical History History of cholecystectomy H/O cervical spine surgery History of breast surgery S/P removal of right ovary H/O shoulder surgery S/P hysterectomy S/P carpal tunnel release Social History Smoking Status: Current every day smoker Tobacco Type: Cigarettes Cigarettes Per Day: 20; Second Hand Exposure: Yes; Do You Dip or Chew Tobacco: No; Hx Alcohol Use: No Hx Substance Use: No Preferred Language: Icelandic Communication Ability: Effective Gravel Truck Driver Required: No Beliefs That Will Affect Care: None 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: Other 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 current occupation: [employer] Feels Safe at Home: Yes Assistive Devices: None Review of Systems Review of Systems: ROS per HPI, all other systems reviewed and negative Physical Exam Constitutional: WD/WN, vitals as above no acute distress Eyes: PERRL, conjunctivae normal, anicteric sclerae ENMT: external ear and nose normal, oropharynx normal Respiratory: normal respiratory effort, lungs clear to auscultation Cardiovascular: Rate/Rhythm: regular rate and regular rhythm Vessels: normal peripheral pulses Extremities: no edema Gastrointestinal (Abdomen): normal bowel sounds, soft, nontender, no hepatosplenomegaly Musculoskeletal: no cyanosis or clubbing, extremities motor strength 5/5 Skin: no rashes, warm and dry Neurologic: PERRL, EOMI, accommodation nl, no face palsy, no dysarthria Psychiatric: A+Ox3, euthymic affect Results & Data Results & Data Vital Signs (Past 12 Hours) Vital Signs Temp Pulse Resp BP Pulse Ox O2 Del Method 02/14/24 09:33 94 H 20 132/79 100 02/14/24 08:14 94 H 02/14/24 07:01 36.6 C 93 H 18 144/81 H 99 Room Air Laboratory Results Short CBC 02/14/24 Range/Units 07:15 WBC 6.85 (4.8-10.8) K/ul Hgb 14.4 (12.0-16.0) g/dl Hct 45.1 (37.0-47.0) % Plt Count 273 (130-400) K/uL BMP 02/14/24 07:15 Sodium 132 L Potassium 4.9 Chloride 99 Carbon Dioxide 12 L BUN 19 Creatinine 0.92 Glucose 477 H* Calcium 9.0 Code Status & VTE Plan VTE Prophylaxis Plan VTE Prophylaxis will be ordered: Yes Supervising Physician Co-Signing Physician Notes Paitent seen and examined Reports feeling ill for past 5 days with nausea, vomiting and elevated blood glucose Exam is unremarkable Labs notable for bicarb of 12, AGAP 21, BG 477, HbA1c 11.7, serum osm 307 Diabetic ketoacidosis Continue Insulin drip and IVF per DKA protocol NPO for now Reviewed patient's insulin pump. Basal rate is 1.15U/hr and she demonstrated her use of boluses per machine She reports compliance and also reports she uses subcut insulin occasionally if BG is too high and her pump recommends it She reports she [facility] Will get DM educator Will likely need adjustments of her insulin regimen once DKA is managed prior to dc. I spent a total of 50 minutes coordinating, documenting and providing care for this patient excluding time spent in performance of separately billed services
--- NOTE | 2024-02-14 09:56 | Critical Care Consultation ---
Date of Consultation February 14, 2024 Assessment & Plan (1) DKA (diabetic ketoacidosis): (2) Diabetes mellitus, type 2: (3) Dyslipidemia: (4) Depression: (5) Ankylosing spondylitis: Plan Reason Critically Ill: 53-year-old female with a history of insulin-dependent diabetes which is largely uncontrolled who presents with symptoms of nausea, vomiting, and elevated blood sugars. Laboratory assessment with findings consistent with DKA. NEURO - * CAM ICU: NEGATIVE * Depression: * Continue home medications as tolerated. CARDIAC/VASCULAR - * Hyperlipidemia: * Continue statin when appropriate. * Monitor on telemetry. RESPIRATORY - * No respiratory distress noted in a patient with elevated blood sugars and concerns for DKA. Certainly not compensatory at this point. * She is saturating well on room air. * History of tobacco abuse. Encourage smoking cessation GI/NUTRITION - * Nausea/Vomiting: * In the setting of elevated blood sugars. * Responded well to IV Zofran. * Should respond with correction of underlying hyperglycemia. RENAL/LYTES - * HAGMA: * In the setting of DKA. * Suspect ongoing improvement with correction of blood sugar and volume resuscitation. * IVF: Per DKA protocol. - * Strict I&O ENDO - * DKA: * Patient presents with elevated blood sugars for the past 4 to 5 days. She does have an elevated anion gap of 21. Her serum CO2 is 12. Clinically, the patient is well-appearing. She is not tachypneic. She is not hypotensive. She is mentating well. Despite initial ABG findings and laboratory assessment, the patient is clinically stable. She has no electrolyte derangements. * From a clinical standpoint, would continue with IV fluid resuscitation as you are as well as insulin drip per protocol. * Patient is hemodynamically stable and not requiring pressor support. She is not requiring bicarb drip at this time. * From a clinical perspective, the patient does not require ICU level of care at this time. Would remain on telemetry with serial labs per protocol. HEME - * Stable H&H ID - * Does not appear to be infectious contributor at this time LINES/IV ACCESS - * PIVs x2 DVT PROPHYLAXIS - * Per primary team * Patient with prior history of thrombophlebitis x 2 after hospitalizations. Completed outpatient courses of DOAC without return of symptoms. * SCDs Thank you for allowing us to participate in the care of this pleasant patient. As previously noted, the patient is clinically stable at this time. Please continue with IV fluids and insulin drip per DKA protocol. Patient does not require ICU level care at this time. Please feel free to reach out to us for any change in patient clinical status, questions, or concerns. Supervising Physician Co-Signing Physician Notes Patient seen and examined. EMR reviewed. Discussed with the nursing as well as with critical care BABATUNDE and agree with assessment plan as noted. 53-year-old with history of diabetes presenting with DKA. She has no renal failure. She is awake alert. No flight operations coordinator small breathing. Hemodynamically stable. Neurologically intact. Recommend IV insulin until gap closed. Frequent electrolytes and electrolyte replacement protocols. If the patient has had multiple admissions previously and has done well on the floor. Discussed with nursing. They are comfortable managing the insulin infusion as well as frequent lab draws. At this point time I think the patient can likely be managed on medical telemetry. Please let us know if she develops additional critical care issues. This was communicated to the primary admitting service. Critical care signing off History of Present Illness Reason for Consultation: DKA Requesting Physician: LYSSA Souza Attending Physician: LYSSA Souza History of Present Illness Patient is a 53-year-old female with a significant past medical history of insulin-dependent diabetes, hyperlipidemia, chronic tobacco abuse, depression, and ankylosing spondylitis who presented to the emergency department with complaints of elevated blood sugars, nausea, and vomiting. Patient is on insulin at home as well as Ozempic for her diabetes. She notes that since Saturday, she has had elevated blood sugars which she has been struggling to keep under control. She has been able to manage this previously by adjusting her insulin and increasing her fluid intake, however she was not able to do so as she became nauseated and began to vomit. She does carry history of prior admissions related to DKA with most recent of which being in June of this past year. She reports feeling similar to that presentation. She did describe some dizziness with positional changes and while showering. No presyncope. No chest pain or palpitations. She has felt somewhat short of breath related to her vomiting, but symptoms have coincided with her general presentation. Patient describes no recent upper respiratory or GI illnesses. No fevers or chills. No hematemesis. She has had little amounts of stool secondary to poor p.o. intake. Otherwise, she offers no recent heavy alcohol intake, substance abuse, or other illicit drug use. Allergies Allergy/AdvReac Type Severity Reaction Status Date / Time Penicillins Allergy Severe RASH, Verified 10/18/14 15:02 CHEST HEAVINESS, SOB sulfamethoxazole Allergy Intermediate Rash Unverified 04/30/23 11:11 [From Bactrim] trimethoprim [From Bactrim] Allergy Intermediate Rash Unverified 04/30/23 11:11 Home Medications Medication Instructions Recorded Confirmed Type ascorbic acid (vitamin C) 500 mg 1,000 mg PO DAILY 04/30/23 02/14/24 History tablet (Vitamin C) gabapentin 300 mg capsule 300 mg PO DAILY 04/30/23 02/14/24 History insulin aspart U-100 100 unit/mL See Rx Instructions .Route .COMPLEX 04/30/23 02/14/24 History subcutaneous solution (Novolog U-100 Insulin aspart) vit no.95-ferrous 1 tab PO DAILY 04/30/23 02/14/24 History fumarate 28 mg-folic acid 800 mcg tablet () semaglutide 1 mg/dose (4 mg/3 mL) 2 mg subcut WK 04/30/23 02/14/24 History subcutaneous pen injector (Ozempic) venlafaxine 150 mg 150 mg PO QAM 04/30/23 02/14/24 History capsule,extended release 24 hr venlafaxine 75 mg tablet 75 mg PO QPM 04/30/23 02/14/24 History zolpidem 5 mg tablet 5 mg PO HS PRN Insomnia 04/30/23 02/14/24 History cetirizine 10 mg tablet (Zyrtec) 10 mg PO HS 06/29/23 02/14/24 History omeprazole 20 mg capsule,delayed 20 mg PO DAILY 06/29/23 02/14/24 History release acetone (urine) test (Ketone Urine #100 ea 07/01/23 Rx Test strips) biotin 5,000 mcg sublingual tablet 5,000 mcg sublingual DAILY 02/14/24 02/14/24 History etanercept 50 mg/mL (1 mL) 50 mg subcut WK 02/14/24 02/14/24 History subcutaneous pen injector (Enbrel SureClick) gabapentin 300 mg capsule 600 mg PO HS 02/14/24 02/14/24 History insulin aspart U-100 100 unit/mL See Rx Instructions .Route .COMPLEX 02/14/24 02/14/24 History (3 mL) subcutaneous pen (Novolog FlexPen U-100 Insulin aspart) lisinopril 5 mg tablet 5 mg PO DAILY 02/14/24 02/14/24 History rosuvastatin 40 mg tablet 40 mg PO DAILY 02/14/24 02/14/24 History Patient History Medical History (Updated 02/14/24 @ 09:33 by LYSSA Souza) Plantar fasciitis Osteoarthritis Ankylosing spondylitis Superficial venous thrombosis of right arm Hydronephrosis, right Cervical stenosis of spinal canal Tobacco abuse Depression Dyslipidemia Diabetes mellitus, type 2 Surgical History History of cholecystectomy H/O cervical spine surgery History of breast surgery S/P removal of right ovary H/O shoulder surgery S/P hysterectomy S/P carpal tunnel release Social History Smoking Status: Current every day smoker Tobacco Type: Cigarettes Cigarettes Per Day: 20; Second Hand Exposure: Yes; Do You Dip or Chew Tobacco: No; Hx Alcohol Use: No Hx Substance Use: No Preferred Language: Syriac Communication Ability: Effective Human Resources Training Manager Required: No Beliefs That Will Affect Care: None 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: Other 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 All else were negative. Physical Exam Physical Exam: VITAL SIGNS Vital signs and nursing notes were reviewed. GENERAL 53-year-old female appearing her stated age who is in no acute distress. Communicates well with provider and answers questions appropriately. SKIN Without rashes or lesions. NOSE Midline and without cyanosis. MOUTH/OROPHARYNX Without perioral cyanosis. NECK Neck with FROM. LUNGS Chest wall evaluation demonstrates normal chest wall A:P diameter. Auscultation reveals clear breath sounds bilaterally without wheezes, rales, or rhonchi appreciated. CARDIAC RRR with S1/S2. No murmur, rubs, or gallops appreciated. ABDOMEN Abdominal inspection demonstrates an obese abdomen. BS normoactive all four quadrants. No tenderness, palpable masses, or ascites noted. EXTREMITIES Nail clubbing not present. No peripheral cyanosis. No pretibial edema present. +3/5 radial palpated throughout. PSYCH A&Ox3 and cooperates fully with examiner. Pt is very pleasant and interacts well with examiner. Results & Data Results & Data Vital Signs (Past 12 Hours) Vital Signs Temp Pulse Resp BP Pulse Ox O2 Del Method 02/14/24 09:33 94 H 20 132/79 100 02/14/24 08:14 94 H 02/14/24 07:01 36.6 C 93 H 18 144/81 H 99 Room Air Coding Level of Care Code 35654 IN/OBS CONSULT LVL 3,45M Diagnoses DKA (diabetic ketoacidosis) E11.10 Diabetes mellitus, type 2 E11.9 Dyslipidemia E78.5 Depression F32.9 Ankylosing spondylitis M45.9
[2024-02-14] MEDS ORDERED: STAT IV Infusion **Titration per Protocol STA (10:56)
[2024-02-14] MEDS ORDERED: PENDING 1/2NSS+40mEq KCL IVF SCH (10:56)
[2024-02-14] MEDS ORDERED: PHARMACY GLYCEMIC MGMT CONSULT PRN (10:56)
[2024-02-14] MEDS ORDERED: INSULIN REGULAR 250 UNITS in SODIUM CHLORIDE 0.9% 247.5 ML IV SCH (10:56)
[2024-02-14] MEDS ORDERED: ICU Protocol for HYPERglycemia SCH (11:30)
[2024-02-14] MEDS ORDERED: INSULIN ASPART PER UNIT CHARGE SC SCH (11:30)
[2024-02-14] MEDS ORDERED: POTASSIUM CHLORIDE 40 MEQ in SODIUM CHLORIDE 0.45 % 1,000 ML IV SCH (11:30)
[2024-02-14] MEDS: PENDING D5 1/2NS+40mEq KCL IVF SCH (11:41)
[2024-02-14] MEDS: DKA GOAL RANGE 150-250 mg/dl ONE (11:41)
[2024-02-14] MEDS ORDERED: DEXTROSE 10% 1,000 ML IV SCH (12:00)
[2024-02-14] MEDS ORDERED: SODIUM CHLORIDE 0.9% 1,000 ML IV SCH (12:00)
[2024-02-14] MEDS: INSULIN ASPART PER UNIT CHARGE SC SCH ×2 (12:07→16:04)
--- OUTSIDE RECORDS SUMMARY | 2024-02-14 12:24 | External Medical Summary | Summary of Care ---
Author Name Unknown Organization [facility] Address [address] [facility] [place] [address] Phone [phone] Care Team Providers Care Fertilizer Supervisor Name Role Phone Maryann Hurst PA-C Primary Care Provid er Reason for Visit * Reason Comments Office Procedure Fibroscan * Evaluate & Treat - Unlimited Visits (Within 30 days (routine)) - Authorized Specialty Diagnoses / Procedures Referred By Dontae mccloud Referred To Contact *Gastro* Diagnoses Elevated liver enzymes Maryann Hurst PA-C [address] [place] [address] Referral ID Status Reason Start Date Expiration Date Visits Requested Visits Authorized [id number] Authorized Specialty Services Required 08/23/2023 08/22/[phone] Encounter Details Date Type Department Care Team (Late st Contact Info) Description 12/30/2023 9:00 AM EST Nurse Only Gastroenterology, Darron Ryan [facility] [place] [phone] Darron Nurse Gastro [facility] Johanna [facility] [facility] [address] [place] [phone] Office Procedure (Fibroscan) Allergies Active Allergy Reactions Criticality Noted Date Comments Sulfamethoxazole-Trimethoprim Rash High 2015 Penicillins 01/24/2001 augmentin gave rash documented as of this encounter (statuses as of 12/30/2023) Medications Medication Sig Dispensed Refills Start Date End Date Status BLOOD GLUCOSE MONITOR SYSTEM W/DEVICE KITIndications:D M type 2, goal A1c below 7 measure and record glucose three times daily 1 Kit 0 4 Active insulin aspart (INSULIN ASPART) 100 UNIT/ML injectionIndicat ions:Type 2 diabetes mellitus with hemoglobin A1c goal of less than 7.0% (HCC) Use up to 50 units per day in insulin pump 1 Vial 8 Active Ascorbic Acid (VITAMIN C) 1000 MG Tablet Take 1 Tablet by mouth in the morning. Active Venlafaxine HCl ER 75 MG Oral Capsule Extended Release 24 Hour (Effexor XR) Take 1 Capsule by mouth in the morning. WITH 150mg dose - [place] dose [place]mg [place] [facility] 90 Capsule 1 Active Ozempic (1 MG/DOSE) 4 MG/3ML [...] Oral Capsule Extended Release 24 Hour (Effexor XR)Indications:D epression with anxiety TAKE 1 CAPSULE BY MOUTH DAILY. DO NOT CUT, CRUSH OR CHEW 90 Capsule 1 3 Active Simvastatin 40 MG Oral Tablet (Zocor)Indicatio ns:Elevated glucose,Dyslipid emia, goal LDL below 160 Take 1 Tablet by mouth every evening. 90 Tablet 1 3 Active One-A-Day Womens 50+ Oral Tablet Take 1 Tablet by mouth in the morning. Active Lisinopril 5 MG Oral Tablet (Prinivil) TAKE 1 TABLET BY MOUTH EVERY DAY IN THE MORNING 90 Tablet 1 3 Active Gabapentin 300 MG Oral Capsule (Neurontin)Indic ations:Neuropath y Take 1 Capsule by mouth in the morning and 1 Capsule at noon and 1 Capsule before bedtime. 270 Capsule 1 3 Active Cetirizine HCl 10 MG Oral Capsule Take 1 Capsule by mouth in the morning. Active Biotin 5000 MCG Oral Tablet Take 1 Tablet by mouth in the morning and 1 Tablet at noon and 1 Tablet before bedtime. Active Zolpidem Tartrate 5 MG Oral Tablet (Ambien) Take 1 Tablet by mouth at bedtime as needed for Sleep. Active Omeprazole 20 MG Oral Capsule Delayed Release (PriLOSEC)Indica tions:Abdominal pain, epigastric TAKE 1 CAPSULE BY MOUTH EVERY DAY 1 HOUR BEFORE THE FIRST MEAL OF THE DAY 90 Capsule 1 3 Active Lidocaine 5 % External Patch (Lidoderm) Place 1 Patch topically on the skin. As needed Active Melatonin 12 MG Oral Tablet Take 24 mg by mouth every night at bedtime. 4 Active Enbrel SureClick 50 MG/ML Subcutaneous Solution Auto-injector (Etanercept)Brenda cations:Ankylosi ng spondylitis of lumbosacral region (HCC) Inject 50 mg under the skin once a week. 4 mL 2 4 Active Rivaroxaban 10 MG Oral Tablet (Xarelto) Take 1 Tablet by mouth in the morning. 12/30/19 24 Discontinued documented as of this encounter (statuses as of 12/30/2023) Active Problems Problem Noted Date Diagnosed Date [...] as of this encounter (statuses as of 12/30/2023) Resolved Problems Problem Noted Date Diagnosed Date [...] as of this encounter (statuses as of 12/30/2023) Immunizations Name Administration Dates Next Due COVID-19 mRNA, LNP-s, No Pre serve, 2-Dose Series (Moderna) 12/29/2020,12/01/2020 Hepatitis B, 20+ yrs 04/23/2019,03/16/2019 Pneumococcal Conjugate Vacc, 13 Valent (Prevnar) 01/26/2015 Pneumococcal Polysaccharide PPV23 (Pneumovax) 02/02/2016 Seasonal Influenza Vac., MDV , IM, 0.5 mL (Fluzone) 12/07/2013,12/12/2011,12/22/2009,01/06 Seasonal Influenza, PF, 6 M & above, IM , (FluLaval or Fluzone) 12/12/2018 Seasonal Influenza, Quadriva lent, No Preserve, IM 12/15/2015,01/26/2015 Seasonal Influenza, Quadriva lent,with Preserve, 3 yr & above, IM 11/02/2016 TDAP, Age 7 and older, IM (Adacel) 09/18/2007 documented as of this encounter Social [...] money to get more. Never true 02/04/2023 Childcare Answer Date Recorded Do you feel overwhelmed with taking care of a child, family member or friend? No 02/04/2023 Does your family need help f inding childcare? (Household - for ages 0-17 years) Not on file 02/04/2023 Clothing Answer Date Recorded Have you been unable to get clothing when it was really needed? No 02/04/2023 Is your family able to get c lothes or diapers when needed? (Household - for ages 0-17 years) Not on file 02/04/2023 Personal Safety Answer Date Recorded Do you feel unsafe or have concerns for your saf ety? No 02/04/2023 Do you have concerns for you r family's safety? (Household - for ages 0-17 years) Not on file 02/04/2023 Utilities Answer Date Recorded Do you have trouble paying y our heating, water, or electric bill? No 02/04/2023 Is your family able to pay t he heat, water, or electric bill? (Household - for ages 0-17 years) Not on file 02/04/2023 Does your family have access to good internet? (Household - for ages 0-17 years) Not on file 02/04/2023 Employment Status Answer Date Recorded Are you unemployed or without regular income? No 02/04/2023 Does the household have a re gular source of income? (Household - for ages 0-17 years) Not on file 02/04/2023 Social Connections Answer Date Recorded How often do you feel lonely or isolated from th ose around you? Often 02/04/2023 Financial Resource Strain Answer Date R ecorded Do you have any trouble payi ng for your medications, or do you think you might in the future? No 02/04/2023 Does your family have troubl e paying for medicine? (Household - for ages 0-17 years) Not on file 02/04/2023 Transportation Needs Answer Date Record ed READ ONLY Do you have troubl e getting a ride to medical visits or work? Never True 02/04/2023 Does your family have a hard time getting a ride to doctors visits? (Household - for ages 0-17 years) Not on file 02/04/2023 Has lack of transportation k ept you from medical appointments, meetings, work, or from getting things needed for daily living? Check all that apply. (Adult - for ages 18 years and over) Not on file 02/04/2023 Do you (or your family) have trouble finding or paying for a ride (transportation)? (Household - for ages 0-17 years) Not on file 02/04/2023 Housing Stability Answer Date Recorded Do you currently live in a s helter or have no steady place to sleep at night? No 02/04/2023 READ ONLY Do you think you a re at risk of becoming homeless? No 02/04/2023 Does your family worry about paying for your home or becoming homeless? (Household - for ages 0-17 years) Not on file 1 04/07/2022 Are you homeless or worried that you might be in the future? (Adult - for ages 18 years and over) Not on file Are you (or your family) yannick eless or worried that you might be in the future? (Household - for ages 0-17 years) Not on file Food Insecurity Answer Date Recorded Do you need food for this week? No 02/04/2023 Are you able to get enough f ood for your family? (Household - for ages 0-17 years) Not on file 02/04/2023 Does your family need food t his week? (Household - for ages 0-17 years) Not on file 02/04/2023 Do you always have enough fo od for your family? (Household - for ages 0-17 years) Not on file 02/04/2023 Sex and Gender Information Value Date Recorded Sex Assigned at Female 08/23/2022 2:02 PM EDT Gender Identity Female 08/23/2022 2:02 PM EDT Sexual Orientation Straight 08/23/2022 2: 02 PM EDT Job Start Date Occupation Industry Not on file Not on file Not on file documented as of this encounter Last Filed Vital Signs Vital Sign Reading Time Taken Comments Blood Pressure 103/72 12/30/2023 9:00 AM EST Pulse 97 12/30/2023 9:00 AM EST Temperature 36 C (96.8 F) 12/30/2023 9:00 AM EST Respiratory Rate 16 12/30/2023 9:00 AM EST Oxygen Saturation 99% 12/30/2023 9:00 AM EST Inhaled Oxygen Concentration - - Weight 65.2 kg (143 lb 11.2 oz) 12/30/2023 9:00 AM EST Height 157.5 cm (5' 2") 12/30/2023 9:00 AM EST Body Mass Index 26.28 12/30/2023 9:00 AM EST documented in this encounter Progress Notes * Michelle Santiago RN - 12/30/2023 9:09 AM EST [facility] Department of Gastroenterology & Hepatology Fibroscan/Vibration Controlled Transient Elastography (VCTE) Procedure Report Date: 12/30/2023 Patient: Carolyn Alexander Referring Provider: Zuly OMALLEY Interpreting Provider: Dr Cerrato Indication: elevated LFTs NPO 3-Hours: Yes Probe: M Procedure: After providing oral explanation of the procedure to the patient, patient was placed in a supine position with right arm extended over the head to allow optimal exposure of the right lateral abdomen. Ultrasound location was identified by locating the terminus of the xiphoid process and finding intercostal spacing located midline and lateral to this point. 50 Hz Shear Wave pulses were applied and the resulting Shear Wave and Propagation Speed detected with 3.5 MHz ultrasonic signal, using the FibroScan probe. Skin to liver capsule distance and liver parenchyma were accessed during the entire examination using the FibroScan probe. Eleven Shear wave impulses were produced; individual measurements of each Shear Wave were calculated. Patient tolerated procedure well. Findings: Results for orders placed or performed in visit on 12/30/23 LIVER ELASTOGRAPHY W/O IMAGING Result Value Ref Range Median Shear Wave Speed 1.28 meters/second Median Liver Stiffness 4.9 kilopascal (kPa) IQR/med 19 Range < 30% Fibrosis Staging CAP SCORE 223 dB/m The Interquartile Range to Median ration (IQR/med) for all measurements was 19% , indicating a goodquality study was performed. (Acceptable range of IQR/med less than 30%) Interpretation: Table 1. Non fibrotic liver (F0-F1) MD Signature: Julia Cerrato DO References: Gurwinder Hurst (2014) Utilization of FibroScan in Clinical Practice. Curr Gastroenterol Rep. DOI 10.1007/b55674-353-3006-5 Table 1 Recommended values for different stage of fibrosis Disease F0-F1 (kPA) F2 (kPA) F3 (kPA) F4 (kPA) Hepatitis B < 6.0 > 6.0 > 9.0 >12.0 Hepatitis C < 7.0 > 7.0 > 9.5 > 12.0 HCV-HIV coinfection < 7.0 < 10.0 > 11.0 >14.0 Cholestatic liver disease < 7.0 > 7.5 > 10.0 > 17.0 NAFLD/MARAVILLA < 7.0 > 7.5 < 10.0 > 14.0 Thank you for referring your patient for Fibroscan. Please do not hesitate to contact us for further information. documented in this encounter Nursing Notes * Michelle Santiago RN - 12/30/2023 9:02 AM EST Chief Complaint Patient presents with Office Procedure Fibroscan Verified NPO documented in this encounter Plan of Treatment Upcoming Encounters Date Type Department Care Team (Late st Contact Info) Description 01/28/2024 3:00 PM EST Office Visit Rheumatology [facility] [address] [place] [address] Rebekah Harris CRNP [address] [place] [address] Pending Results Name Type Priority Associated Diagnoses Date /Time LIVER ELASTOGRAPHY W/O IMAGING Procedures Routine Elevated liver enzymes 12/30/2023 9:09 AM EST Health Maintenance Due Date Last Done Comments Zoster Vaccines (1 of 2) 1989 DISCUSS TOBACCO CESSATION (REFER TO SMARTSET #2159) 06/22/2015 06/21/2014 Fecal Occult Blood Test 10/01/2015 Sigmoidoscopy 10/01/2015 DTap/Tdap Vaccines (2 - Td or Tdap) 09/17/2017 09/18/2007 COVID-19 Vaccine (3 - Moderna risk series) 01/26/2021 12/29/2020, 12/01/2020 Pneumococcal Vaccine: Pediatrics (0 to 5 Years) and At-Risk Patients (6 to 64 Years) (3 of 3 - PPSV23 or PCV20) 02/01/2021 02/02/2016, 01/26/2015 Albumin/Creatinine Ratio 08/22/2021 021, 11/23/2019, 12/02/2017, Additional history exists Diabetic Foot Exam 09/20/2021 09/20/2020, 0 07/22/2018, 05/17/2017, Additional history exists Depression Monitoring 04/05/2022 04/05/2021 HbA1c 09/24/2022 03/27/2022, 11/27, 12/26/2020, Additional history exists Mammogram 02/13/2023 02/13/2022, 01/26, 10/10/2020, Additional history exists GFR 03/27/2023 03/27/2022, 02/25, 12/25/2021, Additional history exists Influenza Vaccine (FLU shot) (#1) 2023 12/12/2018, 11/02/2016, 12/15/2015, Additional history exists Cologuard 06/19/2024 06/19/2021, 05/26, 06/13/2021 Diabetic Eye Exam 09/10/2024 09/11/2023, , 07/14/2021, Additional history exists Lipid Panel 12/25/2026 12/25/2021, 1102/2020, 08/22/2020, Additional history exists Colonoscopy 04/17/2032 04/17/2022, 04/17/2022 Colorectal Cancer Screening 04/17/2032 Lung Cancer Screening Completed 07/12/2022, 022 HPV (Gardasil) Vaccine Aged Out No lo nger eligible based on patient's age to complete this topic MENINGOCOCCAL (MENACTRA/MENVEO) Aged Out No longer eligible based on patient's age to complete this topic documented as of this encounter Medical Devices Not on filedocumented as of this encounter Procedures Procedure Name Priority Date/Time Associated Diagnosis Comments LIVER ELASTOGRAPHY W/O IMAGING Routine 12/30/2023 9:09 AM EST Elevated liver enzymes documented in this encounter Visit Diagnoses Diagnosis Elevated liver enzymes- Primary Nonspecific elevation of levels of transaminase or lactic acid dehydrogenase (LDH) documented in this encounter Advance Directives * Full Code (Latest Code Status on File) Date Activated Date Inactivated Comments 10/04/2010 11:31 AM 10/05/2010 3:45 AM This order reflects the patients wishes and were consensually agreed upon. * Full Code Date Activated Date Inactivated Comments 10/04/2010 11:30 AM 10/04/2010 11:31 AM This order reflects the patients wishes and were consensually agreed upon. * Full Code Date Activated Date Inactivated Comments 10/04/2010 9:17 AM 10/04/2010 11:30 AM This order reflects the patients wishes and were consensually agreed upon. Care Teams Fertilizer Supervisor Relationship Specialty Start Date End Date Maryann Hurst PA-C [address] [facility] [place] [address] PCP - General Physician Manager Residential 12/30/23 documented as of this encounter
--- OUTSIDE RECORDS SUMMARY | 2024-02-14 12:24 | External Medical Summary | Summary of Care ---
Author Name Unknown Organization [facility] Address [address] [facility] [place] [address] Phone [phone] Care Team Providers Care Transport Operations Inspector Name Role Phone Maryann Hurst PA-C Primary Care Provid er Reason for Visit * Reason Comments Office Procedure Fibroscan * Evaluate & Treat - Unlimited Visits (Within 30 days (routine)) - Authorized Specialty Diagnoses / Procedures Referred By Dontae mccloud Referred To Contact *Gastro* Diagnoses Elevated liver enzymes Maryann Hurst PA-C [address] [place] [address] Phone: tel: fax: Referral ID Status Reason Start Date Expiration Date Visits Requested Visits Authorized [id number] Authorized Specialty Services Required 08/23/2023 08/22/[phone] Encounter Details Date Type Department Care Team (Late st Contact Info) Description 12/30/2023 9:00 AM EST Nurse Only Gastroenterology, Darron Ryan [address] [place], [place] [address] [phone] Darron Nurse Gastro [facility] [address] [place] [address] [address] [place] [address] Office Procedure (Fibroscan) Allergies Active Allergy Reactions Criticality Noted Date Comments Sulfamethoxazole-Trimethoprim Rash High 2015 Penicillins 01/24/2001 augmentin gave rash documented as of this encounter (statuses as of 01/06/2024) Medications BLOOD GLUCOSE MONITOR SYSTEM W/DEVICE KITIndications: DM type 2, goal A1c below 7 measure and record glucose three times daily 1 Kit 0 014 Active insulin aspart (INSULIN ASPART) 100 UNIT/ML injectionIndica tions:Type 2 diabetes mellitus with hemoglobin A1c goal of less than 7.0% (HCC) Use up to 50 units per day in insulin pump 1 Vial 018 Active Ascorbic Acid (VITAMIN C) 1000 MG Tablet Take 1 Tablet by mouth in the morning. Active Venlafaxine HCl ER 75 MG Oral Capsule Extended Release 24 Hour (Effexor XR) Take 1 Capsule by mouth in the morning. WITH 150mg dose - [place] dose [facility]mg - [facility] 90 Capsule 021 Active Ozempic (1 MG/DOSE) 4 MG/3ML Subcutaneous Solution Pen-injector (Semaglutide (1 MG/DOSE)) Inject 1 mg under the skin once a week. PLEASE FILL BABITA 9 mL 3 Active Additional Information Patient taking differently: 2 mgSubcutaneous QWEEK, PLEASE FILL BABITA, Reported on 02/04/2023 Accu-Chek Guide In Vitro Strip (Glucose Blood) Use to test twice daily DX E11.9 200 Strip 3 Active Accu-Chek FastClix Lancets Use to test twice daily DX E11.9 200 Each 3 Active Venlafaxine HCl ER 150 MG Oral Capsule Extended Release 24 Hour (Effexor XR)Indications: Depression with anxiety TAKE 1 CAPSULE BY MOUTH DAILY. DO NOT CUT, CRUSH OR CHEW 90 Capsule 1 023 Active Simvastatin 40 MG Oral Tablet (Zocor)Indicati ons:Elevated glucose,Dyslipi demia, goal LDL below 160 Take 1 Tablet by mouth every evening. 90 Tablet 1 023 Active One-A-Day Womens 50+ Oral Tablet Take 1 Tablet by mouth in the morning. Active Lisinopril 5 MG Oral Tablet (Prinivil) TAKE 1 TABLET BY MOUTH EVERY DAY IN THE MORNING 90 Tablet 1 023 Active Gabapentin 300 MG Oral Capsule (Neurontin)Brenda cations:Neuropa thy Take 1 Capsule by mouth in the morning and 1 Capsule at noon and 1 Capsule before bedtime. 270 Capsule 1 023 Active Cetirizine HCl 10 MG Oral Capsule [...] Omeprazole 20 MG Oral Capsule Delayed Release (PriLOSEC)Indic ations:Abdomina l pain, epigastric TAKE 1 CAPSULE BY MOUTH EVERY DAY 1 HOUR BEFORE THE FIRST MEAL OF THE DAY 90 Capsule 1 023 Active Lidocaine 5 % External Patch (Lidoderm) Place 1 Patch topically on the skin. As needed Active Melatonin 12 MG Oral Tablet Take 24 mg by mouth every night at bedtime. 024 Active Enbrel SureClick 50 MG/ML Subcutaneous Solution Auto-injector (Etanercept)Ind ications:Ankylo sing spondylitis of lumbosacral region (HCC) Inject 50 mg under the skin once a week. 4 mL 2 024 Active Rivaroxaban 10 MG Oral Tablet (Xarelto) Take 1 Tablet by mouth in the morning. 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 0 to 44.9 in adult 09/01/2018 03/27/2022 Overview: Per Obesity protocol WILLA (obstructive sleep apnea) 03/26/2018 03/10/2019 Type 2 diabetes mellitus wit h hemoglobin A1c goal of less than 7.0% 12/21/2013 09/20/2020 Overview (06/21/2015): ICD-10 update of inactive term ADVANCE DIRECTIVE INFORMATION 02/14/2005 12/30/2023 Overview (02/14/2005): No, Advance Directive brochure given to patient at prior appointment. 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 (2014) Utilization of FibroScan in Clinical Practice. Curr Gastroenterol Rep. DOI 10.1007/m04740-292-3652-1 Table 1 Recommended values for different stage [...] 01/28/2024 3:00 PM EST Office Visit Rheumatology [place] [id number] [facility] [place] [address] Rebekah Harris CRNP [facility] [facility] [place] [address] Pending Results Name Type Priority Associated Diagnoses Date /Time LIVER ELASTOGRAPHY W/O IMAGING Procedures Routine Elevated liver enzymes 12/30/2023 9:09 AM EST Health Maintenance Due Date Last Done Comments Zoster Vaccines (1 of 2) 1989 DISCUSS TOBACCO CESSATION (REFER TO SMARTSET #1280) 06/22/2015 06/21/2014 Fecal Occult Blood Test 10/01/2015 [...] Additional history exists Lipid Panel 12/25/2026 12/25/2021, 11/0 02/2020, 08/22/2020, [...] and were consensually agreed upon. Care Teams Transport Operations Inspector Relationship Specialty Start Date End Date Maryann Hurst PA-C [address] [facility] [place] [address] PCP - General Physician Mold Technician 12/30/23 documented as of this encounter
--- OUTSIDE RECORDS SUMMARY | 2024-02-14 12:24 | External Medical Summary | Summary of Care ---
Author Name Unknown Organization [facility] Address [address] [place] [address] Phone [phone] Care Team Providers Care Ssn/Ssbn Assistant Navigator Name Role Phone [facility], [facility] Primary Care Provider Reason for Visit * Reason Comments Follow Up Pt reports that she has bloating, painful cramps, then she will have a BM Encounter Details Date Type Department Care Team (Late st Contact Info) Description 10/24/2023 3:00 PM EDT Office Visit Gastroenterology, [facility] [address] [place] [address] Krystyna Adkins CRNP [address] [place] [address] Elevated liver enzymes* Allergies Active Allergy Reactions Criticality Noted Date Comments Sulfamethoxazole-Trimethoprim Rash High 2015 Penicillins 01/24/2001 augmentin gave rash documented as of this encounter (statuses as of 10/26/2023) Medications Medication Sig Dispensed Refills Start Date [...] per day in insulin pump 1 Vial 01/20/2018 Active Ascorbic Acid (VITAMIN C) 1000 MG Tablet Take 1 Tablet by mouth in the morning. Active Venlafaxine HCl ER 75 MG Oral Capsule Extended Release 24 Hour (Effexor XR) Take 1 Capsule by mouth in the morning. WITH 150mg dose - [facility] dose 225mg [facility] 90 Capsule 01/23/2021 Active Ozempic (1 MG/DOSE) 4 MG/3ML [...] THE DAY 90 Capsule 1 08/22/2022 Active Rivaroxaban 10 MG Oral Tablet (Xarelto) Take 1 Tablet by mouth in the morning. Active Lidocaine 5 % External Patch (Lidoderm) Place 1 Patch topically on the skin. As needed Active Melatonin 12 MG Oral Tablet Take 24 mg by mouth every night at bedtime. 04/30/2023 Active documented as of this encounter (statuses as of 10/26/2023) Active Problems Problem Noted Date Diagnosed Date [...] as of this encounter (statuses as of 10/26/2023) Resolved Problems Problem Noted Date Diagnosed Date [...] as of this encounter (statuses as of 10/26/2023) Immunizations Name Administration Dates Next Due COVID-19 [...] yr & above, IM 11/02/2016 Seasonal Influenza, Trivalen t, (IIV3), with Preserv, (Fluzone) 12/07/2013,12/12/2011,12/22/2009,01/06 TDAP, Age 7 and older, IM (Adacel) [...] No 02/04/2023 Does the household have a [facility] source [facility] income? (Household - for ages [...] Sign Reading Time Taken Comments Blood Pressure 140/80 10/24/2023 3:00 PM EDT Pulse 99 10/24/2023 3:00 PM EDT Temperature 36.6 C (97.9 F) 10/24/2023 3:00 PM ED T Respiratory Rate - - Oxygen Saturation - - Inhaled Oxygen Concentration - - Weight 66.8 kg (147 lb 3.2 oz) 10/24/2023 3:00 P M EDT Height - - Body Mass Index 26.92 04/03/2023 1:11 PM EST documented in this encounter Progress Notes * Krystyna Adkins CRNP - 10/26/2023 7:37 AM EDT ALT elevated at 45, will check additional labs, and arrange fibroscan. * Krystyna Adkins CRNP - 10/24/2023 3:07 PM EDT Consult requested by REF: NUNU RENTERIA [id number] [facility], [place] [address] (office) [phone] (fax) CC: Elevated LFTs HPI: Ms. Carolyn Alexander is a 53 year old female pt of [facility] with a hx DM-2, HLD who was seen here last year for microscopic colitis and is now referred for elevated LFTs. LFTs were Elevated in April when she was admitted to [facility] for urinary sepsis (records reviewed). She was seen by the gastroenterology group there, transaminitis was thought carissa secondary to the sepsis versus less likely DILI from the cefipime or Celebrex. There was mild ben e duct dilation on the noncontrast CT scan, but Liver US and MRCP were normal at that time. She hadabdominal pain at that time likely secondary to the UTI. She has not had a pattern of right upper quadrant abdominal pain after eating. No yellow eyes or skin. Denies increased alcohol intake. Diagnostic Testing: Colonoscopy Mar 2022: normal. Path: lymphocytic colitis. Stool Studies: for C-diff (-)/GI path (-) Feb/Mar 2022. Labs: tTg (-) LFTs at [facility]: T and direct bili remained normal AST April 29 to May 06: 27->118 ->66->20. AST was normal in June ALT same dates : 44->141->128->51 ALT was normal in June Latest Reference Range & Units 03/27/22 16:47 Albumin 3.8 - 5.0 g/dL 4.0 AST 10 - 35 U/L 25 ALT 10 - 35 U/L 40 (H) Alkaline Phosphatase 35 - 130 U/L 71 Bilirubin, Total <=1.2 mg/dL <0.2 (H): Data is abnormally high ROS: + chronic back pain from ankylosing spondylitis MS and GI positive as per HPI/ROS. A total of 12 systems were reviewed, all others (-). ALLERGIES: Review of patient's allergies indicates: Allergen Reactions Bactrim [Sulfamethoxazole-Trimethoprim] Rash Penicillins augmentin gave rash PMH/PSH/Soc Hx reviewed, significant for: Past Medical History: Diagnosis Date Chronic rhinitis DM type 2, goal A1c below 7 12/21/2013 Hypercholesteremia Past Surgical History: Procedure Laterality Date BREAST BIOPSY Left Benign BREAST BIOPSY Left benign BREAST BIOPSY Left benign BREAST BIOPSY Left benign BREAST BIOPSY Left benign BREAST BIOPSY Left benign BREAST LESION,OTHER,EXCISION Left 07/05/2015 07/05/2015 EXCISION OF CYST OR TUMOR BREAST performed by Pipe Alberto MD at OR [facility] dx epidermal inclusion cyst with surrounding scar / alos present in the specimen are benign ducts and lobules - DR. Pipe Alberto BREAST LESION,OTHER,EXCISION Left 11/08/2015 11/08/2015 EXCISION OF CYST OR TUMOR BREAST performed by Pipe Alberto MD at OR [facility] CARPAL TUNNEL SURGERY Right 2003 right - Dr. John CARPAL TUNNEL SURGERY Left [address] Quiroz COLONOSCOPY, DIAGNOSTIC (RECTUM) 04/17/2022 inflammation & lymphocytic colitis, fair prep / COLONOSCOPY FLEXIBLE PROXIMAL DIAGNOSTIC performed by Anthony Wong MD at ENDOSCOPY [facility] EGD, W/ENDOSCOPIC US 12/17/2016 gallstones, normal gastric bx/ESOPHAGOGASTRODUODENOSCOPY (EGD), FLEXIBLE, TRANSORAL, ENDOSCOPIC ULTRASOUND performed by Trent Denise MD at ENDOSCOPY [facility] INCISION OF BREAST LESION, DEEP 2000 clogged milk duct INFORMATION Left 11/2014 left - plantar faciatitis - Dr. Anderson -Pearson INFORMATION 11/2014 fussion 5, 6, and 7 - Dr. Chun [place] INFORMATION 11/2012 disc replacement , cervical 5 and 6 INFORMATION Right 2007 right shoulder , INFORMATION 2006 right wrist , Dr. Quiroz INJECT DX/THER SUBSTANCE INTERLAMINAR LUMBAR/SACRAL W IMAGE GUIDE 05/07/2022 INJECTION SPINE LUMBAR OR SACRAL performed by Andres Abraham DO at OR [facility] L-/S-SPINE PARAVERTEBRAL FACET INJ,1 LEVEL 12/28/2021 L-/S-SPINE PARAVERTEBRAL FACET INJ, 1 LEVEL performed by Andres Abraham DO at OR [facility] L-/S-SPINE PARAVERTEBRAL FACET INJ,1 LEVEL 03/19/2022 L-/S-SPINE PARAVERTEBRAL FACET INJ, 1 LEVEL performed by Andres Abraham DO at OR [facility] L-/S-SPINE PARAVERTEBRL FACET INJ,2 LEVELS 12/28/2021 L-/S-SPINE PARAVERTEBRAL FACET INJ, 2 LEVELS performed by Andres Abraham DO at OR [facility] L-/S-SPINE PARAVERTEBRL FACET INJ,2 LEVELS 03/19/2022 L-/S-SPINE PARAVERTEBRAL FACET INJ, 2 LEVELS performed by Andres Abraham DO at OR [facility] LAPAROSCOPY; CHOLECYSTECTOMY N/A 01/29/2017 LAPAROSCOPIC CHOLECYSTECTOMY performed by Pipe Alberto MD at [facility] REMOVAL OF WRIST LESION 2010 right SACROILIAC JOINT INJECT W/GUIDANCE 10/12/2021 INJECTION SACROILIAC JOINT performed by Andres Abraham DO at [facility] TENDON SHEATH INCISION, FINGER Left 04/03/2023 LEFT TRIGGER FINGER RELEASE performed by Pranav Mcgowan MD at OR [facility] TOTAL ABD HYSTERECTOMY W/WO REMOVAL OF TUBE(S) 12/23/2001 vaginal hysterectomy, has ovaries UNLISTED LAP;OVIDUCT/OVARY 10/04/2010 UNLISTED LAPAROSCOPY PROCEDURE OVIDUCT OVARY [place] MILAN ACU[place] [facility] Social History Socioeconomic History Marital status: Spouse name: Parveen Number of children: 2 Occupational History 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: [employer] Tobacco Use Smoking status: Every Day Current packs/day: 1.00 Average packs/day: 1 pack/day for 21.0 years (21.0 ttl pk-yrs) Types: Cigarettes Smokeless tobacco: Never Tobacco comments: decreased to 3 cigarettes/daily 2 months ago- but restarted Vaping Use Vaping status: Never Used Substance and Sexual Activity Alcohol use: Yes Comment: very rare Drug use: No Sexual activity: Yes Partners: Male control/protection: Surgical Comment: [place] Social Determinants of Health Financial Resource Strain: Low Risk (02/04/2023) Financial Resource Strain Do you have any trouble paying for your medications, or do you think you might in the future? (Adult - for ages 18 years and over): No Food Insecurity: No Food Insecurity (02/04/2023) Food Insecurity Do you need food for this week? (Adult - for ages 18 years and over): No Transportation Needs: No Transportation Needs (02/04/2023) Transportation Needs Do you have trouble getting a ride to medical visits or work? (Adult - for ages 18 years and over):Never True Social Connections: Socially Isolated (02/04/2023) Social Connections How often do you feel lonely or isolated from those around you? (Adult - for ages 18 years and over): Often Housing Stability: Low Risk (02/04/2023) Housing Stability Do you currently live in a correction or have no steady place to sleep at night? (Adult - for ages 18 years and over): No Do you think you are at risk of becoming homeless? (Adult - for ages 18 years and over): No Family history reviewed and significant for: Family History Problem Relation Name Age of Onset Neurological Disorder Mother migranes on her side Arthritis Mother Stroke Mother Mini strokes Breast Cancer Mother diagnosed in 2009 Other (breast cancer) Mother Diabetes Father Cancer Father mesothelioma/Lung = Stroke Father Lung Disorder Father Lung Cancer Rheum arthritis Sister Heart Disorder Brother Cancer Brother Seven Galo Tristan Lymphoma Arthritis Grandmother (Maternal) Hypertension Grandfather (Maternal) Breast Cancer Aunt (Paternal) Ovarian cancer Aunt (Paternal) Current Outpatient Medications Medication Sig Dispense Refill Melatonin 12 MG Oral Tablet Take 24 mg by mouth every night at bedtime. Lidocaine 5 % External Patch (Lidoderm) Place 1 Patch topically on the skin. As needed Rivaroxaban 10 MG Oral Tablet (Xarelto) Take 1 Tablet by mouth in the morning. Omeprazole 20 MG Oral Capsule Delayed Release (PriLOSEC) TAKE 1 CAPSULE BY MOUTH EVERY DAY 1 HOUR BEFORE THE FIRST MEAL OF THE DAY 90 Capsule 1 Biotin 5000 MCG Oral Tablet Take 1 [...] 1 Capsule before bedtime. 270 Capsule 1 Lisinopril 5 MG Oral Tablet (Prinivil) TAKE 1 TABLET BY MOUTH EVERY DAY IN THE MORNING 90 Tablet 1 One-A-Day Womens 50+ Oral Tablet Take 1 Tablet by mouth in the morning. Venlafaxine HCl ER 150 MG Oral Capsule Extended Release 24 Hour (Effexor XR) TAKE 1 CAPSULE BY MOUTH DAILY. DO NOT CUT, CRUSH OR CHEW 90 Capsule 1 Simvastatin 40 MG Oral Tablet (Zocor) Take 1 Tablet by mouth every evening. 90 Tablet 1 Ozempic (1 MG/DOSE) 4 MG/3ML Subcutaneous Solution Pen-injector (Semaglutide (1 MG/DOSE)) Inject 1 mg under the skin once a week. PLEASE FILL BABITA (Patient taking differently: Inject 2 mg under the skin once a week. PLEASE FILL BABITA) 9 mL 3 Venlafaxine HCl ER 75 MG Oral Capsule Extended Release 24 Hour (Effexor XR) Take 1 Capsule by mouthin the morning. WITH 150mg dose - [facility] dose [facility]mg [facility] 90 Capsule 0 Ascorbic Acid (VITAMIN C) 1000 MG Tablet Take 1 Tablet by mouth in the morning. insulin aspart (INSULIN ASPART) 100 UNIT/ML injection Use up to 50 units per day in insulin pump 1 Vial 0 Accu-Chek FastClix Lancets Use to test twice daily DX E11.9 200 Each 3 Accu-Chek Guide In Vitro Strip (Glucose Blood) Use to test twice daily DX E11.9 200 Strip 3 BLOOD GLUCOSE MONITOR SYSTEM W/DEVICE KIT measure and record glucose three times daily 1 Kit 0 No current facility-administered medications for this visit. EXAM: BP 140/80 | Pulse 99 | Temp 36.6 C (97.9 F) | Wt 66.8 kg (147 lb 3.2 oz) | LMP 11/29/2001 | BMI26.92 kg/m | BSA 1.71 m GENERAL: 53 year old female well developed and well nourished in no acute distress SKIN: no rashes, ulcers, or spider angiomata HEENT: normocephalic, sclera clear, pharynx normal NECK: supple, no lymphadenopathy, no masses or thyroid enlargement LUNGS: clear to auscultation anterior and posterior HEART: regular rate & rhythm, no murmurs and no gallops ABDOMEN: normo-active bowel sounds, soft, non-tender, non-distended no masses, no hepatosplenomegaly, no rebound or guarding, no bruits EXTREMITIES: no palmar erythema, no edema, no skin discoloration, no clubbing, no cyanosis NEURO: no lateralizing findings, Sensory/Motor grossly normal IMPRESSION/RECOMMENDATIONS: 53 [facility] LFTs returned to normal after that. Liver ultrasound and MRCP were normal. I would agree with the gastroenterology consult that was completed at that time. We will recheck liver function studies as well as studies for autoimmune hepatitis. Elevated liver enzymes (Primary) - HEPATIC FUNCTION PANEL; Future; Expected date: 10/24/2023 - ANTINUCLEAR ANTIBODY (GALINDO) EIA SCREEN WITH REFLEX AB QUANT - MITOCHONDRIAL ANTIBODY; Future; Expected date: 10/24/2023 - PT INR; Future; Expected date: 10/24/2023 ASMA was normal at [facility] If any abnormalities in the above labs, I will contact the patient with follow- up otherwise return to GI on an as-needed basis. I spent a total of 30 minutes on the date of service in review of patient's record, and previously obtained information in person and appropriate medical visit, discussion and education of plan, withpatient and/or caregiver, placing orders for tests/referral/procedures as medically necessary and documentation of pertinent clinical information in patient's medical records for their visit today. [facility] Gastroenterology documented in this encounter Miscellaneous Notes * Addendum Note - Krystyna Adkins CRNP - 10/26/2023 7:56 AM EDTAddended by: KRYSTYNA ADKINS on: 10/26/2023 07:56 AM Modules accepted: Orders * Addendum Note - Krystyna Adkins CRNP - 10/26/2023 7:40 AM EDTAddended by: KRYSTYNA ADKINS on: 10/26/2023 07:40 AM Modules accepted: Orders documented in this encounter Plan of Treatment Upcoming Encounters Date Type Department Care Team (Late st Contact Info) Description 01/28/2024 3:00 PM EST Office Visit Rheumatology [facility] [address] [place] [address] Rebekah Harris CRNP [address] [place] [address] Scheduled Orders Name Type Priority Associated Diagnoses Orde r Schedule IRON Lab Routine Elevated liver enzymes Ordered: 10/26/2023 LIVER ELASTOGRAPHY W/O IMAGING Procedures Routine Elevated liver enzymes Ordered: 10/26/2023 [id number], QN Lab Routine Elevated liver enzymes Ordered: 10/26/2023 CERULOPLASMIN Lab Routine Elevated liver enzymes Ordered: 10/26/2023 FERRITIN Lab Routine Elevated liver enzymes Expected: 10/26/2023, Expires: 10/25/2024 HEPATITIS B CORE ANTIBODIES IGG AND IGM Lab Routine Elevated liver enzymes Ordered: 10/26/2023 HEPATITIS B CORE ANTIBODY IGM Lab Routine Elevated liver enzymes Ordered: 10/26/2023 HEPATITIS B SURFACE ANTIBODY Lab Routine Elevated liver enzymes Ordered: 10/26/2023 HEPATITIS B SURFACE ANTIGEN Lab Routine Elevated liver enzymes Ordered: 10/26/2023 HEPATITIS C ANTIBODY Lab Routine Elevated liver enzymes Ordered: 10/26/2023 IGA Lab Routine Elevated liver enzymes Ordered: 10/26/2023 IRON SCREEN, INCLUDING TIBC Lab Routine Elevated liver enzymes Ordered: 10/26/2023 TISSUE TRANSGLUTAMINASE IGA ANTIBODY Lab Routine Elevated liver enzymes Ordered: 10/26/2023 Health Maintenance Due Date Last Done Comments Zoster Vaccines (1 of 2) 1989 DISCUSS TOBACCO CESSATION (REFER TO SMARTSET #3291) 06/22/2015 06/21/2014 Fecal Occult Blood Test 10/01/2015 Sigmoidoscopy 10/01/2015 DTap/Tdap Vaccines (2 - Td or Tdap) 09/17/2017 09/18/2007 COVID-19 Vaccine (3 - Moderna risk series) 01/26/2021 12/29/2020, 12/01/2020 Albumin/Creatinine Ratio 08/22/2021 021, 11/23/2019, 12/02/2017, Additional [...] Additional history exists Lipid Panel 12/25/2026 12/25/2021, 02/2020, 08/22/2020, Additional history exists Colonoscopy 04/17/2032 04/17/2022, 04/17/2022 Colorectal Cancer Screening 04/17/2032 Pneumococcal Vaccine: Pediatrics (0 to 5 Years) and At-Risk Patients (6 to 64 Years) (3 of 3 - PPSV23 or PCV20) 10/01/2035 02/02/2016, 01/26/2015 Lung Cancer Screening Completed 07/12/2022, 022 HPV (Gardasil) Vaccine Aged Out No lo nger eligible based on patient's age to complete this topic MENINGOCOCCAL (MENACTRA/MENVEO) Aged Out No longer eligible based on patient's age to complete this topic documented as of this encounter Medical Devices Not on filedocumented as of this encounter Procedures Procedure Name Priority Date/Time Associated Diagnosis Comments ANTINUCLEAR ANTIBODY (GALINDO) SCREEN, YAIMA Routine 10/24/2023 3:30 PM EDT Elevated liver enzymes ANTINUCLEAR ANTIBODY (GALINDO) EIA SCREEN WITH REFLEX AB QUANT Routine 10/24/2023 3:30 PM EDT Elevated liver enzymes documented in this encounter Results * ANTINUCLEAR ANTIBODY (GALINDO) SCREEN, YAIMA (10/24/2023 3:30 PM EDT) GALINDO Screen Negative Negative 10/25/2023 1:03 PM EDT [facility] dsDNA Antibody Interpretation Negative Negative 10/25/2023 1:03 PM EDT [facility] dsDNA Antibody Value <0.6 <20 IU/mL 10/25/2023 1:03 PM EDT [facility] ABILIO Antibodies Screen Interpretation Negative Negative 10/25/2023 1:03 PM EDT [facility] ABILIO Antibodies Screen Value 0.1 <0.7 Ratio 10/25/2023 1:03 PM EDT [facility] Comment: Screening is based on detection of the following antibodies: dsDNA, U1-BOARD CERTIFIED ARTS THERAPIST (RNP70, A, C), SS-A/Ro, SS-B / La, Chasidy-1, Scl-70, Centromere B proteins and Sm proteins. In conjunction with clinical findings, this can aid in the diagnosis of systemic lupus erythematosous (SLE), mixed connective tissue disease (MCTD), Sjogren's syndrome, scleroderma and polymyositis/dermatomyositis. However, a negative result does not rule out systemic rheumatic or other autoimmune disease. If clinically suspected, further evaluation and testing may be necessary. Please consult with Rheumatology Department. Methodology: Fluorescent Enzyme Immunoassay. Blood Venous blood specimen / Unknown Venipuncture / Unknown 10/24/2023 3:30 PM EDT 10/24/2023 3:30 PM EDT Krystyna OMAL[facility] LAB BLOOD ORDERABL ES [facility] [address] [place] [address] * PT INR (10/24/2023 3:30 PM EDT) Prothrombin Time 12.4 11.6 - 15.2 seconds 10/24/2023 4:08 PM EDT [facility] [place] INR 0.9 0.8 - 1.2 10/24/2023 4:08 PM EDT [facility] [place] [facility] Blood Venous blood specimen / Unknown Venipuncture / Unknown 10/24/2023 3:30 PM EDT 10/24/2023 3:30 PM EDT Narrative [facility] [place] [facility] - 10/24/2023 4:08 PM EDT Warfarin Therapy INR: 2.0-3.0 conventional anticoagulation INR: 2.5-3.5 high intensity anticoagulation Krystyna OMALLEY LAB BLOOD ORDERABL ES [facility] [place] [facility] [place] [address] * MITOCHONDRIAL ANTIBODY (10/24/2023 3:30 PM EDT) Pathologist [facility] M2 IgG Antibody Interpretation Negative Negative 10/25/2023 10:45 AM EDT [facility] M2 IgG Antibody Value 2.0 <4 U/mL 10/25/2023 10:45 AM EDT [facility] Blood Venous blood specimen / Unknown Venipuncture / Unknown 10/24/2023 3:30 PM EDT 10/24/2023 3:30 PM EDT Krystyna OMALLEY LAB BLOOD ORDERABL ES [facility] [address] [place] [address] * (ABNORMAL) HEPATIC FUNCTION PANEL (10/24/2023 3:30 PM EDT) Albumin 4.6 3.8 - 5.0 g/dL 10/24/2023 5:09 PM EDT [facility] [place] [facility] AST 19 10 - 35 U/L 10/24/2023 5:09 PM EDT [facility] [place] [facility]10 Alkaline Phosphatase 124 35 - 130 U/L 10/24/2023 5:09 PM EDT [facility] [place] [facility] ALT 45(H) 10 - 35 U/L 10/24/2023 5:09 PM EDT [facility] [place] [facility]10 Bilirubin, Total <0.2 <=1.2 mg/dL 10/24/2023 5:09 PM EDT [facility] Bilirubin, Direct <0.2 0.0 - 0.3 mg/dL 10/24/2023 5:09 PM EDT [facility] Protein 7.1 6.0 - 8.3 g/dL 10/24/2023 5:09 PM EDT [facility] Blood Venous blood specimen / Unknown Venipuncture / Unknown 10/24/2023 3:30 PM EDT 10/24/2023 3:30 PM EDT Krystyna OMALLEY LAB BLOOD ORDERABL ES [facility] [place] [id number] documented in this encounter Visit Diagnoses Diagnosis [...] and were consensually agreed upon. Care Teams Ssn/Ssbn Assistant Navigator Relationship Specialty Start Date End Date [place], [facility] [address] [facility] [place] [address] PCP - General 08/15/23 documented as of this encounter"
--- OUTSIDE RECORDS SUMMARY | 2024-02-14 12:24 | External Medical Summary | Summary of Care ---
Author Name Unknown Organization [facility] Address [address] [facility] [place] [address] Phone [phone] Care Team Providers Care Linux System Admin Name Role Phone Maryann Hurst PA-C Primary Care Provid er Reason for Visit * Reason Comments Rheum Follow Up Recheck Encounter Details Date Type Department Care Team (Latest Contact Info) Description 01/28/2024 3:00 PM EST Office Visit Rheumatology [facility] [address] [place] [address] Rebekah Harris CRNP [address] [place] [address] Ankylosing spondylitis, unspecified site of spine (HCC)*; Encounter for therapeutic drug monitoring; Generalized osteoarthritis Allergies Active Allergy Reactions Criticality Noted Date Comments Sulfamethoxazole-Trimethoprim Rash High 2015 Penicillins 01/24/2001 augmentin gave rash documented as of this encounter (statuses as of 01/28/2024) Medications BLOOD GLUCOSE MONITOR SYSTEM W/DEVICE KITIndications:D M type 2, goal A1c below 7 measure and record glucose three times daily 1 Kit 0 12/22/19 14 Active insulin aspart (INSULIN ASPART) 100 UNIT/ML injectionIndicat ions:Type 2 diabetes mellitus with hemoglobin A1c goal of less than 7.0% ([facility]) Use up to 50 units per day in insulin pump 1 Vial 01/21/20 18 Active Ascorbic Acid (VITAMIN C) 1000 MG Tablet Take 1 Tablet by mouth in the morning. Active Venlafaxine HCl ER 75 MG Oral Capsule Extended Release 24 Hour (Effexor XR) Take 1 Capsule by mouth in the morning. WITH 150mg dose - [facility] dose [facility] 90 Capsule 01/24/20 21 Active Ozempic (1 MG/DOSE) 4 MG/3ML Subcutaneous Solution Pen-injector (Semaglutide (1 MG/DOSE)) Inject 1 mg under the skin once a week. PLEASE FILL BABITA 9 mL 3 01/27/20 22 Active Additional Information Patient taking differently: 2 mgSubcutaneous QWEEK, PLEASE FILL BABITA, Reported on 01/28/2024 Accu-Chek Guide In Vitro Strip (Glucose Blood) Use to test twice daily DX E11.9 200 Strip 3 02/23/20 Active Accu-Chek FastClix Lancets Use to test twice daily DX E11.9 200 Each 3 02/23/20 Active Venlafaxine HCl ER 150 MG Oral Capsule Extended Release 24 Hour (Effexor XR)Indications:D epression with anxiety TAKE 1 CAPSULE BY MOUTH DAILY. DO NOT CUT, CRUSH OR CHEW 90 Capsule 1 04/10/19 23 Active Simvastatin 40 MG Oral Tablet (Zocor)Indicatio ns:Elevated glucose,Dyslipid emia, goal LDL below 160 Take 1 Tablet by mouth every evening. 90 Tablet 1 04/09/19 23 Active One-A-Day Womens 50+ Oral Tablet Take 1 Tablet by mouth in the morning. Active Lisinopril 5 MG Oral Tablet (Prinivil) TAKE 1 TABLET BY MOUTH EVERY DAY IN THE MORNING 90 Tablet 1 05/21/19 23 Active Gabapentin 300 MG Oral Capsule (Neurontin)Indic ations:Neuropath y Take 1 Capsule by mouth in the morning and 1 Capsule at noon and 1 Capsule before bedtime. 270 Capsule 1 06/05/19 23 Active Cetirizine HCl 10 MG Oral Capsule [...] MEAL OF THE DAY 90 Capsule 1 08/23/19 23 Active Lidocaine 5 % External Patch (Lidoderm) Place 1 Patch topically on the skin. As needed Active Melatonin 12 MG Oral Tablet Take 24 mg by mouth every night at bedtime. 04/30/19 24 Active Enbrel SureClick 50 MG/ML Subcutaneous Solution Auto-injector (Etanercept)Brenda cations:Ankylosi ng spondylitis of lumbosacral region (HCC) Inject 50 mg under the skin once a week. 4 mL 2 10/25/19 24 Active 6.75-0.2 MG Oral Tablet Take by mouth. Activ e documented as of this encounter (statuses as of 01/28/2024) Active Problems Problem Noted Date Diagnosed Date [...] as of this encounter (statuses as of 01/28/2024) Resolved Problems Problem Noted Date Diagnosed Date [...] as of this encounter (statuses as of 01/28/2024) Immunizations Name Administration Dates Next Due COVID-19 [...] Reading Time Taken Comments Blood Pressure 140/80 01/28/2024 2:53 PM EST Pulse - - Temperature 36.1 C (96.9 F) 01/28/2024 2:53 PM ES T Respiratory Rate - - Oxygen Saturation - - Inhaled Oxygen Concentration - - Weight 68.5 kg (151 lb) 01/28/2024 2:53 PM EST Height - - Body Mass Index 27.62 12/30/2023 9:00 AM EST documented in this encounter Progress Notes * Harris SheilaLYSSA Wright - 01/28/2024 3:01 PM EST Date of last clinic visit reviewed: 10/14/2023 Current medication therapy: Enbrel Prior medication therapy: Etodolac 500 mg BID, Cosentyx, Humira, Mobic, Prednisone, Celebrex Date of last labs reviewed: 10/29/2023 Liver panel Subjective: Patient seen today for further follow up evaluation of osteoarthritis, ankylosing spondylitis. Since the last visit she started Enbrel weekly without missed doses or adverse effects. She notes that her pain is not as sharp and intense as it used to be. She notes her pain is not gone but is much more tolerable. She notes that she was moving furniture for the holidays and was sore for 2 days. Notesher hands have improved as well. Notes [facility] and Lidoderm patches with benefit. Reports taking Ibuprofen in the AM. Reports that she is starting to have better sleeps. Reports that [facility]. Reports she takes gabapentin 300 mg in the Am and 600 mg at night with benefit. She notes that lifting bags at work, sitting or standing too long makes her pain worse. Musculoskeletal ROS: . Abnormal: back pain . AM stiffness (hours): 2 . Pain scale (0-10): 6 . Fatigue scale (0-10): 5 . Job status: working Other ROS: . Constitutional: fatigue and trouble sleeping . Head sinus SANDOVAL intermittent . Eyes: normal . Ears, nose, throat, mouth: dry mouth . Cardiovascular: normal . Respiratory: normal . Gastrointestinal: normal . Genitourinary: normal . Skin: normal . Neurologic: normal All other ROS reviewed and negative. Pertinent positives listed in HPI. Social History: Social History Tobacco Use Smoking status: Every Day Current [...] MEAL OF THE DAY 90 Capsule 1 Lidocaine 5 % External Patch (Lidoderm) Place 1 Patch topically on the skin. As needed Melatonin 12 MG Oral Tablet Take 24 mg by mouth every night at bedtime. Enbrel SureClick 50 MG/ML Subcutaneous Solution Auto-injector (Etanercept) Inject 50 mg under the skin once a week. 4 mL 2 6.75-0.2 MG Oral Tablet Take by mouth. No current facility-administered medications for this visit. Physical Exam: BP 140/80 | Temp 36.1 C (96.9 F) (Infrared ) | Wt 68.5 kg (151 lb) | LMP 11/29/2001 | BMI 27.62kg/m | BSA 1.73 m General: alert, healthy, and no distress HENT: normocephalic, external ears normal, no mucosal erythema, no mucosal edema, moist mucosa, no oral ulcers Eye Exam: PERRL, EOMI, conjunctiva are pink and non-injected, sclera clear Neck: supple, no adenopathy Lymph: no palpable lymphadenopathy Heart: regular rate & rhythm, no murmur, and no gallops Lungs: clear to auscultation , no rales, wheezes or rhonchi Extremities: no edema, no clubbing, no cyanosis Neuro Exam: alert & oriented x 3 with fluent speech, no focal motor/sensory deficits, gait normal Skin: skin color, texture, turgor are normal, no rashes or significant lesions Musculoskeletal Exam: A comprehensive musculoskeletal exam was performed for all joints of each upper and lower extremity and assessed for swelling, tenderness and range of motion. No peripheral joint tenderness. Good range of motion of all joints. No SI joint tenderness. No joint swelling. Decreased range of motion of neck. Assessment: (M45.9) Ankylosing spondylitis, unspecified site of spine (HCC) (primary encounter diagnosis) (Z51.81) Encounter for therapeutic drug monitoring Plan: CBC WITH WBC DIFFERENTIAL, COMPREHENSIVE METABOLIC PANEL (M15.9) Generalized osteoarthritis Ms Alexander returns today for management of and OA. She is doing overall well from an standpointon Enbrel. She feels she has made progress of her back and hand pain since starting this medication. We will continue Enbrel at this time. Advised patient to follow up in 5 months. Patient advised to hold any immunosuppressant medication if they are sick or on antibiotics. Labs ordered for monitoring for medication toxicity. We will get release of records for [place] labs, CBC and CMP printed and given to the patient and case she did not get those particular labs drawn. Patient advised to contact the clinic with questions, concerns, worsening symptoms. Plan: 1. Labs: Update CBC/CMP if they were not done in December at [place] 2. We will have patient sign release of records for the [place] for most recent labs 3. Continue Enbrel 4. Follow up 5 months, sooner if needed 5. Contact clinic with any questions, concerns, worsening symptoms CC HITESH Pacheco CRNP Department of Rheumatology The patient was discussed with me. I agree with the findings and plan as documented by Rebekah OMALLEY/ in this note. Quentin Hernandez MD Rheumatology Department documented in this encounter Nursing Notes * Caro Davila LPN - 01/28/2024 2:51 PM EST Chief Complaint Patient presents with Rheum Follow Up Recheck documented in this encounter Plan of Treatment Upcoming Encounters Date Type Department Care Team (Late st Contact Info) Description 07/10/2024 3:00 PM EDT Office Visit Rheumatology [facility] [address] [facility] [place] [address] Rebekah Harris CRNP [address] [place] [address] Scheduled Orders Name Type Priority Associated Diagnoses Orde r Schedule CBC WITH WBC DIFFERENTIAL Lab Routine Encounter for therapeutic drug monitoring Expected: 01/28/2024, Expires: 01/27/2025 COMPREHENSIVE METABOLIC PANEL Lab Routine Encounter for therapeutic drug monitoring Expected: 01/28/2024, Expires: 01/27/2025 Health Maintenance Due Date Last Done Comments [...] spondylitis, unspecified site of spine (HCC)- Primary Encounter for therapeutic drug monitoring Generalized osteoarthritis Generalized osteoarthrosis, unspecified site documented in this encounter Advance Directives * [...] and were consensually agreed upon. Care Teams Linux System Admin Relationship Specialty Start Date End Date Maryann Hurst PA-C [address] [facility] [place] [address] PCP - General Physician Interceptor Operator 12/30/23 documented as of this encounter"
--- OUTSIDE RECORDS SUMMARY | 2024-02-14 12:24 | External Medical Summary | Summary of Care ---
Author Name Unknown Organization [facility] Address [address] [facility] [place] [address] Phone [phone] Care Team Providers Care Lunch Cook Name Role Phone [place] [facility] Primary Care Provider Reason for Visit * Reason Comments Follow Up Pt reports that she has bloating, painful cramps, then she will have a BM Encounter Details Date Type Department Care Team (Late st Contact Info) Description 10/24/2023 3:00 PM EDT Office Visit Gastroenterology, [facility] [address] [place] [address] Krystyna Adkins CRNP [address] [place] [address] Elevated liver enzymes* Allergies Active Allergy Reactions [...] No 02/04/2023 Does the household have a [facility] source of income? (Household - for [...] EDT Consult requested by REF: NUNU RENTERIA [address] [facility], [place] [address] (office) [phone] (fax) CC: Elevated LFTs HPI: Ms. Carolyn Alexander is a 53 year old female pt of [facility] [place] with a hx DM-2, HLD who was seen here last year for microscopic colitis and is now referred for elevated LFTs. LFTs were Elevated in April when she was admitted to [facility] for urinary sepsis (records reviewed). She [...] Feb/Mar 2022. Labs: tTg (-) LFTs at [facility]: T and direct bili remained normal AST [...] performed by Pipe Alberto MD at OR [facility] dx epidermal inclusion cyst with surrounding scar / alos present in the specimen are benign ducts and lobules - DR. Pipe Alberto BREAST LESION,OTHER,EXCISION Left 11/08/2015 11/08/2015 EXCISION OF CYST OR TUMOR BREAST performed by Pipe Alberto MD at OR [facility] CARPAL TUNNEL SURGERY Right 2003 right - Dr. John CARPAL TUNNEL SURGERY Left [address] Quiroz COLONOSCOPY, DIAGNOSTIC (RECTUM) 04/17/2022 inflammation & lymphocytic colitis, fair prep / COLONOSCOPY FLEXIBLE PROXIMAL DIAGNOSTIC performed by Anthony Wong MD at ENDOSCOPY [facility] EGD, W/ENDOSCOPIC US 12/17/2016 gallstones, normal gastric bx/ESOPHAGOGASTRODUODENOSCOPY (EGD), FLEXIBLE, TRANSORAL, ENDOSCOPIC ULTRASOUND performed by Trent Denise MD at ENDOSCOPY [facility] INCISION OF BREAST LESION, DEEP 2000 clogged milk duct INFORMATION Left 11/2014 left - plantar faciatitis - Dr. Anderson -[facility] INFORMATION 11/2014 fussion 5, 6, and 7 - Dr. Chun [place] INFORMATION 11/2012 disc replacement , cervical 5 and 6 INFORMATION Right 2007 right shoulder , INFORMATION 2006 right wrist , Dr. Quiroz INJECT DX/THER SUBSTANCE INTERLAMINAR LUMBAR/SACRAL W IMAGE GUIDE 05/07/2022 INJECTION SPINE LUMBAR OR SACRAL performed by Andres Abraham DO at OR [facility] L-/S-SPINE PARAVERTEBRAL FACET INJ,1 LEVEL 12/28/2021 L-/S-SPINE PARAVERTEBRAL FACET INJ, 1 LEVEL performed by Andres Abraham DO at OR [facility] L-/S-SPINE PARAVERTEBRAL FACET INJ,1 LEVEL 03/19/2022 L-/S-SPINE PARAVERTEBRAL FACET INJ, 1 LEVEL performed by Andres Abraham DO at OR [facility] L-/S-SPINE PARAVERTEBRL FACET INJ,2 LEVELS 12/28/2021 L-/S-SPINE PARAVERTEBRAL FACET INJ, 2 LEVELS performed by Andrse Abraham DO at OR [facility] L-/S-SPINE PARAVERTEBRL FACET INJ,2 LEVELS 03/19/2022 L-/S-SPINE PARAVERTEBRAL FACET INJ, 2 LEVELS performed by Andres Abraham DO at OR [facility] LAPAROSCOPY; CHOLECYSTECTOMY N/A 01/29/2017 LAPAROSCOPIC CHOLECYSTECTOMY performed by Pipe Alberto MD at [facility] REMOVAL OF WRIST LESION 2010 right SACROILIAC JOINT INJECT W/GUIDANCE 10/12/2021 INJECTION SACROILIAC JOINT performed by Andres Abraham DO at [facility] TENDON SHEATH INCISION, FINGER Left 04/03/2023 LEFT TRIGGER FINGER RELEASE performed by Pranav Mcgowan MD at OR [facility] TOTAL ABD HYSTERECTOMY W/WO REMOVAL OF TUBE(S) 12/23/2001 vaginal hysterectomy, has ovaries UNLISTED LAP;OVIDUCT/OVARY 10/04/2010 UNLISTED LAPAROSCOPY PROCEDURE OVIDUCT OVARY performed by MILAN ACUNA at [facility] Social History Socioeconomic History Marital status: Spouse [...] Stability Do you currently live in a mcfp or have no steady place to sleep [...] [facility] LFTs [...] Expected date: 10/24/2023 ASMA was normal at [facility] If any abnormalities in the above labs, [...] records for their visit today. LYSSA Muñoz [facility] Gastroenterology documented in this encounter Miscellaneous Notes * Addendum Note - Krystyna Adkins CRNP - 10/26/2023 7:40 AM EDTAddended by: KRYSTYNA ADKINS on: 10/26/2023 07:40 AM Modules accepted: Orders documented in this encounter Plan of Treatment Upcoming Encounters Date Type Department Care Team (Late st Contact Info) Description 01/28/2024 3:00 PM EST Office Visit Rheumatology [address] [place] [address] Rebekah Harris [facility] [address] Scheduled Orders Name Type Priority Associated Diagnoses Orde r Schedule [id number], QN Lab Routine Elevated liver enzymes Ordered: 10/26/2023 CERULOPLASMIN Lab Routine Elevated liver enzymes Ordered: 10/26/2023 IRON Lab Routine Elevated liver enzymes Ordered: 10/26/2023 FERRITIN Lab Routine Elevated liver enzymes Expected: 10/26/2023, Expires: 10/25/2024 TISSUE TRANSGLUTAMINASE IGA ANTIBODY Lab Routine Elevated [...] liver enzymes Ordered: 10/26/2023 HEPATITIS B CORE ANTIBODIES IGG AND IGM Lab Routine Elevated liver enzymes Ordered: 10/26/2023 LIVER ELASTOGRAPHY W/O IMAGING Procedures Routine Elevated liver enzymes Ordered: 10/26/2023 Health [...] Depression Monitoring 04/05/2022 04/05/2021 HbA1c 09/24/2022 03/27/2022, 1002/2021, 12/26/2020, Additional history exists Mammogram 02/13/2023 02/13/2022, [...] Negative Negative 10/25/2023 1:03 PM EDT [facility] dsDNA Antibody Interpretation Negative Negative 10/25/2023 1:03 PM EDT [facility] dsDNA Antibody Value <0.6 <20 IU/mL 10/25/2023 1:03 PM EDT LABORATORY [facility] ABILIO Antibodies Screen Interpretation Negative Negative 10/25/2023 1:03 PM EDT LABORATORY [facility] ABILIO Antibodies Screen Value 0.1 <0.7 Ratio 10/25/2023 1:03 PM EDT LABORATORY [facility] Comment: Screening is based on detection of the following antibodies: dsDNA, U1-CARGO AND RAMP SERVICES MANAGER (RNP70, A, C), SS-A/Ro, SS-B / La, [...] Krystyna OMALLEY LAB BLOOD ORDERABL ES LABORATORY [facility] [address] [place] [address] * PT INR (10/24/2023 3:30 PM EDT) [...] conventional anticoagulation INR: 2.5-3.5 high intensity anticoagulation Libiamagali Foote Christopher OMALLEY LAB BLOOD ORDERABL ES [facility] [address] [place] [address] * MITOCHONDRIAL ANTIBODY (10/24/2023 3:30 PM EDT) M2 IgG Antibody Interpretation Negative Negative 10/25/2023 10:45 AM EDT LABORATORY [facility] M2 IgG Antibody Value 2.0 <4 U/mL 10/25/2023 10:45 AM EDT LABORATORY [facility] Blood Venous blood specimen / Unknown Venipuncture / Unknown 10/24/2023 3:30 PM EDT 10/24/2023 3:30 PM EDT Krystyna Foote Christopher OMALLEY LAB BLOOD ORDERABL ES LABORATORY [facility] [address] [place] [address] * (ABNORMAL) HEPATIC FUNCTION PANEL (10/24/2023 3:30 [...] <=1.2 mg/dL 10/24/2023 5:09 PM EDT LABORATORY [place] 57-10 Bilirubin, Direct <0.2 0.0 - 0.3 mg/dL 10/24/2023 5:09 PM EDT LABORATORY [place] 57-10 Protein 7.1 6.0 - 8.3 g/dL 10/24/2023 5:09 PM EDT LABORATORY [place] 57-10 Blood Venous blood specimen / Unknown Venipuncture / Unknown 10/24/2023 3:30 PM EDT 10/24/2023 3:30 PM EDT Krystyna Foote Christopher OMALLEY LAB BLOOD ORDERABL ES LAB[facility]ATORY [facility] [address] [place] [address] documented in this encounter Visit Diagnoses Diagnosis [...] and were consensually agreed upon. Care Teams Lunch Cook Relationship Specialty Start Date End Date [place] [facility] [address] [address] PCP - General 08/15/23 documented as of this encounter"
--- OUTSIDE RECORDS SUMMARY | 2024-02-14 12:25 | External Medical Summary | Summary of Care ---
Author Name Unknown Organization [facility] Address [address] [facility] [place] [address] Phone [phone] Care Team Providers Care Rubber Roller Grinder Name Role Phone [place] [facility] Primary Care Provider Reason for Visit * Reason Comments Follow Up Pt reports that she has bloating, painful cramps, then she will have a BM Encounter Details Date Type Department Care Team (Late st Contact Info) Description 10/24/2023 3:00 PM EDT Office Visit Gastroenterology, [facility] [address] [place] [address] Krystyna Adkins CRNP [address] [place] [address] Elevated liver enzymes* Allergies Active Allergy Reactions [...] No 02/04/2023 Does the household have a [facility] source of income? (Household - for [...] EDT Consult requested by REF: NUNU RENTERIA [address] [facility], [place] [address] (office) [phone] (fax) CC: Elevated LFTs HPI: Ms. Carolyn Alexander is a 53 year old female pt of [facility] [place] with a hx DM-2, HLD who was seen here last year for microscopic colitis and is now referred for elevated LFTs. LFTs were Elevated in April when she was admitted to [facility] for urinary sepsis (records reviewed). She [...] Feb/Mar 2022. Labs: tTg (-) LFTs at [facility]: T and direct bili remained normal AST [...] performed by Pipe Alberto MD at OR [facility] dx epidermal inclusion cyst with surrounding scar / alos present in the specimen are benign ducts and lobules - DR. Pipe Alberto BREAST LESION,OTHER,EXCISION Left 11/08/2015 11/08/2015 EXCISION OF CYST OR TUMOR BREAST performed by Pipe Alberto MD at OR [facility] CARPAL TUNNEL SURGERY Right 2003 right - Dr. John CARPAL TUNNEL SURGERY Left [address] Quiroz COLONOSCOPY, DIAGNOSTIC (RECTUM) 04/17/2022 inflammation & lymphocytic colitis, fair prep / COLONOSCOPY FLEXIBLE PROXIMAL DIAGNOSTIC performed by Anthony Wong MD at ENDOSCOPY [facility] EGD, W/ENDOSCOPIC US 12/17/2016 gallstones, normal gastric bx/ESOPHAGOGASTRODUODENOSCOPY (EGD), FLEXIBLE, TRANSORAL, ENDOSCOPIC ULTRASOUND performed by Trent Denise MD at ENDOSCOPY [facility] INCISION OF BREAST LESION, DEEP 2000 clogged milk duct INFORMATION Left 11/2014 left - plantar faciatitis - Dr. Anderson -[place] INFORMATION 11/2014 fussion 5, 6, and 7 - Dr. Chun [place] INFORMATION 11/2012 disc replacement , cervical 5 and 6 INFORMATION Right 2007 right shoulder , INFORMATION 2006 right wrist , Dr. Quiroz INJECT DX/THER SUBSTANCE INTERLAMINAR LUMBAR/SACRAL W IMAGE GUIDE 05/07/2022 INJECTION SPINE LUMBAR OR SACRAL performed by Andres Abraham DO at OR [facility] L-/S-SPINE PARAVERTEBRAL FACET INJ,1 LEVEL 12/28/2021 L-/S-SPINE PARAVERTEBRAL FACET INJ, 1 LEVEL performed by Andres Abraham DO at OR [facility] L-/S-SPINE PARAVERTEBRAL FACET INJ,1 LEVEL 03/19/2022 L-/S-SPINE PARAVERTEBRAL FACET INJ, 1 LEVEL performed by Andres Abraham DO at OR [facility] L-/S-SPINE PARAVERTEBRL FACET INJ,2 LEVELS 12/28/2021 L-/S-SPINE PARAVERTEBRAL FACET INJ, 2 LEVELS performed by Andres Abraham DO at OR [facility] L-/S-SPINE PARAVERTEBRL FACET INJ,2 LEVELS 03/19/2022 L-/S-SPINE PARAVERTEBRAL FACET INJ, 2 LEVELS performed by Andres Abraham DO at OR [facility] LAPAROSCOPY; CHOLECYSTECTOMY N/A 01/29/2017 LAPAROSCOPIC CHOLECYSTECTOMY performed by Pipe Alberto MD at [facility] REMOVAL OF WRIST LESION 2010 right SACROILIAC JOINT INJECT W/GUIDANCE 10/12/2021 INJECTION SACROILIAC JOINT performed by Andres Abraham DO at [facility] TENDON SHEATH INCISION, FINGER Left 04/03/2023 LEFT TRIGGER FINGER RELEASE performed by Pranav Mcgowan MD at OR [facility] TOTAL ABD HYSTERECTOMY W/WO REMOVAL OF TUBE(S) 12/23/2001 vaginal hysterectomy, has ovaries UNLISTED LAP;OVIDUCT/OVARY 10/04/2010 UNLISTED LAPAROSCOPY PROCEDURE OVIDUCT OVARY performed by MILAN ACUNA at OR [facility] Social History Socioeconomic History Marital status: Spouse [...] [facility]. LFTs returned [...] Expected date: 10/24/2023 ASMA was normal at [facility] If any abnormalities in the above labs, [...] records for their visit today. LYSSA Muñoz [facility] Gastroenterology documented in this encounter Miscellaneous Notes * Addendum Note - Krystyan Adkins CRNP - 10/26/2023 7:40 AM EDTAddended by: KRYSTYNA ADKINS on: 10/26/2023 07:40 AM Modules accepted: Orders documented in this encounter Plan of Treatment Upcoming Encounters Date Type Department Care Team (Late st Contact Info) Description 01/28/2024 3:00 PM EST Office Visit Rheumatology [address] [place] [address] Rebekah Harris CRNP [facility] [place] [address] Scheduled Orders Name Type Priority Associated Diagnoses Orde r Schedule [id number], QN Lab Routine Elevated liver enzymes Ordered: [...] <20 IU/mL 10/25/2023 1:03 PM EDT LABORATORY [facility] ABILIO Antibodies Screen Interpretation Negative Negative 10/25/2023 1:03 PM EDT LABORATORY [facility] ABILIO Antibodies Screen Value 0.1 <0.7 Ratio 10/25/2023 1:03 PM EDT LABORATORY [facility] Comment: Screening is based on detection of the following antibodies: dsDNA, U1-TWIST PACKER (RNP70, A, C), SS-A/Ro, SS-B / La, [...] Krystyna OMALLEY LAB BLOOD ORDERABL ES LABORATORY [facility] [address] [place] [address] * PT INR (10/24/2023 3:30 PM EDT) [...] Christopher OMALLEY LAB BLOOD ORDERABL ES [facility] [address] [place] [address] * MITOCHONDRIAL ANTIBODY (10/24/2023 3:30 PM EDT) M2 IgG Antibody Interpretation Negative Negative 10/25/2023 10:45 AM EDT LABORATORY [facility] M2 IgG Antibody Value 2.0 <4 U/mL 10/25/2023 10:45 AM EDT LABORATORY [facility] Blood Venous blood specimen / Unknown Venipuncture / Unknown 10/24/2023 3:30 PM EDT 10/24/2023 3:30 PM EDT Krystyna Foote Christopher OMALLEY LAB BLOOD ORDERABL ES LABORATORY [facility] [address] [place] [address] * (ABNORMAL) HEPATIC FUNCTION PANEL (10/24/2023 3:30 [...] FRANCIS [address] [place] [address] documented in this encounter Visit Diagnoses Diagnosis [...] and were consensually agreed upon. Care Teams Rubber Roller Grinder Relationship Specialty Start Date End Date [place] [facility] [address] [address] PCP - General 08/15/23 documented as of this encounter"
--- OUTSIDE RECORDS SUMMARY | 2024-02-14 12:25 | External Medical Summary | Summary of Care ---
Author Name Unknown Organization [facility] Address [address] [facility] [place] [address] Phone [phone] Care Team Providers Care Coal Hiker Name Role Phone [place] [facility] Primary Care Provider Reason for Visit * Reason Onset Date Comments Precert Approved 10/14/2023 Enbrel Encounter Details Date Type Department Care Team (Late st Contact Info) Description 10/14/2023 Refill Rheumatology [facility] [address] [place] [address] Amarilys Lafleur CRNP [address] [place] [address] Allergies Active Allergy Reactions Criticality Noted Date Comments Sulfamethoxazole-Trimethoprim Rash High 2015 Penicillins 01/24/2001 augmentin gave rash documented as of this encounter (statuses as of 10/25/2023) Medications Medication Sig Dispensed Refills Start Date [...] topically on the skin. As needed Active documented as of this encounter (statuses as of 10/25/2023) Active Problems Problem Noted Date Diagnosed Date [...] as of this encounter (statuses as of 10/25/2023) Resolved Problems Problem Noted Date Diagnosed Date [...] as of this encounter (statuses as of 10/25/2023) Immunizations Name Administration Dates Next Due COVID-19 [...] on file documented as of this encounter Miscellaneous Notes * Telephone Encounter - Alecia Campbell RP - 10/25/2023 2:22 PM EDT [facility] a different encounter. See pt message encounter 10/24/23. Thank you, Alecia Campbell, PharmD [facility] Clinical Pharmacist Rheumatology Department [phone] 10/25/2023 * Telephone Encounter - Alecia Campbell RP - 10/21/2023 2:46 PM EDT Pt has not read MyG message about Quantiferon lab needed. Spoke to patient today. Pt plans on walking into the [place] lab some time this week. Pt was made aware that only Quantiferon lab is needed at this time. Thank you, Alecia Campbell, PharmD [facility] Clinical Pharmacist Rheumatology Department [phone] 10/21/2023 * Telephone Encounter - Amarilys Lafleur CRNP - 10/17/2023 7:55 AM EDTPending Prescriptions: Disp Refills Enbrel SureClick 50 MG/ML Subcutaneous Davida*4 mL 2 Sig: Inject 50 mg under the skin once a week. * Telephone Encounter - Amarilys Lafleur CRNP - 10/17/2023 7:54 AM EDT Please advise the patient get appropriate blood work before ordering this medication. * Telephone Encounter - Alecia Campbell RP - 10/17/2023 7:31 AM EDTPending Prescriptions: Disp Refills Enbrel SureClick 50 MG/ML Subcutaneous Davida*4 mL 2 Sig: Inject 50 mg under the skin once a week. * Telephone Encounter - Alecia Campbell RP - 10/17/2023 7:25 AM EDT Rheumatology: Refill Request(s) Per review of the refill parameters, Medication was NOT refilled d/t following concern: Updated TB Quantiferon Gold that was ordered at [facility] 10/14/23 has not been completed yet. Please advise if okay to send in rx to pharmacy for the approved Enbrel or if should hold sending until TB test is completed. Alecia Campbell [facility] Clinical Pharmacist Rheumatology Department 10/17/2023,7:25 AM * Addendum Note - Geri Reynaga CPhT - 10/16/2023 3:32 PM EDTAddended by: GERI REYNAGA on: 10/16/2023 03:32 PM Modules accepted: Orders * Telephone Encounter - Geri Reynaga CPhT - 10/16/2023 3:30 PM EDT Rheumatology Pre-Certification Response Approved - Script pended - to be filled at [facility] (P: [phone]) Thank you, Geri Reynaga CPhT-[facility] Diet Tech Media Analyst [facility] ([facility]) 10/16/2023,3:30 PM * Telephone Encounter - Dahlia White RPh - 10/14/2023 1:50 PM EDT Rheumatology Pre-Certification Request Medication/Disease State Information: Diagnosis: Ankylosing spondylitis [M45.9] Medication:Enbrel: 50 mg SQ every week Failed or Intolerant to or Contraindicated: Humira, Secukinumab, and many prescription strength NSAIDs, Prednisone Comments Required Screening Information: Vaccination(s): will coordinate care for pertinent vaccine TB Testing:Completed under scans, care everywhere or epic Hepatitis B Screenings: Completed under scans, care everywhere or epic Hepatitis C Screenings: Completed under scans, care everywhere or epic No active, severe, and/or uncontrolled infection Rheumatology Office Information: Ending Machine Operator: AMARILYS LAFLEUR Rheumatology Pharmacist: Dahlia White Rheumatology Pharmacist Appointment Request Department & Provider: Rheumatology [facility] [place] [[id number]] - Pharmacist #1 Rheumatology [facility] [[id number]] Patient to be scheduled for visit type: Telephonic Medicine Visit [[id number]] Length of visit: 30 min Reason for visit: Med Edu: Enbrel [place] Time Frame: within 1-2 weeks Request routed to [facility] Specialty Scheduling Pool ([id number]) Please route this encounter back to Rheum Pharmacist Refill Pool/Class [p [phone]] if unable to schedule patient after 3 attempts. Thank you and have a wonderful day, Dahlia White RPh * Telephone Encounter - Amarilys Lafleur CRNP - 10/14/2023 12:34 PM EDT Rheumatology Education, Pre-Certification, and/or Pharmacist Co-Management Request Medication Education: yes Pre-Certification: [facility]: Pre-cert for Prednisone, DMARDs & IV/IM/SC Osteoporosis Meds ([facility] rheumatology pharmacist pool p [phone]) Pharmacist Co-Management ([facility] ONLY; [place] select "no"): No Pharmacist Co-Management Medication/Disease State Information: Diagnosis: Ankylosing spondylitis [M45.9] Medication:Enbrel: 50 mg SQ every week Failed or Intolerant to or Contraindicated: Humira, Secukinumab, and many prescription strength NSAIDs Comments TB QuantiFERON gold pending Rheumatology Pharmacist Disease Modifying Antirheumatic Drug (DMARD) Co- Management (If Applicable) Minimum frequency patient should be seen in person for medication management: As appropriate per clinical condition and patient status By my signature, I understand that my patient will have medication therapy managed [facility]) per established policies, procedures, and protocols. I also certify that this referral may serve as an initiation of service for the management of drug therapy in the above noted patient. [facility] providers will be responsible for scheduling patient visits, obtaining appropriate laboratory studies, and adjusting medication management therapy per patient's need, in addition to those roles spelled out in the clinic policy, procedures, and drug management protocols. I understand that the service provided by the [facility] Clinic is voluntary and have informed patient that they can refuse the service at their discretion. I am aware that the [facility] Clinic will provide me with a copy of the patient encounter via my Short Fuze In-Basket. I authorize the [facility] Clinic to carryout these activities on my behalf. I consider this program to be a necessary part of the patient's medical care. LYSSA Delgado documented in this encounter Plan of Treatment Upcoming Encounters Date Type Department Care Team (Late st Contact Info) Description 01/28/2024 3:00 PM EST Office Visit Rheumatology [address] [place] [address] Amarilys Lafleur CRNP [facility] [address] [place] [address] Health Maintenance Due Date Last Done Comments [...] filedocumented as of this encounter Advance Directives * Full Code [...] and were consensually agreed upon. Care Teams Coal Hiker Relationship Specialty Start Date End Date [place] [facility] [address] [place] [address] PCP - General 08/15/23 documented as of this encounter
--- OUTSIDE RECORDS SUMMARY | 2024-02-14 12:25 | External Medical Summary | Summary of Care ---
Author Name Unknown Organization [facility] Address [address] [facility] [place] [address] Phone [phone] Care Team Providers Care Chemical Compounder Name Role Phone [place] [facility] [facility] Primary Care Provider Reason for Visit * Reason Comments Follow Up Pt reports that she has bloating, painful cramps, then she will have a BM Encounter Details Date Type Department Care Team (Late st Contact Info) Description 10/24/2023 3:00 PM EDT Office Visit Gastroenterology, [facility] [address] [place] [address] Zuly White CRNP [address] [place] [address] Elevated liver enzymes* Allergies Active Allergy Reactions Criticality Noted Date Comments Sulfamethoxazole-Trimethoprim Rash High 2015 Penicillins 01/24/2001 augmentin gave rash documented as of this encounter (statuses as of 10/24/2023) Medications Medication Sig Dispensed Refills Start Date [...] as of this encounter (statuses as of 10/24/2023) Active Problems Problem Noted Date Diagnosed Date [...] as of this encounter (statuses as of 10/24/2023) Resolved Problems Problem Noted Date Diagnosed Date [...] as of this encounter (statuses as of 10/24/2023) Immunizations Name Administration Dates Next Due COVID-19 [...] No 02/04/2023 Does the household have a [facility] source of income? (Household - for [...] documented in this encounter Progress Notes * Zuly White CRNP - 10/24/2023 3:07 PM EDT Consult requested by REF: DEXTER NUNU NIMA [address] [place] [address] (office) [phone] (fax) CC: Elevated LFTs HPI: Ms. 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 LFTs were Elevated in April when she was admitted to [facility] for urinary sepsis (records reviewed). She [...] Feb/Mar 2022. Labs: tTg (-) LFTs at [facility]: T and direct bili remained normal [...] [facility] INCISION OF BREAST LESION, DEEP 2001 clogged milk duct INFORMATION Left 11/2014 left - plantar faciatitis - Dr. Anderson [place] INFORMATION 11/2014 fussion 5, 6, and 7 - Dr. Chun [place] INFORMATION 11/2012 disc replacement , cervical 5 [...] MD at OR [facility] REMOVAL OF WRIST LESION 2010 right SACROILIAC JOINT INJECT W/GUIDANCE 10/12/2021 INJECTION SACROILIAC JOINT performed by Andres Abraham DO at OR [facility] TENDON SHEATH INCISION, FINGER Left 04/03/2023 LEFT TRIGGER FINGER RELEASE performed by Pranav Mcgowan MD at OR [facility] TOTAL ABD HYSTERECTOMY W/WO REMOVAL OF TUBE(S) 12/23/2001 vaginal hysterectomy, has ovaries UNLISTED LAP;OVIDUCT/OVARY 10/04/2010 UNLISTED LAPAROSCOPY PROCEDURE OVIDUCT OVARY performed by MILAN ACUNA at [place] [facility] Social History Socioeconomic History Marital status: Spouse [...] Stability Do you currently live in a retirement or have no steady place to sleep [...] Sister Heart Disorder Brother Cancer Brother [place] Lymphoma Arthritis Grandmother (Maternal) Hypertension Grandfather (Maternal) [...] [facility]. LFTs [...] Expected date: 10/24/2023 ASMA was normal at [facility] If any abnormalities in the above [...] medical records for their visit today. [facility] documented in this encounter Plan of Treatment Upcoming Encounters Date Type Department Care Team (Late st Contact Info) Description 10/25/2023 10:00 AM EDT Telemedicine Rheumatology, [address] [address] Agc5, Pharmacist Rheumatology [address] [place] [address] 01/28/2024 3:00 PM EST Office Visit Rheumatology [place] [address] [place] [address] Rebekah Harris CRNP [facility] [place] [address] Pending Results Name Type Priority Associated Diagnoses Date /Time HEPATIC FUNCTION PANEL Lab Routine Elevated liver enzymes 10/24/2023 3:30 PM EDT ANTINUCLEAR ANTIBODY (GALINDO) EIA SCREEN WITH REFLEX AB QUANT Lab Routine Elevated liver enzymes 10/24/2023 3:30 PM EDT MITOCHONDRIAL ANTIBODY Lab Routine Elevated liver enzymes 10/24/2023 3:30 PM EDT ANTINUCLEAR ANTIBODY (GALINDO) SCREEN, YAIMA Lab Routine Elevated liver enzymes 10/24/2023 3:30 PM EDT Scheduled Orders Name Type Priority Associated Diagnoses Orde r Schedule HEPATIC FUNCTION PANEL Lab Routine Elevated liver enzymes Expected: 10/24/2023, Expires: 10/23/2024 MITOCHONDRIAL ANTIBODY Lab Routine Elevated liver enzymes Expected: 10/24/2023, Expires: 10/23/2024 Health Maintenance Due Date Last Done Comments DISCUSS TOBACCO CESSATION (REFER TO SMARTSET #6060) 06/22/2015 06/21/2014 Fecal Occult Blood Test 10/01/2015 Sigmoidoscopy 10/01/2015 DTap/Tdap Vaccines (2 - Td or Tdap) 09/17/2017 09/18/2007 Zoster Vaccines (1 of 2) 2020 Albumin/Creatinine Ratio 08/22/2021 021, 11/23/2019, 12/02/2017, Additional history exists Diabetic Foot Exam 09/20/2021 09/20/2020, 0 07/22/2018, 05/17/2017, Additional history exists Depression Monitoring 04/05/2022 04/05/2021 HbA1c 09/24/2022 03/27/2022, 11/27, 12/26/2020, Additional history exists COVID-19 Vaccine ( season) 2022 12/29/2020, 12/01/2020 Mammogram 02/13/2023 02/13/2022, 01/26, 10/10/2020, Additional history [...] Not on filedocumented as of this encounter Results * PT INR (10/24/2023 3:30 PM EDT) [...] conventional anticoagulation INR: 2.5-3.5 high intensity anticoagulation Zuly OMALLEY LAB BLOOD ORDERABL ES LABORATORY [place] [address] [place] [address] documented in this encounter Visit Diagnoses Diagnosis [...] and were consensually agreed upon. Care Teams Chemical Compounder Relationship Specialty Start Date End Date [place] [facility] [address] [address] PCP - General 08/15/23 documented as of this encounter"
--- OUTSIDE RECORDS SUMMARY | 2024-02-14 12:25 | External Medical Summary ---
Author Name Unknown Address Unknown Organization K0G:[facility] [address] [place] [address] Laboratory Report Ordering Provider Test Date Status LUCILLE GREENWOOD 10/24/2023 15:30:58 Final Observation Date Value Abnormality Reference (Units ) Status Albumin 10/24/2023 15:30:58 4.6 3.8-5.0 (g/dL) Final AST (Aspartate aminotransferase) 10/24/2023 15:30:58 19 10-35 (U/L) Final Alk Phos 10/24/2023 15:30:58 124 35-130 (U/L) Final ALT (Alanine aminotransferase) 10/24/2023 15:30:58 45 Above high normal 10-35 (U/L) Final Bilirubin, Total 10/24/2023 15:30:58 <0.2 <=1.2 (mg/dL) Final Bilirubin, Direct 10/24/2023 15:30:58 <0.2 0.0-0.3 (mg/dL) Final Protein 10/24/2023 15:30:58 7.1 6.0-8.3 (g/dL) Final Performing Location [facility] [address] [place] [address]
--- OUTSIDE RECORDS SUMMARY | 2024-02-14 12:25 | External Medical Summary ---
Author Name Unknown Address Unknown Organization K01:[facility] [place] [address] [place] [address] [place] [address] Laboratory Report Ordering Provider Test Date Status LUCILLE GREENWOOD 10/24/2023 15:30:58 Final Observation Date Value Abnormality Reference (Units ) Status Tissue transglutaminase IgA Ab [Presence] in Serum by Immunoassay 10/24/2023 15:30:58 Negative Negative Final Tissue transglutaminase IgA Ab [Units/volume] in Serum by Immunoassay 10/24/2023 15:30:58 <0.2 <7 (U/mL) Final Performing Location LABORATORY [facility] - [facility] [place] [address]
--- OUTSIDE RECORDS SUMMARY | 2024-02-14 12:25 | External Medical Summary ---
Author Name Unknown Address Unknown Organization : Laboratory Report Ordering Provider Test Date Status MIQUEL PANDA 10/21/2023 15:51:07 Final Observation Date Value Abnormality Reference (Units ) Status Mycobacterium tuberculosis stimulated gamma interferon [Interpretation] in Blood Qualitative 10/21/2023 15:51:07 NEGATIVE NEGATIVE Final Negative test result. M. tub erculosis complex
infection unlikely. Gamma interferon background [Units/volume] in Blood by Immunoassay 10/21/2023 15:51:07 0.02 (IU/mL) Final Mitogen stimulated gamma int erferon [Units/volume] corrected for background in Blood 10/21/2023 15:51:07 7.26 (IU/mL) Final Mycobacterium tuberculosis s timulated gamma interferon release by CD4+ T-cells [Units/volume] corrected for background in Blood 10/21/2023 15:51:07 0.00 (IU/mL) Final Mycobacterium tuberculosis s timulated gamma interferon release by CD4+ and CD8+ T-cells [Units/volume] corrected for background in Blood 10/21/2023 15:51:07 0.00 (IU/mL) Final The Nil tube value reflects the background interferon
gamma immune response of the patient's blood sample.
This value has been subtracted from the patient's
displayed TB and Mitogen results.
Lower than expected results with the Mitogen tube
prevent false-negative Quantiferon readings by detect-
ing a patient with a potential immune suppressive
condition and/or suboptimal pre-analytical specimen
handling.
The TB1 Antigen tube is coated with the M.
tuberculosis-specific antigens designed to elicit
responses from TB antigen primed CD4+ helper
T-lymphocytes.
The TB2 Antigen tube is coated with the M.
tuberculosis-specific antigens designed to elicit
responses from TB antigen primed CD4+ helper and CD8+
cytotoxic T-lymphocytes.
For additional information, please refer to
http://education.[employer]/faq/FOP886
(This link is being provided for information/
educational purposes only.)

Test Performed at:
[facility]
[address]
[place] [address]
Maik Curiel M.D., Ph.D.,Director of Laboratories Performing Location
--- OUTSIDE RECORDS SUMMARY | 2024-02-14 12:25 | External Medical Summary ---
Author Name Unknown Address Unknown Organization K01:LABORATORY [address] [facility] [address] Laboratory Report Ordering Provider Test Date Status LUCILLE GREENWOOD 10/24/2023 15:30:58 Final Observation Date Value Abnormality Reference (Units ) Status Nuclear IgG Ab [Ratio] in Serum by Immunoassay 10/24/2023 15:30:58 Negative Negative Final DNA double strand Ab [Presence] in Serum 10/24/2023 15:30:58 Negative Negative Final DOUBLE STRANDED DNA VALUE - [facility] 10/24/2023 15:30:58 <0.6 <20 (IU/mL) Final Extractable nuclear Ab [Presence] in Serum 10/24/2023 15:30:58 Negative Negative Final Nuclear IgG Ab [Ratio] in Serum by Immunoassay 10/24/2023 15:30:58 0.1 <0.7 (Ratio) Final Screening is based on detect ion of the following antibodies: dsDNA, U1-PORTABLE SAWMILL OPERATOR (RNP70, A, C), SS-A/Ro, SS-B / La, [...] with Rheumatology Department.
Methodology: Fluorescent Enzyme Immunoassay. Performing Location LABORATORY [address] [facility] [address]
--- OUTSIDE RECORDS SUMMARY | 2024-02-14 12:25 | External Medical Summary ---
Author Name Unknown Address Unknown Organization K01:LAB[facility]ATORY [facility] [address] [place] [address] Laboratory Report Ordering Provider Test Date Status LUCILLE GREENWOOD 10/24/2023 15:30:58 Final Observation Date Value Abnormality Reference (Units ) Status IgA 10/24/2023 15:30:58 110 70-400 (mg /dL) Final Performing Location [facility]ORY [facility] [address] [place] [address]
--- OUTSIDE RECORDS SUMMARY | 2024-02-14 12:25 | External Medical Summary ---
Author Name Unknown Address Unknown Organization K01:LABORATORY [facility] - [address] [place] [address] Laboratory Report Ordering Provider Test Date Status LUCILLE GREENWOOD 10/24/2023 15:30:58 Final Observation Date Value Abnormality Reference (Units ) Status Mitochondria M2 Ab [Presence] in Serum 10/24/2023 15:30:58 Negative Negative Final Mitochondria M2 Ab [Units/volume] in Serum by Immunoassay 10/24/2023 15:30:58 2.0 <4 (U/mL) Final Performing Location LABORATORY [facility] - [facility] [place] [address]
--- OUTSIDE RECORDS SUMMARY | 2024-02-14 12:25 | External Medical Summary | Summary of Care ---
Author Name Unknown Organization [facility] Address [address] [address] [address] Phone [phone] Care Team Providers Care Guitar Instructor Name Role Phone [place] Out[facility] Primary Care Provider Reason for Visit * Reason Comments Outpatient Testing Encounter Details Date Type Department Care Team (Late st Contact Info) Description 10/24/2023 3:50 PM EDT Laboratory Laboratory, [facility] [address] [facility] [address] [place] [id number] [facility] [address] [facility] [place] [address] Elevated liver enzymes Allergies Active Allergy Reactions Criticality Noted Date [...] taking differently: 2 mgSubcutaneous QWEEK, PLEASE FILL ABBITA, Reported on 02/04/2023 Accu-Chek Guide In Vitro [...] 02/04/2023 Does the household have a re lar source of income? (Household - for ages [...] Info) Description 10/25/2023 10:00 AM EDT Telemedicine Rheumatology[address] [address] Agc5, Pharmacist Rheumatology [facility] [place] [address] 01/28/2024 3:00 PM EST Office Visit Rheumatology [facility] [address] [place] [address] Rebekah Harris CRNP [address] [place] [address] Pending Results Name Type Priority Associated Diagnoses Date /Time HEPATIC FUNCTION PANEL Lab Routine Elevated liver enzymes 10/24/2023 3:30 PM EDT MITOCHONDRIAL ANTIBODY Lab Routine Elevated liver enzymes 10/24/2023 3:30 PM EDT PT INR Lab Routine Elevated liver enzymes 10/24/2023 3:30 PM EDT Health Maintenance Due Date Last Done Comments DISCUSS TOBACCO CESSATION (REFER TO SMARTSET #4398) 06/22/2015 06/21/2014 Fecal Occult Blood Test 10/01/2015 [...] as of this encounter Visit Diagnoses Diagnosis Elevated liver enzymes Nonspecific elevation of levels of transaminase or [...] and were consensually agreed upon. Care Teams Guitar Instructor Relationship Specialty Start Date End Date [place] [facility] [address] [address] PCP - General 08/15/23 documented as of this encounter
--- OUTSIDE RECORDS SUMMARY | 2024-02-14 12:25 | External Medical Summary | Summary of Care ---
Author Name Unknown Organization [facility] Address [address] [place] [address] Phone [phone] Care Team Providers Care Nurse Consultant Name Role Phone [facility] Primary Care Provider Reason for Visit * Evaluate & Treat - Unlimited Visits (Within 10 days (routine)) - Authorized Specialty Diagnoses / Procedures Referred By Dontae [email or web address] Referred To Contact Rheumatology Diagnoses Ankylosing spondylitis (HCC) Maryann Hurst PA-C [address] [place] [address] Referral ID Status Reason Start Date Expiration Date Visits Requested Visits Authorized [id number] Authorized Specialty Services Required 08/06/2023 02/02/2024 [id number] Encounter Details Date Type Department Care Team (Late st Contact Info) Description 10/25/2023 10:00 AM EDT Telemedicine Rheumatology, [place] [address] [place] [address] Agc5, Pharmacist Rheumatology [facility] [place] [address] Ankylosing spondylitis, unspecified site of spine (HCC)* Allergies Active Allergy Reactions Criticality Noted [...] as of this encounter Progress Notes * Chad Moore, [facility] - 10/25/2023 9:46 AM EDT After connecting to the patient via telephone, the patient was identified by name and date of . Patient was then informed that this was a telephone call only visit. The patient agreed to participate. Visit Disposition: Routine follow-up Total call duration was 10 minutes. Clinical Pharmacy Service (Rheumatology): Medication Education ASSESSMENT (M45.9) Ankylosing spondylitis, unspecified site of spine (HCC) (primary encounter diagnosis) History of TB/Hep B: no History of CHF: no History of Malignancy: no HEALTH MAINTENANCE: Immunizations recommended: Influenza Labs recommended: Not at this time - patient has follow-up in January PLAN OF ACTION Medication Regimen: START Enbrel: 50 mg SQ every week -Patient requests prescription be sent to the [facility]. Discussed that [employer] had approved and if using this insurance, would require patient use [facility]. Patient would not like to use [facility]. Will reach out to clinic for printed and signed order. Follow-Up Appointment: Pharmacist: Med Education Only Physician: 01/28/24 EDUCATION Medication Information: TNF Inhibitors The following information was verbally provided to the patient and afterwards, a copy of the ACR medication guide was provided to supplement with more extensive information: Etanercept (Brand Name: Enbrel), is a Tumor Necrosis Factor (TNF) inhibitor, that inhibit inflammation and prevent disease progression. This medication is available in a subcutaneous injection or as an intravenous infusion. This medication may be taken with other oral medications for RA or may be taken alone. Side effects may include but are not limited to injection site reactions such as localized burning or itching, risk of worsening heart failure, and cancer, most commonly skin cancers and lymphoma. However, a more severe allergic reaction such as swelling of the lips, difficulty breathing, and low blood pressure can occur but medications to decrease the chances of an infusion reaction are available for use as needed. Because this medication can lower the ability of your immune system to fight infections, there is an increased risk of developing infections, including TB or fungal infections. If any of the above- mentioned side effects occur, please inform your physician or rheumatology pharmacist so that we can take the next appropriate steps in your care. Please make your physician aware if you are or planning to become , have kidney/liver damage, history of heart failure, history of MS or any demyelinating disease, HIV, Hepatitis B/C, any active infections, planning to get any vaccinations, or if you have new or changed medicationson your medication list as these factors may impact your care plan. This medication may take up to 4-12 weeks to see an effect on your joints. For your safety, we will monitor you routinely through aseries of blood work. For further inquiries, please refer to the medication information provided toyou as well as your rheumatology care team. Patient Global = 6 Considering all the ways in which your illness may affect you at this time, how are you doing? 0 = best 10 = worst Chad Moore RPh [facility] Clinical Pharmacist Rheumatology Department 10/25/2023,9:46 AM documented in this encounter Plan of Treatment Upcoming Encounters Date Type Department Care Team (Late st Contact Info) Description 01/28/2024 3:00 PM EST Office Visit Rheumatology [facility] [address] [place] [address] Rebekah Harris CRNP [address] [place] [address] Health Maintenance Due Date Last Done Comments DISCUSS TOBACCO CESSATION (REFER TO SMARTSET #5088) 06/22/2015 06/21/2014 Fecal Occult Blood Test 10/01/2015 [...] Vaccine ( - season) 2022 12/29/2020, 12/01/2020 Mammogram 02/13/2023 02/13/2022, [...] spondylitis, unspecified site of spine (HCC)- Primary documented in this encounter Advance Directives * [...] and were consensually agreed upon. Care Teams Nurse Consultant Relationship Specialty Start Date End Date [place] [facility] [address], [facility] PCP - General 08/15/23 documented as of this encounter
[2024-02-14 12:26] LABS: BUN Creatinine Ratio 21.4 (10-20); Calcium 8.5 mg/dl (8.6-10.3); Magnesium 1.6 mg/dl (1.7-2.4)
--- NOTE | 2024-02-14 12:46 | Pharmacy Report ---
Pharmacy Glycemic Short Note 2 - Date of Service February 14, 2024 - Glycemic Short BSG Results (Last 24 hours): 02/14/24 02/14/24 02/14/24 07:10 07:15 09:59 Glucose 477 H* POC Glucose 485 H* 338 H* 02/14/24 02/14/24 02/14/24 11:02 11:46 12:01 Glucose 197 H POC Glucose 305 H* 243 H OUTPATIENT ANTIDIABETIC REGIMEN: * Novolog pump * basal: 24 unit/day * CF: 40 mg/dl/unit * CR: 11 gm/unit HbA1C: 11.7% ASSESSMENT: * Pt is a 53 year old female with a history of DM2 on [facility]. Arrives in DKA. Pharmacy consulted to assist with glycemic management. * Initial labs: BSG 485, AG 21, bicarb 12, pH 7.2. Insulin drip initiated per DKA protocol ~ 0900 this AM. * Continue insulin drip per DKA protocol. Currently NPO, however Novolog ACHS entered with carb ratio if ordered a diet. D5NS w/ 20mEq KCl ordered @ 100ml/hr given most recent BSG within goal range and KCl within goal range. Continue drip until BSG within goal, AG <12, bicarb >/=15, and pH >7.3. PLAN FOR INPATIENT GLYCEMIC CONTROL: * Hold outpatient oral diabetes medications * Basal insulin * insulin infusion per DKA protocol * Bolus insulin * NovoLog per scale ACHS or Q6hrs while NPO * Goal Range: Low 150 mg/dL - High 250 mg/dL * Correction Factor: - mg/dL/unit * Nutritional / Prandial insulin per carb ratio of 1 unit per 11 grams CHO consumed
[2024-02-14 13:03] LABS: Appearance Urine Clear (Clear); Bacteria Urine Automated None Seen (None Seen); Bilirubin Urine Negative (Negative); Blood Urine Negative (Negative); Color Urine Yellow; Epithelial Cell Urine Auto 0-2 /hpf (0-2); Glucose Urine UA 3+ (Negative); Ketones Urine 4+ (Negative); Leukocyte Esterase Urine Negative (Negative); Nitrite Urine Negative (Negative); Protein Urine Trace (Negative); RBC Urine Automated 0-2 /hpf (0-2); Specific Gravity Urine 1.023 (1.000-1.030); Urobilinogen Urine Negative (Negative); WBC Urine Automated 0-5 /hpf (0-5)
[2024-02-14] MEDS: MAGNESIUM SULFATE / D5W 1 GM/100 ML BAG IV ONE (13:07)
[2024-02-14] MEDS: ENOXAPARIN INJ 40 MG/0.4 ML SYR SQ SCH (13:07)
[2024-02-14] MEDS: D5NSS + 20MEQ KCL 20 MEQ/1,000 ML BAG IV SCH (13:30)
[2024-02-14] MEDS: STAT IV Infusion **Titration per Protocol STA (15:06)
[2024-02-14 15:39] LABS: Calcium 8.7 mg/dl (8.6-10.3); Creatinine Clr Calc Pharmacy 72.4 ml/min; Magnesium 2.1 mg/dl (1.7-2.4); Potassium 4.3 mmol/L (3.5-5.1)
[2024-02-14] MEDS: DEXTROSE 50% 50 ML SYRINGE IV PRN (16:33)
[2024-02-14] MEDS: LANTUS PER UNIT CHARGE SC ONE (17:09)
[2024-02-14 19:33] LABS: BUN Creatinine Ratio 19.5 (10-20); Calcium 8.4 mg/dl (8.6-10.3); Creatinine Clr Calc Pharmacy 75.2 ml/min; Magnesium 1.9 mg/dl (1.7-2.4); Phosphorus 2.5 mg/dl (2.5-4.9)
[2024-02-14] MEDS: VENLAFAXINE HCL 50 MG TAB PO SCH (21:29)
[2024-02-14] MEDS: CETIRIZINE HCL 10 MG TABLET PO SCH (21:29)
[2024-02-14] MEDS: GABAPENTIN 300 MG CAP PO SCH (21:29)
[2024-02-14] MEDS: [UNRECOGNIZED DRUG - REMARK] ONE (23:00)
[2024-02-14] MEDS: SODIUM CHLORIDE 0.9% 1,000 ML IV SCH (23:22)
[2024-02-14 23:58] LABS: BUN Creatinine Ratio 19.4 (10-20); Calcium 8.2 mg/dl (8.6-10.3); Creatinine Clr Calc Pharmacy 86.4 ml/min; Magnesium 1.8 mg/dl (1.7-2.4); Phosphorus 2.2 mg/dl (2.5-4.9); Potassium 3.8 mmol/L (3.5-5.1)
[2024-02-15] MEDS: INSULIN ASPART PER UNIT CHARGE SC SCH (00:33)
[2024-02-15 03:30] LABS: BUN Creatinine Ratio 19.4 (10-20); Calcium 8.4 mg/dl (8.6-10.3); Creatinine Clr Calc Pharmacy 93.4 ml/min; Magnesium 1.8 mg/dl (1.7-2.4); Phosphorus 2.9 mg/dl (2.5-4.9)
[2024-02-15 07:12] LABS: BUN Creatinine Ratio 14.5 (10-20); Calcium 8.6 mg/dl (8.6-10.3); Creatinine Clr Calc Pharmacy 85.1 ml/min; Magnesium 1.7 mg/dl (1.7-2.4); Phosphorus 2.5 mg/dl (2.5-4.9); Potassium 4.4 mmol/L (3.5-5.1)
[2024-02-15] MEDS: VENLAFAXINE HCL XR 150 MG CAPXR PO SCH (09:07)
[2024-02-15] MEDS: lisinopril 5 MG TAB PO SCH (09:07)
[2024-02-15] MEDS: ROSUVASTATIN CALCIUM 20 MG TAB PO SCH (09:07)
[2024-02-15] MEDS: PANTOprazole 40 MG TAB PO SCH (09:07)
[2024-02-15] MEDS: GABAPENTIN 300 MG CAP PO SCH (09:07)
[2024-02-15] MEDS: LANTUS PER UNIT CHARGE SC ONE ×2 (09:12→12:54)
--- NOTE | 2024-02-15 09:22 | Hospitalist Progress Note ---
Date of Service February 15, 2024 Assessment & Plan (1) DKA (diabetic ketoacidosis): Plan: Admitted to telemetry Patient presenting from home for evaluation of nausea and hyperglycemia. In the ED, found to be in DKA with pH 7.18, anion gap 21, bicarb 12, glucose 477. Patient was given IVF and IV insulin bolus and started on a drip. Insulin drip stopped. Anion gap closed. Pt started on diet and mostly tolerating well. HgbA1c 11.7 (worsened from 10.3 in June) -- patient reports compliance with insulin pump and utilizes additional SQ insulin as needed. clinical systems educator consulted. Patient follows with [facility] end[facility] - will be following with them after discharge. (2) Ankylosing spondylitis: Plan: Controlled with Enbrel and gabapentin Follows with [facility] rheumatology (3) Dyslipidemia: Plan: Chronic, stable Continue statin (4) Depression: Plan: Chronic, stable Continue venlafaxine (5) Tobacco abuse: Plan: Patient counseled regarding tobacco cessation Nicotine patch offered and declined DVT PROPHYLAXIS SQ Lovenox Admission and Anticipated Discharge Date Admission Date: February 14, 2024 Subjective Pt seen in follow up of DKA Laying in bed in NAD Pt says she is feeling well, still with some abdominal discomfort, but able to eat some Says she has been under a lot of stress, feels that's the reason for her uncontrolled DM - leading to DKA clinical systems educator and glycemic pharm. also consulted and discussed with Review of Systems Review of Systems: All systems reviewed & are unremarkable except as noted in Subjective Physical Exam Physical Exam: Constitutional: WD/WN, no acute d istress Eyes: PERRL, EOMI, conju nctivae normal, an icteric sclerae ENMT: external ear and n ose normal, oropha rynx normal Respiratory: normal respiratory effort, lungs anil ar to auscultation Cardiovascular: Rate/Rhythm: regul ar rate and regula r rhythm Vessels: normal peripheral pulses Extremiti es: no edema Gastrointestinal ( Abdomen): normal bowel sound s, soft, nontender Musculoskeletal: no LE edema, moves extremities Skin: no rashes, warm an d dry Neurologic: PERRL, EOMI, no fa ce palsy, no dysar thria, moves extre mities Psychiatric: A+Ox3, euthymic af fect Results & Data Results & Data Vital Signs (Past 12 Hours) Vital Signs Temp Pulse Pulse Resp BP Pulse Ox O2 Del Method 02/15/24 07:27 36.8 C 81 18 127/86 100 Room Air 02/15/24 04:00 36.5 C 73 19 137/80 97 Room Air 02/15/24 00:00 74 02/14/24 23:20 36.7 C 75 15 127/72 97 Room Air Laboratory Results 02/15/24 02/15/24 02/15/24 Range/Units 06:41 04:02 02:54 VBG pH 7.32 L 7.31 L (7.36-7.41) Sodium 136 136 (136-145) mmol/L Potassium 4.4 4.0 (3.5-5.1) mmol/L Chloride 107 110 H (98-107) mmol/L Carbon Dioxide 20 L 18 L (21-32) mmol/L Anion Gap 9 8 (3-11) BUN 10 12 (6-23) mg/dl Creatinine 0.69 0.62 (0.6-1.2) mg/dl Est Cr Clr Drug Dosing 85.1 93.4 ml/min eGFR 103.71 106.42 BUN/Creatinine Ratio 14.5 19.4 (10-20) Glucose 215 H 134 H (70-99(Fasting)) mg/dl POC Glucose 155 H (70-99) mg/dl Calcium 8.6 8.4 L (8.6-10.3) mg/dl Phosphorus 2.5 2.9 (2.5-4.9) mg/dl Magnesium 1.7 1.8 (1.7-2.4) mg/dl Urine Color Urine Appearance (Clear) Urine pH (4.5-7.5) Ur Specific [place] (1.000-1.030) Urine Protein (Negative) Urine Glucose (UA) (Negative) Urine Ketones (Negative) Urine Blood (Negative) Urine Nitrite (Negative) Urine Bilirubin (Negative) Urine Urobilinogen (Negative) Ur Leukocyte Esterase (Negative) Urine WBC (Auto) (0-5) /hpf Urine RBC (Auto) (0-2) /hpf U Hyaline Cast (Auto) (0-2) /lpf U Epithel Cells (Auto) (0-2) /hpf Urine Bacteria (Auto) (None Seen) Nasal Screen MRSA (PCR) (Negative) 02/14/24 02/14/24 02/14/24 Range/Units 23:10 22:45 21:51 VBG pH 7.33 L (7.36-7.41) Sodium 136 (136-145) mmol/L Potassium 3.8 (3.5-5.1) mmol/L Chloride 110 H (98-107) mmol/L Carbon Dioxide 19 L (21-32) mmol/L Anion Gap 7 (3-11) BUN 13 (6-23) mg/dl Creatinine 0.67 (0.6-1.2) mg/dl Est Cr Clr Drug Dosing 86.4 ml/min eGFR 104.45 BUN/Creatinine Ratio 19.4 (10-20) Glucose 106 H (70-99(Fasting)) mg/dl POC Glucose 103 H 121 H (70-99) mg/dl Calcium 8.2 L (8.6-10.3) mg/dl Phosphorus 2.2 L (2.5-4.9) mg/dl Magnesium 1.8 (1.7-2.4) mg/dl Urine Color Urine Appearance (Clear) Urine pH (4.5-7.5) Ur Specific [place] (1.000-1.030) Urine Protein (Negative) Urine Glucose (UA) (Negative) Urine Ketones (Negative) Urine Blood (Negative) Urine Nitrite (Negative) Urine Bilirubin (Negative) Urine Urobilinogen (Negative) Ur Leukocyte Esterase (Negative) Urine WBC (Auto) (0-5) /hpf Urine RBC (Auto) (0-2) /hpf U Hyaline Cast (Auto) (0-2) /lpf U Epithel Cells (Auto) (0-2) /hpf Urine Bacteria (Auto) (None Seen) Nasal Screen MRSA (PCR) (Negative) 02/14/24 02/14/24 02/14/24 Range/Units 20:48 19:46 18:54 VBG pH 7.36 (7.36-7.41) Sodium 133 L (136-145) mmol/L Potassium 4.0 (3.5-5.1) mmol/L Chloride 107 (98-107) mmol/L Carbon Dioxide 20 L (21-32) mmol/L Anion Gap 6 (3-11) BUN 15 (6-23) mg/dl Creatinine 0.77 (0.6-1.2) mg/dl Est Cr Clr Drug Dosing 75.2 ml/min eGFR 92.18 BUN/Creatinine Ratio 19.5 (10-20) Glucose 228 H (70-99(Fasting)) mg/dl POC Glucose 149 H 183 H (70-99) mg/dl Calcium 8.4 L (8.6-10.3) mg/dl Phosphorus 2.5 (2.5-4.9) mg/dl Magnesium 1.9 (1.7-2.4) mg/dl Urine Color Urine Appearance (Clear) Urine pH (4.5-7.5) Ur Specific [place] (1.000-1.030) Urine Protein (Negative) Urine Glucose (UA) (Negative) Urine Ketones (Negative) Urine Blood (Negative) Urine Nitrite (Negative) Urine Bilirubin (Negative) Urine Urobilinogen (Negative) Ur Leukocyte Esterase (Negative) Urine WBC (Auto) (0-5) /hpf Urine RBC (Auto) (0-2) /hpf U Hyaline Cast (Auto) (0-2) /lpf U Epithel Cells (Auto) (0-2) /hpf Urine Bacteria (Auto) (None Seen) Nasal Screen MRSA (PCR) (Negative) 02/14/24 02/14/24 02/14/24 Range/Units 18:44 17:45 16:45 VBG pH (7.36-7.41) Sodium (136-145) mmol/L Potassium (3.5-5.1) mmol/L Chloride (98-107) mmol/L Carbon Dioxide (21-32) mmol/L Anion Gap (3-11) BUN (6-23) mg/dl Creatinine (0.6-1.2) mg/dl Est Cr Clr Drug Dosing ml/min eGFR BUN/Creatinine Ratio (10-20) Glucose (70-99(Fasting)) mg/dl POC Glucose 224 H 215 H 195 H (70-99) mg/dl Calcium (8.6-10.3) mg/dl Phosphorus (2.5-4.9) mg/dl Magnesium (1.7-2.4) mg/dl Urine Color Urine Appearance (Clear) Urine pH (4.5-7.5) Ur Specific [place] (1.000-1.030) Urine Protein (Negative) Urine Glucose (UA) (Negative) Urine Ketones (Negative) Urine Blood (Negative) Urine Nitrite (Negative) Urine Bilirubin (Negative) Urine Urobilinogen (Negative) Ur Leukocyte Esterase (Negative) Urine WBC (Auto) (0-5) /hpf Urine RBC (Auto) (0-2) /hpf U Hyaline Cast (Auto) (0-2) /lpf U Epithel Cells (Auto) (0-2) /hpf Urine Bacteria (Auto) (None Seen) Nasal Screen MRSA (PCR) (Negative) 02/14/24 02/14/24 02/14/24 Range/Units 16:26 16:14 15:57 VBG pH (7.36-7.41) Sodium (136-145) mmol/L Potassium (3.5-5.1) mmol/L Chloride (98-107) mmol/L Carbon Dioxide (21-32) mmol/L Anion Gap (3-11) BUN (6-23) mg/dl Creatinine (0.6-1.2) mg/dl Est Cr Clr Drug Dosing ml/min eGFR BUN/Creatinine Ratio (10-20) Glucose (70-99(Fasting)) mg/dl POC Glucose 123 H 119 H 120 H (70-99) mg/dl Calcium (8.6-10.3) mg/dl Phosphorus (2.5-4.9) mg/dl Magnesium (1.7-2.4) mg/dl Urine Color Urine Appearance (Clear) Urine pH (4.5-7.5) Ur Specific [place] (1.000-1.030) Urine Protein (Negative) Urine Glucose (UA) (Negative) Urine Ketones (Negative) Urine Blood (Negative) Urine Nitrite (Negative) Urine Bilirubin (Negative) Urine Urobilinogen (Negative) Ur Leukocyte Esterase (Negative) Urine WBC (Auto) (0-5) /hpf Urine RBC (Auto) (0-2) /hpf U Hyaline Cast (Auto) (0-2) /lpf U Epithel Cells (Auto) (0-2) /hpf Urine Bacteria (Auto) (None Seen) Nasal Screen MRSA (PCR) (Negative) 02/14/24 02/14/24 02/14/24 Range/Units 15:08 14:58 13:59 VBG pH 7.33 L (7.36-7.41) Sodium 135 L (136-145) mmol/L Potassium 4.3 (3.5-5.1) mmol/L Chloride 108 H (98-107) mmol/L Carbon Dioxide 20 L (21-32) mmol/L Anion Gap 7 (3-11) BUN 16 (6-23) mg/dl Creatinine 0.80 (0.6-1.2) mg/dl Est Cr Clr Drug Dosing 72.4 ml/min eGFR 88.05 BUN/Creatinine Ratio 20.0 (10-20) Glucose 144 H (70-99(Fasting)) mg/dl POC Glucose 166 H 157 H (70-99) mg/dl Calcium 8.7 (8.6-10.3) mg/dl Phosphorus 3.0 (2.5-4.9) mg/dl Magnesium 2.1 (1.7-2.4) mg/dl Urine Color Urine Appearance (Clear) Urine pH (4.5-7.5) Ur Specific [place] (1.000-1.030) Urine Protein (Negative) Urine Glucose (UA) (Negative) Urine Ketones (Negative) Urine Blood (Negative) Urine Nitrite (Negative) Urine Bilirubin (Negative) Urine Urobilinogen (Negative) Ur Leukocyte Esterase (Negative) Urine WBC (Auto) (0-5) /hpf Urine RBC (Auto) (0-2) /hpf U Hyaline Cast (Auto) (0-2) /lpf U Epithel Cells (Auto) (0-2) /hpf Urine Bacteria (Auto) (None Seen) Nasal Screen MRSA (PCR) (Negative) 02/14/24 02/14/24 02/14/24 Range/Units 13:01 12:39 12:01 VBG pH (7.36-7.41) Sodium (136-145) mmol/L Potassium (3.5-5.1) mmol/L Chloride (98-107) mmol/L Carbon Dioxide (21-32) mmol/L Anion Gap (3-11) BUN (6-23) mg/dl Creatinine (0.6-1.2) mg/dl Est Cr Clr Drug Dosing ml/min eGFR BUN/Creatinine Ratio (10-20) Glucose (70-99(Fasting)) mg/dl POC Glucose 153 H 243 H (70-99) mg/dl Calcium (8.6-10.3) mg/dl Phosphorus (2.5-4.9) mg/dl Magnesium (1.7-2.4) mg/dl Urine Color Yellow Urine Appearance Clear (Clear) Urine pH 5.0 (4.5-7.5) Ur Specific [place] 1.023 (1.000-1.030) Urine Protein Trace H (Negative) Urine Glucose (UA) 3+ H (Negative) Urine Ketones 4+ H (Negative) Urine Blood Negative (Negative) Urine Nitrite Negative (Negative) Urine Bilirubin Negative (Negative) Urine Urobilinogen Negative (Negative) Ur Leukocyte Esterase Negative (Negative) Urine WBC (Auto) 0-5 (0-5) /hpf Urine RBC (Auto) 0-2 (0-2) /hpf U Hyaline Cast (Auto) 3-5 H (0-2) /lpf U Epithel Cells (Auto) 0-2 (0-2) /hpf Urine Bacteria (Auto) None Seen (None Seen) Nasal Screen MRSA (PCR) (Negative) 02/14/24 02/14/24 02/14/24 Range/Units 11:46 11:02 10:55 VBG pH 7.20 L (7.36-7.41) Sodium 133 L (136-145) mmol/L Potassium 4.0 (3.5-5.1) mmol/L Chloride 105 (98-107) mmol/L Carbon Dioxide 16 L (21-32) mmol/L Anion Gap 12 H (3-11) BUN 18 (6-23) mg/dl Creatinine 0.84 (0.6-1.2) mg/dl Est Cr Clr Drug Dosing 70.0 ml/min eGFR 83.04 BUN/Creatinine Ratio 21.4 H (10-20) Glucose 197 H (70-99(Fasting)) mg/dl POC Glucose 305 H* (70-99) mg/dl Calcium 8.5 L (8.6-10.3) mg/dl Phosphorus 3.0 (2.5-4.9) mg/dl Magnesium 1.6 L (1.7-2.4) mg/dl Urine Color Urine Appearance (Clear) Urine pH (4.5-7.5) Ur Specific [place] (1.000-1.030) Urine Protein (Negative) Urine Glucose (UA) (Negative) Urine Ketones (Negative) Urine Blood (Negative) Urine Nitrite (Negative) Urine Bilirubin (Negative) Urine Urobilinogen (Negative) Ur Leukocyte Esterase (Negative) Urine WBC (Auto) (0-5) /hpf Urine RBC (Auto) (0-2) /hpf U Hyaline Cast (Auto) (0-2) /lpf U Epithel Cells (Auto) (0-2) /hpf Urine Bacteria (Auto) (None Seen) Nasal Screen MRSA (PCR) Negative (Negative) 02/14/24 Range/Units 09:59 VBG pH (7.36-7.41) Sodium (136-145) mmol/L Potassium (3.5-5.1) mmol/L Chloride (98-107) mmol/L Carbon Dioxide (21-32) mmol/L Anion Gap (3-11) BUN (6-23) mg/dl Creatinine (0.6-1.2) mg/dl Est Cr Clr Drug Dosing ml/min eGFR BUN/Creatinine Ratio (10-20) Glucose (70-99(Fasting)) mg/dl POC Glucose 338 H* (70-99) mg/dl Calcium (8.6-10.3) mg/dl Phosphorus (2.5-4.9) mg/dl Magnesium (1.7-2.4) mg/dl Urine Color Urine Appearance (Clear) Urine pH (4.5-7.5) Ur Specific [place] (1.000-1.030) Urine Protein (Negative) Urine Glucose (UA) (Negative) Urine Ketones (Negative) Urine Blood (Negative) Urine Nitrite (Negative) Urine Bilirubin (Negative) Urine Urobilinogen (Negative) Ur Leukocyte Esterase (Negative) Urine WBC (Auto) (0-5) /hpf Urine RBC (Auto) (0-2) /hpf U Hyaline Cast (Auto) (0-2) /lpf U Epithel Cells (Auto) (0-2) /hpf Urine Bacteria (Auto) (None Seen) Nasal Screen MRSA (PCR) (Negative) Medications Administered Current Inpatient Medications Cetirizine HCl (Cetirizine Hcl 10 Mg Tablet) 10 mg PO HS MICHELLE Stop: 03/15/24 20:59 Last Admin: 02/14/24 21:29 Dose: 10 mg Dextrose (Dextrose 50% 50 Ml Syringe) 25 - 50 ml IV UD PRN; Protocol PRN Reason: Hypoglycemia Protocol Stop: 03/15/24 16:14 Last Admin: 02/14/24 16:33 Dose: 25 ml Enoxaparin Sodium (Enoxaparin Inj 40 Mg/0.4 Ml Syr) 40 mg SQ Q24H MICHELLE Stop: 03/15/24 11:59 Last Admin: 02/14/24 13:07 Dose: 40 mg Gabapentin (Gabapentin 300 Mg Cap) 600 mg PO HS MICHELLE Stop: 03/15/24 20:59 Last Admin: 02/14/24 21:29 Dose: 600 mg Gabapentin (Gabapentin 300 Mg Cap) 300 mg PO DAILY MICHELLE Stop: 03/16/24 08:59 Last Admin: 02/15/24 09:07 Dose: 300 mg Glucagon (Glucagon For Inj 1 Mg Vial) 1 mg SQ UD PRN; Protocol PRN Reason: Hypoglycemia Protocol Stop: 03/15/24 16:14 Glucose (Glucose 40% Gel 15 Gm Tube) 15 - 30 gm PO UD PRN; Protocol PRN Reason: Hypoglycemia Protocol Stop: 03/15/24 16:14 Glucose (Glucose 10 Tab/Tube) 4 - 8 tab PO UD PRN; Protocol PRN Reason: Hypoglycemia Protocol Stop: 03/15/24 16:14 Insulin Aspart (Insulin Aspart Per Unit Charge) 0 units SC ACHS MICHELLE Stop: 03/15/24 16:29 Last Admin: 02/15/24 09:12 Dose: 6 units Lisinopril (Lisinopril 5 Mg Tab) 5 mg PO DAILY MICHELLE Stop: 03/16/24 08:59 Last Admin: 02/15/24 09:07 Dose: 5 mg Miscellaneous (Carbohydrates For Hypoglycemia ) 15 - 30 gm PO UD PRN PRN Reason: Hypoglycemia Treatment Stop: 03/15/24 16:14 Miscellaneous Information (Pharmacy Glycemic Mgmt Consult) 1 each N/A UD PRN PRN Reason: Consult Stop: 03/15/24 10:55 Pantoprazole Sodium (Pantoprazole 40 Mg Tab) 40 mg PO DAILY MICHELLE Stop: 03/16/24 08:59 Last Admin: 02/15/24 09:07 Dose: 40 mg Rosuvastatin Calcium (Rosuvastatin Calcium 20 Mg Tab) 40 mg PO DAILY MICHELLE Stop: 03/16/24 08:59 Last Admin: 02/15/24 09:07 Dose: 40 mg Venlafaxine HCl (Venlafaxine Hcl 50 Mg Tab) 75 mg PO QPM MICHELLE Stop: 03/15/24 20:59 Last Admin: 02/14/24 21:29 Dose: 75 mg Venlafaxine HCl (Venlafaxine Hcl Xr 150 Mg Capxr) 150 mg PO QAM [facility] Stop: 03/16/24 08:59 Last Admin: 02/15/24 09:07 Dose: 150 mg
[2024-02-15] MEDS: MAGNESIUM SULFATE / D5W 1 GM/100 ML BAG IV ONE (10:51)
[2024-02-15 17:12] LABS: BUN Creatinine Ratio 13.6 (10-20); Calcium 8.9 mg/dl (8.6-10.3); Creatinine Clr Calc Pharmacy 72.5 ml/min; Magnesium 1.8 mg/dl (1.7-2.4); Phosphorus 2.3 mg/dl (2.5-4.9); Potassium 3.9 mmol/L (3.5-5.1)
[2024-02-16] MEDS ORDERED: INSULIN ASPART PER UNIT CHARGE SC SCH
[2024-02-16 05:01] LABS: Hematocrit (blood only) 36.6 % (37.0-47.0); Mean Corpuscular Hemoglobin 27.9 pg (25.0-34.0); Mean Corpuscular Hgb Conc 32.8 g/dL (32.0-36.0); Mean Corpuscular Volume 85.1 fL (80.0-100.0); Mean Platelet Volume 10.2 fL (9.4-12.4); Platelet Count 253 K/uL (130-400); RDW Coefficient of Variation 12.2 % (11.5-14.5); RDW Standard Deviation 37.4 fL (36.4-46.3); White Blood Count 5.09 K/ul (4.8-10.8)
[2024-02-16] MEDS: LANTUS PER UNIT CHARGE SC SCH (08:09)
[2024-02-16] MEDS: MAGNESIUM SULFATE / D5W 1 GM/100 ML BAG IV ONE (10:16)
[2024-02-16 11:07] VITALS: BP 145/82; PULSE 82; RESP 18; TEMP 97.5; O2SAT 99
--- NOTE | 2024-02-16 12:09 | Discharge Summary ---
Date of Service February 16, 2024 Admission HPI Per Admitting Provider 53-year-old female with PMH IDDM on insulin pump, ankylosing spondylitis, depression, history of superficial thrombophlebitis s/p treatment with Xarelto, and other problems listed below who presents to the ED for evaluation of hyperglycemia and nausea. Patient reports that she has been feeling ill for about the past 5 days. Reports that she has ketone test strips and has had ketones in her urine. patient reports her diabetes is typically managed with insulin pump however will use additional subcu insulin if needed. Reports that she has been using a " protocol" this week to try and control the hypoglycemia. Patient reports nausea and vomiting. Last episode of vomiting yesterday. Denies hematemesis and coffee-ground emesis. No abdominal pain or diarrhea. Denies fevers and chills. Reports chronic exertional shortness of breath which is unchanged from baseline. No chest pain. Denies lightheadedness, dizziness, diaphoresis, syncopal events. No urinary symptoms. In the ED, patient is found to be in DKA with pH 7.18, anion gap 21, bicarb 12, glucose 477. Patient was given IVF and IV insulin bolus and started on a drip. Admission Exam Per Admitting Provider Constitutional: WD/WN, vitals as above no acute distress Eyes: PERRL, conjunctivae normal, anicteric sclerae ENMT: external ear and nose normal, oropharynx normal Respiratory: normal respiratory effort, lungs clear to auscultation Cardiovascular: Rate/Rhythm: regular rate and regular rhythm Vessels: normal peripheral pulses Extremities: no edema Gastrointestinal (Abdomen): normal bowel sounds, soft, nontender, no hepatosplenomegaly Musculoskeletal: no cyanosis or clubbing, extremities motor strength 5/5 Skin: no rashes, warm and dry Neurologic: PERRL, EOMI, accommodation nl, no face palsy, no dysarthria Psychiatric: A+Ox3, euthymic affect Principal Diagnosis DKA Discharge Exam Constitutional: WD/WN, no acute distress Eyes: PERRL, EOMI, conjunctivae normal, anicteric sclerae ENMT: external ear and nose normal, oropharynx normal Respiratory: normal respiratory effort, lungs clear to auscultation Cardiovascular: Rate/Rhythm: regular rate and regular rhythm Vessels: normal peripheral pulses Extremities: no edema Gastrointestinal (Abdomen): normal bowel sounds, soft, nontender Musculoskeletal: no LE edema, moves extremities Skin: no rashes, warm and dry Neurologic: PERRL, EOMI, no face palsy, no dysarthria, moves extremities Psychiatric: A+Ox3, euthymic affect Discharge Data Allergies Allergy/AdvReac Type Severity Reaction Status Date / Time Penicillins Allergy Severe RASH, Verified 10/18/14 15:02 CHEST HEAVINESS, SOB sulfamethoxazole Allergy Intermediate Rash Unverified 04/30/23 11:11 [From Bactrim] trimethoprim [From Bactrim] Allergy Intermediate Rash Unverified 04/30/23 11:11 Consultations 02/14/24 08:04 ED Decision to Admit Stat 02/14/24 10:56 Consult Underwear Hemmer Routine Hospital Course (1) DKA (diabetic ketoacidosis): Admitted to telemetry Patient presenting from home for evaluation of nausea and hyperglycemia. In the ED, found to be in DKA with pH 7.18, anion gap 21, bicarb 12, glucose 477. Patient was given IVF and IV insulin bolus and started on a drip. Insulin drip stopped. Anion gap closed. Pt started on diet and mostly tolerating well. HgbA1c 11.7 (worsened from 10.3 in June) -- patient reports compliance with insulin pump and utilizes additional SQ insulin as needed. prosthodontist/educator consulted. Patient follows with [facility] endocr[facility]ology - will be following with them after discharge. (2) Ankylosing spondylitis: Controlled with Enbrel and gabapentin Follows with [facility] rheumatology (3) Dyslipidemia: Chronic, stable Continue statin (4) Depression: Chronic, stable Continue venlafaxine (5) Tobacco abuse: Patient counseled regarding tobacco cessation Nicotine patch offered and declined Total Time Total Time Spent Total Time Spent (In Minutes): 40 Discharge Plan Discharge Items Patient Disposition: Home - Self-Care Reason For Visit: DKA Discharge Diagnosis: DKA Activity: Per Instructions section Non-emergency contact: Primary Care Provider Call non-emergency contact if: you have any medication questions and your symptoms worsen Follow-up/Referrals: [facility],Hospital [Primary Care Provider] - Diet: Carb Consistent or DM2 Addtl Attending Provider Instructions: Follow up with your primary care doctor and diabetes pharmacist. Continue to closely monitor your blood glucose levels. Pending Studies at Discharge: No Stand-Alone Forms: [facility], Smoking Cessation Medications and DC Order Prescriptions: Continued venlafaxine 75 mg Tablet 75 mg PO QPM insulin aspart U-100 [Novolog U-100 Insulin aspart] 100 unit/mL solution See Rx Instructions .ROUTE .COMPLEX Rx Instructions: as directed; pump gabapentin 300 mg capsule 300 mg PO DAILY zolpidem 5 mg tablet 5 mg PO HS PRN (Reason: Insomnia) Ozempic 1 mg/dose (4 mg/3 mL) pen injector 2 mg SUBCUT WK Rx Instructions: tuesdays venlafaxine 150 mg capsule,extended release 24hr 150 mg PO QAM ascorbic acid (vitamin C) [Vitamin C] 500 mg Tablet 1,000 mg PO DAILY PNV [id number] fumarate-FA [] 28 mg iron- 800 mcg Tablet 1 tab PO DAILY cetirizine [Zyrtec] 10 mg Tablet 10 mg PO HS omeprazole 20 mg capsule,delayed release(DR/EC) 20 mg PO DAILY (DME) Ketone Urine Test Strip See Rx Instructions .Route Qty: 100 0RF Rx Instructions: 1-2 times a day. gabapentin 300 mg capsule 600 mg PO HS lisinopril 5 mg Tablet 5 mg PO DAILY insulin aspart U-100 [Novolog FlexPen U-100 Insulin] 100 unit/mL (3 mL) Insulin Pen See Rx Instructions .ROUTE .COMPLEX Rx Instructions: as needed in addition to insulin pump rosuvastatin 40 mg tablet 40 mg PO DAILY Enbrel SureClick 50 mg/mL (1 mL) pen injector 50 mg SUBCUT WK biotin 5,000 mcg Tablet, Sublingual 5,000 mcg SUBLINGUAL DAILY Discharge Orders: Discharge Order (Routine); Ordered 02/16/24 Ordered By: Kingsley Parada/Other Patient Handouts: Diabetes Support, Diabetic Ketoacidosis, Diabetes- Measuring Glucose at Home Admission Data Admit Date/Time: 02/14/24 09:03 Attending Provider: Kingsley Everett Admit Provider: Winifred Be I. Primary Care Provider: [facility] Other Providers: Winifred Be I.; Eddie Henning Other Interventions: Discharge Summary Assessment (RN) Last Done: 02/16/24 12:26
[2024-02-17 09:14] LABS: iSTAT Arterial Blood Gas HCO3 8 meg/L (19-24); iSTAT Arterial Blood Gas pCO2 21 mmHg (35-46); iSTAT Arterial Blood Gas pH 7.18 (7.35-7.45); iSTAT Arterial Blood Gas pO2 112 mmHg (80-95); iSTAT Carbon Dioxide 8 mmol/L (24-31); iSTAT Hematocrit 41 % (37-47); iSTAT Hemoglobin 13.9 g/dl (12.0-16.0); iSTAT Potassium 4.8 mmol/L (3.3-5.0); iSTAT Sodium 130 mmol/L (135-144)
== END 2024-02-16 13:37 | disposition home or self-care (01) | DRG 639 ==
LOC: ED 07:05 → 1E 09:03 → SUATTDRO 09:03 → 1E 10:30

== ENCOUNTER 2024-05-24 11:53 | Inpatient (IN) ==
--- OUTSIDE RECORDS SUMMARY | 2024-05-24 11:58 | External Medical Summary | Summary of Care ---
Author Name Unknown Organization [facility] Address [address] [place] [address] Phone [phone] Care Team Providers Care Jewelry Bench Worker Name Role Phone Maryann Hurst PA-C Primary Care Provid er Reason for Visit * Reason Onset Date Comments Medication Refill 02/28/2024 Encounter Details Date Type Department Care Team (Late st Contact Info) Description 02/28/2024 Refill Rheumatology, [facility] [place] [address] [place] [address] Quentin Hernandez MD [address] [place] [address] Ankylosing spondylitis of lumbosacral region ([facility]) Allergies Active Allergy Reactions Criticality Noted Date Comments Sulfamethoxazole-Trimethoprim Rash High 2015 Penicillins 01/24/2001 augmentin gave rash documented as of this encounter (statuses as of 02/28/2024) Medications BLOOD GLUCOSE MONITOR SYSTEM W/DEVICE KITIndications:D M type 2, goal A1c below 7 measure and record glucose three times daily 1 Kit 0 12/22/19 14 Active insulin aspart (INSULIN ASPART) 100 UNIT/ML injectionIndicat ions:Type 2 diabetes mellitus with hemoglobin A1c goal of less than 7.0% ([facility]) Use up to 50 units per [...] PLEASE FILL BABITA 9 mL 3 01/27/20 Active Additional Information Patient taking differently: 2 [...] every night at bedtime. 04/30/19 24 Active 6.75-0.2 MG Oral Tablet Take by mouth. Activ e Enbrel SureClick 50 MG/ML Subcutaneous Solution Auto-injector (Etanercept)Brenda cations:Ankylosi ng spondylitis of lumbosacral region (HCC) Inject 50 mg under the skin once a week. 4 mL 5 02/27/19 25 Active Enbrel SureClick 50 MG/ML Subcutaneous Solution Auto-injector (Etanercept)Brenda cations:Ankylosi ng spondylitis of lumbosacral region (HCC) Inject 50 mg under the skin once a week. 4 mL 2 10/25/19 24 025 Discontin ued(Refil l) documented as of this encounter (statuses as of 02/28/2024) Active Problems Problem Noted Date Diagnosed Date [...] as of this encounter (statuses as of 02/28/2024) Resolved Problems Problem Noted Date Diagnosed Date [...] as of this encounter (statuses as of 02/28/2024) Immunizations Name Administration Dates Next Due COVID-19 [...] No 02/04/2023 Does the household have a [facility] source of income? (Household - for ages [...] encounter Miscellaneous Notes * Telephone Encounter - Amarilys Lafleur CRNP - 02/28/2024 4:17 PM ESTSigned Prescriptions: Disp Refills Enbrel SureClick 50 MG/ML Subcutaneous Davida*4 mL 5 Sig: Inject 50mg under the skin once a week.Authorizing Provider: AMARILYS LAFLEUR * Telephone Encounter - Amarilys Lafleur CRNP - 02/28/2024 4:16 PM EST Most recent hepatic panel 10/24/2023 ALT 45 AST 19 Creatine and CBC reviewed from 07/2023 Will refill at this time * Telephone Encounter - Alecia Campbell [facility] - 02/28/2024 12:53 PM EST Pending Prescriptions: Disp Refills Enbrel SureClick 50 MG/ML Subcutaneous Davida*4 mL 5 Sig: Inject 50 mg under the skin once a week. * Telephone Encounter - Alecia Campbell [facility] - 02/28/2024 12:45 PM EST Images from the original note were not included. Rheumatology: Refill Request(s) Per review of the refill parameters, Medication was NOT refilled d/t following concern: Most recent LFTs 01/08/24 ([facility]) were elevated. Please review and advise if refill is appropriate at this time or if labs should be repeated first. Alecia Campbell [facility] Clinical Pharmacist Rheumatology Department 02/28/2024,12:46 PM * Telephone Encounter - Nancy Jefferson bagging machine operator - 02/28/2024 12:32 PM EST Patient states this was to be sent in after last OV and is now out of medication, requesting high priority. Please advise. Thank you, Nancy Jefferson [employer] 02/28/2024,12:33 PM * Telephone Encounter - Nancy Jefferson PHARM Tech - 02/28/2024 12:32 PM EST Patient is up to date for office visits. Pending Prescriptions: Disp Refills Enbrel SureClick 50 MG/ML Subcutaneous So*4 mL 2 Sig: Inject 50 mg under the skin once a week. Last Visit: 01/28/2024 (in office), 08/24/2021 (telemedicine) Next Visit: 07/10/2024 If no future appointments scheduled, and last appointment is greater than a year ago, please schedule patient for a follow-up appointment Last date the medication was ordered: 10/25/2023 Pharmacy: [facility] [id number] [facility] Is this request for a controlled substance?No it is not controlled. Urine Drug Screen:No results found. However, due to the size of the patient record, not all encounters were searched. Please check Results Review for a complete set of results. Patient Phone Numbers Labs: Lab Results Component Value Date/Time CREAT 0.7 03/27/2022 04:47 PM CREAT 0.80 12/25/2021 12:00 AM CREAT 0.8 02/22/2020 01:42 PM POTASSIUM 4.6 03/27/2022 04:47 PM POTASSIUM 4.6 12/25/2021 12:00 AM POTASSIUM 4.2 11/23/2019 09:22 AM TSH 0.97 12/26/2020 12:00 AM TSH 0.56 06/13/2006 08:52 AM TSH RESULTS RECHECKED 06/13/2006 08:52 AM LDL 137 (H) 08/22/2020 08:50 AM LDL 110 04/22/2015 08:15 AM LDL NOT APPLICABLE 04/22/2015 08:15 AM LDLCALC 76 12/25/2021 12:00 AM ALT 45 (H) 10/24/2023 03:30 PM ALT 20 02/22/2020 01:42 PM HGBA1C 10.5 (H) 03/27/2022 04:47 PM HGBA1C 9.7 (H) 12/25/2021 12:00 AM HGBA1C 9.5 (H) 02/22/2020 01:47 PM documented in this encounter Plan of Treatment Upcoming Encounters Date Type Department Care Team (Late st Contact Info) Description 07/10/2024 3:00 PM EDT Office Visit Rheumatology [place] [address] [place] [address] Amarilys Lafleur CRNP [facility] [place] [address] Health Maintenance Due Date Last Done Comments Zoster Vaccines (1 of 2) 1989 DISCUSS TOBACCO CESSATION (REFER TO SMARTSET #3291) 06/22/2015 06/21/2014 Fecal Occult Blood Test 10/01/2015 Sigmoidoscopy 10/01/2015 DTap/Tdap Vaccines (2 - Td or Tdap) 09/17/2017 09/18/2007 COVID-19 Vaccine (3 - Moderna risk series) 01/26/2021 12/29/2020, 12/01/2020 Pneumococcal Vaccine: 50+ Years (3 of 3 - PPSV23, PCV20 or PCV21) 02/01/2021 02/02/2016, 01/26/2015 Albumin/Creatinine Ratio 08/22/2021 021, [...] Additional history exists Lipid Panel 12/25/2026 12/25/2021, 110 02/2020, 08/22/2020, Additional history exists Colonoscopy 04/17/2032 [...] this encounter Visit Diagnoses Diagnosis Ankylosing spondylitis of lumbosacral region (HCC) Ankylosing spondylitis documented in this encounter Advance Directives * [...] and were consensually agreed upon. Care Teams Jewelry Bench Worker Relationship Specialty Start Date End Date Maryann Hurst PA-C [address] [facility] [place] [address] PCP - General Physician Senior Coldfusion Developer 12/30/23 documented as of this encounter
--- NOTE | 2024-05-24 12:31 | Emergency Department Note ---
Impression & Plan DKA (diabetic ketoacidosis), Metabolic acidosis ED Provider Note NAME: UZIEL MAX AGE: 53 SEX: F : 1970 ARRIVES VIA: Walk-In INFORMANT: Patient, ED PROVIDER(S): Gustabo Roberts DO CHIEF COMPLAINT: Generalized weakness HPI: 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 53-year-old female who presented to the emergency department for an evaluation. The patient feels though she might be in DKA and might be septic. She has a history of urosepsis in the past. She has a history of chronic back pain and notices that her back is hurting. She denies having any fever. She denies having any chest pain or difficulty breathing. The patient does have a cough and uses tobacco products. ROS: See above HPI for pertinent positives & negatives. A total of 10 systems reviewed and were otherwise negative. PAST MEDICAL HISTORY: See Below PAST SURGICAL HISTORY: See Below FAMILY HISTORY: See Below SOCIAL HISTORY: See Below HOME MEDICATIONS: See Below ALLERGIES: See Below VITALS: See Below PHYSICAL EXAMINATION: GENERAL: Patient is awake alert in no acute distress patient is resting comfortably and showing no signs of anxiety EYES: The conjunctivae are clear. The pupils are round and reactive. EARS, NOSE, MOUTH AND THROAT: The nose is without any evidence of any deformity. NECK: The neck is nontender and supple. RESPIRATORY: Normal respiratory effort is noted there is no evidence of wheezing rhonchi or rales CARDIOVASCULAR: Regular rate and rhythm noted there no murmurs rubs or gallops normal S1 normal S2. GASTROINTESTINAL: The abdomen is soft. Abdomen is nontender. MUSCULOSKELETAL/EXTREMITIES: There is no evidence of gross deformity full range of motion is noted in the hips and shoulders. SKIN: There is no obvious evidence of any rash. There are no petechiae, pallor or cyanosis noted. NEUROLOGIC: Patient is awake alert and oriented x3. MEDICAL DECISION MAKING: 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 53-year-old female who presented to the emergency department for an evaluation. The patient was concerned she may be becoming septic. She has a history of kidney infection in the past. The patient has had elevated blood sugars. She was also noticing that she had ketones in her urine. The patient was treated with IV fluids in the emergency department. She was also treated with IV pain medication. She was also started on an insulin drip for DKA protocol. I discussed the patient's laboratory and radiographic studies with her. Urinalysis did not appear to be consistent with infection. I [facility] condition [facility] They have agreed to evaluate the patient in the emergency department for further management and disposition. Triage Nursing notes reviewed. Prior medical records reviewed Vital Signs: reviewed and remarkable for tachycardia. Differential diagnosis: Infection, dehydration, metabolic abnormality, hypo/hyperglycemia, electrolyte disturbance, anemia, hypoxia, cardiac sources, intracerebral event, toxicologic, neurologic, as well as other pathologies. ER treatment provided: See below Diagnostics interpreted by me: ECG: EKG was obtained in the emergency department. My interpretation is normal sinus rhythm at 100 bpm. There is no ectopy. There is no acute ST segment abnormalities noted. This was compared to a tracing from April 30, 2023. No changes were noted. Cardiac Monitoring: An order was placed for continuous cardiac monitoring. The monitor shows a rate of 104 bpm with sinus tachycardia. Laboratory studies: As stated above and show below. Imaging studies: See below. Radiographic imaging was reviewed by myself Consultation(s): I discussed this case with Dr. Pearce who is [facility]. ED COURSE: Procedures: none Critical Care: I have personally spent greater than 35 minutes of critical care time in the direct management of this patient. This includes bedside care, interpretation of diagnostic studies, and testing, discussion with consultants, patient, and family members, and other required patient management activities. This 35 minutes is in excess of all separately billable procedures. Past Med/Surg History Problem List DKA (diabetic ketoacidosis) (Acute) Medical History Plantar fasciitis Osteoarthritis Ankylosing spondylitis Superficial venous thrombosis of right arm Hydronephrosis, right Cervical stenosis of spinal canal Tobacco abuse Depression Dyslipidemia Diabetes mellitus, type 2 Surgical History History of cholecystectomy H/O cervical spine surgery History of breast surgery S/P removal of right ovary H/O shoulder surgery S/P hysterectomy S/P carpal tunnel release Social History (Reviewed 05/24/24 @ 12:29 by VANCE Ash Smoking Status: Current every day smoker Tobacco Type: Cigarettes Cigarettes Per Day: 10; Second Hand Exposure: Yes; Do You Dip or Chew Tobacco: No; Hx Alcohol Use: Yes Alcohol type: beer Hx Substance Use: No Preferred Language: Bots[place] Communication Ability: Effective [employer] Integration Architect Required: No Beliefs That Will Affect Care: None 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: Alone 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 current occupation: [employer] Feels Safe at Home: Yes Assistive Devices: None Allergies Allergies Allergy/AdvReac Type Severity Reaction Status Date / Time Penicillins Allergy Severe RASH, Verified 10/18/14 15:02 CHEST HEAVINESS, SOB sulfamethoxazole Allergy Intermediate Rash Unverified 04/30/23 11:11 [From Bactrim] trimethoprim [From Bactrim] Allergy Intermediate Rash Unverified 04/30/23 11:11 Home Meds Home Medications Medication Instructions Recorded Confirmed ascorbic acid (vitamin C) 500 mg 1,000 mg PO DAILY 04/30/23 05/24/24 tablet (Vitamin C) gabapentin 300 mg capsule 300 mg PO DAILY 04/30/23 05/24/24 insulin aspart U-100 100 unit/mL See Rx Instructions .Route .COMPLEX 04/30/23 05/24/24 subcutaneous solution (Novolog U-100 Insulin aspart) semaglutide 1 mg/dose (4 mg/3 mL) 2 mg subcut WK 04/30/23 05/24/24 subcutaneous pen injector (Ozempic) venlafaxine 75 mg tablet 75 mg PO QPM 04/30/23 05/24/24 zolpidem 5 mg tablet 5 mg PO HS Insomnia 04/30/23 05/24/24 cetirizine 10 mg tablet (Zyrtec) 10 mg PO HS 06/29/23 05/24/24 omeprazole 20 mg capsule,delayed 20 mg PO DAILY 06/29/23 05/24/24 release biotin 5,000 mcg sublingual tablet 5,000 mcg sublingual DAILY 02/14/24 05/24/24 etanercept 50 mg/mL (1 mL) 50 mg subcut WK 02/14/24 05/24/24 subcutaneous pen injector (Enbrel SureClick) gabapentin 300 mg capsule 600 mg PO HS 02/14/24 05/24/24 insulin aspart U-100 100 unit/mL See Rx Instructions .Route .COMPLEX 02/14/24 05/24/24 (3 mL) subcutaneous pen (Novolog FlexPen U-100 Insulin aspart) lisinopril 5 mg tablet 5 mg PO DAILY 02/14/24 05/24/24 rosuvastatin 40 mg tablet 40 mg PO HS 02/14/24 05/24/24 melatonin 2 gummy PO HS 05/24/24 05/24/24 Previous Rx's Medication Instructions Recorded acetone (urine) test (Ketone Urine #100 ea 07/01/23 Test strips) Results & Data (ED) Vital Signs Vital Signs - 24 hr 05/24/24 11:58 05/24/24 12:49 05/24/24 13:53 Temperature 36.9 C Temperature Source Temporal Artery Scan Pulse Rate 101 H 101 H Pulse Rate [Apical] 107 H Respiratory Rate 19 17 Respiratory Effort / Characteristics Non-Labored Spontaneous Non-Labored Spontaneous Respiratory Depth Normal Normal Respiratory Pattern Blood Pressure 130/83 Blood Pressure [Left Arm] 145/82 H Blood Pressure Mean 98 Blood Pressure Mean [Left Arm] 103 Blood Pressure Position [Left Arm] Semi-fowlers Pulse Oximetry 100 100 Oxygen Delivery Method Room Air Room Air Sepsis Recent Fever Within 48 Hours No Sepsis New/Unexplained Change in Mental Status No Sepsis Action Taken by Nursing No Action Required 05/24/24 15:00 Temperature Temperature Source Pulse Rate Pulse Rate [Apical] 104 H Respiratory Rate 21 Respiratory Effort / Characteristics Non-Labored Respiratory Depth Normal Respiratory Pattern Regular Blood Pressure Blood Pressure [Left Arm] 128/61 Blood Pressure Mean Blood Pressure Mean [Left Arm] 83 Blood Pressure Position [Left Arm] Right Lateral Pulse Oximetry 99 Oxygen Delivery Method Room Air Sepsis Recent Fever Within 48 Hours Sepsis New/Unexplained Change in Mental Status Sepsis Action Taken by [facility] Medications Current Medication List: was personally reviewed by me Laboratory Data Attestation: I reviewed the patient's lab results. 05/24/24 12:21 05/24/24 12:21 Lab Results 05/24/24 05/24/24 05/24/24 Range/Units 12:12 12:21 12:51 WBC 13.84 H (4.8-10.8) K/ul RBC 5.16 (4.20-5.40) M/uL Hgb 14.7 (12.0-16.0) g/dl Hct 45.6 (37.0-47.0) % MCV 88.4 (80.0-100.0) fL MCH 28.5 (25.0-34.0) pg MCHC 32.2 (32.0-36.0) g/dL RDW Std Deviation 39.2 (36.4-46.3) fL RDW Coeff of Norberto 12.0 (11.5-14.5) % Plt Count 359 (130-400) K/uL MPV 10.2 (9.4-12.4) fL Immature Gran % (Auto) 0.7 % Neut % (Auto) 72.0 % Lymph % (Auto) 19.6 % [place] % (Auto) 6.4 % Eos % (Auto) 0.6 % Baso % (Auto) 0.7 % Neut # (Auto) 9.98 H (1.40-6.50) K/uL Lymph # (Auto) 2.71 (1.20-3.40) K/uL [place] # (Auto) 0.89 H (0.11-0.59) K/uL Eos # (Auto) 0.08 (0.00-0.50) K/uL Baso # (Auto) 0.09 (0.00-0.20) K/uL Immature Gran # (Auto) 0.09 (0.01-0.20) K/uL VBG pH Cancelled VBG pCO2 Cancelled VBG pO2 Cancelled VBG HCO3 Cancelled VBG O2 Saturation Cancelled VBG Base Excess Cancelled Barometric Pressure Cancelled Sodium 129 L (136-145) mmol/L Potassium 5.1 (3.5-5.1) mmol/L Chloride 94 L (98-107) mmol/L Carbon Dioxide 10 L (21-32) mmol/L Anion Gap 25 H (3-11) BUN 16 (6-23) mg/dl Creatinine 1.20 (0.6-1.2) mg/dl Est Cr Clr Drug Dosing 46.6 ml/min eGFR 54.13 BUN/Creatinine Ratio 13.3 (10-20) Glucose 606 H* (70-99(Fasting)) mg/dl POC Glucose 599 H* (70-99) mg/dl Lactate 3.0 H* (0.4-2.0) mmol/L Calcium 10.0 (8.6-10.3) mg/dl Magnesium 2.0 (1.7-2.4) mg/dl Total Bilirubin 0.5 (0.2-1.0) mg/dl AST 24 (13-39) U/L ALT 26 (7-52) U/L Alkaline Phosphatase 104 (34-104) U/L Troponin I High Sens 10.7 (0-14) pg/ml C-Reactive Protein < 0.50 (0-0.5) mg/dl Total Protein 8.1 (6.0-8.3) gm/dl Albumin 4.9 (3.4-5.0) gm/dl Globulin 3.2 (2.5-4.0) gm/dl Albumin/Globulin Ratio 1.5 (0.9-2) Lipase 18 (11-82) U/L Procalcitonin Cancelled 0.03 Urine Color Urine Appearance (Clear) Urine pH (4.5-7.5) Ur Specific [place] (1.000-1.030) Urine Protein (Negative) Urine Glucose (UA) (Negative) Urine Ketones (Negative) Urine Blood (Negative) Urine Nitrite (Negative) Urine Bilirubin (Negative) Urine Urobilinogen (Negative) Ur Leukocyte Esterase (Negative) Urine WBC (Auto) (0-5) /hpf Urine RBC (Auto) (0-2) /hpf U Hyaline Cast (Auto) (0-2) /lpf U Epithel Cells (Auto) (0-2) /hpf Urine Bacteria (Auto) (None Seen) 05/24/24 05/24/24 05/24/24 Range/Units 14:04 14:31 14:41 WBC (4.8-10.8) K/ul RBC (4.20-5.40) M/uL Hgb (12.0-16.0) g/dl Hct (37.0-47.0) % MCV (80.0-100.0) fL MCH (25.0-34.0) pg MCHC (32.0-36.0) g/dL RDW Std Deviation (36.4-46.3) fL RDW Coeff of Norberot (11.5-14.5) % Plt Count (130-400) K/uL MPV (9.4-12.4) fL Immature Gran % (Auto) % Neut % (Auto) % Lymph % (Auto) % [place] % (Auto) % Eos % (Auto) % Baso % (Auto) % Neut # (Auto) (1.40-6.50) K/uL Lymph # (Auto) (1.20-3.40) K/uL [place] # (Auto) (0.11-0.59) K/uL Eos # (Auto) (0.00-0.50) K/uL Baso # (Auto) (0.00-0.20) K/uL Immature Gran # (Auto) (0.01-0.20) K/uL VBG pH 7.06 L VBG pCO2 28 L VBG pO2 32 VBG HCO3 8 VBG O2 Saturation < 60.0 VBG Base Excess -21.2 Barometric Pressure Sodium (136-145) mmol/L Potassium (3.5-5.1) mmol/L Chloride (98-107) mmol/L Carbon Dioxide (21-32) mmol/L Anion Gap (3-11) BUN (6-23) mg/dl Creatinine (0.6-1.2) mg/dl Est Cr Clr Drug Dosing ml/min eGFR BUN/Creatinine Ratio (10-20) Glucose (70-99(Fasting)) mg/dl POC Glucose 526 H* (70-99) mg/dl Lactate 2.5 H* (0.4-2.0) mmol/L Calcium (8.6-10.3) mg/dl Magnesium (1.7-2.4) mg/dl Total Bilirubin (0.2-1.0) mg/dl AST (13-39) U/L ALT (7-52) U/L Alkaline Phosphatase (34-104) U/L Troponin I High Sens (0-14) pg/ml C-Reactive Protein (0-0.5) mg/dl Total Protein (6.0-8.3) gm/dl Albumin (3.4-5.0) gm/dl Globulin (2.5-4.0) gm/dl Albumin/Globulin Ratio (0.9-2) Lipase (11-82) U/L Procalcitonin Urine Color Yellow Urine Appearance Clear (Clear) Urine pH 5.0 (4.5-7.5) Ur Specific [place] 1.028 (1.000-1.030) Urine Protein 1+ H (Negative) Urine Glucose (UA) 3+ H (Negative) Urine Ketones 4+ H (Negative) Urine Blood Negative (Negative) Urine Nitrite Negative (Negative) Urine Bilirubin Negative (Negative) Urine Urobilinogen Negative (Negative) Ur Leukocyte Esterase Negative (Negative) Urine WBC (Auto) 0-5 (0-5) /hpf Urine RBC (Auto) 0-2 (0-2) /hpf U Hyaline Cast (Auto) 3-5 H (0-2) /lpf U Epithel Cells (Auto) 0-2 (0-2) /hpf Urine Bacteria (Auto) None Seen (None Seen) 05/24/24 Range/Units 15:34 WBC (4.8-10.8) K/ul RBC (4.20-5.40) M/uL Hgb (12.0-16.0) g/dl Hct (37.0-47.0) % MCV (80.0-100.0) fL MCH (25.0-34.0) pg MCHC (32.0-36.0) g/dL RDW Std Deviation (36.4-46.3) fL RDW Coeff of Norberto (11.5-14.5) % Plt Count (130-400) K/uL MPV (9.4-12.4) fL Immature Gran % (Auto) % Neut % (Auto) % Lymph % (Auto) % [place] % (Auto) % Eos % (Auto) % Baso % (Auto) % Neut # (Auto) (1.40-6.50) K/uL Lymph # (Auto) (1.20-3.40) K/uL [place] # (Auto) (0.11-0.59) K/uL Eos # (Auto) (0.00-0.50) K/uL Baso # (Auto) (0.00-0.20) K/uL Immature Gran # (Auto) (0.01-0.20) K/uL VBG pH VBG pCO2 VBG pO2 VBG HCO3 VBG O2 Saturation VBG Base Excess Barometric Pressure Sodium (136-145) mmol/L Potassium (3.5-5.1) mmol/L Chloride (98-107) mmol/L Carbon Dioxide (21-32) mmol/L Anion Gap (3-11) BUN (6-23) mg/dl Creatinine (0.6-1.2) mg/dl Est Cr Clr Drug Dosing ml/min eGFR BUN/Creatinine Ratio (10-20) Glucose (70-99(Fasting)) mg/dl POC Glucose 418 H* (70-99) mg/dl Lactate (0.4-2.0) mmol/L Calcium (8.6-10.3) mg/dl Magnesium (1.7-2.4) mg/dl Total Bilirubin (0.2-1.0) mg/dl AST (13-39) U/L ALT (7-52) U/L Alkaline Phosphatase (34-104) U/L Troponin I High Sens (0-14) pg/ml C-Reactive Protein (0-0.5) mg/dl Total Protein (6.0-8.3) gm/dl Albumin (3.4-5.0) gm/dl Globulin (2.5-4.0) gm/dl Albumin/Globulin Ratio (0.9-2) Lipase (11-82) U/L Procalcitonin Urine Color Urine Appearance (Clear) Urine pH (4.5-7.5) Ur Specific [place] (1.000-1.030) Urine Protein (Negative) Urine Glucose (UA) (Negative) Urine Ketones (Negative) Urine Blood (Negative) Urine Nitrite (Negative) Urine Bilirubin (Negative) Urine Urobilinogen (Negative) Ur Leukocyte Esterase (Negative) Urine WBC (Auto) (0-5) /hpf Urine RBC (Auto) (0-2) /hpf U Hyaline Cast (Auto) (0-2) /lpf U Epithel Cells (Auto) (0-2) /hpf Urine Bacteria (Auto) (None Seen) Administered Medications Insulin Human Regular 250 (units/ Sodium Chloride) 250 mls @ 6 mls/hr IV .Q24H [facility]; Protocol Stop: 06/23/24 13:44 Last Titration: 05/24/24 15:38 Dose: 7.2 units/hr, 7.2 mls/hr Documented By: CEDRIC Co-signed By: MIKE Admin: 05/24/24 14:32 Dose: 6 units/hr, 6 mls/hr Documented By: JOHN Co-signed By: GCC Discontinued Medications Sodium Chloride (Nss) 1,000 mls @ 999 mls/hr IV .Q1H1M ONE Stop: 05/24/24 13:11 Last Infusion: 05/24/24 15:04 Dose: Infused Documented By: Admin: 05/24/24 13:02 Dose: 999 mls/hr Documented By: JANET Lactated Ringer's (Lr) 1,000 mls @ 999 mls/hr IV .Q1H1M ONE Stop: 05/24/24 13:34 Last Infusion: 05/24/24 15:09 Dose: Infused Documented By: Admin: 05/24/24 13:14 Dose: 999 mls/hr Documented By: JANET Ceftriaxone Sodium (Rocephin) 2,000 mg in 50 mls @ 100 mls/hr IV NOW STA Stop: 05/24/24 14:51 Last Infusion: 05/24/24 15:53 Dose: Infused Documented By: Admin: 05/24/24 15:05 Dose: 100 mls/hr Documented By: JOHN Reynolds (Dka Goal Range 150-250 Mg/Dl) 1 each N/A ONE ONE Stop: 05/24/24 13:32 Last Admin: 05/24/24 15:40 Dose: Not Given Documented By: CEDRIC Reynolds (Stat Iv Infusion Titration Per Protocol) 1 each N/A NOW STA Stop: 05/24/24 13:32 Last Admin: 05/24/24 15:04 Dose: Not Given Documented By: CEDRIC Morphine Sulfate (Morphine Sulfate 4 Mg/Ml 1 Ml Carp\Vial) 4 mg IV NOW STA Stop: 05/24/24 13:31 Last Admin: 05/24/24 14:11 Dose: 4 mg Documented By: JOHN Ondansetron HCl (Ondansetron Inj 2 Mg/Ml 2 Ml Vial) 4 mg IV NOW STA Stop: 05/24/24 12:17 Last Admin: 05/24/24 13:02 Dose: 4 mg Documented By: JANET Imaging Data Attestation: I personally reviewed and interpreted this imaging study as follows: My Impression: 1 view chest x-ray was obtained in the emergency department. My interpretation is no free air or definite infiltrate, final report below. Radiologist's Impression: Chest X-Ray 05/24/24 12:11 INDICATION: Fever TECHNIQUE: Frontal radiograph of the chest. COMPARISON: 04/30/2023. FINDINGS: The cardiomediastinal silhouette and pulmonary vasculature appear within normal limits. No infiltrate, pleural effusion or pneumothorax. No acute osseous abnormality evident. IMPRESSION: No acute cardiopulmonary process. Electronically signed by Darek Mirza 05-24-2024 2:06 PM Discharge Plan Visit Data Chief Complaint: Infection Stated Complaint: SEPSIS? ED Provider: Gustabo Roberts Discharge Problem: DKA (diabetic ketoacidosis), Metabolic acidosis Patient Disposition: Being Evaluated by Hospitalist Forms Stand Alone Forms: My [facility] Prescriptions Prescriptions: No Action venlafaxine 75 mg Tablet 75 mg PO QPM Rx Instructions: 150 mg (2 caps) po qam; 75 mg po hs insulin aspart U-100 [Novolog U-100 Insulin aspart] 100 unit/mL solution See Rx Instructions .ROUTE .COMPLEX Rx Instructions: as directed; pump gabapentin 300 mg capsule 300 mg PO DAILY zolpidem 5 mg tablet 5 mg PO HS Ozempic 1 mg/dose (4 mg/3 mL) pen injector 2 mg SUBCUT WK Rx Instructions: saturday ascorbic acid (vitamin C) [Vitamin C] 500 mg Tablet 1,000 mg PO DAILY melatonin 2 gummy PO HS Rx Instructions: per pt she thinks its 24mg cetirizine [Zyrtec] 10 mg Tablet 10 mg PO HS omeprazole 20 mg capsule,delayed release(DR/EC) 20 mg PO DAILY (DME) Ketone Urine Test Strip See Rx Instructions .Route Qty: 100 0RF Rx Instructions: 1-2 times a day. gabapentin 300 mg capsule 600 mg PO HS lisinopril 5 mg Tablet 5 mg PO DAILY insulin aspart U-100 [Novolog FlexPen U-100 Insulin] 100 unit/mL (3 mL) Insulin Pen See Rx Instructions .ROUTE .COMPLEX Rx Instructions: as needed in addition to insulin pump rosuvastatin 40 mg tablet 40 mg PO HS Enbrel SureClick 50 mg/mL (1 mL) pen injector 50 mg SUBCUT WK Rx Instructions: saturday biotin 5,000 mcg Tablet, Sublingual 5,000 mcg SUBLINGUAL DAILY Referrals Referrals: [facility] [Primary Care Provider] -
[2024-05-24 12:36] LABS: Basophils # (auto) 0.09 K/uL (0.00-0.20); Basophils % (auto) 0.7 %; Eosinophils # (auto) 0.08 K/uL (0.00-0.50); Eosinophils % (auto) 0.6 %; Hematocrit (blood only) 45.6 % (37.0-47.0); Hemoglobin 14.7 g/dl (12.0-16.0); Immature Granulocytes # (auto) 0.09 K/uL (0.01-0.20); Immature Granulocytes % (auto) 0.7 %; Lymphocytes # (auto) 2.71 K/uL (1.20-3.40); Lymphocytes % (auto) 19.6 %; Mean Corpuscular Hemoglobin 28.5 pg (25.0-34.0); Mean Corpuscular Hgb Conc 32.2 g/dL (32.0-36.0); Mean Corpuscular Volume 88.4 fL (80.0-100.0); Mean Platelet Volume 10.2 fL (9.4-12.4); Monocytes # (auto) 0.89 K/uL (0.11-0.59); Monocytes % (auto) 6.4 %; Neutrophils # (auto) 9.98 K/uL (1.40-6.50); Platelet Count 359 K/uL (130-400); RDW Standard Deviation 39.2 fL (36.4-46.3); Red Blood Count 5.16 M/uL (4.20-5.40); White Blood Count 13.84 K/ul (4.8-10.8)
[2024-05-24 13:01] LABS: Alanine Aminotransferase 26 U/L (7-52); Albumin Globulin Ratio 1.5 (0.9-2); Albumin Level 4.9 gm/dl (3.4-5.0); Alkaline Phosphatase 104 U/L (34-104); Anion Gap 25 (3-11); Aspartate Aminotransferase 24 U/L (13-39); BUN Creatinine Ratio 13.3 (10-20); Bilirubin,Total 0.5 mg/dl (0.2-1.0); Blood Urea Nitrogen 16 mg/dl (6-23); C Reactive Protein < 0.50 mg/dl (0-0.5); Carbon Dioxide 10 mmol/L (21-32); Chloride 94 mmol/L (98-107); Creatinine Clr Calc Pharmacy 46.6 ml/min; Globulin 3.2 gm/dl (2.5-4.0); Glucose 606 mg/dl (70-99(Fasting)); Lipase 18 U/L (11-82); Potassium 5.1 mmol/L (3.5-5.1); Sodium 129 mmol/L (136-145); Total Protein 8.1 gm/dl (6.0-8.3)
[2024-05-24] MEDS: ONDANSETRON INJ 2 MG/ML 2 ML VIAL IV STA (13:02)
[2024-05-24] MEDS: SODIUM CHLORIDE 0.9% 1,000 ML IV ONE (13:02)
[2024-05-24 13:09] LABS: Troponin I High Sensitivity 10.7 pg/ml (0-14)
[2024-05-24] MEDS: LACTATED RINGER'S 1,000 ML IV ONE (13:14)
--- NOTE | 2024-05-24 14:07 | XRay Report ---
INDICATION: Fever TECHNIQUE: Frontal radiograph of the chest. COMPARISON: 04/30/2023. FINDINGS: The cardiomediastinal silhouette and pulmonary vasculature appear within normal limits. No infiltrate, pleural effusion or pneumothorax. No acute osseous abnormality evident. IMPRESSION: No acute cardiopulmonary process. Electronically signed by Darek Mirza 05-24-2024 2:06 PM
[2024-05-24] MEDS: MoRPHine SULFATE 4 MG/ML 1 ML CARP\\VIAL IV STA (14:11)
[2024-05-24 14:22] LABS: Appearance Urine Clear (Clear); Bacteria Urine Automated None Seen (None Seen); Bilirubin Urine Negative (Negative); Blood Urine Negative (Negative); Color Urine Yellow; Epithelial Cell Urine Auto 0-2 /hpf (0-2); Glucose Urine UA 3+ (Negative); Ketones Urine 4+ (Negative); Leukocyte Esterase Urine Negative (Negative); Nitrite Urine Negative (Negative); Protein Urine 1+ (Negative); RBC Urine Automated 0-2 /hpf (0-2); Specific Gravity Urine 1.028 (1.000-1.030); Urobilinogen Urine Negative (Negative); WBC Urine Automated 0-5 /hpf (0-5)
[2024-05-24] MEDS: INSULIN REGULAR 250 UNITS in SODIUM CHLORIDE 0.9% 247.5 ML IV SCH (14:32)
[2024-05-24 14:47] LABS: Base Excess VBG -21.2 mEq/L; HCO3 VBG 8 mmol/L; Oxygen Saturation VBG < 60.0 %; PCO2 VBG 28 mmHg (38-50); PO2 VBG 32 mmHg; pH VBG 7.06 (7.36-7.41)
[2024-05-24] MEDS: STAT IV Infusion **Titration per Protocol STA (15:04)
[2024-05-24] MEDS: cefTRIAXone SODIUM 2,000 MG/50 ML BAG IV STA (15:05)
--- NOTE | 2024-05-24 15:35 | History & Physical Report ---
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 Patient states that for the last few days she has been having n/v and weakness. Has been using ketone test strips for her urine showing positivity. Also complains of back pain which is chronic for her 2/2 ankylosing spondylitis as well as feeling like she may have sepsis due to her overall functional status, denies specific urinary complaints besides frequency which she attributes to her sugar being high. Denies discharge, incomplete voiding. States since being in the ED her n/v have resolved, only current symptoms are back pain and weakness. Allergies Allergy/AdvReac Type Severity Reaction Status Date / Time Penicillins Allergy Severe RASH, Verified 10/18/14 15:02 CHEST HEAVINESS, SOB sulfamethoxazole Allergy Intermediate Rash Unverified 04/30/23 11:11 [From Bactrim] trimethoprim [From Bactrim] Allergy Intermediate Rash Unverified 04/30/23 11:11 Home Medications Medication Instructions Recorded Confirmed Type ascorbic acid (vitamin C) 500 mg 1,000 mg PO DAILY 04/30/23 05/24/24 History tablet (Vitamin C) gabapentin 300 mg capsule 300 mg PO DAILY 04/30/23 05/24/24 History insulin aspart U-100 100 unit/mL See Rx Instructions .Route .COMPLEX 04/30/23 05/24/24 History subcutaneous solution (Novolog U-100 Insulin aspart) semaglutide 1 mg/dose (4 mg/3 mL) 2 mg subcut WK 04/30/23 05/24/24 History subcutaneous pen injector (Ozempic) venlafaxine 75 mg tablet 75 mg PO QPM 04/30/23 05/24/24 History zolpidem 5 mg tablet 5 mg PO HS Insomnia 04/30/23 05/24/24 History cetirizine 10 mg tablet (Zyrtec) 10 mg PO HS 06/29/23 05/24/24 History omeprazole 20 mg capsule,delayed 20 mg PO DAILY 06/29/23 05/24/24 History release acetone (urine) test (Ketone Urine #100 ea 07/01/23 Rx Test strips) biotin 5,000 mcg sublingual tablet 5,000 mcg sublingual DAILY 02/14/24 05/24/24 History etanercept 50 mg/mL (1 mL) 50 mg subcut WK 02/14/24 05/24/24 History subcutaneous pen injector (Enbrel SureClick) gabapentin 300 mg capsule 600 mg PO HS 02/14/24 05/24/24 History insulin aspart U-100 100 unit/mL See Rx Instructions .Route .COMPLEX 02/14/24 05/24/24 History (3 mL) subcutaneous pen (Novolog FlexPen U-100 Insulin aspart) lisinopril 5 mg tablet 5 mg PO DAILY 02/14/24 05/24/24 History rosuvastatin 40 mg tablet 40 mg PO HS 02/14/24 05/24/24 History melatonin 2 gummy PO HS 05/24/24 05/24/24 History Past Med/Surg History Problem List DKA (diabetic ketoacidosis) (Acute) Medical History Plantar fasciitis Osteoarthritis Ankylosing spondylitis Superficial venous thrombosis of right arm Hydronephrosis, right Cervical stenosis of spinal canal Tobacco abuse Depression Dyslipidemia Diabetes mellitus, type 2 Surgical History History of cholecystectomy H/O cervical spine surgery History of breast surgery S/P removal of right ovary H/O shoulder surgery S/P hysterectomy S/P carpal tunnel release Social History Smoking Status: Current every day smoker Tobacco Type: Cigarettes Cigarettes Per Day: 10; Second Hand Exposure: Yes; Do You Dip or Chew Tobacco: No; Hx Alcohol Use: Yes Alcohol type: beer Hx Substance Use: No Preferred Language: Danish Communication Ability: Effective Electrical And Instrument Mechanic Required: No Beliefs That Will Affect Care: None 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: Alone 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 current occupation: [employer] Feels Safe at Home: Yes Assistive Devices: None Review of Systems Constitutional: no fever and no chills Gastrointestinal: + nausea and + vomiting; no abdominal pa in Genitourinary: + urinary frequency; no dysuria and no u rinary urgency Physical Exam Constitutional: WD/WN, vitals as above Gastrointestinal (Abdomen): normal bowel sounds, soft, nontender, no hepatosplenomegaly Results & Data Results & Data Vital Signs (Past 12 Hours) Vital Signs Temp Pulse Pulse Resp BP BP Pulse Ox 05/24/24 13:53 107 H 17 145/82 H 100 05/24/24 12:49 101 H 05/24/24 11:58 36.9 C 101 H 19 130/83 100 O2 Del Method 05/24/24 13:53 Room Air 05/24/24 12:49 05/24/24 11:58 Room Air Laboratory Results Abnormal lab results 05/24/24 05/24/24 05/24/24 Range/Units 12:12 12:21 14:04 WBC 13.84 H (4.8-10.8) K/ul Neut # (Auto) 9.98 H (1.40-6.50) K/uL [place] # (Auto) 0.89 H (0.11-0.59) K/uL VBG pH (7.36-7.41) VBG pCO2 (38-50) mmHg Sodium 129 L (136-145) mmol/L Chloride 94 L (98-107) mmol/L Carbon Dioxide 10 L (21-32) mmol/L Anion Gap 25 H (3-11) Glucose 606 H* (70-99(Fasting)) mg/dl POC Glucose 599 H* (70-99) mg/dl Lactate 3.0 H* (0.4-2.0) mmol/L Urine Protein 1+ H (Negative) Urine Glucose (UA) 3+ H (Negative) Urine Ketones 4+ H (Negative) U Hyaline Cast (Auto) 3-5 H (0-2) /lpf 05/24/24 05/24/24 05/24/24 Range/Units 14:31 14:41 15:34 WBC (4.8-10.8) K/ul Neut # (Auto) (1.40-6.50) K/uL [place] # (Auto) (0.11-0.59) K/uL VBG pH 7.06 L (7.36-7.41) VBG pCO2 28 L (38-50) mmHg Sodium (136-145) mmol/L Chloride (98-107) mmol/L Carbon Dioxide (21-32) mmol/L Anion Gap (3-11) Glucose (70-99(Fasting)) mg/dl POC Glucose 526 H* 418 H* (70-99) mg/dl Lactate 2.5 H* (0.4-2.0) mmol/L Urine Protein (Negative) Urine Glucose (UA) (Negative) Urine Ketones (Negative) U Hyaline Cast (Auto) (0-2) /lpf Diagnostic Findings Chest X-Ray 05/24/24 12:11 INDICATION: Fever TECHNIQUE: Frontal radiograph of the chest. COMPARISON: 04/30/2023. FINDINGS: The cardiomediastinal silhouette and pulmonary vasculature appear within normal limits. No infiltrate, pleural effusion or pneumothorax. No acute osseous abnormality evident. IMPRESSION: No acute cardiopulmonary process. Electronically signed by Darek Mirza 05-24-2024 2:06 PM
[2024-05-24] MEDS: DKA GOAL RANGE 150-250 mg/dl ONE (15:40)
[2024-05-24] MEDS ORDERED: PHARMACY GLYCEMIC MGMT CONSULT PRN (16:10)
[2024-05-24] MEDS ORDERED: PENDING 1/2NSS+20mEq KCL IVF SCH (16:15)
[2024-05-24] MEDS ORDERED: PENDING D5 1/2NS+20mEq KCL IVF SCH (16:15)
[2024-05-24] MEDS ORDERED: ICU Protocol for HYPERglycemia SCH (16:30)
--- NOTE | 2024-05-24 16:53 | Critical Care Consultation ---
Date of Consultation May 24, 2024 Assessment & Plan (1) DKA (diabetic ketoacidosis): Reason Critically Ill: 53-year-old female with a history of insulin-dependent diabetes which is largely uncontrolled who presents with symptoms of nausea, vomiting, and elevated blood sugars. Laboratory assessment with findings consistent with DKA. NEURO - * CAM ICU: NEGATIVE * Depression: * Continue home medications as tolerated. CARDIAC/VASCULAR - * Hyperlipidemia: * Continue statin when appropriate. * Monitor on telemetry. RESPIRATORY - * She is saturating well on room air. * History of tobacco abuse. Encourage smoking cessation GI/NUTRITION - * Nausea/Vomiting: Improved * In the setting of elevated blood sugars. RENAL/LYTES - * HAGMA: * In the setting of DKA. * Suspect ongoing improvement with correction of blood sugar and volume resuscitation. * IVF: Per DKA protocol. - * Strict I&O ENDO - * DKA: * Patient presents with elevated blood sugars for the past several days. She does have an elevated anion gap of 25. Her serum CO2 is 10. Clinically, the patient is well-appearing. She is not tachypneic. She is not hypotensive. She is mentating well. Despite initial ABG findings and laboratory assessment, the patient is clinically stable. She has no electrolyte derangements. * From a clinical standpoint, would continue with IV fluid resuscitation as well as insulin drip per protocol. * Patient is hemodynamically stable and not requiring pressor support. She is not requiring bicarb drip at this time. * From a clinical perspective, the patient does not require ICU level of care at this time. Would remain on telemetry with serial labs per protocol. HEME - * Stable H&H ID - * Does not appear to be infectious contributor at this time LINES/IV ACCESS - * PIVs x2 DVT PROPHYLAXIS - * Per primary team * Patient with prior history of thrombophlebitis x 2 after hospitalizations. Completed outpatient courses of DOAC without return of symptoms. * SCDs * In review of patient's prior history she has been admitted to telemetry and successfully managed via the DKA protocols. At this time critical care will sign off, please contact us if there are any questions or develops any additional critical care issues. (2) Ankylosing spondylitis: History of Present Illness Reason for Consultation: DKA History of Present Illness Patient reports that she has had ongoing issues with her insulin pump, remote sensing unit, blood strips. And these issues are largely resolved from her body habitus after 100 pound weight loss and issues with excessive skin. [facility], remote blood glucose sensor and additional equipment that will all communicate. Patient denies being ill recently or sick contacts no alcohol use, reports that this is similar to her last episode approximately January. Patient's nausea has resolved and able to keep smallness liquid down since her arrival in the emergency department. Allergies Allergy/AdvReac Type Severity Reaction Status Date / Time Penicillins Allergy Severe RASH, Verified 10/18/14 15:02 CHEST HEAVINESS, SOB sulfamethoxazole Allergy Intermediate Rash Unverified 04/30/23 11:11 [From Bactrim] trimethoprim [From Bactrim] Allergy Intermediate Rash Unverified 04/30/23 11:11 Home Medications Medication Instructions Recorded Confirmed Type ascorbic acid (vitamin C) 500 mg 1,000 mg PO DAILY 04/30/23 05/24/24 History tablet (Vitamin C) gabapentin 300 mg capsule 300 mg PO DAILY 04/30/23 05/24/24 History insulin aspart U-100 100 unit/mL See Rx Instructions .Route .COMPLEX 04/30/23 05/24/24 History subcutaneous solution (Novolog U-100 Insulin aspart) semaglutide 1 mg/dose (4 mg/3 mL) 2 mg subcut WK 04/30/23 05/24/24 History subcutaneous pen injector (Ozempic) venlafaxine 75 mg tablet 75 mg PO QPM 04/30/23 05/24/24 History zolpidem 5 mg tablet 5 mg PO HS Insomnia 04/30/23 05/24/24 History cetirizine 10 mg tablet (Zyrtec) 10 mg PO HS 06/29/23 05/24/24 History omeprazole 20 mg capsule,delayed 20 mg PO DAILY 06/29/23 05/24/24 History release acetone (urine) test (Ketone Urine #100 ea 07/01/23 Rx Test strips) biotin 5,000 mcg sublingual tablet 5,000 mcg sublingual DAILY 02/14/24 05/24/24 History etanercept 50 mg/mL (1 mL) 50 mg subcut WK 02/14/24 05/24/24 History subcutaneous pen injector (Enbrel SureClick) gabapentin 300 mg capsule 600 mg PO HS 02/14/24 05/24/24 History insulin aspart U-100 100 unit/mL See Rx Instructions .Route .COMPLEX 02/14/24 05/24/24 History (3 mL) subcutaneous pen (Novolog FlexPen U-100 Insulin aspart) lisinopril 5 mg tablet 5 mg PO DAILY 02/14/24 05/24/24 History rosuvastatin 40 mg tablet 40 mg PO HS 02/14/24 05/24/24 History melatonin 2 gummy PO HS 05/24/24 05/24/24 History Patient History Medical History Plantar fasciitis Osteoarthritis Ankylosing spondylitis Superficial venous thrombosis of right arm Hydronephrosis, right Cervical stenosis of spinal canal Tobacco abuse Depression Dyslipidemia Diabetes mellitus, type 2 Surgical History History of cholecystectomy H/O cervical spine surgery History of breast surgery S/P removal of right ovary H/O shoulder surgery S/P hysterectomy S/P carpal tunnel release Social History Smoking Status: Current every day smoker Tobacco Type: Cigarettes Cigarettes Per Day: 10; Second Hand Exposure: Yes; Do You Dip or Chew Tobacco: No; Hx Alcohol Use: Yes Alcohol type: beer Hx Substance Use: No Preferred Language: Ukrainian Communication Ability: Effective Civil Celebrant Required: No Beliefs That Will Affect Care: None 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: Alone 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 nontoxic. Skin: Warm, dry, Head: Atraumatic Ears, nose, mouth and throat: airway patent Cardiovascular: Normal peripheral perfusion, tachycardia noted on bedside monitor Respiratory: no respiratory distress Gastrointestinal: Non distended, no organomegaly nontender nonsurgical abdomen Musculoskeletal: No deformity Results & Data Results & Data Vital Signs (Past 12 Hours) Vital Signs Temp Pulse Pulse Resp BP BP Pulse Ox 05/24/24 16:43 108 H 05/24/24 16:06 105 H 20 99 05/24/24 15:00 104 H 21 128/61 99 05/24/24 13:53 107 H 17 145/82 H 100 05/24/24 12:49 101 H 03/30/25 11:58 36.9 C 101 H 19 130/83 100 O2 Del Method 05/24/24 16:43 05/24/24 16:06 Room Air 05/24/24 15:00 Room Air 05/24/24 13:53 Room Air 05/24/24 12:49 05/24/24 11:58 Room Air Critical Care Results & Data Vital Signs (Past 12 Hours) Vital Signs Temp Pulse Pulse Resp BP BP Pulse Ox 05/24/24 16:43 108 H 05/24/24 16:06 105 H 20 99 05/24/24 15:00 104 H 21 128/61 99 05/24/24 13:53 107 H 17 145/82 H 100 05/24/24 12:49 101 H 05/24/24 11:58 36.9 C 101 H 19 130/83 100 O2 Del Method 05/24/24 16:43 05/24/24 16:06 Room Air 05/24/24 15:00 Room Air 05/24/24 13:53 Room Air 05/24/24 12:49 05/24/24 11:58 Room Air Lab & Micro Results (Past 24 Hours) RBC 5.16 M/uL (4.20-5.40) 05/24/24 WBC 13.84 K/ul (4.8-10.8) H 05/24/24 Hgb 14.7 g/dl (12.0-16.0) 05/24/24 Hct 45.6 % (37.0-47.0) 05/24/24 MCV 88.4 fL (80.0-100.0) 05/24/24 MCH 28.5 pg (25.0-34.0) 05/24/24 MCHC 32.2 g/dL (32.0-36.0) 05/24/24 RDW Standard Deviation 39.2 fL (36.4-46.3) 05/24/24 RDW Coefficient of Variation 12.0 % (11.5-14.5) 05/24/24 Plt Count 359 K/uL (130-400) 05/24/24 MPV 10.2 fL (9.4-12.4) 05/24/24 Neutrophils (%) (Auto) 72.0 % 05/24/24 Lymphocytes (%) (Auto) 19.6 % 05/24/24 Monocytes # (Auto) 0.89 K/uL (0.11-0.59) H 05/24/24 Eosinophils # (Auto) 0.08 K/uL (0.00-0.50) 05/24/24 Immature Granulocyte % (Auto) 0.7 % 05/24/24 Neutrophils # (Auto) 9.98 K/uL (1.40-6.50) H 05/24/24 Lymphocytes # (Auto) 2.71 K/uL (1.20-3.40) 05/24/24 Monocytes # (Auto) 0.89 K/uL (0.11-0.59) H 05/24/24 Eosinophils # (Auto) 0.08 K/uL (0.00-0.50) 05/24/24 Basophils # (Auto) 0.09 K/uL (0.00-0.20) 05/24/24 Immature Granulocyte # (Auto) 0.09 K/uL (0.01-0.20) 5 Na 129 mmol/L (136-145) L 05/24/24 K 5.1 mmol/L (3.5-5.1) 05/24/24 Cl 94 mmol/L (98-107) L 05/24/24 CO2 10 mmol/L (21-32) L 05/24/24 Anion Gap 25 (3-11) H 05/24/24 BUN 16 mg/dl (6-23) 05/24/24 Creatinine 1.20 mg/dl (0.6-1.2) 05/24/24 BUN/Creatinine Ratio 13.3 (10-20) 05/24/24 Glu 606 mg/dl (70-99(Fasting)) H* 05/24/24 Ca 10.0 mg/dl (8.6-10.3) 05/24/24 Total Bilirubin 0.5 mg/dl (0.2-1.0) 05/24/24 AST 24 U/L (13-39) 05/24/24 ALT 26 U/L (7-52) 05/24/24 Alkaline Phosphatase 104 U/L (34-104) 05/24/24 TP 8.1 gm/dl (6.0-8.3) 05/24/24 Albumin 4.9 gm/dl (3.4-5.0) 05/24/24 Globulin 3.2 gm/dl (2.5-4.0) 05/24/24 Albumin/Globulin Ratio 1.5 (0.9-2) 05/24/24 Mg 2.0 mg/dl (1.7-2.4) 05/24/24 12:21 Calcium Level 10.0 mg/dl (8.6-10.3) 05/24/24 12:21 Venous Blood pH 7.06 (7.36-7.41) L 05/24/24 14:41 Venous Blood Partial Pressure CO2 28 mmHg (38-50) L 05/24/24 14 :41 Venous Blood Partial Pressure O2 32 mmHg 05/24/24 14:41 Venous Blood HCO3 8 mmol/L 05/24/24 14:41 Venous Blood Base Excess -21.2 mEq/L 05/24/24 14:41 Venous Blood Oxygen Saturation < 60.0 % 05/24/24 14:41 Diagnostic Findings (Past 24 Hours) Chest X-Ray 05/24/24 12:11 INDICATION: Fever TECHNIQUE: Frontal radiograph of the chest. COMPARISON: 04/30/2023. FINDINGS: The cardiomediastinal silhouette and pulmonary vasculature appear within normal limits. No infiltrate, pleural effusion or pneumothorax. No acute osseous abnormality evident. IMPRESSION: No acute cardiopulmonary process. Electronically signed by Darek Mirza 05-24-2024 2:06 PM I & O Totals 24 Hours 05/23/24 05/24/24 05/25/24 06:59 06:59 06:59 Intake Total 2063. / 2063. Balance 2063.04 / 2063.04 Cumulative 05/24/24 11:53 thru 05/24/24 16:40 Intake Total 2063. Balance 2063.04 RT Ventilator Mngmt (Last Documented) Ventilator Ordered Settings Respiratory Rate 20 05/24/24 16:06 Ventilator - PT Measurements Respiratory Rate 20 Coding Level of Care Code 41395 IN/OBS CONSULT LVL 4,60M Diagnoses DKA (diabetic ketoacidosis) E11.10 Ankylosing spondylitis M45.9
[2024-05-24 17:34] LABS: Base Excess VBG -17.1 mEq/L; HCO3 VBG 10 mmol/L; Oxygen Saturation VBG 84.2 %; PCO2 VBG 26 mmHg (38-50); PO2 VBG 51 mmHg; pH VBG 7.18 (7.36-7.41)
[2024-05-24] MEDS: ENOXAPARIN INJ 40 MG/0.4 ML SYR SQ SCH (17:40)
[2024-05-24 17:57] LABS: Albumin Globulin Ratio 1.7 (0.9-2); Albumin Level 4.3 gm/dl (3.4-5.0); BUN Creatinine Ratio 15.8 (10-20); Bilirubin,Total 0.3 mg/dl (0.2-1.0); Calcium 8.9 mg/dl (8.6-10.3); Creatinine Clr Calc Pharmacy 58.8 ml/min; Globulin 2.6 gm/dl (2.5-4.0); Magnesium 1.7 mg/dl (1.7-2.4); Phosphorus 2.5 mg/dl (2.5-4.9); Potassium 4.2 mmol/L (3.5-5.1); Total Protein 6.9 gm/dl (6.0-8.3)
[2024-05-24] MEDS ORDERED: SODIUM CHLORIDE 0.9% 1,000 ML IV SCH (18:30)
[2024-05-24] MEDS: D5W AND 1/2NSS + 20MEQ KCL 20 MEQ/1,000 ML BAG IV SCH (19:24)
[2024-05-24] MEDS: ZOLPIDEM TARTRATE 5 MG TAB PO SCH (20:36)
[2024-05-24] MEDS: MELATONIN 3 MG TAB PO SCH (20:37)
[2024-05-24] MEDS: ROSUVASTATIN CALCIUM 20 MG TAB PO SCH (20:37)
[2024-05-24] MEDS: VENLAFAXINE HCL 37.5 MG TAB PO SCH (20:37)
[2024-05-24] MEDS: CETIRIZINE HCL 10 MG TABLET PO SCH (20:38)
[2024-05-24] MEDS: GABAPENTIN 300 MG CAP PO SCH (20:38)
[2024-05-24 20:42] LABS: Calcium 8.9 mg/dl (8.6-10.3); Magnesium 1.7 mg/dl (1.7-2.4); Potassium 4.4 mmol/L (3.5-5.1)
[2024-05-24 20:48] LABS: BUN Creatinine Ratio 14.6 (10-20); Creatinine Clr Calc Pharmacy 58.2 ml/min; Phosphorus 3.2 mg/dl (2.5-4.9)
[2024-05-24] MEDS: ACETAMINOPHEN 325 MG TAB PO PRN (21:50)
[2024-05-25 01:00] LABS: BUN Creatinine Ratio 15.7 (10-20); Calcium 8.8 mg/dl (8.6-10.3); Creatinine Clr Calc Pharmacy 62.8 ml/min; Magnesium 1.7 mg/dl (1.7-2.4); Potassium 4.1 mmol/L (3.5-5.1)
[2024-05-25 04:54] LABS: BUN Creatinine Ratio 15.2 (10-20); Calcium 8.7 mg/dl (8.6-10.3); Creatinine Clr Calc Pharmacy 70.8 ml/min; Magnesium 1.7 mg/dl (1.7-2.4); Phosphorus 2.7 mg/dl (2.5-4.9); Potassium 3.9 mmol/L (3.5-5.1)
[2024-05-25] MEDS: GABAPENTIN 300 MG CAP PO SCH (08:02)
[2024-05-25] MEDS: ASCORBIC ACID 500 MG TAB PO SCH (08:02)
[2024-05-25] MEDS: VENLAFAXINE HCL 50 MG TAB PO SCH (08:02)
[2024-05-25] MEDS: PANTOprazole 40 MG TAB PO SCH (08:03)
[2024-05-25 08:05] LABS: Estimated Average Glucose 289 mg/dl; Hemoglobin A1C 11.7 % (4.5-5.6)
[2024-05-25] MEDS: INSULIN ASPART PER UNIT CHARGE SC SCH ×2 (08:10→12:10)
[2024-05-25] MEDS ORDERED: GLUCAGON FOR INJ 1 MG VIAL SQ PRN (08:15)
[2024-05-25] MEDS ORDERED: CARBOHYDRATES FOR HYPOGLYCEMIA PO PRN (08:15)
[2024-05-25] MEDS ORDERED: GLUCOSE 10 TAB/TUBE PO PRN (08:15)
[2024-05-25] MEDS ORDERED: GLUCOSE 40% GEL 15 GM TUBE PO PRN (08:15)
[2024-05-25] MEDS ORDERED: DEXTROSE 50% 50 ML SYRINGE IV PRN (08:15)
[2024-05-25] MEDS: LANTUS PER UNIT CHARGE SQ ONE (08:18)
[2024-05-25] MEDS: SODIUM CHLOR 0.45% + 20MEQ KCL 20 MEQ/1,000 ML BAG IV SCH (08:44)
[2024-05-25 09:00] LABS: BUN Creatinine Ratio 13.7 (10-20); Creatinine Clr Calc Pharmacy 78.9 ml/min; Magnesium 1.8 mg/dl (1.7-2.4); Phosphorus 2.6 mg/dl (2.5-4.9); Potassium 3.6 mmol/L (3.5-5.1)
[2024-05-25] MEDS ORDERED: NON-FORMULARY MEDICATION (Biotin 5,000 mcg Tablet, Sublingual) SL SCH (09:00)
[2024-05-25] MEDS: DC IV INSULIN INFUSION 1 EA DEVI ONE (11:25)
[2024-05-25 13:14] LABS: BUN Creatinine Ratio 10.9 (10-20); Calcium 8.4 mg/dl (8.6-10.3); Creatinine Clr Calc Pharmacy 62.6 ml/min; Magnesium 1.6 mg/dl (1.7-2.4); Phosphorus 2.7 mg/dl (2.5-4.9); Potassium 4.1 mmol/L (3.5-5.1)
[2024-05-25] MEDS: MAGNESIUM SULFATE / D5W 1 GM/100 ML BAG IV SCH (13:46)
--- NOTE | 2024-05-25 14:09 | Pharmacy Report ---
Pharmacy Glycemic Short Note 2 - Date of Service May 25, 2024 - Glycemic Short BSG Results (Last 24 hours): 05/24/24 05/24/24 05/24/24 14:31 15:34 16:35 Glucose POC Glucose 526 H* 418 H* 294 H 05/24/24 05/24/24 05/24/24 17:22 17:38 18:30 Glucose 248 H POC Glucose 211 H 174 H 05/24/24 05/24/24 05/24/24 19:27 20:11 20:26 Glucose 153 H POC Glucose 185 H 128 H 05/24/24 05/24/24 05/24/24 21:46 22:43 23:48 Glucose POC Glucose 113 H 113 H 158 H 05/25/24 05/25/24 05/25/24 00:20 00:48 01:41 Glucose 167 H POC Glucose 164 H 152 H 05/25/24 05/25/24 05/25/24 02:36 04:15 04:28 Glucose 133 H POC Glucose 145 H 139 H 05/25/24 05/25/24 05/25/24 05:46 06:51 07:50 Glucose POC Glucose 116 H 107 H 127 H 05/25/24 05/25/24 05/25/24 08:14 08:54 09:53 Glucose 107 H POC Glucose 104 H 107 H 05/25/24 05/25/24 11:05 12:24 Glucose 242 H POC Glucose 111 H OUTPATIENT ANTIDIABETIC REGIMEN: * NovoLog pump (02/17 Basal ~24 units/day, CF 40, CR 11) * Ozempic 2mg SQ QMon * HbA1c ASSESSMENT: * Carolyn is a 53 year old female admitted with DKA/possible sepsis and a history of type 2 diabetes mellitus on a NovoLog pump outpatient. Pharmacy has been consulted to assist with glycemic management while inpatient. * BSGs elevated upon admission, anion gap elevated, CO2 low, VBG pH low. The decision was made to begin and insulin drip, BSGs trended down overnight and acidosis improved greatly. * Discussed case with Dr. Atwood, will transition to SQ insulin at this time to ensure insulin dosing. Dextrose was removed from fluids, and basal insulin given to begin transition. Insulin drip stopped with lunch time, BSGs reasonable. Continue insulin parameters based on previous admission PLAN FOR INPATIENT GLYCEMIC CONTROL: * Hold outpatient diabetes medications * Basal insulin * Lantus 20 units SQ x1 * Lantus 0-5 units HS based on BSG x1 (if BSG is greater than 160mg/dL, give 5 units) * Bolus insulin * NovoLog per scale ACHS or Q6hrs while NPO * Goal Range: Low 110 mg/dL - High 140 mg/dL * Correction Factor: 40 mg/dL/unit * Nutritional / Prandial insulin per carb ratio of 1 unit per 11 grams CHO consumed
[2024-05-25] MEDS: LANTUS PER UNIT CHARGE SC STA (16:43)
--- NOTE | 2024-05-25 16:43 | Hospitalist Progress Note ---
Date of Service May 25, 2024 Assessment & Plan (1) DKA (diabetic ketoacidosis): Plan #N/v, weakness likely 2/2 DKA, resolved #Lactic acidosis, likely 2/2 above, improving -gap closed x2 -patient now on subq insulin -likely 2/2 missed or inadequate insulin doses, elevated A1c -denies any illnesses recently, does have seasonal allergies Plan: -appreciate pharmacy assistance with insulin and glycemic management -video game tester and toll relief operator consults -likely discharge tomorrow #Hyponatremia -monitor #Allergies, HLD, MDD #Ankylosing spondylitis #Insomnia, GERD -home meds I spent a total of 45 minutes in direct patient care, including [id number] time with the patient and/or family, reviewing medical records, ordering and reviewing diagnostic tests, and coordinating care with other healthcare providers. This time includes: history taking, physical examination, medical decision making, counseling, ECG interpretation, imaging interpretation, lab interpretation, orders, and education, excluding time spent in the performance of separately billed services. Admission and Anticipated Discharge Date Admission Date: May 24, 2024 Subjective Patient seen and examined at bedside. Patient states she has been very stressed out and not staying on top of her insulin regimen. Very motivated motivated to improve. Review of Systems Review of Systems: CONSTITUTIONAL: some fatigue today EYES: Patient denies any visual symptoms. EARS, NOSE, AND THROAT: No difficulties with hearing. No symptoms of rhinitis or sore throat. CARDIOVASCULAR: Patient denies chest pains, palpitations, orthopnea and paroxysmal nocturnal dyspnea. RESPIRATORY: No dyspnea on exertion, no wheezing or cough. GI: No nausea, vomiting, diarrhea, constipation, abdominal pain, hematochezia or melena. : No urinary hesitancy or dribbling. No nocturia or urinary frequency. No abnormal urethral discharge. MUSCULOSKELETAL: No myalgias or arthralgias. NEUROLOGIC: No chronic headaches, no seizures. Patient denies numbness, tingling or weakness. PSYCHIATRIC: Patient denies problems with mood disturbance. No problems with anxiety. ENDOCRINE: No excessive urination or excessive thirst. DERMATOLOGIC: Patient denies any rashes or skin changes. Physical Exam Physical Exam: Gen: A&O 3 NAD HEENT: NCAT, EOMI, not icteric. External ears normal. No rhinorrhea. Moist mucous membranes. Neck: Supple, full range of motion, no observable masses, No meningeal sign. Lungs: No Respiratory distress. CV: RRR, no edema. Abdomen: Soft, nondistended, No rebound tenderness. MSK: No joint swelling, no redness. Skin: No rashes, petechiae, lesions. Normal color per patient. Neuro: Normal Gait, Grossly intact. Psych: Appropriate for situation. Results & Data Results & Data Vital Signs (Past 12 Hours) Vital Signs Temp Pulse Resp BP Pulse Ox O2 Del Method 05/25/24 14:17 36.5 C 84 17 101/69 97 Room Air 05/25/24 11:38 36.4 C L 81 18 125/80 100 Room Air 05/25/24 07:41 36.4 C L 79 20 116/73 98 Room Air Laboratory Results -personally reviewed, slightly low Mg 1.6, gap closed x2 (per pharmacy on subq insulin) Medications Administered Acetaminophen (Acetaminophen 325 Mg Tab) 650 mg PO Q4H PRN PRN Reason: Pain or Fever Stop: 06/23/24 21:12 Last Admin: 05/24/24 21:50 Dose: 650 mg Documented By: CARLOS Ascorbic Acid (Ascorbic Acid 500 Mg Tab) 1,000 mg PO DAILY MICHELLE Stop: 06/24/24 08:59 Last Admin: 05/25/24 08:02 Dose: 1,000 mg Documented By: ULISSES Cetirizine HCl (Cetirizine Hcl 10 Mg Tablet) 10 mg PO HS MICHELLE Stop: 06/23/24 20:59 Last Admin: 05/24/24 20:38 Dose: 10 mg Documented By: CARLOS Enoxaparin Sodium (Enoxaparin Inj 40 Mg/0.4 Ml Syr) 40 mg SQ PM MICHELLE Stop: 06/23/24 16:14 Last Admin: 05/24/24 17:40 Dose: 40 mg Documented By: CEDRIC Gabapentin (Gabapentin 300 Mg Cap) 300 mg PO DAILY MICHELLE Stop: 06/24/24 08:59 Last Admin: 05/25/24 08:02 Dose: 300 mg Documented By: ULISSES Gabapentin (Gabapentin 300 Mg Cap) 600 mg PO HS MICHELLE Stop: 06/23/24 20:59 Last Admin: 05/24/24 20:38 Dose: 600 mg Documented By: CARLOS Potassium Chloride/Sodium Chloride (1/2 Nss + 20meq Kcl 1000ml) 20 meq in 1,000 mls @ 75 mls/hr IV .[id number] MICHELLE Stop: 06/24/24 07:59 Last Admin: 05/25/24 08:44 Dose: 75 mls/hr Documented By: ULISSES Magnesium Sulfate/Dextrose (Magnesium Sulfate / D5w) 1 gm in 100 mls @ 50 mls/hr IV Q2H MICHELLE Stop: 05/25/24 17:29 Last Admin: 05/25/24 15:35 Dose: 50 mls/hr Documented By: Infusion: 05/25/24 15:35 Dose: Infused Documented By: Admin: 05/25/24 13:46 Dose: 50 mls/hr Documented By: ULISSES Insulin Aspart (Insulin Aspart Per Unit Charge) 0 units SC ACHS MICHELLE Stop: 06/24/24 11:29 Last Admin: 05/25/24 12:10 Dose: 4 units Documented By: ULISSES Co-signed By: PK Melatonin (Melatonin 3 Mg Tab) 12 mg PO HS MICHELLE Stop: 06/23/24 20:59 Last Admin: 05/24/24 20:37 Dose: 12 mg Documented By: LMP Pantoprazole Sodium (Pantoprazole 40 Mg Tab) 40 mg PO DAILY MICHELLE Stop: 06/24/24 08:59 Last Admin: 05/25/24 08:03 Dose: 40 mg Documented By: ULISSES Rosuvastatin Calcium (Rosuvastatin Calcium 20 Mg Tab) 40 mg PO HS MICHELLE Stop: 06/23/24 20:59 Last Admin: 05/24/24 20:37 Dose: 40 mg Documented By: LMP Venlafaxine HCl (Venlafaxine Hcl 37.5 Mg Tab) 75 mg PO QPM MICHELLE Stop: 06/23/24 20:59 Last Admin: 05/24/24 20:37 Dose: 75 mg Documented By: LMP Venlafaxine HCl (Venlafaxine Hcl 50 Mg Tab) 150 mg PO QAM MICHELLE Stop: 06/24/24 08:59 Last Admin: 05/25/24 08:02 Dose: 150 mg Documented By: ULISSES Zolpidem Tartrate (Zolpidem Tartrate 5 Mg Tab) 5 mg PO HS MICHELLE Stop: 06/23/24 20:59 Last Admin: 05/24/24 20:36 Dose: 5 mg Documented By: LMP
[2024-05-25] MEDS ORDERED: LANTUS PER UNIT CHARGE SC SCH (21:00)
[2024-05-25 23:19] VITALS: RESP 18
[2024-05-26] MEDS: INSULIN ASPART PER UNIT CHARGE SC SCH
[2024-05-26 06:52] LABS: Albumin Globulin Ratio 1.6 (0.9-2); Albumin Level 3.9 gm/dl (3.4-5.0); BUN Creatinine Ratio 14.7 (10-20); Bilirubin,Total 0.3 mg/dl (0.2-1.0); Calcium 8.8 mg/dl (8.6-10.3); Creatinine Clr Calc Pharmacy 84.6 ml/min; Globulin 2.5 gm/dl (2.5-4.0); Magnesium 1.9 mg/dl (1.7-2.4); Phosphorus 3.2 mg/dl (2.5-4.9); Potassium 3.8 mmol/L (3.5-5.1); Total Protein 6.4 gm/dl (6.0-8.3)
[2024-05-26 06:54] LABS: Hematocrit (blood only) 37.8 % (37.0-47.0); Hemoglobin 12.8 g/dl (12.0-16.0); Mean Corpuscular Hgb Conc 33.9 g/dL (32.0-36.0); Mean Corpuscular Volume 82.7 fL (80.0-100.0); Platelet Count 260 K/uL (130-400); RDW Standard Deviation 36.4 fL (36.4-46.3); Red Blood Count 4.57 M/uL (4.20-5.40); White Blood Count 4.31 K/ul (4.8-10.8)
[2024-05-26 07:36] VITALS: TEMP 97.7; O2SAT 99
[2024-05-26 11:30] VITALS: BP 101/69; PULSE 76
[2024-05-26] MEDS ORDERED: LANTUS PER UNIT CHARGE SC SCH (11:30)
--- NOTE | 2024-05-26 19:52 | Discharge Summary ---
Discharge Summary Date of Service May 26, 2024 Principal Dx & Hospital Course #1 = Principal Diagnosis (1) DKA (diabetic ketoacidosis): Plan #N/v, weakness likely 2/2 DKA, resolved #Lactic acidosis, likely 2/2 above, improving -gap closed x2 -patient now on subq insulin -likely 2/2 missed or inadequate insulin doses, elevated A1c -denies any illnesses recently, does have seasonal allergies Plan: -appreciate pharmacy assistance with insulin and glycemic management -extension educator and reserves clerk consults #Hyponatremia -monitor #Allergies, HLD, MDD #Ankylosing spondylitis #Insomnia, GERD -home meds Notes For Next Care Provider 52F pm IDDM on insulin pump, ankylosing spondylitis, depression, history of superficial thrombophlebitis s/p treatment with Xarelto, htn, gerd, hld, insomnia, mdd who presents with n/v, weakness. Found to be in DKA, admitted for DKA protocol, gap closed x2, switched to subq insulin. nurses educator and reserves clerk consulted. On 05/26/2024 patient discharged home with home insulin pump instructions. Medication Changes From Visit -none Admission HPI Per Admitting Provider 52F [facility] IDDM on insulin pump, ankylosing spondylitis, depression, history of superficial thrombophlebitis s/p treatment with Xarelto, htn, gerd, hld, insomnia, mdd who presents with n/v, weakness. Patient states that for the last few days she has been having n/v and weakness. Has been using ketone test strips for her urine showing positivity. Also complains of back pain which is chronic for her 2/2 ankylosing spondylitis as well as feeling like she may have sepsis due to her overall functional status, denies specific urinary complaints besides frequency which she attributes to her sugar being high. Denies discharge, incomplete voiding. States since being in the ED her n/v have resolved, only current symptoms are back pain and weakness. Admission Exam Per Admitting Provider -none Discharge Exam Gen: A&O 3 NAD HEENT: NCAT, EOMI, not icteric. External ears normal. No rhinorrhea. Moist mucous membranes. Neck: Supple, full range of motion, no observable masses, No meningeal sign. Lungs: No Respiratory distress. CV: RRR, no edema. Abdomen: Soft, nondistended, No rebound tenderness. MSK: No joint swelling, no redness. Skin: No rashes, petechiae, lesions. Normal color per patient. Neuro: Normal Gait, Grossly intact. Psych: Appropriate for situation. Updated Medication List Medication Instructions Recorded Confirmed Type ascorbic acid (vitamin C) 500 mg 1,000 mg PO DAILY 04/30/23 05/24/24 History tablet (Vitamin C) gabapentin 300 mg capsule 300 mg PO DAILY 04/30/23 05/24/24 History insulin aspart U-100 100 unit/mL See Rx Instructions .Route .COMPLEX 04/30/23 05/24/24 History subcutaneous solution (Novolog U-100 Insulin aspart) semaglutide 1 mg/dose (4 mg/3 mL) 2 mg subcut WK 04/30/23 05/24/24 History subcutaneous pen injector (Ozempic) venlafaxine 75 mg tablet 75 mg PO QPM 04/30/23 05/24/24 History zolpidem 5 mg tablet 5 mg PO HS Insomnia 04/30/23 05/24/24 History cetirizine 10 mg tablet (Zyrtec) 10 mg PO HS 06/29/23 05/24/24 History omeprazole 20 mg capsule,delayed 20 mg PO DAILY 06/29/23 05/24/24 History release acetone (urine) test (Ketone Urine #100 ea 07/01/23 Rx Test strips) biotin 5,000 mcg sublingual tablet 5,000 mcg sublingual DAILY 02/14/24 05/24/24 History etanercept 50 mg/mL (1 mL) 50 mg subcut WK 02/14/24 05/24/24 History subcutaneous pen injector (Enbrel SureClick) gabapentin 300 mg capsule 600 mg PO HS 02/14/24 05/24/24 History insulin aspart U-100 100 unit/mL See Rx Instructions .Route .COMPLEX 02/14/24 05/24/24 History (3 mL) subcutaneous pen (Novolog FlexPen U-100 Insulin aspart) lisinopril 5 mg tablet 5 mg PO DAILY 02/14/24 05/24/24 History rosuvastatin 40 mg tablet 40 mg PO HS 02/14/24 05/24/24 History melatonin 2 gummy PO HS 05/24/24 05/24/24 History Hospital Stay Data Consultations 05/24/24 14:35 ED Decision to Admit Stat 05/24/24 16:06 Consult Manager Sterile Processing Routine Discharge Instructions Given to Patient (Per Discharging Provider) 1. Please keep close track of your blood sugars and follow up with PCP. 2. Take your medications as prescribed. 1.) Restart insulin pump morning following discharge. 2.) Until insulin pump resumed, provide boluses doses with syringe. 3.) Focus on bolusing for all meals/snacks. 4.) Follow sick-day guidelines with any nausea/vomiting and/or BG values > 250. 5.) Continue to follow-up with outpatient provider for insulin pump dose adjustments. Total Time Total Time Spent Total Time Spent (In Minutes): I spent a total of 35 minutes in direct patient care, including [id number] time with the patient and/or family, reviewing medical records, ordering and reviewing diagnostic tests, and coordinating care with other healthcare providers. This time includes: history taking, physical examination, medical decision making, counseling, ECG interpretation, imaging interpretation, lab interpretation, orders, and education, excluding time spent in the performance of separately billed services.
== END 2024-05-26 12:10 | disposition home or self-care (01) | DRG 638 ==
LOC: ED 11:53 → 2S 16:06 → SUATTDRO 16:06 → 2S 18:21